=== PATIENT | male | born 1970 | race Two or more races ===

== ENCOUNTER 2020-04-21 10:16 | Inpatient (IN) | payer OTHER ==
[~2020-04-21] VITALS: Ht 170.2 cm; Wt 79.5 kg
[2020-04-21] MEDS ORDERED: PANT40TA29 PO (10:26)
[2020-04-21] MEDS ORDERED: NIAC500T64 PO (10:26)
[2020-04-21] MEDS ORDERED: SILD100T PO (10:26)
[2020-04-21] MEDS ORDERED: LOSA50TA88 PO (10:26)
[2020-04-21] MEDS ORDERED: HYDR12.55 PO (10:26)
[2020-04-21 11:06] LABS: BASO % 0.3 % (0.0-1.0); EOS # 0.1 10^3/uL (0.0-0.5); EOS % 0.6 % (0.0-3.0); HEMATOCRIT 29.9 % (42.0-52.0); LYMPH # 0.7 10^3/uL (1.5-5.0); MEAN CORPUSCULAR HEMOGLOBIN 32.5 pg (27.0-33.0); MEAN CORPUSCULAR VOLUME 88.5 fl (80.0-96.0); MONO # 0.8 10^3/uL (0.0-0.8); NEUTROPHILS # 8.5 10^3/uL (1.5-8.5); RED BLOOD COUNT 3.38 10^6/uL (4.30-6.10); WHITE BLOOD COUNT 10.2 10^3/uL (4.0-10.0)
[2020-04-21] MEDS ORDERED: LORazepam 2 MG TAB PO PRN (11:15)
[2020-04-21 11:23] LABS: INR 1.37; PROTHROMBIN TIME 17.2 SECONDS (12.5-14.3)
[2020-04-21 11:25] LABS: PARTIAL THROMBOPLASTIN TIME 53.6 SECONDS (24.2-38.5)
[2020-04-21 11:42] LABS: PLATELET COUNT, AUTOMATED 61 10^3/uL (150-450)
[2020-04-21 11:44] LABS: ALT/SGPT 49 U/L (12-78); BILIRUBIN,DIRECT 13.7 MG/DL (0.0-0.2); BILIRUBIN,TOTAL 18.5 MG/DL (0.2-1.0); BLOOD UREA NITROGEN 17 MG/DL (7-18); CARBON DIOXIDE LEVEL 21 MEQ/L (21-32); CHLORIDE LEVEL 88 MEQ/L (98-107); CREATININE FOR GFR 1.27 MG/DL (0.70-1.30); GLOMERULAR FILTRATION RATE > 60.0 (>60); GLUCOSE, FASTING 128 MG/DL (70-100); LIPASE 519 U/L (73-393); MEAN CORPUSCULAR HGB CONC 36.8 g/dl (32.0-36.5); POTASSIUM SERUM 3.8 MEQ/L (3.5-5.1); SODIUM LEVEL 122 MEQ/L (136-145); TOTAL PROTEIN 7.8 GM/DL (6.4-8.2)
[2020-04-21 12:24] LABS: ETHYL ALCOHOL (ETHANOL) 0.186 % (0.000-0.010)
[2020-04-21] MEDS ORDERED: THIAMINE 100 MG TAB PO ONE (12:30)
[2020-04-21] MEDS ORDERED: FOLIC ACID 1 MG TAB PO ONE (12:30)
[2020-04-21] MEDS ORDERED: MULTIVITAMINS/MINERALS THERAP 1 TAB PO ONE (12:30)
--- NOTE | 2020-04-21 13:29 | REP ---
INDICATION: acute liver failure COMPARISON: None. TECHNIQUE: Real time ly scale ultrasound examination using curved array transducer. FINDINGS: Liver is enlarged and heterogeneous raising the possibility of underlying fatty infiltration and/or hepatocellular disease. Liver measures 21 cm in craniocaudal length. Pancreas is incompletely evaluated due to interposed bowel gas. The gallbladder demonstrates mild chronic wall thickening to 3.8 mm without obvious gallstones, or pericholecystic fluid. No biliary ductal dilatation is appreciated and the common bile duct measures 3.5 mm diameter. Right kidney is normal in reniform shape without hydronephrosis and measures 11.4 x 5.6 x 5.3 cm. No ascites in the visualized right upper quadrant. IMPRESSION: Heterogeneous enlarged liver suggesting hepatosteatosis and/or hepatocellular disease. No focal hepatic lesion identified. <Electronically signed by Mk Plasencia > 04/21/20 [id number]
[2020-04-21] MEDS ORDERED: predniSONE 20 MG TAB PO ONE (13:45)
[2020-04-21] MEDS ORDERED: IBUP200T45 PO (13:54)
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
[2020-04-21] MEDS ORDERED: OXAZEPAM 15 MG CAP PO ONE (15:00)
[2020-04-21 15:50] VITALS: BP 140/82
[2020-04-21] MEDS ORDERED: MULTIVITAMIN -ADULT INJECTION 10 ML, THIAMINE INJection 100 MG, FOLIC ACID 1 MG in NS 1... IV ONE (16:00)
[2020-04-21] MEDS: OXAZEPAM 10 MG CAP PO SCH (17:31)
[2020-04-21] MEDS ORDERED: THIAMINE 100 MG TAB PO SCH (21:00)
[2020-04-21 22:00] VITALS: BP 134/81
[2020-04-21] MEDS ORDERED: IBUPROFEN 400 MG TAB PO ONE (22:15)
[2020-04-22] VITALS (7 sets, daily range): BP systolic 129–154; BP diastolic 73–86
[2020-04-22] MEDS: NIACIN SR (NIASPAN) 500 MG TAB PO SCH ×2 (00:19→20:28)
[2020-04-22] MEDS: OXAZEPAM 10 MG CAP PO SCH ×2 (00:19→05:46)
[2020-04-22 06:55] LABS: HEMATOCRIT 28.4 % (42.0-52.0); HEMOGLOBIN 10.2 g/dl (13.5-17.5); MEAN CORPUSCULAR HEMOGLOBIN 31.9 pg (27.0-33.0); MEAN CORPUSCULAR HGB CONC 35.9 g/dl (32.0-36.5); MEAN CORPUSCULAR VOLUME 88.8 fl (80.0-96.0); WHITE BLOOD COUNT 10.3 10^3/uL (4.0-10.0)
[2020-04-22 07:00] LABS: PLATELET COUNT, AUTOMATED 55 10^3/uL (150-450)
[2020-04-22 07:07] LABS: INR 1.45
[2020-04-22 07:08] LABS: PARTIAL THROMBOPLASTIN TIME 51.3 SECONDS (24.2-38.5)
--- NOTE | 2020-04-22 07:28 | ECGEPIP ---
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
[2020-04-22 07:43] LABS: ALBUMIN 2.6 GM/DL (3.2-5.2); ALT/SGPT 44 U/L (12-78); BILIRUBIN,TOTAL 19.2 MG/DL (0.2-1.0); BLOOD UREA NITROGEN 22 MG/DL (7-18); CALCIUM LEVEL 8.6 MG/DL (8.5-10.1); CARBON DIOXIDE LEVEL 23 MEQ/L (21-32); CHLORIDE LEVEL 94 MEQ/L (98-107); CREATININE FOR GFR 1.16 MG/DL (0.70-1.30); FERRITIN 1889 NG/ML (26-388); GLOMERULAR FILTRATION RATE > 60.0 (>60); GLUCOSE, FASTING 120 MG/DL (70-100); IRON (FE) 148 UG/DL (65-175); PERCENT SATURATION 92.5 % (19.7-50.0); POTASSIUM SERUM 4.1 MEQ/L (3.5-5.1); SODIUM LEVEL 126 MEQ/L (136-145); TOTAL IRON BINDING CAPACITY 160 UG/DL (250-450); TOTAL PROTEIN 7.1 GM/DL (6.4-8.2)
[2020-04-22] MEDS ORDERED: TOLVAPTAN 7.5 MG HALF-TAB PO ONE (09:00)
[2020-04-22] MEDS ORDERED: FOLIC ACID 1 MG TAB PO SCH (09:00)
[2020-04-22] MEDS ORDERED: MULTIVITAMINS/MINERALS THERAP 1 TAB PO SCH (09:00)
[2020-04-22] MEDS ORDERED: TOLVAPTAN 15 MG TAB (SAMSCA) PO ONE (09:15)
[2020-04-22] MEDS ORDERED: PILL CUTTER 1 EACH XX PRN (09:15)
[2020-04-22] MEDS: PANTOPRAZOLE 40MG TAB (PROTONIX) PO SCH (09:30)
[2020-04-22] MEDS: predniSONE 20 MG TAB PO SCH (09:30)
[2020-04-22] MEDS ORDERED: diazePAM 2 MG TAB PO ONE (10:00)
[2020-04-22] MEDS: OXAZEPAM 15 MG CAP PO SCH ×2 (12:44→18:32)
[2020-04-22] MEDS: SODIUM CHLORIDE 1 GM TAB PO SCH ×2 (12:44→18:32)
--- NOTE | 2020-04-22 13:23 | IPNPDOC ---
Date Seen The patient was seen on 04/22/20. Progress Note SUBJECTIVE: no hematemesis, brbpr, abd pain/n/v/fever, abd distention. c/o tremors all night unable to sleep. no paresthesias, visual hallucinations. c/o anxiety and restlessness. PHYSICAL EXAMINATION: VITAL SIGNS: See below GENERAL APPEARANCE: Jaundice and icterus, awake, alert, oriented 3, no conversational dyspnea HEENT icteric, no JVD, or or thyromegaly. No cervical lymphadenopathy. dry mucous membranes. Tongue is midline. Face is symmetric CARDIOVASCULAR: S1, S2, sinus rhythm, no murmurs, rubs or gallops. Nondisplaced point of maximal impulse LUNGS: Clear to auscultation. Air entry is equal. No adventitious breath sounds ABDOMEN: Positive bowel sounds, soft, nontender, nondistended. No hepatosplenomegaly. No rebound, guarding, no CVA tenderness. No fluid wave EXTREMITIES: No cyanosis, clubbing or pitting edema LABORATORY DATA: See below. IMAGING: INDICATION: acute liver failure COMPARISON: None. TECHNIQUE: Real time ly scale ultrasound examination using curved array transducer. FINDINGS: Liver is enlarged and heterogeneous raising the possibility of underlying fatty infiltration and/or hepatocellular disease. Liver measures 21 cm in craniocaudal length. Pancreas is incompletely evaluated due to interposed bowel gas. The gallbladder demonstrates mild chronic wall thickening to 3.8 mm without obvious gallstones, or pericholecystic fluid. No biliary ductal dilatation is appreciated and the common bile duct measures 3.5 mm diameter. Right kidney is normal in reniform shape without hydronephrosis and measures 11.4 x 5.6 x 5.3 cm. No ascites in the visualized right upper quadrant. IMPRESSION: Heterogeneous enlarged liver suggesting hepatosteatosis and/or hepatocellular disease. No focal hepatic lesion identified. MICROBIOLOGY: Please see below. ASSESSMENT: 49-year-old Elana fonseca presents to the emergency room with 2 day history of jaundice initially noticed when he took a shower and took his shirt off and found that his skin was yellow. He had dry heaving while he was in the shower, no fever, chills, vomiting, abdominal pain, bright red blood per rectum, melena, black tarry stools, hematemesis, coffee-ground emesis. He had a similar episode last year when he was admitted to [facility] and diagnosed with alcoholic liver disease and treated for alcoholic hepatitis. Patient denies any history of hepatitis ABC, HIV, and admits to drinking 3-4 beverages with mixed drinks and wine daily. He denies any confusion or history of hepatic encephalopathy, ascites, or prior history of decompensated liver disease with a scites and portal hypertension. No prior history of splenic vein varices or esophageal varices. In the ER, patient was found to have elevated bilirubin, no obstruction on ultrasound. Patient denies any weight gain and says that he's had some weight loss of about 7 pounds. He usually weighs 179 pounds, currently 172 pounds a week and half ago he had some pale stools. No bleeding. Hospitalist was called to admit for acute alcoholic hepatitis. Acute alcoholic hepatitis Decompensated alcoholic liver disease with jaundice Nonobstructive jaundice Alcohol abuse and dependence Hypertension Hyperlipidemia Tobacco abuse, quit Hyponatremia Elevated ammonia without encephalopathy thrombocytopenia due to etoh liver disease anemia of chronic disease w/o overt gi bleed ETOH withdrawal coagulpathy due to etoh liver disease etoh liver steatohepatitis PLAN: continue w prednisone 40 mg daily, no gibleed, ascites, fever, or encephalopathy. supportive care. withdrawal and seizure precautions. no empiric abx until febrile or ascites. no antiplt or anticoagulant due to coagulopathy and thrombocytopenia. compression stockings. no need to give plt transfusion since no spontaneous bleeding noted until plt<10,000, and pt is not undergoing any invasive procedures. AVOID TYLENOL. obtain records from [facility] re: previous liver workup. outpt referral to GI and already counselled about etoh abstinence and etoh rehab program. VS, I&O, 24H, [place] Vital Signs/I&O Vital Signs Date Time Temp Pulse Resp B/P (MAP) Pulse Ox O2 Delivery O2 Flow Rate FiO2 04/22/20 09:45 143/77 04/22/20 06:00 98.8 82 18 97 Room Air I&O- Last 24 Hours up to 6 AM 04/22/20 06:00 Intake Total 1300 ml Balance 1300 ml Laboratory Data 24H LABS Laboratory Tests 2 04/21/20 13:51: Coronavirus (COVID-19)(PCR) NEGATIVE 04/22/20 06:30: Nucleated Red Blood Cells % (auto) 0.0, Prothrombin Time 18.0H, Prothromb Time International Ratio 1.45, Activated Partial Thromboplast Time 51.3H, Anion Gap 9, Glomerular Filtration Rate > 60.0, Calcium Level 8.6, Iron Level 148, Total Iron Binding Capacity 160L, Transferrin % Saturation 92.5H, Ferritin 1889H, Total Bilirubin 19.2*H, Aspartate Amino Transf (AST/SGOT) 170H, Alanine Aminotransferase (ALT/SGPT) 44, Alkaline Phosphatase 299H, Total Protein 7.1, Albumin 2.6L, Albumin/Globulin Ratio 0.6 04/22/20 07:55: CBC/BMP Laboratory Tests 04/22/20 06:30 LASHAE KATZ MD Apr 22, 2020 13:23
[2020-04-22] MEDS: THIAMINE 100 MG TAB PO SCH (20:28)
[2020-04-22] MEDS: MULTIVITAMINS/MINERALS THERAP 1 TAB PO SCH (20:28)
[2020-04-23] MEDS: OXAZEPAM 15 MG CAP PO SCH ×2 (00:24→05:36)
[2020-04-23 06:00] VITALS: BP 122/63
[2020-04-23 07:01] LABS: HEMATOCRIT 28.1 % (42.0-52.0); HEMOGLOBIN 9.8 g/dl (13.5-17.5); MEAN CORPUSCULAR HEMOGLOBIN 31.2 pg (27.0-33.0); MEAN CORPUSCULAR HGB CONC 34.9 g/dl (32.0-36.5); MEAN CORPUSCULAR VOLUME 89.5 fl (80.0-96.0); RED BLOOD COUNT 3.14 10^6/uL (4.30-6.10); WHITE BLOOD COUNT 12.3 10^3/uL (4.0-10.0)
[2020-04-23 07:04] LABS: PLATELET COUNT, AUTOMATED 70 10^3/uL (150-450)
[2020-04-23 07:10] LABS: INR 1.45; PARTIAL THROMBOPLASTIN TIME 44.2 SECONDS (24.2-38.5)
[2020-04-23 07:22] LABS: ACETAMINOPHEN LEVEL < 2.0 UG/ML (10.0-30.0); ALBUMIN 2.6 GM/DL (3.2-5.2); ALT/SGPT 43 U/L (12-78); BILIRUBIN,TOTAL 19.5 MG/DL (0.2-1.0); BLOOD UREA NITROGEN 24 MG/DL (7-18); CALCIUM LEVEL 8.8 MG/DL (8.5-10.1); CARBON DIOXIDE LEVEL 22 MEQ/L (21-32); CHLORIDE LEVEL 101 MEQ/L (98-107); CREATININE FOR GFR 1.13 MG/DL (0.70-1.30); GLOMERULAR FILTRATION RATE > 60.0 (>60); GLUCOSE, FASTING 121 MG/DL (70-100); POTASSIUM SERUM 3.9 MEQ/L (3.5-5.1); SODIUM LEVEL 132 MEQ/L (136-145)
[2020-04-23] MEDS: FOLIC ACID 1 MG TAB PO SCH (10:05)
[2020-04-23] MEDS: SODIUM CHLORIDE 1 GM TAB PO SCH ×3 (10:05→18:13)
[2020-04-23] MEDS: MULTIVITAMINS/MINERALS THERAP 1 TAB PO SCH ×2 (10:05→21:58)
[2020-04-23] MEDS: THIAMINE 100 MG TAB PO SCH ×2 (10:05→21:58)
[2020-04-23] MEDS: PANTOPRAZOLE 40MG TAB (PROTONIX) PO SCH (10:05)
[2020-04-23] MEDS: predniSONE 20 MG TAB PO SCH (10:06)
[2020-04-23 10:20] LABS: HEPATITIS B SURFACE ANTIGEN NEGATIVE (NEGATIVE)
[2020-04-23] MEDS ORDERED: flumazeniL 0.5 MG/5 ML VIAL IV PRN (10:30)
[2020-04-23 10:47] LABS: HEPATITIS B CORE ANTIBODY IGM NEGATIVE (NEGATIVE)
[2020-04-23 10:50] LABS: HEPATITIS A ANTIBODY IGM NEGATIVE (NEGATIVE)
[2020-04-23] MEDS ORDERED: LORazepam 2 MG/ML VIAL IV PRN (11:15)
[2020-04-23] MEDS ORDERED: diazePAM 2 MG TAB PO SCH (12:00)
--- NOTE | 2020-04-23 12:04 | IPNPDOC ---
Date Seen The patient was seen on 04/23/20. Progress Note SUBJECTIVE: Patient remains restless and anxious despite Serax 30 every 6 hourly requesting IV medications for better control of his tremors. He denies any bright red blood per rectum, melena, black tarry stools, hematemesis, no nausea, vomiting, abdominal pain, paresthesias, visual hallucinations, fever, chills, or increasing abdominal distention, no confusion. headache subsided this morning. PHYSICAL EXAMINATION: VITAL SIGNS: See below GENERAL APPEARANCE: Jaundice and icterus, answers questions appropriately, without respiratory distress, tremulous HEENT icteric, no JVD, or or thyromegaly. No cervical lymphadenopathy., Moist mucous membranes. Tongue is midline. Face is symmetric CARDIOVASCULAR: S1, S2, sinus rhythm, no murmurs, rubs or gallops. Nondisplaced point of maximal impulse LUNGS: Clear to auscultation. Air entry is equal. No adventitious breath sounds ABDOMEN: Positive bowel sounds, soft, nontender, nondistended. No hepatosplenomegaly. No rebound, guarding, , No spider angiomata, or fluid wave no CVA tenderness. No no palmar erythema EXTREMITIES: No cyanosis, clubbing or pitting edema LABORATORY DATA: See below. IMAGING: INDICATION: acute liver failure COMPARISON: None. TECHNIQUE: Real time ly scale ultrasound examination using curved array transducer. FINDINGS: Liver is enlarged and heterogeneous raising the possibility of underlying fatty infiltration and/or hepatocellular disease. Liver measures 21 cm in craniocaudal length. Pancreas is incompletely evaluated due to interposed bowel gas. The gallbladder demonstrates mild chronic wall thickening to 3.8 mm without obvious gallstones, or pericholecystic fluid. No biliary ductal dilatation is appreciated and the common bile duct measures 3.5 mm diameter. Right kidney is normal in reniform shape without hydronephrosis and measures 11.4 x 5.6 x 5.3 cm. No ascites in the visualized right upper quadrant. IMPRESSION: Heterogeneous enlarged liver suggesting hepatosteatosis and/or hepatocellular disease. No focal hepatic lesion identified. MICROBIOLOGY: Please see below. ASSESSMENT: 49-year-old Elana fonseca presents to the emergency room with 2 day history of jaundice initially noticed when he took a shower and took his shirt off and found that his skin was yellow. He had dry heaving while he was in the shower, no fever, chills, vomiting, abdominal pain, bright red blood per rectum, melena, black tarry stools, hematemesis, coffee-ground emesis. He had a similar episode last year when he was admitted to [facility] and diagnosed with alcoholic liver disease and treated for alcoholic hepatitis. Patient denies any history of hepatitis ABC, HIV, and admits to drinking 3-4 beverages with mixed drinks and wine daily. He denies any confusion or history of hepatic encephalopathy, ascites, or prior history of decompensated liver disease with ascites and portal hypertension. No prior history of splenic vein varices or esophageal varices. In the ER, patient was found to have elevated bilirubin, no obstruction on ultrasound. Patient denies any weight gain and says that he's had some weight loss of about 7 pounds. He usually weighs 179 pounds, currently 172 pounds a week and half ago he had some pale stools. No bleeding. Hospitalist was called to admit for acute alcoholic hepatitis. Acute alcoholic hepatitis Decompensated alcoholic liver disease with jaundice Nonobstructive jaundice Alcohol abuse and dependence Hypertension, controlled Hyperlipidemia Tobacco abuse, quit Hyponatremia , improved Elevated ammonia without encephalopathy thrombocytopenia due to etoh liver disease anemia of chronic disease w/o overt gi bleed ETOH withdrawal coagulpathy due to etoh liver disease etoh liver steatohepatitis PLAN: Patient is continued on prednisone 40 mg daily. His lisinopril, hydrochlorothiazide, have not be resumed due to severe hyponatremia on admission which is now improved with stopping these medications. Patient's blood pressure has been well maintained on 120 to 1:30 on sedatives despite Serax 30 mg every 6 hourly. Patient continues to have tremors and is requesting IV medications. For his comfort and for alcohol withdrawal. Patient will be changed to Valium 5 mg every 8 hourly along with IV Ativan for breakthrough tremors and alcohol wi thdrawal at this time. His blood pressure medications. Will continue to be held due to normal blood pressure and risk of worsening his sodium level. Despite being on prednisone. His bilirubin continues to increase, which we can see up to 7 days after starting medications. He will need to be on prednisone for at least 4-6 weeks as outpatient. He has been advised about alcohol abuse and potentially going into an alcohol rehabilitation facility. He does not have any active GI bleeding. Platelet counts remain stable and does not require any platelet transfusion. VS, I&O, 24H, [place] Vital Signs/I&O Vital Signs Date Time Temp Pulse Resp B/P (MAP) Pulse Ox O2 Delivery O2 Flow Rate FiO2 04/23/20 06:00 98.8 86 18 122/63 (82) 96 Room Air I&O- Last 24 Hours up to 6 AM 04/23/20 06:00 Intake Total 2130 ml Output Total 1000 ml Balance 1130 ml Laboratory Data 24H LABS Laboratory Tests 2 04/23/20 06:45: Nucleated Red Blood Cells % (auto) 0.0, Immature Platelet Fraction 8.9, Prothrombin Time 18.0H, Prothromb Time International Ratio 1.45, Activated Partial Thromboplast Time 44.2H, Anion Gap 9, Glomerular Filtration Rate > 60.0, Calcium Level 8.8, Total Bilirubin 19.5*H, Aspartate Amino Transf (AST/SGOT) 133H, Alanine Aminotransferase (ALT/SGPT) 43, Alkaline Phosphatase 286H, Total Protein 7.0, Albumin 2.6L, Albumin/Globulin Ratio 0.6, Acetaminophen Level < 2.0L CBC/BMP Laboratory Tests 04/23/20 06:45 LASHAE KATZ MD Apr 23, 2020 12:04
[2020-04-23] MEDS: diazePAM 5 MG TAB PO SCH ×2 (13:06→21:58)
[2020-04-23 14:00] VITALS: BP 125/68
[2020-04-23 16:08] LABS: ANTI CENTROMERE ANTIBODY <0.2 AI (0.0-0.9); ANTI-MITOCHONDRIAL ANTIBODY <20.0 Units (0.0-20.0); ANTI-SMOOTH MUSCLE ANTIBODY 34 Units (0-19); ANTINUCLEAR ANTIBODIES DIRECT Negative (Negative); CERULOPLASMIN 28.6 mg/dL (16.0-31.0)
[2020-04-23] MEDS: NIACIN SR (NIASPAN) 500 MG TAB PO SCH (21:58)
[2020-04-23 22:00] VITALS: BP 136/72
[2020-04-24 06:00] VITALS: BP 137/72
[2020-04-24 06:18] LABS: HEMATOCRIT 28.3 % (42.0-52.0); HEMOGLOBIN 9.9 g/dl (13.5-17.5); MEAN CORPUSCULAR HEMOGLOBIN 31.6 pg (27.0-33.0); MEAN CORPUSCULAR VOLUME 90.4 fl (80.0-96.0); RED BLOOD COUNT 3.13 10^6/uL (4.30-6.10); WHITE BLOOD COUNT 13.1 10^3/uL (4.0-10.0)
[2020-04-24 06:21] LABS: PLATELET COUNT, AUTOMATED 76 10^3/uL (150-450)
[2020-04-24 06:28] LABS: INR 1.49; PROTHROMBIN TIME 18.3 SECONDS (12.5-14.3)
[2020-04-24 06:29] LABS: PARTIAL THROMBOPLASTIN TIME 40.5 SECONDS (24.2-38.5)
[2020-04-24 06:37] LABS: ALBUMIN 2.7 GM/DL (3.2-5.2); ALT/SGPT 47 U/L (12-78); BILIRUBIN,TOTAL 20.9 MG/DL (0.2-1.0); BLOOD UREA NITROGEN 22 MG/DL (7-18); CALCIUM LEVEL 8.8 MG/DL (8.5-10.1); CARBON DIOXIDE LEVEL 23 MEQ/L (21-32); CHLORIDE LEVEL 100 MEQ/L (98-107); GLOMERULAR FILTRATION RATE > 60.0 (>60); GLUCOSE, FASTING 91 MG/DL (70-100); SODIUM LEVEL 130 MEQ/L (136-145)
[2020-04-24] MEDS: diazePAM 5 MG TAB PO SCH ×4 (06:56→23:36)
--- NOTE | 2020-04-24 09:31 | IPNPDOC ---
Date Seen The patient was seen on 04/24/20. Progress Note SUBJECTIVE: still w tremors and anxiety despite q8hrs valium. no n/v/abd pain/paresthesias/visual hallucinations. despite sodium 130, no c/o h/a, visual changes, or decreased concentration or memory issues. PHYSICAL EXAMINATION: VITAL SIGNS: See below GENERAL APPEARANCE: Jaundice and icterus, anxious HEENT icteric, no JVD, or or thyromegaly. no stridor CARDIOVASCULAR: S1, S2, sinus rhythm LUNGS: Clear to auscultation. Air entry is equal.no kyphoscoliosis ABDOMEN: Positive bowel sounds, soft, nontender, nondistended. EXTREMITIES: No cyanosis, clubbing or pitting edema LABORATORY DATA: See below. IMAGING: INDICATION: acute liver failure COMPARISON: None. TECHNIQUE: Real time ly scale ultrasound examination using curved array transducer. FINDINGS: Liver is enlarged and heterogeneous raising the possibility of underlying fatty infiltration and/or hepatocellular disease. Liver measures 21 cm in craniocaudal length. Pancreas is incompletely evaluated due to interposed bowel gas. The gallbladder demonstrates mild chronic wall thickening to 3.8 mm without obvious gallstones, or pericholecystic fluid. No biliary ductal dilatation is appreciated and the common bile duct measures 3.5 mm diameter. Right kidney is normal in reniform shape without hydronephrosis and measures 11.4 x 5.6 x 5.3 cm. No ascites in the visualized right upper quadrant. IMPRESSION: Heterogeneous enlarged liver suggesting hepatosteatosis and/or hepatocellular disease. No focal hepatic lesion identified. MICROBIOLOGY: Please see below. ASSESSMENT: 49-year-old Elana fonseca presents to the emergency room with 2 day history of jaundice initially noticed when he took a shower and took his shirt off and found that his skin was yellow. He had dry heaving while he was in the shower, no fever, chills, vomiting, abdominal pain, bright red blood per rectum, melena, black tarry stools, hematemesis, coffee-ground emesis. He had a similar episode last year when he was admitted to [facility] and diagnosed with alcoholic liver disease and treated for alcoholic hepatitis. Patient denies any history of hepatitis ABC, HIV, and admits to drinking 3-4 beverages with mixed drinks and wine daily. He denies any confusion or history of hepatic encephalopathy, ascites, or prior history of decompensated liver disease with ascites and portal hypertension. No prior history of splenic vein varices or esophageal varices. In the ER, patient was found to have elevated bilirubin, no obstruction on ultrasound. Patient denies any weight gain and says that he's had some weight loss of about 7 pounds. He usually weighs 179 pounds, currently 172 pounds a week and half ago he had some pale stools. No bleeding. Hospitalist was called to admit for acute alcoholic hepatitis. 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 no seizure activity. mrcp to r/o obstructive causes. antismooth ab abnormal. continue prednisone. etoh abstinence. pt not interested in etoh rehab. sedatives to be increased to q6hrs valium due to persistent restlessness. prn iv ativan for breakthrough anxiety. VS, I&O, 24H, Fishbone Vital Signs/I&O Vital Signs Date Time Temp Pulse Resp B/P (MAP) Pulse Ox O2 Delivery O2 Flow Rate FiO2 04/24/20 06:00 98.2 97 16 137/72 (93) 97 Room Air I&O- Last 24 Hours up to 6 AM 04/24/20 06:00 Intake Total 1980 ml Output Total 0 ml Balance 1980 ml Laboratory Data 24H LABS Laboratory Tests 2 04/24/20 05:32: Nucleated Red Blood Cells % (auto) 0.0, Prothrombin Time 18.3H, Prothromb Time International Ratio 1.49, Activated Partial Thromboplast Time 40.5H, Anion Gap 7L, Glomerular Filtration Rate > 60.0, Calcium Level 8.8, Total Bilirubin 20.9*H, Aspartate Amino Transf (AST/SGOT) 115H, Alanine Aminotransferase (ALT/SGPT) 47, Alkaline Phosphatase 250H, Total Protein 7.0, Albumin 2.7L, Albumin/Globulin Ratio 0.6 CBC/BMP Laboratory Tests 04/24/20 05:32 LASHAE KATZ MD Apr 24, 2020 09:31
[2020-04-24] MEDS: predniSONE 20 MG TAB PO SCH (10:04)
[2020-04-24] MEDS: MULTIVITAMINS/MINERALS THERAP 1 TAB PO SCH ×2 (10:04→20:49)
[2020-04-24] MEDS: FOLIC ACID 1 MG TAB PO SCH (10:04)
[2020-04-24] MEDS: PANTOPRAZOLE 40MG TAB (PROTONIX) PO SCH (10:04)
[2020-04-24] MEDS: THIAMINE 100 MG TAB PO SCH ×2 (10:05→20:49)
[2020-04-24] MEDS: SODIUM CHLORIDE 1 GM TAB PO SCH ×3 (10:08→17:01)
[2020-04-24] MEDS ORDERED: hydrOXYzine 25 MG TAB PO ONE (10:30)
[2020-04-24] MEDS ORDERED: SENOKOT S TAB PO PRN (12:00)
[2020-04-24] MEDS: LACTULOSE 20 GM/30 ML SYRUP UD PO SCH ×3 (13:04→18:41)
[2020-04-24 14:00] VITALS: BP 126/66
[2020-04-24] MEDS: NIACIN SR (NIASPAN) 500 MG TAB PO SCH (20:49)
[2020-04-24 22:00] VITALS: BP 120/66
[2020-04-25 06:00] VITALS: BP 115/63
[2020-04-25 06:11] LABS: HEMATOCRIT 26.1 % (42.0-52.0); HEMOGLOBIN 9.2 g/dl (13.5-17.5); MEAN CORPUSCULAR HEMOGLOBIN 32.3 pg (27.0-33.0); MEAN CORPUSCULAR HGB CONC 35.2 g/dl (32.0-36.5); MEAN CORPUSCULAR VOLUME 91.6 fl (80.0-96.0); RED BLOOD COUNT 2.85 10^6/uL (4.30-6.10); WHITE BLOOD COUNT 12.8 10^3/uL (4.0-10.0)
[2020-04-25] MEDS: diazePAM 5 MG TAB PO SCH ×3 (06:13→18:00)
[2020-04-25 06:19] LABS: PLATELET COUNT, AUTOMATED 78 10^3/uL (150-450)
[2020-04-25 06:20] LABS: INR 1.77
[2020-04-25 06:21] LABS: PARTIAL THROMBOPLASTIN TIME 41.8 SECONDS (24.2-38.5)
[2020-04-25 06:53] LABS: ALBUMIN 2.6 GM/DL (3.2-5.2); ALT/SGPT 50 U/L (12-78); BLOOD UREA NITROGEN 22 MG/DL (7-18); CALCIUM LEVEL 8.8 MG/DL (8.5-10.1); CARBON DIOXIDE LEVEL 24 MEQ/L (21-32); CHLORIDE LEVEL 102 MEQ/L (98-107); CREATININE FOR GFR 1.13 MG/DL (0.70-1.30); GLOMERULAR FILTRATION RATE > 60.0 (>60); GLUCOSE, FASTING 108 MG/DL (70-100); POTASSIUM SERUM 3.7 MEQ/L (3.5-5.1); SODIUM LEVEL 133 MEQ/L (136-145); TOTAL PROTEIN 6.6 GM/DL (6.4-8.2)
[2020-04-25 06:54] LABS: BILIRUBIN,TOTAL 20.7 MG/DL (0.2-1.0)
[2020-04-25] MEDS: FOLIC ACID 1 MG TAB PO SCH (08:05)
[2020-04-25] MEDS: THIAMINE 100 MG TAB PO SCH ×2 (08:05→20:23)
[2020-04-25] MEDS: predniSONE 20 MG TAB PO SCH (08:05)
[2020-04-25] MEDS: SODIUM CHLORIDE 1 GM TAB PO SCH ×3 (08:05→17:08)
[2020-04-25] MEDS: PANTOPRAZOLE 40MG TAB (PROTONIX) PO SCH (08:05)
[2020-04-25] MEDS: LACTULOSE 20 GM/30 ML SYRUP UD PO SCH ×3 (08:05→20:23)
[2020-04-25] MEDS: MULTIVITAMINS/MINERALS THERAP 1 TAB PO SCH ×2 (08:06→20:23)
--- NOTE | 2020-04-25 12:56 | IPNPDOC ---
Date Seen The patient was seen on 04/25/20. Progress Note SUBJECTIVE: c/o generalized pruritus, and has prn atarx. no fever, gi bleed, or confusion. comfortable with current valium. ambulating well. denies paresthesias, visual hallucinations, abd pain/ n/v PHYSICAL EXAMINATION: VITAL SIGNS: See below GENERAL APPEARANCE: Jaundice and icterus, no distress.no pallor HEENT icteric, no JVD, or or thyromegaly. no stridor EOMI CARDIOVASCULAR: S1, S2, sinus rhythm LUNGS: Clear to auscultation. Air entry is equal.no adventitious breath sounds. ABDOMEN: Positive bowel sounds, soft, nontender, nondistended. EXTREMITIES: No cyanosis, clubbing or pitting edema LABORATORY DATA: See below. IMAGING: INDICATION: acute liver failure COMPARISON: None. TECHNIQUE: Real time ly scale ultrasound examination using curved array transducer. FINDINGS: Liver is enlarged and heterogeneous raising the possibility of underlying fatty infiltration and/or hepatocellular disease. Liver measures 21 cm in craniocaudal length. Pancreas is incompletely evaluated due to interposed bowel gas. The gallbladder demonstrates mild chronic wall thickening to 3.8 mm without obvious gallstones, or pericholecystic fluid. No biliary ductal dilatation is appreciated and the common bile duct measures 3.5 mm diameter. Right kidney is normal in reniform shape without hydronephrosis and measures 11.4 x 5.6 x 5.3 cm. No ascites in the visualized right upper quadrant. IMPRESSION: Heterogeneous enlarged liver suggesting hepatosteatosis and/or hepatocellular disease. No focal hepatic lesion identified. MICROBIOLOGY: Please see below. ASSESSMENT: 49-year-old Elana fonseca presents to the emergency room with 2 day history of jaundice initially noticed when he took a shower and took his shirt off and found that his skin was yellow. He had dry heaving while he was in the shower, no fever, chills, vomiting, abdominal pain, bright red blood per rectum, melena, black tarry stools, hematemesis, coffee-ground emesis. He had a similar episode last year when he was admitted to [facility] and diagnosed with alcoholic liver disease and treated for alcoholic hepatitis. Patient denies any history of hepatitis ABC, HIV, and admits to drinking 3-4 beverages with mixed drinks and wine daily. He denies any confusion or history of hepatic encephalopa thy, ascites, or prior history of decompensated liver disease with ascites and portal hypertension. No prior history of splenic vein varices or esophageal varices. In the ER, patient was found to have elevated bilirubin, no obstruction on ultrasound. Patient denies any weight gain and says that he's had some weight loss of about 7 pounds. He usually weighs 179 pounds, currently 172 pounds a week and half ago he had some pale stools. No bleeding. Hospitalist was called to admit for acute alcoholic hepatitis. 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 will need gi referral asoutpt Dr. Caceres in 1 wk. bili has plateaud. if continues to decrease and no other complications suchas encephalopathy gi bleed fever with ascites , may dc home once bili trends down. prn atarax for pruritis and trial of cholestyramine. VS, I&O, 24H, Fishbone Vital Signs/I&O Vital Signs Date Time Temp Pulse Resp B/P (MAP) Pulse Ox O2 Delivery O2 Flow Rate FiO2 04/25/20 06:00 99.3 80 16 115/63 (80) 100 Room Air I&O- Last 24 Hours up to 6 AM 04/25/20 06:00 Intake Total 1550 ml Output Total 0 ml Balance 1550 ml Laboratory Data 24H LABS Laboratory Tests 2 04/25/20 05:50: Nucleated Red Blood Cells % (auto) 0.0, Immature Platelet Fraction 6.8, Prothrombin Time 21.0H, Prothromb Time International Ratio 1.77, Activated Partial Thromboplast Time 41.8H, Anion Gap 7L, Glomerular Filtration Rate > 60.0, Calcium Level 8.8, Total Bilirubin 20.7*H, Aspartate Amino Transf (AST/SGOT) 103H, Alanine Aminotransferase (ALT/SGPT) 50, Alkaline Phosphatase 235H, Total Protein 6.6, Albumin 2.6L, Albumin/Globulin Ratio 0.7 CBC/BMP Laboratory Tests 04/25/20 05:50 LASHAE KATZ MD 29, 2020 10:11
[2020-04-25 14:00] VITALS: BP 125/65
--- NOTE | 2020-04-25 19:13 | REP ---
INDICATION: elevated bili r/o cbd obstruction COMPARISON: None. TECHNIQUE: Standard MRCP sequencing without contrast to include heavily weighted T2 axial and coronal sequences with single slice and multi-rotational MIP reconstructions. FINDINGS: The gallbladder demonstrates relatively low signal intensity on T2 weighted sequences along with mild gallbladder wall thickening and mild pericholecystic inflammatory changes. There is no evidence for biliary ductal dilatation. IMPRESSION: *Findings suggest gallbladder sludge and possible acalculous cholecystitis. No biliary ductal dilatation or obstructing choledocholith identified. *Consider contrast enhanced CT of the abdomen if the patient remains symptomatic to evaluate for other possible causes <Electronically signed by Mk Plasencia > 04/25/20 [id number]
[2020-04-25 20:21] VITALS: BP 126/67
[2020-04-25] MEDS: NIACIN SR (NIASPAN) 500 MG TAB PO SCH (20:23)
[2020-04-26] MEDS: diazePAM 5 MG TAB PO SCH ×3 (00:44→12:00)
[2020-04-26 06:00] VITALS: BP 119/66
[2020-04-26] MEDS ORDERED: FOLI1TAB11 PO ×2 (06:43→10:29)
[2020-04-26] MEDS ORDERED: THIA100TA PO ×3 (06:43→10:29)
[2020-04-26] MEDS ORDERED: VITMTA PO ×3 (06:43→10:30)
[2020-04-26] MEDS ORDERED: DIAZ5TAB PO (06:46)
[2020-04-26 06:47] LABS: HEMATOCRIT 27.8 % (42.0-52.0); HEMOGLOBIN 9.5 g/dl (13.5-17.5); MEAN CORPUSCULAR HEMOGLOBIN 31.5 pg (27.0-33.0); MEAN CORPUSCULAR HGB CONC 34.2 g/dl (32.0-36.5); MEAN CORPUSCULAR VOLUME 92.1 fl (80.0-96.0); RED BLOOD COUNT 3.02 10^6/uL (4.30-6.10); WHITE BLOOD COUNT 12.6 10^3/uL (4.0-10.0)
[2020-04-26 06:49] LABS: PLATELET COUNT, AUTOMATED 84 10^3/uL (150-450)
[2020-04-26 06:55] LABS: INR 1.67; PROTHROMBIN TIME 20.1 SECONDS (12.5-14.3)
[2020-04-26 07:22] LABS: ALBUMIN 2.5 GM/DL (3.2-5.2); ALT/SGPT 57 U/L (12-78); BILIRUBIN,TOTAL 19.6 MG/DL (0.2-1.0); BLOOD UREA NITROGEN 16 MG/DL (7-18); CALCIUM LEVEL 9.3 MG/DL (8.5-10.1); CARBON DIOXIDE LEVEL 24 MEQ/L (21-32); CHLORIDE LEVEL 101 MEQ/L (98-107); CREATININE FOR GFR 0.97 MG/DL (0.70-1.30); GLOMERULAR FILTRATION RATE > 60.0 (>60); GLUCOSE, FASTING 96 MG/DL (70-100); POTASSIUM SERUM 3.6 MEQ/L (3.5-5.1); SODIUM LEVEL 132 MEQ/L (136-145); TOTAL PROTEIN 7.1 GM/DL (6.4-8.2)
[2020-04-26] MEDS: PANTOPRAZOLE 40MG TAB (PROTONIX) PO SCH (08:20)
[2020-04-26] MEDS: SODIUM CHLORIDE 1 GM TAB PO SCH ×2 (08:20→13:25)
[2020-04-26] MEDS: MULTIVITAMINS/MINERALS THERAP 1 TAB PO SCH (08:20)
[2020-04-26] MEDS: predniSONE 20 MG TAB PO SCH (08:20)
[2020-04-26] MEDS: FOLIC ACID 1 MG TAB PO SCH (08:20)
[2020-04-26] MEDS: LACTULOSE 20 GM/30 ML SYRUP UD PO SCH (08:20)
[2020-04-26] MEDS: THIAMINE 100 MG TAB PO SCH (08:20)
[2020-04-26] MEDS ORDERED: hydrOXYzine 25 MG TAB PO ONE (10:15)
[2020-04-26] MEDS ORDERED: PRED20TA PO (10:16)
[2020-04-26] MEDS ORDERED: HYDR-3363 PO (10:21)
[2020-04-26] MEDS ORDERED: CHOL4PW PO (10:24)
[2020-04-26] MEDS ORDERED: QUES4POW PO (10:31)
[2020-04-26] MEDS ORDERED: AUGM875T28 PO (10:36)
[2020-04-26] MEDS ORDERED: BACI1CAP PO (10:36)
[2020-04-26] MEDS ORDERED: AUGMENTIN 875 MG TAB PO ONE (10:45)
[2020-04-26] MEDS: LACTOBACILLUS ACIDOPHILUS CAP (BACID) PO SCH ×2 (10:45→12:08)
[2020-04-26] MEDS ORDERED: SODI1TAB6 PO ×2 (11:05→11:07)
--- NOTE | 2020-04-26 11:51 | DS.PDOC ---
Discharge Summary General Date of Admission Apr 21, 2020 at 13:44 Date of Discharge 04/26/20 Discharge Summary DISCHARGE DIAGNOSES: Acute alcoholic hepatitis Decompensated alcoholic liver disease with jaundice Nonobstructive jaundice Alcohol abuse and dependence Hypertension Hyperlipidemia Tobacco abuse, quit Hyponatremia due to hctz, beer potomania, lucia inh. 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 ALLERGIES: Please see below. DISCHARGE INSTRUCTIONS: ETOH rehab program [facility] from alcohol use. Avoid >2grams acetaminophen use /24hrs. if using NSAIDs (ibuprofen, aleve, naproxen), take on a full stomach, 12oz liquid, and remain upright for 1hr. PCP fu within 1 wk. NO HCTZ, LUCIA INH or ARB due to hyponatremia 122. For sbp>130mmHg, may prescribe beta blockers, calcium channel blockers, direct vasodilators until sodium is stable. GI referral, Dr. Caceres for ETOH liver disease, ETOH hepatitis, , and monitor gallbladder sludging to determine if ERCP needed if cbd dilation. HOSPITAL COURSE: 49-year-old Elana fonseca presented to the emergency room with 2 day history of jaundice initially noticed when he took a shower and took his shirt off and found that his skin was yellow. He had dry heaving while he was in the shower, no fever, chills, vomiting, abdominal pain, bright red blood per rectum, melena, black tarry stools, hematemesis, coffee-ground emesis. He had a similar episode last year when he was admitted to [facility] and diagnosed with alcoholic liver disease and treated for alcoholic hepatitis. Patient denies any history of hepatitis ABC, HIV, and admits to drinking 3-4 beverages with mixed drinks and wine daily. He denies any confusion or history of hepatic encephalopathy, ascites, or prior history of decompensated liver disease with ascites and portal hypertension. No prior history of splenic vein varices or esophageal varices. In the ER, patient was found to have elevated bilirubin, no obstruction on ultrasound. Patient denied any weight gain and says that he's had some weight loss of about 7 pounds. He usually weighs 179 pounds, currently 172 pounds a week and half ago he had some pale stools. No bleeding. Hospitalist was called to admit for acute alcoholic hepatitis. Per GI labor relations consultant, Dr. Caceres, who discussed the case with the ER physician, pt was advised to take 4-6weeks of prednisone for alcoholic hepatitis and to have hospitalist admit the patient. Pt given prednisone 40 mg daily with total bilirubin peaking at 20, and decreasing on the day of discharge. He had no ascites, encephalopathy, GI bleed, seizures during his hospital stay. He c/o pruritus treated with atarax and questran. MRCP to rule out CBC dilation showed gall bladder sludging with no CBD dilation. for alcohol withdrawal, pt did not do well with PRN serax, changed to serax q6h with max dose of 120mg daily, but still had tremors, no seizures. He was changed to valium 5 mg po q8hrs prn, but had restlessness. He was controlled on valium 5mg po q6hrs, and received folic acid, thiamine, and mvi. He was counselled at length about etoh rehab and to avoid acetaminophen. was involved in the discussion, and agreed with GI followup. Workup included r/o hemochromatosis, tayla's disease, PSC, PBC, viral hepatitis. He denied any abdominal pain, n/v, and had no fever or ascites throughout the entire admission. Due to findings of chronic cholecystitis, Surgeon labor relations consultant, Dr. Brown, suggested empirically covering with abx x 7days. He was given augmentin x 7days and ppi. Bacid to decrease risk of cdiff. His blood pressure was 120-130 and sodium improved from 122 to 130 off HCTZ and LUCIA inh, with salt tablets w meals. No mental status changes were seen. DISCHARGE MEDICATIONS: Please see below. ALLERGIES: Please see below. DISCHARGE PHYSICAL EXAMINATION: VITAL SIGNS: See below GENERAL APPEARANCE: Jaundice and icterus, no distress.no pallor HEENT icteric, no JVD, or or thyromegaly. no stridor EOMI CARDIOVASCULAR: S1, S2, sinus rhythm LUNGS: Clear to auscultation. Air entry is equal.no adventitious breath sounds. ABDOMEN: Positive bowel sounds, soft, nontender, nondistended. EXTREMITIES: No cyanosis, clubbing or pitting edema LABORATORY DATA: See below. IMAGING: INDICATION: acute liver failure COMPARISON: None. TECHNIQUE: Real time ly scale ultrasound examination using curved array transducer. FINDINGS: Liver is enlarged and heterogeneous raising the possibility of underlying fatty infiltration and/or hepatocellular disease. Liver measures 21 cm in craniocaudal length. Pancreas is incompletely evaluated due to interposed bowel gas. The gallbladder demonstrates mild chronic wall thickening to 3.8 mm without obvious gallstones, or pericholecystic fluid. No biliary ductal dilatation is appreciated and the common bile duct measures 3.5 mm diameter. Right kidney is normal in reniform shape without hydronephrosis and measures 11.4 x 5.6 x 5.3 cm. No ascites in the visualized right upper quadrant. IMPRESSION: Heterogeneous enlarged liver suggesting hepatosteatosis and/or hepatocellular disease. No focal hepatic lesion identified. MICROBIOLOGY: Please see below. TIME SPENT ON DISCHARGE: 30 MINUTES Vital Signs/I&Os Vital Signs Date Time Temp Pulse Resp B/P (MAP) Pulse Ox O2 Delivery O2 Flow Rate FiO2 04/26/20 06:00 98.3 72 19 119/66 (83) 98 Room Air I&O- Last 24 Hours up to 6 AM 04/26/20 06:00 Intake Total 2000 ml Balance 2000 ml Laboratory Data Labs 24H Laboratory Tests 2 04/26/20 06:18: Nucleated Red Blood Cells % (auto) 0.0, Immature Platelet Fraction 8.5, Prothrombin Time 20.1H, Prothromb Time International Ratio 1.67, Activated Partial Thromboplast Time 40.0H, Anion Gap 7L, Glomerular Filtration Rate > 60.0, Calcium Level 9.3, Total Bilirubin 19.6*H, Aspartate Amino Transf (AST/SGOT) 99H, Alanine Aminotransferase (ALT/SGPT) 57, Alkaline Phosphatase 241H, Total Protein 7.1, Albumin 2.5L, Albumin/Globulin Ratio 0.5 CBC/BMP Laboratory Tests 04/26/20 06:18 Discharge Medications Scheduled Amoxicillin/Potassium Clav (Augmentin 875-125 Tablet) 1 Each Tablet, 1 TAB PO BID Bacillus Coagulans (Bacid with Lactospore) 1 Each Capsule, 1 CAP PO WM Cholestyramine (with Sugar) (Questran Packet) 4 Gm Powd.pack, 1 PKT PO DAILY Diazepam (Diazepam) 5 Mg Tablet, 5 MG PO Q6H Folic Acid (Folic Acid) 1 Mg Tablet, 1 MG PO DAILY Multivitamins (Thera M Plus Tablet) 1 Each Tablet, 1 TAB PO BID Niacin (Niacin ER) 500 Mg Tab.er.24h, 500 MG PO QHS, (Reported) Pantoprazole Sodium (Pantoprazole Sodium) 40 Mg Tablet.dr, 40 MG PO DAILY, (Reported) Prednisone (Prednisone) 20 Mg Tablet, 40 MG PO DAILY Sodium Chloride (Sodium Chloride) 1 Gm Tablet, 1 GM PO WM Thiamine Hcl (Vitamin B-1) 100 Mg Tablet, 100 MG PO BID Scheduled PRN Hydroxyzine HCl (Hydroxyzine HCl) 25 Mg Tablet, 25 MG PO TIDP PRN for pruritus Sildenafil Citrate (Sildenafil Citrate) 100 Mg Tablet, 100 MG PO ASDIRECTED PRN for ERECTILE DYSFUNCTION, (Reported) Allergies Coded Allergies: No Known Allergies (Unverified , 04/21/20) LASHAE KATZ MD Apr 26, 2020 11:09
[2020-04-26] MEDS ORDERED: diazePAM 5 MG TAB PO ONE (12:00)
[2020-04-26] MEDS ORDERED: CHOLESTYRAMINE 4 GM PWD PKT PO SCH (12:00)
[2020-04-26] MEDS ORDERED: AUGMENTIN 875 MG TAB PO SCH (21:00)
== END 2020-04-26 13:37 | disposition home or self-care (01) | DRG 433 ==
LOC: M ED 10:16 → EDBD 10:16 → M ED INP 13:44 → ENRESERV 14:00 → M MSPAV 15:51
PROVIDERS: ADMIT General Practice; ATTEND General Practice
DX: K70.10 Alcoholic hepatitis without ascites (principal); E87.1 Hypo-osmolality and hyponatremia; F10.239 Alcohol dependence with withdrawal, unspecified; D69.6 Thrombocytopenia, unspecified; K70.30 Alcoholic cirrhosis of liver without ascites; I10 Essential (primary) hypertension; E78.5 Hyperlipidemia, unspecified; D63.8 Anemia in other chronic diseases classified elsewhere; D72.829 Elevated white blood cell count, unspecified; Z79.899 Other long term (current) drug therapy; Z87.891 Personal history of nicotine dependence; K70.40 Alcoholic hepatic failure without coma

== ENCOUNTER → 2020-04-29 | Outpatient (CLI) | payer OTHER ==
[~2020-04-29] MED LIST: AUGM875T28 PO; BACI1CAP PO; CHOL4PW PO; DIAZ5TAB PO; FOLI1TAB11 PO; HYDR-3363 PO; HYDR12.55 PO; IBUP200T45 PO; LOSA50TA88 PO; NIAC500T64 PO; PANT40TA29 PO; PRED20TA PO; QUES4POW PO; SILD100T PO; SODI1TAB6 PO; THIA100TA PO; VITMTA PO
[2020-04-29 15:27] LABS: BASO % 0.2 % (0.0-1.0); EOS # 0.1 10^3/uL (0.0-0.5); EOS % 0.5 % (0.0-3.0); HEMATOCRIT 28.7 % (42.0-52.0); HEMOGLOBIN 9.7 g/dl (13.5-17.5); LYMPH # 1.3 10^3/uL (1.5-5.0); LYMPH % 7.7 % (24.0-44.0); MEAN CORPUSCULAR HGB CONC 33.8 g/dl (32.0-36.5); MEAN CORPUSCULAR VOLUME 94.7 fl (80.0-96.0); MONO # 1.4 10^3/uL (0.0-0.8); MONO % 8.7 % (0.0-5.0); NEUTROPHILS # 13.2 10^3/uL (1.5-8.5); NEUTROPHILS % 80.3 % (36.0-66.0); PLATELET COUNT, AUTOMATED 124 10^3/uL (150-450); RED BLOOD COUNT 3.03 10^6/uL (4.30-6.10); WHITE BLOOD COUNT 16.4 10^3/uL (4.0-10.0)
[2020-04-29 15:38] LABS: INR 1.4; PROTHROMBIN TIME 17.5 SECONDS (12.5-14.3)
[2020-04-29 17:22] LABS: ALBUMIN 2.4 GM/DL (3.2-5.2); ALT/SGPT 79 U/L (12-78); BILIRUBIN,TOTAL 18.1 MG/DL (0.2-1.0); BLOOD UREA NITROGEN 21 MG/DL (7-18); CALCIUM LEVEL 8.6 MG/DL (8.5-10.1); CARBON DIOXIDE LEVEL 23 MEQ/L (21-32); CHLORIDE LEVEL 101 MEQ/L (98-107); CREATININE FOR GFR 0.96 MG/DL (0.70-1.30); GLOMERULAR FILTRATION RATE > 60.0 (>60); GLUCOSE, FASTING 106 MG/DL (70-100); POTASSIUM SERUM 3.6 MEQ/L (3.5-5.1); SODIUM LEVEL 132 MEQ/L (136-145); TOTAL PROTEIN 6.5 GM/DL (6.4-8.2)
== END ==
LOC: M LAB 14:29
PROVIDERS: ATTEND Internal Medicine Gastroenterology
DX: K70.10 Alcoholic hepatitis without ascites (principal)

== ENCOUNTER → 2020-05-03 | Outpatient (CLI) | payer OTHER ==
[~2020-05-03] MED LIST changes: +LACT20EL PO; +LASI20TA3 PO; +LIDO5OIN19
[2020-05-03 08:12] LABS: BASO # 0.1 10^3/uL (0.0-0.2); BASO % 0.2 % (0.0-1.0); EOS % 0.1 % (0.0-3.0); HEMATOCRIT 32.8 % (42.0-52.0); HEMOGLOBIN 10.6 g/dl (13.5-17.5); LYMPH # 1.3 10^3/uL (1.5-5.0); LYMPH % 4.6 % (24.0-44.0); MEAN CORPUSCULAR HEMOGLOBIN 31.9 pg (27.0-33.0); MEAN CORPUSCULAR HGB CONC 32.3 g/dl (32.0-36.5); MEAN CORPUSCULAR VOLUME 98.8 fl (80.0-96.0); MONO # 1.7 10^3/uL (0.0-0.8); NEUTROPHILS # 23.8 10^3/uL (1.5-8.5); NEUTROPHILS % 86.1 % (36.0-66.0); PLATELET COUNT, AUTOMATED 173 10^3/uL (150-450); RED BLOOD COUNT 3.32 10^6/uL (4.30-6.10); WHITE BLOOD COUNT 27.6 10^3/uL (4.0-10.0)
[2020-05-03 08:24] LABS: INR 1.38; PROTHROMBIN TIME 17.3 SECONDS (12.5-14.3)
[2020-05-03 08:40] LABS: ALBUMIN 2.5 GM/DL (3.2-5.2); ALT/SGPT 103 U/L (12-78); BILIRUBIN,TOTAL 13.9 MG/DL (0.2-1.0); BLOOD UREA NITROGEN 23 MG/DL (7-18); CALCIUM LEVEL 8.6 MG/DL (8.5-10.1); CARBON DIOXIDE LEVEL 25 MEQ/L (21-32); CHLORIDE LEVEL 103 MEQ/L (98-107); CREATININE FOR GFR 0.95 MG/DL (0.70-1.30); GLOMERULAR FILTRATION RATE > 60.0 (>60); GLUCOSE, FASTING 121 MG/DL (70-100); POTASSIUM SERUM 3.9 MEQ/L (3.5-5.1); SODIUM LEVEL 135 MEQ/L (136-145); TOTAL PROTEIN 7.1 GM/DL (6.4-8.2)
== END ==
LOC: M LAB 07:17
PROVIDERS: ATTEND Internal Medicine Gastroenterology
DX: K70.10 Alcoholic hepatitis without ascites (principal)

== ENCOUNTER 2020-05-05 12:08 | Emergency (ER) | payer OTHER ==
[~2020-05-05] VITALS: Ht 167.6 cm; Wt 86.0 kg
[~2020-05-05 12:08] MED LIST changes: -LACT20EL PO; -LASI20TA3 PO; -LIDO5OIN19
[2020-05-05] MEDS ORDERED: PRED20TA PO (12:27)
[2020-05-05] MEDS ORDERED: LIDO5OIN19 (12:27)
[2020-05-05] MEDS ORDERED: LACT20EL PO (12:27)
[2020-05-05 13:29] LABS: BASO % 0.1 % (0.0-1.0); EOS % 0.2 % (0.0-3.0); HEMATOCRIT 30.9 % (42.0-52.0); HEMOGLOBIN 10.3 g/dl (13.5-17.5); LYMPH # 1.1 10^3/uL (1.5-5.0); LYMPH % 5.1 % (24.0-44.0); MEAN CORPUSCULAR HEMOGLOBIN 32.7 pg (27.0-33.0); MEAN CORPUSCULAR HGB CONC 33.3 g/dl (32.0-36.5); MEAN CORPUSCULAR VOLUME 98.1 fl (80.0-96.0); MONO # 1.2 10^3/uL (0.0-0.8); MONO % 5.4 % (0.0-5.0); NEUTROPHILS # 18.8 10^3/uL (1.5-8.5); NEUTROPHILS % 87.9 % (36.0-66.0); PLATELET COUNT, AUTOMATED 132 10^3/uL (150-450); RED BLOOD COUNT 3.15 10^6/uL (4.30-6.10); WHITE BLOOD COUNT 21.4 10^3/uL (4.0-10.0)
[2020-05-05 13:40] LABS: INR 1.44; PROTHROMBIN TIME 17.9 SECONDS (12.5-14.3)
[2020-05-05 13:59] LABS: ALBUMIN 2.3 GM/DL (3.2-5.2); ALT/SGPT 123 U/L (12-78); BILIRUBIN,DIRECT 9.4 MG/DL (0.0-0.2); BILIRUBIN,TOTAL 11.8 MG/DL (0.2-1.0); BLOOD UREA NITROGEN 23 MG/DL (7-18); CALCIUM LEVEL 8.9 MG/DL (8.5-10.1); CARBON DIOXIDE LEVEL 22 MEQ/L (21-32); CHLORIDE LEVEL 104 MEQ/L (98-107); CREATININE FOR GFR 0.93 MG/DL (0.70-1.30); GLOMERULAR FILTRATION RATE > 60.0 (>60); GLUCOSE, FASTING 121 MG/DL (70-100); LIPASE 612 U/L (73-393); NT-PRO BNP 199 PG/ML (<125); POTASSIUM SERUM 3.6 MEQ/L (3.5-5.1); SODIUM LEVEL 134 MEQ/L (136-145); TOTAL PROTEIN 6.3 GM/DL (6.4-8.2)
[2020-05-05] MEDS ORDERED: ISOVUE-370 76% 100ML VIAL As Ordered ONE (14:24)
--- NOTE | 2020-05-05 15:16 | REP ---
INDICATION: abdominal swelling; discomfort COMPARISON: None. TECHNIQUE: CT Scan of the abdomen and pelvis was performed with intravenous administration of 100 cc of Isovue 370, and oral contrast. FINDINGS: Lung bases: There are mild linear fibro atelectatic changes bilaterally. Liver: Liver is mildly enlarged with a length of approximately 19.5 cm. There is diffuse heterogeneity of the liver density with mild diffuse irregularity of the surface of the liver. The findings may indicate cirrhosis. No liver masses seen. Main portal vein measures 14 mm which is upper limits of normal to slightly elevated, possibly indicating portal hypertension. Gallbladder: Gallbladder is collapsed. Spleen: There is mild splenomegaly, the length of the spleen is approximately 13.9 cm. Adrenals: Normal. Pancreas: Normal. Kidneys: Normal. Small and large bowel: Unremarkable. Free fluid: There is mild upper abdominal ascites. There is moderate pelvic ascites. Abdominal aorta: No aneurysm or dissection. Adenopathy: None. Appendix: Not inflamed. Osseous structures: Unremarkable. Pelvis: No mass. A small umbilical hernia contains fat and a small amount of ascites fluid. IMPRESSION: There is mild hepatosplenomegaly. The liver has an appearance suggesting cirrhosis. No liver mass is seen. The gallbladder is collapsed. There is mild abdominal ascites and moderate pelvic ascites. <Electronically signed by Hayden Sheehan > 05/05/20 [id number]
[2020-05-05] MEDS ORDERED: LASI20TA3 PO (16:13)
[2020-05-05] MEDS ORDERED: FUROSEMIDE 20 MG TAB PO ONE (16:15)
[2020-05-05 17:10] VITALS: BP 138/72
== END 2020-05-05 17:13 | disposition home or self-care (01) ==
LOC: M ED 12:08
DX: R60.9 Edema, unspecified (principal); K74.60 Unspecified cirrhosis of liver; R16.2 Hepatomegaly with splenomegaly, not elsewhere classified; R19.7 Diarrhea, unspecified; I10 Essential (primary) hypertension; E78.5 Hyperlipidemia, unspecified; K21.9 Gastro-esophageal reflux disease without esophagitis; Z79.899 Other long term (current) drug therapy
CPT/HCPCS: 36415; 74177; 80048; 80076; 82140; 83690; 83880; 85025; 85610; 99284; Q9967

== ENCOUNTER → 2020-05-10 | Outpatient (CLI) | payer OTHER ==
[~2020-05-10] MED LIST changes: +LACT20EL PO; +LASI20TA3 PO; +LIDO5OIN19
[2020-05-10 16:36] LABS: BASO % 0.2 % (0.0-1.0); EOS % 0.2 % (0.0-3.0); HEMATOCRIT 34.1 % (42.0-52.0); HEMOGLOBIN 10.9 g/dl (13.5-17.5); LYMPH # 1.1 10^3/uL (1.5-5.0); LYMPH % 4.5 % (24.0-44.0); MEAN CORPUSCULAR HEMOGLOBIN 32.4 pg (27.0-33.0); MEAN CORPUSCULAR VOLUME 101.5 fl (80.0-96.0); MONO % 7.9 % (0.0-5.0); NEUTROPHILS # 21.3 10^3/uL (1.5-8.5); NEUTROPHILS % 85.5 % (36.0-66.0); RED BLOOD COUNT 3.36 10^6/uL (4.30-6.10); WHITE BLOOD COUNT 24.9 10^3/uL (4.0-10.0)
[2020-05-10 16:43] LABS: PLATELET COUNT, AUTOMATED 91 10^3/uL (150-450)
[2020-05-10 16:56] LABS: ALBUMIN 2.5 GM/DL (3.2-5.2); ALT/SGPT 172 U/L (12-78); BILIRUBIN,TOTAL 9.7 MG/DL (0.2-1.0); BLOOD UREA NITROGEN 21 MG/DL (7-18); CALCIUM LEVEL 9.4 MG/DL (8.5-10.1); CARBON DIOXIDE LEVEL 25 MEQ/L (21-32); CHLORIDE LEVEL 103 MEQ/L (98-107); CREATININE FOR GFR 0.94 MG/DL (0.70-1.30); GLOMERULAR FILTRATION RATE > 60.0 (>60); GLUCOSE, FASTING 134 MG/DL (70-100); POTASSIUM SERUM 4.7 MEQ/L (3.5-5.1); SODIUM LEVEL 134 MEQ/L (136-145); TOTAL PROTEIN 6.8 GM/DL (6.4-8.2)
[2020-05-10 17:18] LABS: INR 1.4; PROTHROMBIN TIME 17.5 SECONDS (12.5-14.3)
== END ==
LOC: M LAB 15:52
PROVIDERS: ATTEND Internal Medicine Gastroenterology
DX: K70.10 Alcoholic hepatitis without ascites (principal)

== ENCOUNTER 2020-05-25 12:39 | Emergency (ER) | payer OTHER ==
[~2020-05-25] VITALS: Ht 165.1 cm; Wt 82.6 kg
[2020-05-25] MEDS ORDERED: SPIR100T3 PO (12:52)
[2020-05-25 13:58] LABS: BASO # 0.1 10^3/uL (0.0-0.2); BASO % 0.3 % (0.0-1.0); EOS # 0.2 10^3/uL (0.0-0.5); HEMATOCRIT 39.6 % (42.0-52.0); HEMOGLOBIN 12.7 g/dl (13.5-17.5); LYMPH # 1.6 10^3/uL (1.5-5.0); LYMPH % 8.2 % (24.0-44.0); MEAN CORPUSCULAR HEMOGLOBIN 33.3 pg (27.0-33.0); MEAN CORPUSCULAR HGB CONC 32.1 g/dl (32.0-36.5); MEAN CORPUSCULAR VOLUME 103.9 fl (80.0-96.0); MONO # 1.5 10^3/uL (0.0-0.8); MONO % 7.6 % (0.0-5.0); NEUTROPHILS % 80.6 % (36.0-66.0); RED BLOOD COUNT 3.81 10^6/uL (4.30-6.10); WHITE BLOOD COUNT 19.9 10^3/uL (4.0-10.0)
[2020-05-25 14:00] LABS: PLATELET COUNT, AUTOMATED 92 10^3/uL (150-450)
[2020-05-25 14:20] LABS: ALT/SGPT 150 U/L (12-78); BILIRUBIN,DIRECT 4.7 MG/DL (0.0-0.2); BILIRUBIN,TOTAL 6.4 MG/DL (0.2-1.0); BLOOD UREA NITROGEN 16 MG/DL (7-18); CALCIUM LEVEL 9.1 MG/DL (8.5-10.1); CARBON DIOXIDE LEVEL 25 MEQ/L (21-32); CHLORIDE LEVEL 95 MEQ/L (98-107); ETHYL ALCOHOL (ETHANOL) < 0.003 % (0.000-0.010); GLOMERULAR FILTRATION RATE > 60.0 (>60); GLUCOSE, FASTING 104 MG/DL (70-100); LIPASE 550 U/L (73-393); POTASSIUM SERUM 3.7 MEQ/L (3.5-5.1); SODIUM LEVEL 130 MEQ/L (136-145); TOTAL PROTEIN 7.2 GM/DL (6.4-8.2)
--- NOTE | 2020-05-25 15:52 | REP ---
INDICATION: abdominal distention; assess for ascites COMPARISON: None. TECHNIQUE: Real time ly scale ultrasound examination using curved array transducer. FINDINGS: Generalized ultrasound examination through the 4 quadrants of the abdomen and pelvis demonstrate moderate to significant amount of ascites. IMPRESSION: Moderate to significant simple ascites. <Electronically signed by Mk Plasencia > 05/25/20 1542
[2020-05-25] MEDS ORDERED: PARACENTESIS (17:11)
[2020-05-25 17:30] VITALS: BP 176/92
== END 2020-05-25 17:56 | disposition home or self-care (01) ==
LOC: M ED 12:39
DX: K70.31 Alcoholic cirrhosis of liver with ascites (principal); R10.9 Unspecified abdominal pain; I10 Essential (primary) hypertension; E78.5 Hyperlipidemia, unspecified; K21.9 Gastro-esophageal reflux disease without esophagitis; Z79.52 Long term (current) use of systemic steroids; Z79.899 Other long term (current) drug therapy
CPT/HCPCS: 36415; 76705; 80048; 80076; 81001; 82140; 83690; 85025; 85049; 85055; 99284; G0480

== ENCOUNTER → 2020-05-31 | Outpatient (CLI) | payer OTHER ==
[~2020-05-31] MED LIST changes: +LIDOCAINE 1% MDV 20ML VIAL As Ordered ONE; +PARACENTESIS; +SODIUM BICARBONATE 8.4% INJ 50MEQ 50 ML VIAL As Ordered ONE; +SPIR100T3 PO
[2020-05-31 12:42] LABS: APPEARANCE, BODY FLUID HAZY (CLEAR); ASCITES FL COLOR YELLOW (COLORLESS); SOURCE, BODY FLUID ASCITES
[2020-05-31 12:55] VITALS: BP 148/76
[2020-05-31 13:31] LABS: SOURCE, BODY FLUID ALBUMIN ASCITES
[2020-05-31 13:35] LABS: SOURCE, BODY FLUID TOT PROTEIN ASCITES; TOTAL PROTEIN, BODY FLUID 0.6 G/DL (NOT ESTABLISHED)
--- NOTE | 2020-05-31 15:19 | REP ---
INDICATION: ASCITES COMPARISON: None. TECHNIQUE: The procedure was performed by BOGDAN Tadeo, under the direct supervision of Dr. Sheehan The risks and benefits of the procedure were explained to the patient and an informed consent was obtained both verbally and written. Directly prior to the start of the procedure a formal time-out was completed in the procedure room. The largest pocket of fluid was localized in the right lower quadrant using ultrasound guidance. The skin was prepped and draped in a sterile fashion. Eleven ML of buffered lidocaine was used as a local anesthetic. An 8-Mongolian multi side-hole catheter was inserted using trocar technique. FINDINGS: 5,050 mL of yellow ascites fluid was removed, 1,300 was sent to the laboratory for further analysis, and the rest was discarded. The patient tolerated the procedure well and there were no immediate complications. After the appropriate amount of monitored convalescence, the patient was discharged from the department. IMPRESSION: Ultrasound-guided paracentesis with removal of 5050 mL of ascites fluid. <Electronically signed by Sheri Man > 05/31/20 [id number] <Electronically signed by Hayden Sheehan > 05/31/20 1516
== END ==
LOC: M IRPRO 11:24 → M LAB 11:24
PROVIDERS: ATTEND Internal Medicine Gastroenterology
DX: K70.11 Alcoholic hepatitis with ascites (principal); K70.31 Alcoholic cirrhosis of liver with ascites

== ENCOUNTER → 2020-06-01 | Outpatient (CLI) | payer OTHER ==
[~2020-06-01] MED LIST changes: -LIDOCAINE 1% MDV 20ML VIAL As Ordered ONE; -SODIUM BICARBONATE 8.4% INJ 50MEQ 50 ML VIAL As Ordered ONE
[2020-06-01 18:11] LABS: BASO % 0.1 % (0.0-1.0); EOS % 0.3 % (0.0-3.0); HEMATOCRIT 38.6 % (42.0-52.0); HEMOGLOBIN 12.6 g/dl (13.5-17.5); LYMPH # 0.7 10^3/uL (1.5-5.0); LYMPH % 4.8 % (24.0-44.0); MEAN CORPUSCULAR HEMOGLOBIN 34.1 pg (27.0-33.0); MEAN CORPUSCULAR HGB CONC 32.6 g/dl (32.0-36.5); MEAN CORPUSCULAR VOLUME 104.3 fl (80.0-96.0); MONO # 0.6 10^3/uL (0.0-0.8); MONO % 4.1 % (0.0-5.0); NEUTROPHILS # 13.3 10^3/uL (1.5-8.5); NEUTROPHILS % 89.4 % (36.0-66.0); WHITE BLOOD COUNT 14.9 10^3/uL (4.0-10.0)
[2020-06-01 18:27] LABS: INR 1.38; PROTHROMBIN TIME 17.3 SECONDS (12.5-14.3)
[2020-06-01 18:50] LABS: ALBUMIN 2.8 GM/DL (3.2-5.2); ALT/SGPT 127 U/L (12-78); BILIRUBIN,TOTAL 4.9 MG/DL (0.2-1.0); BLOOD UREA NITROGEN 21 MG/DL (7-18); CALCIUM LEVEL 9.3 MG/DL (8.5-10.1); CARBON DIOXIDE LEVEL 27 MEQ/L (21-32); CHLORIDE LEVEL 98 MEQ/L (98-107); CREATININE FOR GFR 0.77 MG/DL (0.70-1.30); GLOMERULAR FILTRATION RATE > 60.0 (>60); GLUCOSE, FASTING 149 MG/DL (70-100); POTASSIUM SERUM 4.1 MEQ/L (3.5-5.1); SODIUM LEVEL 131 MEQ/L (136-145); TOTAL PROTEIN 6.3 GM/DL (6.4-8.2)
[2020-06-01 20:25] LABS: PLATELET COUNT, AUTOMATED 63 10^3/uL (150-450)
== END ==
LOC: M LAB 16:45
PROVIDERS: ATTEND Internal Medicine Gastroenterology
DX: K70.11 Alcoholic hepatitis with ascites (principal)

== ENCOUNTER → 2020-06-25 | Outpatient (CLI) | payer OTHER ==
[2020-06-25 17:29] LABS: BASO # 0.1 10^3/uL (0.0-0.2); BASO % 0.6 % (0.0-1.0); EOS # 0.2 10^3/uL (0.0-0.5); EOS % 1.4 % (0.0-3.0); HEMATOCRIT 39.8 % (42.0-52.0); HEMOGLOBIN 13.6 g/dl (13.5-17.5); LYMPH # 2.2 10^3/uL (1.5-5.0); LYMPH % 16.2 % (24.0-44.0); MEAN CORPUSCULAR HEMOGLOBIN 33.2 pg (27.0-33.0); MEAN CORPUSCULAR HGB CONC 34.2 g/dl (32.0-36.5); MEAN CORPUSCULAR VOLUME 97.1 fl (80.0-96.0); MONO # 1.2 10^3/uL (0.0-0.8); MONO % 8.7 % (0.0-5.0); NEUTROPHILS # 9.6 10^3/uL (1.5-8.5); NEUTROPHILS % 71.8 % (36.0-66.0); WHITE BLOOD COUNT 13.3 10^3/uL (4.0-10.0)
[2020-06-25 17:30] LABS: PLATELET COUNT, AUTOMATED 85 10^3/uL (150-450)
[2020-06-25 17:41] LABS: INR 1.21; PROTHROMBIN TIME 15.6 SECONDS (12.5-14.3)
[2020-06-25 18:20] LABS: ALBUMIN 3.1 GM/DL (3.2-5.2); ALT/SGPT 78 U/L (12-78); BILIRUBIN,TOTAL 2.8 MG/DL (0.2-1.0); BLOOD UREA NITROGEN 20 MG/DL (7-18); CALCIUM LEVEL 9.6 MG/DL (8.5-10.1); CARBON DIOXIDE LEVEL 32 MEQ/L (21-32); CHLORIDE LEVEL 85 MEQ/L (98-107); CREATININE FOR GFR 1.15 MG/DL (0.70-1.30); GLOMERULAR FILTRATION RATE > 60.0 (>60); GLUCOSE, FASTING 400 MG/DL (70-100); POTASSIUM SERUM 2.9 MEQ/L (3.5-5.1); SODIUM LEVEL 126 MEQ/L (136-145)
== END ==
LOC: M LAB 16:32
PROVIDERS: ATTEND Internal Medicine Gastroenterology
DX: K70.11 Alcoholic hepatitis with ascites (principal)

== ENCOUNTER → 2020-07-09 | Outpatient (CLI) | payer OTHER ==
[2020-07-09 13:32] LABS: BLOOD UREA NITROGEN 16 MG/DL (7-18); CARBON DIOXIDE LEVEL 29 MEQ/L (21-32); CHLORIDE LEVEL 93 MEQ/L (98-107); CREATININE FOR GFR 0.94 MG/DL (0.70-1.30); GLOMERULAR FILTRATION RATE > 60.0 (>60); GLUCOSE, FASTING 314 MG/DL (70-100); MAGNESIUM LEVEL 1.9 MG/DL (1.8-2.4); POTASSIUM SERUM 3.6 MEQ/L (3.5-5.1); SODIUM LEVEL 130 MEQ/L (136-145)
== END ==
LOC: M LAB 12:15
PROVIDERS: ATTEND Internal Medicine Gastroenterology
DX: K70.11 Alcoholic hepatitis with ascites (principal)

== ENCOUNTER → 2020-08-04 | Outpatient (CLI) | payer OTHER ==
[2020-08-04 11:56] LABS: INR 1.16; PROTHROMBIN TIME 15.1 SECONDS (12.5-14.3)
[2020-08-04 12:24] LABS: BASO # 0.1 10^3/uL (0.0-0.2); BASO % 0.8 % (0.0-1.0); EOS # 0.1 10^3/uL (0.0-0.5); HEMOGLOBIN 13.5 g/dl (13.5-17.5); LYMPH # 1.8 10^3/uL (1.5-5.0); LYMPH % 27.7 % (24.0-44.0); MEAN CORPUSCULAR HEMOGLOBIN 32.8 pg (27.0-33.0); MEAN CORPUSCULAR HGB CONC 34.6 g/dl (32.0-36.5); MEAN CORPUSCULAR VOLUME 94.7 fl (80.0-96.0); MONO # 0.6 10^3/uL (0.0-0.8); MONO % 9.4 % (2.0-8.0); NEUTROPHILS # 3.9 10^3/uL (1.5-8.5); NEUTROPHILS % 59.6 % (36.0-66.0); PLATELET COUNT, AUTOMATED 153 10^3/uL (150-450); RED BLOOD COUNT 4.12 10^6/uL (4.30-6.10); WHITE BLOOD COUNT 6.5 10^3/uL (4.0-10.0)
[2020-08-04 13:27] LABS: ALBUMIN 3.6 GM/DL (3.2-5.2); ALT/SGPT 39 U/L (12-78); BILIRUBIN,TOTAL 2.1 MG/DL (0.2-1.0); BLOOD UREA NITROGEN 14 MG/DL (7-18); CARBON DIOXIDE LEVEL 29 MEQ/L (21-32); CHLORIDE LEVEL 95 MEQ/L (98-107); GLOMERULAR FILTRATION RATE > 60.0 (>60); GLUCOSE, FASTING 314 MG/DL (70-100); MAGNESIUM LEVEL 1.9 MG/DL (1.8-2.4); POTASSIUM SERUM 4.5 MEQ/L (3.5-5.1); SODIUM LEVEL 131 MEQ/L (136-145); TOTAL PROTEIN 7.6 GM/DL (6.4-8.2)
== END ==
LOC: M LAB 11:01
PROVIDERS: ATTEND Internal Medicine Gastroenterology
DX: K70.11 Alcoholic hepatitis with ascites (principal)

== ENCOUNTER → 2020-08-13 | Outpatient (CLI) | payer OTHER ==
[~2020-08-13] MED LIST changes: +ACAM0.05 PO; +GABA-282 PO
[2020-08-13 16:59] LABS: BASO % 0.5 % (0.0-1.0); EOS # 0.1 10^3/uL (0.0-0.5); EOS % 1.2 % (0.0-3.0); HEMATOCRIT 41.1 % (42.0-52.0); HEMOGLOBIN 14.4 g/dl (13.5-17.5); LYMPH # 1.5 10^3/uL (1.5-5.0); LYMPH % 25.5 % (24.0-44.0); MEAN CORPUSCULAR HEMOGLOBIN 32.7 pg (27.0-33.0); MEAN CORPUSCULAR VOLUME 93.4 fl (80.0-96.0); MONO # 0.5 10^3/uL (0.0-0.8); MONO % 9.2 % (2.0-8.0); NEUTROPHILS # 3.7 10^3/uL (1.5-8.5); NEUTROPHILS % 63.4 % (36.0-66.0); PLATELET COUNT, AUTOMATED 108 10^3/uL (150-450); WHITE BLOOD COUNT 5.8 10^3/uL (4.0-10.0)
[2020-08-13 17:06] LABS: INR 1.32; PROTHROMBIN TIME 16.6 SECONDS (12.5-14.3)
[2020-08-13 17:35] LABS: ALBUMIN 3.7 GM/DL (3.2-5.2); ALT/SGPT 48 U/L (12-78); BILIRUBIN,TOTAL 2.4 MG/DL (0.2-1.0); BLOOD UREA NITROGEN 19 MG/DL (7-18); CALCIUM LEVEL 9.7 MG/DL (8.5-10.1); CARBON DIOXIDE LEVEL 28 MEQ/L (21-32); CHLORIDE LEVEL 85 MEQ/L (98-107); GLOMERULAR FILTRATION RATE > 60.0 (>60); GLUCOSE, FASTING 576 MG/DL (70-100); POTASSIUM SERUM 3.9 MEQ/L (3.5-5.1); SODIUM LEVEL 122 MEQ/L (136-145); TOTAL PROTEIN 8.1 GM/DL (6.4-8.2)
== END ==
LOC: M LAB 15:59
PROVIDERS: ATTEND Internal Medicine Gastroenterology
DX: K70.11 Alcoholic hepatitis with ascites (principal)

== ENCOUNTER → 2020-08-16 | Outpatient (CLI) | payer OTHER ==
[2020-08-16 09:23] VITALS: BP 141/80
--- NOTE | 2020-08-16 11:35 | REP ---
INDICATION: ASCITES. COMPARISON: None. TECHNIQUE: Real-time sonographic evaluation of abdomen performed to evaluate for ascites. FINDINGS: No significant free fluid is seen in any portion of the abdomen. IMPRESSION: No significant ascites present. <Electronically signed by Hayden Sheehan > 08/16/20 [id number]
== END ==
LOC: M IRPRO 09:12
PROVIDERS: ATTEND Internal Medicine Gastroenterology
DX: Z03.89 Encounter for observation for other suspected diseases and conditions ruled out (principal)

== ENCOUNTER → 2020-09-17 | Outpatient (CLI) | payer OTHER ==
[2020-09-17 09:48] LABS: BASO % 0.6 % (0.0-1.0); EOS # 0.1 10^3/uL (0.0-0.5); EOS % 2.3 % (0.0-3.0); HEMATOCRIT 39.4 % (42.0-52.0); HEMOGLOBIN 13.7 g/dl (13.5-17.5); LYMPH # 1.3 10^3/uL (1.5-5.0); LYMPH % 24.4 % (24.0-44.0); MEAN CORPUSCULAR HEMOGLOBIN 32.3 pg (27.0-33.0); MEAN CORPUSCULAR HGB CONC 34.8 g/dl (32.0-36.5); MEAN CORPUSCULAR VOLUME 92.9 fl (80.0-96.0); MONO # 0.7 10^3/uL (0.0-0.8); MONO % 13.9 % (2.0-8.0); NEUTROPHILS % 58.4 % (36.0-66.0); RED BLOOD COUNT 4.24 10^6/uL (4.30-6.10); WHITE BLOOD COUNT 5.2 10^3/uL (4.0-10.0)
[2020-09-17 09:49] LABS: PLATELET COUNT, AUTOMATED 82 10^3/uL (150-450)
[2020-09-17 09:56] LABS: INR 1.2; PROTHROMBIN TIME 15.5 SECONDS (12.5-14.3)
[2020-09-17 10:03] LABS: ALBUMIN 3.5 GM/DL (3.2-5.2); ALT/SGPT 53 U/L (12-78); BILIRUBIN,TOTAL 2.3 MG/DL (0.2-1.0); BLOOD UREA NITROGEN 15 MG/DL (7-18); CALCIUM LEVEL 9.7 MG/DL (8.5-10.1); CARBON DIOXIDE LEVEL 27 MEQ/L (21-32); CHLORIDE LEVEL 90 MEQ/L (98-107); CREATININE FOR GFR 0.88 MG/DL (0.70-1.30); GLOMERULAR FILTRATION RATE > 60.0 (>60); GLUCOSE, FASTING 326 MG/DL (70-100); SODIUM LEVEL 127 MEQ/L (136-145); TOTAL PROTEIN 7.7 GM/DL (6.4-8.2)
== END ==
LOC: M LAB 08:49
PROVIDERS: ATTEND Internal Medicine Gastroenterology
DX: K70.11 Alcoholic hepatitis with ascites (principal)

== ENCOUNTER → 2020-11-15 | Outpatient (CLI) | payer OTHER ==
[~2020-11-15] MED LIST changes: +EZET10TA21 PO; +FISH1000 PO; +GABA600T4 PO; +JANU100T PO; +JARD1TAB PO; +LANTINJ4 SC; +LIDO1.1P EX; +METF10004 PO; +NASA0.9A NARES; +SILD25TA2 PO; +SPIR-10 PO; +TORS10TA3 PO
--- NOTE | 2020-11-15 09:30 | REP ---
INDICATION: CIRRHOSIS OF LIVER. COMPARISON: 04/21/2020. TECHNIQUE: Transabdominal and intercostal scanning FINDINGS: Ultrasonographic evaluation of the liver shows the parenchymal echo pattern to be somewhat coarsened without evidence of a mass. Incidental note is made of an anechoic structure in the anterior segment of the right lobe which measures 8 mm consistent with a tiny cyst. There are no solid masses. There is no intrahepatic or extrahepatic ductal dilatation with the common bile duct measures approximately 2 mm. The gallbladder is contracted which thickens the wall. There is no pericholecystic fluid. There are no cholelith. Limited evaluation of the pancreas shows no gross abnormality. Limited evaluation of the right kidney shows no gross abnormality or significant change from the prior exam. There is no evidence of free fluid. IMPRESSION: 1. The gallbladder appears chronically contracted. 2. Simple hepatic cyst. 3. No acute abnormality. <Electronically signed by Santos Naik > 11/15/20 [id number]
== END ==
LOC: M RAD 06:54
PROVIDERS: ATTEND Internal Medicine Gastroenterology
DX: K74.60 Unspecified cirrhosis of liver (principal)

== ENCOUNTER → 2020-11-15 | Outpatient (CLI) | payer OTHER ==
--- NOTE | 2020-11-15 15:21 | REP ---
INDICATION: B/L BREAST LUMPS SUBAREOLAR REGION. Retroareolar breast lump bilaterally tenderness bilaterally. Symptom since August. COMPARISON: Mammography no comparison breast imaging. TECHNIQUE: Craniocaudal and mediolateral views of each breast are obtained and are augmented by 3D tomography. Bilateral subareolar sonography is carried out. FINDINGS: There is a symmetrical pattern of subareolar fibroglandular tissue bilaterally consistent with gynecomastia. No mass, architectural distortion, or microcalcification is seen. No worrisome skin changes appreciated. Bilateral subareolar sonography: There is a bilateral pattern of retroareolar hypoechoic fibroglandular tissue consistent with gynecomastia. The area beneath the right nipple measures 3.0 x 1.1 x 1.8 cm in at beneath the left, 3.4 x 1.1 x 1.8 cm. This corresponds with the palpable abnormalities on each side. No other sonographic finding. IMPRESSION: BIRADS/ACR category benign mammographic and sonographic findings. Gynecomastia pattern.. This patient's Tyrer-Cuzick lifetime breast cancer risk assessment score is 1.5%. This mammogram was interpreted with the aid of an FDA-approved computer-aided detection system. The patient states he had a clinical breast exam in September of 2020. The patient letter being requested is male patient letter M2. RECOMMENDATION: Clinical follow-up.. <Electronically signed by Jason Echavarria > 11/15/20 [id number]
== END ==
LOC: M WHC 13:31
PROVIDERS: ATTEND Family Medicine
DX: Z12.31 Encounter for screening mammogram for malignant neoplasm of breast (principal); N63.10 Unspecified lump in the right breast, unspecified quadrant; N63.20 Unspecified lump in the left breast, unspecified quadrant
CPT/HCPCS: 76642; 76705; 77066; G0279

== ENCOUNTER 2020-11-26 10:23 | Day surgery (SDC) | payer OTHER ==
[~2020-11-26] VITALS: Ht 170.2 cm; Wt 72.1 kg
[~2020-11-26 10:23] MED LIST changes: +NS 1,000 ML IV ONE
[2020-11-26] MEDS ORDERED: fentaNYL 100 MCG/2 ML INJECTION (J3010) As Ordered ONE (11:42)
[2020-11-26] MEDS ORDERED: propofoL 200 MG/20 ML VIAL As Ordered ONE (11:53)
[2020-11-26] MEDS ORDERED: LIDOCAINE 2% 100MG/5ML SDV (FOR ANES.) As Ordered ONE (11:57)
--- NOTE | 2020-11-26 12:00 | ROOR ---
Patient Name: Hugo Lucero Procedure Date: 11/26/2020 11:42 AM Date of : 1970 Age: 50 Room: [facility] Gender: Male Note Status: Finalized Procedure: Upper GI endoscopy Indications: Cirrhosis rule out esophageal varices, For therapy of esophageal varices Providers: Alexey Caceres MD Referring MD: LUISA QUIÑONEZ MD Requesting Provider: Medicines: Monitored Anesthesia Care Complications: No immediate complications. Procedure: Pre-Anesthesia Assessment: - The heart rate, respiratory rate, oxygen saturations, blood pressure, adequacy of pulmonary ventilation, and response to care were monitored throughout the procedure. The Endoscope was introduced through the mouth, and advanced to the second part of duodenum. The upper GI endoscopy was accomplished without difficulty. The patient tolerated the procedure well. Findings: Non-bleeding grade II varices were found in the lower third of the esophagus,. They were medium in size. No stigmata of recent bleeding were evident and red andrea signs were present. Three bands were successfully placed with complete eradication, resulting in deflation of varices. The entire examined stomach was normal. The examined duodenum was normal. Impression: - Non-bleeding grade II esophageal varices. Completely eradicated. Banded. - Normal stomach. - Normal examined duodenum. - No specimens collected. Recommendation: - Repeat upper endoscopy in 1 month for retreatment. - Start/continue a Non-selective Beta Rick such as Propranolol or Nadolol, titrate to heart rate. - My office will call you to reschedule the procedure. - Viscous lidocaine 2%- swallow 5 ml every 4-6 hrs as needed for swallowing pain/esophageal pain. (do not take beyond 24 hrs) - (the script was sent to your pharmacy on file) Procedure Code(s): --- Professional --- 02238, Esophagogastroduodenoscopy, flexible, transoral; with band ligation of esophageal/gastric varices Diagnosis Code(s): --- Professional --- K74.60, Unspecified cirrhosis of liver I85.10, Secondary esophageal varices without bleeding CPT copyright 2019 [employer]. All rights reserved. The codes documented in this report are preliminary and upon composition molder review may be revised to meet current compliance requirements. Alexey Caceres MD Alexey Caceres MD 11/26/2020 12:00:06 PM Electronically signed by Alexey Caceres MD Number of Addenda: 0 Note Initiated On: 11/26/2020 11:42 AM Estimated Blood Loss: Estimated blood loss: none.
--- NOTE | 2020-11-26 12:19 | ROOR ---
Patient Name: Hugo Lucero Procedure Date: 11/26/2020 11:43 AM Date of : 1970 Age: 50 Room: [facility] Gender: Male Note Status: Finalized Procedure: Colonoscopy Indications: Hematochezia Providers: Alexey Caceres MD Referring MD: LUISA QUIÑONEZ MD Requesting Provider: Medicines: Monitored Anesthesia Care Complications: No immediate complications. Procedure: Pre-Anesthesia Assessment: - The heart rate, respiratory rate, oxygen saturations, blood pressure, adequacy of pulmonary ventilation, and response to care were monitored throughout the procedure. The Colonoscope was introduced through the anus and advanced to the cecum, identified by appendiceal orifice and ileocecal valve. The colonoscopy was performed without difficulty. The patient tolerated the procedure well. The quality of the bowel preparation was adequate. Findings: The perianal and digital rectal examinations were normal. Non-bleeding internal hemorrhoids were found during retroflexion. The hemorrhoids were medium-sized. The exam was otherwise without abnormality on direct and retroflexion views. Impression: - Non-bleeding internal hemorrhoids. - The examination was otherwise normal on direct and retroflexion views. - No specimens collected. Recommendation: - Miralax 1 capful (17 grams) in 8 ounces of water PO daily. - Use fiber, for example Citrucel, Fibercon, Konsyl or Metamucil. Procedure Code(s): --- Professional --- 40592, Colonoscopy, flexible; diagnostic, including collection of specimen(s) by brushing or washing, when performed (separate procedure) Diagnosis Code(s): --- Professional --- K92.1, Melena (includes Hematochezia) K64.8, Other hemorrhoids CPT copyright 2019 [employer]. All rights reserved. The codes documented in this report are preliminary and upon cigarette tipper review may be revised to meet current compliance requirements. Alexey Caceres MD Alexey Caceres MD 11/26/2020 12:18:59 PM Electronically signed by Alexey Caceres MD Number of Addenda: 0 Note Initiated On: 11/26/2020 11:43 AM Estimated Blood Loss: Estimated blood loss: none.
[2020-11-26 12:40] VITALS: BP 134/77
== END 2020-11-26 13:20 | disposition home or self-care (01) ==
LOC: M OPP 10:23
PROVIDERS: ATTEND Internal Medicine Gastroenterology
DX: K92.1 Melena (principal); K64.8 Other hemorrhoids; K74.60 Unspecified cirrhosis of liver; I85.10 Secondary esophageal varices without bleeding; Z79.4 Long term (current) use of insulin; Z79.899 Other long term (current) drug therapy; F17.210 Nicotine dependence, cigarettes, uncomplicated
CPT/HCPCS: 43244; 45378; J3010

== ENCOUNTER → 2020-12-15 | Outpatient (CLI) | payer OTHER ==
[~2020-12-15] MED LIST changes: -NS 1,000 ML IV ONE
[2020-12-15 15:40] LABS: BASO % 0.3 % (0.0-1.0); EOS # 0.1 10^3/uL (0.0-0.5); EOS % 1.8 % (0.0-3.0); HEMATOCRIT 34.3 % (42.0-52.0); LYMPH # 1.6 10^3/uL (1.5-5.0); MEAN CORPUSCULAR HEMOGLOBIN 28.2 pg (27.0-33.0); MEAN CORPUSCULAR HGB CONC 32.1 g/dl (32.0-36.5); MEAN CORPUSCULAR VOLUME 87.9 fl (80.0-96.0); MONO % 17.3 % (2.0-8.0); NEUTROPHILS # 3.2 10^3/uL (1.5-8.5); NEUTROPHILS % 53.4 % (36.0-66.0); PLATELET COUNT, AUTOMATED 102 10^3/uL (150-450)
[2020-12-15 15:51] LABS: INR 1.23; PROTHROMBIN TIME 15.8 SECONDS (12.5-14.3)
[2020-12-15 16:12] LABS: BLOOD UREA NITROGEN 22 MG/DL (7-18); CREATININE FOR GFR 1.16 MG/DL (0.70-1.30); GLOMERULAR FILTRATION RATE > 60.0 (>60); GLUCOSE, FASTING 131 MG/DL (70-100); POTASSIUM SERUM 3.9 MEQ/L (3.5-5.1); SODIUM LEVEL 139 MEQ/L (136-145)
[2020-12-15 16:13] LABS: ALBUMIN 3.4 GM/DL (3.2-5.2); ALT/SGPT 42 U/L (12-78); BILIRUBIN,TOTAL 1.1 MG/DL (0.2-1.0); CALCIUM LEVEL 10.2 MG/DL (8.5-10.1); CARBON DIOXIDE LEVEL 28 MEQ/L (21-32); CHLORIDE LEVEL 106 MEQ/L (98-107)
== END ==
LOC: M LAB 15:09
PROVIDERS: ATTEND Internal Medicine Gastroenterology
DX: K70.31 Alcoholic cirrhosis of liver with ascites (principal); K70.11 Alcoholic hepatitis with ascites

== ENCOUNTER 2020-12-31 07:19 | Day surgery (SDC) | payer OTHER ==
[~2020-12-31] VITALS: Ht 170.2 cm; Wt 76.2 kg
[~2020-12-31 07:19] MED LIST changes: +CARV3.12 PO; +GABA800T4 PO; +LIDOCAINE 2% 100MG/5ML SDV (FOR ANES.) As Ordered ONE; +LOSA50TA28 PO; -LOSA50TA88 PO; +NS 1,000 ML IV ONE; +propofoL 200 MG/20 ML VIAL As Ordered ONE
[2020-12-31] MEDS ORDERED: fentaNYL 100 MCG/2 ML INJECTION As Ordered ONE (07:55)
[2020-12-31] MEDS ORDERED: LIDOCAINE VISCOUS 2% SOLN 15ML UDC PO PRN (08:35)
[2020-12-31 08:40] VITALS: BP 127/69
[2021-03-08] MEDS ORDERED: CETI-24 PO (14:08)
[2021-06-27] MEDS ORDERED: ZOLO50TA PO (09:39)
[2021-06-27] MEDS ORDERED: LISI2.5T9 PO (09:39)
[2021-06-27] MEDS ORDERED: LIDO1ADH TP (09:39)
[2021-06-27] MEDS ORDERED: HYDR50TA70 PO (09:39)
[2021-06-28] MEDS ORDERED: ZETI10TA16 PO (13:50)
== END 2020-12-31 08:54 | disposition home or self-care (01) ==
LOC: M OPP 07:19
PROVIDERS: ATTEND Internal Medicine Gastroenterology
DX: I85.10 Secondary esophageal varices without bleeding (principal); K74.60 Unspecified cirrhosis of liver; F17.210 Nicotine dependence, cigarettes, uncomplicated; Z79.4 Long term (current) use of insulin; Z79.899 Other long term (current) drug therapy

== ENCOUNTER → 2021-01-17 | Outpatient (REF) ==
[~2021-01-17] MED LIST changes: -LIDOCAINE 2% 100MG/5ML SDV (FOR ANES.) As Ordered ONE; -LOSA50TA28 PO; +LOSA50TA88 PO; -NS 1,000 ML IV ONE; -propofoL 200 MG/20 ML VIAL As Ordered ONE
--- NOTE | 2021-01-17 13:34 | REP ---
INDICATION: PAIN COMPARISON: None. TECHNIQUE: Internal rotation, external rotation, and Y view. FINDINGS: No acute fracture or dislocation. The acromioclavicular and glenohumeral joints are intact and essentially age-appropriate/normal. No periarticular calcifications or degenerative changes are appreciated. Sub acromial space is normal. Surrounding soft tissues are unremarkable. IMPRESSION: Normal age-appropriate right shoulder radiographs. <Electronically signed by Mk Plasencia > 01/17/21 [id number]
--- NOTE | 2021-01-17 13:39 | REP ---
INDICATION: PAIN COMPARISON: None. TECHNIQUE: Two views each of the right and left clavicle. FINDINGS: Right-side demonstrates resection to the distal clavicle. Right sternoclavicular joint appears normal. Remaining right-sided osseous structures are intact and age-appropriate. Glenohumeral joint appears normal. Left clavicle including acromioclavicular and sternoclavicular joints appear intact and normal. Remaining left-sided osseous structures are intact and age-appropriate. Glenohumeral joint appears normal. IMPRESSION: Evidence for prior partial resection to the distal right clavicle. Otherwise essentially normal bilateral examination. <Electronically signed by Mk Plasencia > 01/17/21 [id number]
--- NOTE | 2021-01-17 13:44 | REP ---
INDICATION: PAIN COMPARISON: None. TECHNIQUE: AP and lateral left ankle FINDINGS: The osseous structures and joint spaces are intact and normal. There is no evidence for acute fracture or dislocation. Surrounding soft tissues are unremarkable. No subcutaneous emphysema or radiodense foreign body. IMPRESSION: Normal age-appropriate left ankle radiographs. <Electronically signed by Mk Plasencia > 01/17/21 1031
--- NOTE | 2021-01-17 13:46 | REP ---
INDICATION: PAIN COMPARISON: None. TECHNIQUE: AP, lateral, bilateral oblique views right and left foot. FINDINGS: Left foot demonstrates irregular angulation at the 5th proximal interphalangeal joint which should be correlated with physical examination. Remainder of the examination is essentially age-appropriate and within normal limits. No overt osteoarthritic changes are appreciated. No obvious acute or healed injury identified. Right foot is normal/age-appropriate. No overt osteoarthritic changes are appreciated. No obvious acute or healed injury identified. IMPRESSION: Question chronic abnormality at the left 5th interphalangeal joint. <Electronically signed by Mk Plasencia > 01/17/21 2757
--- NOTE | 2021-01-17 13:48 | REP ---
INDICATION: PAIN COMPARISON: None. TECHNIQUE: AP, lateral, bilateral oblique views right and left hand. FINDINGS: The osseous structures and joint spaces are symmetric, intact and normal bilaterally. There is no evidence for acute fracture or dislocation. No significant degenerative changes are appreciated. Surrounding soft tissues are unremarkable. No subcutaneous emphysema or radiodense foreign body. IMPRESSION: Symmetric normal age-appropriate bilateral hand radiograph series. <Electronically signed by Mk Plasencia > 01/17/21 5067
== END ==
LOC: M PLAIMG 11:29
PROVIDERS: ATTEND Internal Medicine
DX: R52 Pain, unspecified (principal)

== ENCOUNTER → 2021-02-21 | Outpatient (CLI) | payer OTHER ==
[2021-02-21 15:31] LABS: BASO % 0.3 % (0.0-1.0); EOS # 0.2 10^3/uL (0.0-0.5); EOS % 2.9 % (0.0-3.0); HEMATOCRIT 38.9 % (42.0-52.0); HEMOGLOBIN 12.4 g/dl (13.5-17.5); LYMPH # 1.7 10^3/uL (1.5-5.0); LYMPH % 28.2 % (24.0-44.0); MEAN CORPUSCULAR HEMOGLOBIN 27.5 pg (27.0-33.0); MEAN CORPUSCULAR HGB CONC 31.9 g/dl (32.0-36.5); MEAN CORPUSCULAR VOLUME 86.3 fl (80.0-96.0); MONO # 0.8 10^3/uL (0.0-0.8); NEUTROPHILS # 3.2 10^3/uL (1.5-8.5); NEUTROPHILS % 54.4 % (36.0-66.0); RED BLOOD COUNT 4.51 10^6/uL (4.30-6.10); WHITE BLOOD COUNT 5.9 10^3/uL (4.0-10.0)
[2021-02-21 15:39] LABS: INR 1.15; PROTHROMBIN TIME 15.1 SECONDS (12.7-14.5)
[2021-02-21 16:00] LABS: ALBUMIN 3.7 GM/DL (3.2-5.2); ALT/SGPT 40 U/L (12-78); BILIRUBIN,TOTAL 1.2 MG/DL (0.2-1.0); BLOOD UREA NITROGEN 30 MG/DL (7-18); CALCIUM LEVEL 10.4 MG/DL (8.5-10.1); CARBON DIOXIDE LEVEL 29 MEQ/L (21-32); CHLORIDE LEVEL 101 MEQ/L (98-107); CREATININE FOR GFR 1.15 MG/DL (0.70-1.30); GLOMERULAR FILTRATION RATE > 60.0 (>60); GLUCOSE, FASTING 106 MG/DL (70-100); SODIUM LEVEL 137 MEQ/L (136-145); TOTAL PROTEIN 7.5 GM/DL (6.4-8.2)
[2021-02-21 16:11] LABS: PLATELET COUNT, AUTOMATED 96 10^3/uL (150-450)
== END ==
LOC: M LAB 14:51
PROVIDERS: ATTEND Internal Medicine Gastroenterology
DX: K70.31 Alcoholic cirrhosis of liver with ascites (principal); K70.11 Alcoholic hepatitis with ascites; I85.00 Esophageal varices without bleeding

== ENCOUNTER 2021-03-22 10:33 | Day surgery (SDC) | payer OTHER ==
[~2021-03-22] VITALS: Ht 170.2 cm; Wt 78.5 kg
[~2021-03-22 10:33] MED LIST changes: +CETI-24 PO; +LIDOCAINE 2% 100MG/5ML SDV (FOR ANES.) As Ordered ONE; +NS 1,000 ML IV ONE; +fentaNYL 100 MCG/2 ML INJECTION (J3010) As Ordered ONE; +propofoL 200 MG/20 ML VIAL As Ordered ONE
--- OUTSIDE RECORDS SUMMARY | 2021-03-22 10:36 | CCD | Continuity of Care Document ---
Author Author Hugo FULTON MD Organization Unknown Address [address] [place] [address], [facility] [address] [place] [address] Phone [phone] Care Team Providers Care Technology Assistant Name Role Phone [facility] Robb [facility] [phone] Problems Active Problems Provider Date Essential hypertension Sahnnan Fulton MD Onset: 10/07/2020 Pure hypercholesterolemia Shannan Fulton MD Onset: 021 Social History Type Date Description Comments Sex Unknown Cigarette Use Former Cigarette Smoker 5-10 Cig arettes Daily quit 2010 ETOH Use Never used alcohol quit 04/20/20 20 Tobacco Use Start: Unknown End: Unknown Patient is a former smoker Smoking Status Reviewed: 11/10/20 Patient is a former smoker Allergies and adverse reactions Description No Known Drug Allergies Medications Active Medications SIG Qnty Indications Ordering Provide r Date Carvedilol 3.125mg Tablets 1 by mouth 2 times a day Shannan Fulton MD 03/03/2021 Lantus Solostar 100U nit/ML Solution Pen-Inject inject 40 units every night states every night right now he is doing 18 units everynight. 15ml E11.65 Shannan Fulton MD 10/08/2020 Abouttime Pen [place] 31G X 3/16" 31G X 5 mm Misc use once daily with lantus- can substitute needle brand 100units E11.65 Shannan Fulton MD 10/08/2020 Jardiance 10mg Tablets 1 by mouth every day 90tabs E11.65 Shannan Fulton MD 10/08/2020 Freestyle [place]oda 14 Day/Sensor/Flash Niki toring System Misc use as directed every 14 days. 6units Nilay Fulton MD 10/08/2020 Freestyle Hoda 14 Day/[place]/Flash Niki toring System Device use to test blood sugars daily 1units Shannan Fulton MD 10/08/2020 Fish Oil 1000mg Capsules 1 by mouth daily Unknown Zyrtec Allergy 10mg Tablets 1 by mouth every day Unknown Lisinopril 2.5mg Tablets 1 by mouth daily Unknown Ezetimibe 10mg Tablets 1 b y mouth daily Unknown Sildenafil Citrate 50mg Tablets 1/2-1 tab by mouth half an hour before intercourse. 30tabs Nilay Fulton MD Lidocaine 5% Patches apply patch to painful area once every 12 hours Unknown Metformin HCL 1000mg Tablets 1 by mouth twice daily Unknown Januvia 100mg Tablets 1 by mouth daily Unknown Niacin ER (Antihyperlipidemic) 500mg Tablets ER 1 by mouth daily Unknown Gabapentin 800mg Tablets 1 by mouth once daily Unknown Acamprosate Calcium 333mg Tablets DR 2 tablets by mouth twice daily Unknown Pantoprazole Sodium 40mg Tablets D R 1 by mouth daily Unknown Folic Acid 1mg Tablets 1 b y mouth daily Unknown Torsemide 10mg Tablets 1 b y mouth daily Unknown Spironolactone 50mg Tablets 1 by mouth every day Unknown Freestyle Lancets Misc use as directed 2 times per day Unknown Freestyle Lite Blood Glucose Monitoring System Device please dispense 1 glucose meter e11.65 Un known Freestyle Lite Test Strips use as directed to check blood sugars 2 times daily Unk nown Immunizations Description No Information Available Vital Signs Date Vital Result Comment 03/03/2021 1:33pm BP Systolic 118 mmHg BP Diastolic 68 mmHg Heart Rate 84 /min Height 67 inches 5'7" Weight 170.50 lb BMI (Body Mass Index) 26.7 kg/m2 O2 % BldC Oximetry 97 % 11/10/2020 3:26pm BP Systolic 132 mmHg BP Diastolic 75 mmHg Heart Rate 89 /min Body Temperature 97.8 F Height 67 inches 5'7" Weight 158.00 lb BMI (Body Mass Index) 24.7 kg/m2 O2 % BldC Oximetry 99 % Results Test Acquired Date Facility Test Result H/L Range Note Laboratory test finding 03/03/2021 In House Glucose 152 Hemoglobin A1c <pending> Laboratory test finding 11/10/2020 In House Hemoglobin A1c 8.8% Glucose 120 Procedures Date Code Description Status 03/03/2021 43424 Office/Outpatient Established Mo d MDM 30-39 Min Completed 03/03/2021 66553 Amb Glucose Monitoring Interpret ation And Report Completed 11/10/2020 12065 Office/Outpatient Established Mo d MDM 30-39 Min Completed 11/10/2020 96778 Amb Glucose Monitoring Interpret ation And Report Completed 10/08/2020 01343 Consultation Outpatient Level 5 Completed 10/08/2020 [id number] Diabetic Foot Exam Completed Medical Devices Description No Information Available Encounters Type Date Location Provider Dx Diagnosis Office Visit 03/03/2021 1:45p DR. Shannan Fulton MD E 11.65 Type 2 diabetes mellitus with hyperglycemia K70.31 Alcoholic cirrhosis of liver with ascites E78.2 Mixed hyperlipidemia R68.82 Decreased libido E28.0 Estrogen excess Office Visit 11/10/2020 3:15p DR. Shannan Jade, Nayeli P E11.65 Type 2 diabetes mellitus with hyperglycemia K70.31 Alcoholic cirrhosis of liver with ascites E78.2 Mixed hyperlipidemia Office Visit 10/08/2020 1:00p DR. Shannan Fulton MD E 11.65 Type 2 diabetes mellitus with hyperglycemia K70.31 Alcoholic cirrhosis of liver with ascites E78.2 Mixed hyperlipidemia Assessments Date Code Description Provider 03/03/2021 E11.65 Type 2 diabetes mellitus with hy perglycemia Shannan Fulton MD 03/03/2021 K70.31 Alcoholic cirrhosis of liver wit h ascites Shannan Fulton MD 03/03/2021 E78.2 Mixed hyperlipidemia Shannan Fulton MD 03/03/2021 R68.82 Decreased libido Shannan Fulton MD 03/03/2021 E28.0 Estrogen excess Shannan Fulton MD 11/10/2020 E11.65 Type 2 diabetes mellitus with hy perglycemia Tana Jade NP 11/10/2020 K70.31 Alcoholic cirrhosis of liver wit h ascites Tana Jade NP 11/10/2020 E78.2 Mixed hyperlipidemia Tana alvares NP 10/08/2020 E11.65 Type 2 diabetes mellitus with hy perglycemia Shannan Fulton MD 10/08/2020 K70.31 Alcoholic cirrhosis of liver wit h ascites Shannan Fulton MD 10/08/2020 E78.2 Mixed hyperlipidemia Shannan Fulton MD Plan of Treatment Future Appointment(s):* 06/09/2021 10:45 am - Shannan Fulton MD at DR. Shannan Fulton 03/03/2021 - Shannan Fulton MD* E11.65 Type 2 diabetes mellitus with hyperglycemia* Comments:* Out of office A1c November 2020 = 6.8%. In office A1c was attempted but we received an error message for low hemoglobin. 11/10/20- in office A1c = 8.8 % (12.4%, August 2020) Random BS= 120Out of office A1c = 12.4%, August 2020: As of June 01 had a random blood sugar 149. However by June 25 , blood sugar >400. Etiology of marked decompensation is unclear.Patient is being treated for cirrhosis and now on lactulose.CGM downloaded Time in target range = 92% average blood sugar = 129 in general the patient tends to spike sometimes after breakfast but really does not tend to go out of the 180 range very often.]Current medications: Januvia 100 mg daily, metformin 1000 mg by mouth twice a day, Jardiance 10 mg daily, Lantus 30 units qhs Recommendations: Spikes are very infrequent and not very high. Would not recommend mealtime insulin or mealtime agent at this point in time. * Follow up:* 3 months- a1c * K70.31 Alcoholic cirrhosis of liver with ascites* Comments:* Patient is on spironolactone and torsemide.He reports that Kaitlynn wanting him to take lactulose twice a day which will increase his blood sugars but he needs to get his ammonia levels down. Patient had an ammonia level done over the summer which was elevated >400. He self discontinued his lactulose. Advised against this. Patient states that he will restart his medication. He has not discussed this with his GI team. * E78.2 Mixed hyperlipidemia* Comments:* Only lipid profile is from March 2018. LDL = 244, HDL = 49, triglycerides = 116, total cholesterol = 313.Based on those labs patient has significant hypercholesterolemia. Will probably require standard therapy but need to discussed safe use of statins with his GI specialist and liver team in [place]. We contacted the team in [place] concerning his niacin use. They stated that they feel this is safe. . 11/10/20- chol= 408, Trig= 217, HDL= 59, LDL= 274- worse than prior 2018Pt has appt Dr. Robb who is managing * R68.82 Decreased libido* Comments:* New problem/new referral: July was having breast sensitivity.Had mammogram- okayHad surgical consult.- was told it was medicinal induced. The patient has 2 risk factors for elevated estrogen and gynecomastia including cirrhosis which will razor estrogen levels and using spironolactone.He has a normal testosterone level. I'm not convinced that trying to medically lower his estrogen level will increase his libido. He will be put into somewhat of a menopause and I would argue that Femara and other agents like Lupron are not indicated.We'll continue supportive management.He will let us know if he decides on tamoxifen therapy. Right now the breast tenderness is mild. * E28.0 Estrogen excess* Comments:* Patient is also referred for "a new problem" decreased libido with elevated serum estrogen. Total testosterone = 671.Labs, 1Calcium = 10.4Creatinine = 1.0, BUN = 29HDL = 59, LDL = 274Triglycerides were signed 217Ammonia level = 408Hemoglobin A1c = 6.8, December 13, total testosterone = 671, free testosterone = 7.3, LH = 12, estrogen = 237TSH = 1.6, free T4 =AST = 47, ALT = 39 * All * New Medication:* Carvedilol 3.125 mg - 1 by mouth 2 times a day Functional Status Description No Information Available Mental Status Description No Information Available Referrals Refer to Reason for Referral Status Appt Date Shannan Fulton MD dm 2 Created [address] [facility], [address] [place] [address] [phone]
--- OUTSIDE RECORDS SUMMARY | 2021-03-22 10:36 | CCD | Continuity of Care Document ---
Author Author Hugo HIDALGO DPM Organization Unknown Address [address] [place] [address] Phone [phone] Care Team Providers Care Line Fixer Name Role Phone [place] Alexis Keane poly AUTM Unavailable Problems Active Problems Provider Date Essential hypertension Alexey Butler MD Onset: 08/14/2018 Gastroesophageal reflux disease Alexey Butler MD Onset: 0 08/26/2018 Steatosis of liver Alexey Butler MD Onset: 08/26/2018 Prediabetes Alexey Butler MD Onset: 08/26/2018 Obstructive sleep apnea syndrome Alexey Butler MD Onset: 08/26/2018 Mixed hyperlipidemia Alexey Butler MD Onset: 08/26/2018 Antiplatelet agent Alexey Butler MD Onset: 08/26/2018 Elevated levels of transaminase & lactic acid dehydrogenase Alexey Butler MD Onset: 08/26/2018 Type 2 diabetes mellitus Tyler Bateman MD Onset: 12/11/19 Social History Type Date Description Comments Sex Unknown Tobacco Use Start: Unknown Currently Smokes an Occasional C igar ETOH Use Denies alcohol use Recreational Drug Use Denies Drug Use Tobacco Use Start: Unknown Patient is a current smoker, smo kes every day Allergies, Adverse Reactions, Alerts Active Allergies Reaction Severity Comments Date NKDA 08/26/2018 NKFA 08/26/2018 NKEA 08/26/2018 Medications Active Medications SIG Qnty Indications Ordering Provide r Date Folic Acid 1mg Tablets 1 by mouth every day 30tabs Tyler Bateman MD 12/10/2020 Acamprosate Calcium 333mg Tablets DR 2 by mouth three times a day 180tabs Tyler Bateman MD 021 Gabapentin 800mg Tablets take one tablet by mouth three times a day 90tabs Tyler Bateman MD 11/25 Niacin 500mg Tablets take 1 tab by mouth once a day 90tabs Tyler Bateman MD 12/10/2020 Metformin HCL 1000mg Tablets 1 tab by mouth twice a day 180tabs Tyler Bateman MD 12/10/2020 Lidocaine 5% Patches apply 1 patch to painful area. patch may remain in place for 12 hours on and 12 hours off. 30units Tlyer Bateman MD 12/10/2020 Spironolactone 50mg Tablets 1 by mouth every day 30tabs Tyler Bateman MD 12/10/2020 Torsemide 10mg Tablets Tyler Bateman MD 12/10/2020 Lantus 100Unit/ML Solution 10 units sq units at bedtime. 20ml Tyler Bateman MD 12/10/2020 Ezetimibe 10mg Tablets 1 by mouth every day 90tabs Tyler Bateman MD 12/10/2020 Carvedilol 3.125mg Tablets Tyler Bateman MD 12/10/2020 Pantoprazole Sodium 40mg Tablets D R 1 by mouth every day Unknown Viagra 100mg Tablets take 1 pill 30-60 minutes prior to sexual activity Unknown Lisinopril 2.5mg Tablets one by mouth once daily Unknown Zyrtec Allergy 10mg Tablets 1 by mouth every day Unknown Immunizations Description No Information Available Vital Signs Date Vital Result Comment 12/10/2020 10:19am BP Systolic 104 mmHg BP Diastolic 61 mmHg Heart Rate 77 /min Body Temperature 97.8 F Respiratory Rate 16 /min O2 % BldC Oximetry 97 % Weight 157.12 lb Weight 71.272 kg Height 67 inches 5'7" BMI (Body Mass Index) 24.6 kg/m2 BSA (Body Surface Area) 1.83 m2 08/26/2018 8:09am BP Systolic 157 mmHg BP Diastolic 89 mmHg Heart Rate 76 /min Body Temperature 97.9 F Respiratory Rate 18 /min O2 % BldC Oximetry 98 % Weight 208.00 lb Weight 94.349 kg Height 67 inches 5'7" BMI (Body Mass Index) 32.6 kg/m2 BSA (Body Surface Area) 2.06 m2 Results Test Acquired Date Facility Test Result H/L Range Note Laboratory test finding 12/15/2020 [facility] HCG Serum Quant <pending> LH <pending> Estrogen Total S <pending> Procedures Date Code Description Status 12/29/2020 60210 Office/Outpatient New Low MDM 30 -44 Minutes Completed 12/10/2020 35536 Office/Outpatient New Low MDM 30 -44 Minutes Completed Medical Devices Description No Information Available Encounters Type Date Location Provider Dx Diagnosis Office Visit 12/29/2020 3:00p [facility] Podiatry Ivan Hidalgo DPM E11.9 Type 2 diabetes mellitus without complications M76.62 Achilles tendinitis, left le g M76.61 Achilles tendinitis, right l eg Assessments Date Code Description Provider 12/29/2020 E11.9 Type 2 diabetes mellitus without complications Ivan Hidalgo DPM 12/29/2020 M76.62 Achilles tendinitis, left leg Len Hidalgo DPM 12/29/2020 M76.61 Achilles tendinitis, right leg J skyla Hidalgo DPM 12/10/2020 N62 Hypertrophy of breast Tyler hand MD 12/10/2020 K42.9 Umbilical hernia without obstruc tion or gangrene Tyler Bateman MD Plan of Treatment Future Appointment(s):* 03/16/2021 8:30 am - Tyler Bateman MD at [facility] 12/29/2020 - Ivan Hidalgo DPM* E11.9 Type 2 diabetes mellitus without complications * M76.62 Achilles tendinitis, left leg * M76.61 Achilles tendinitis, right leg Functional Status Description No Information Available Mental Status Description No Information Available Referrals Description No Information Available
--- OUTSIDE RECORDS SUMMARY | 2021-03-22 10:36 | CCD | Continuity of Care Document ---
Author Author Hugo AVILA MD Organization Unknown Address [address] [place] [address] Phone [phone] Care Team Providers Care Foam Machine Operator Name Role Phone [facility] MedAlex[employer] topete poly AUTM Unavailable Problems Active Problems Provider Date Essential hypertension Alexey Butler MD Onset: 08/14/2018 Gastroesophageal reflux disease Alexey Butler MD Onset: 0 08/26/2018 Steatosis of liver Alexey Butler MD Onset: 08/26/2018 Prediabetes lAexey Butler MD Onset: 08/26/2018 Obstructive sleep apnea syndrome Alexey Butler MD Onset: 08/26/2018 Mixed hyperlipidemia Alexey Butler MD Onset: 08/26/2018 Antiplatelet agent Alexey Butler MD Onset: 08/26/2018 Elevated level of transaminase and lactic acid dehydrogenase Alexey Butler MD Onset: 08/26/2018 Type 2 diabetes mellitus Tyler Avila MD Onset: 12/11/19 Social History Type Date Description Comments Sex Unknown Tobacco Use Start: Unknown Currently Smokes an Occasional C igar Smoking Status Reviewed: 12/30/20 Currently Smokes an Occasiona l Cigar ETOH Use Denies alcohol use Recreational Drug Use Denies Drug Use Tobacco Use Start: Unknown Patient is a current smoker, smo kes every day Allergies and adverse reactions Active Allergies Criticality Reaction | Severity Comments Date NKDA Unable to assess criticality 08/26/2018 NKFA Unable to assess criticality 08/26/2018 NKEA Unable to assess criticality 08/26/2018 Medications Active Medications SIG Qnty Indications Ordering Provide r Date Folic Acid 1mg Tablets 1 by mouth every day 30tabs Tyler Avila MD 12/10/2020 Acamprosate Calcium 333mg Tablets DR 2 by mouth three times a day 180tabs Tyler Avila MD 021 Gabapentin 800mg Tablets take one tablet by mouth three times a day 90tabs Tyler Avila MD 11/25 Niacin 500mg Tablets take 1 tab by mouth once a day 90tabs Tyler Avila MD 12/10/2020 Metformin HCL 1000mg Tablets 1 tab by mouth twice a day 180tabs Tyler Avila MD 12/10/2020 Lidocaine 5% Patches apply 1 patch to painful area. patch may remain in place for 12 hours on and 12 hours off. 30units Tyler Avila MD 12/10/2020 Spironolactone 50mg Tablets 1 by mouth every day 30tabs Tyler Avila MD 12/10/2020 Torsemide 10mg Tablets Tyler Avila MD 12/10/2020 Lantus 100Unit/ML Solution 10 units sq units at bedtime. 20ml Tyler Avila MD 12/10/2020 Ezetimibe 10mg Tablets 1 by mouth every day 90tabs Tyler Avila MD 12/10/2020 Carvedilol 3.125mg Tablets Tyler Avila MD 12/10/2020 Pantoprazole Sodium 40mg Tablets D R 1 by mouth every day Unknown Viagra 100mg Tablets take 1 pill 30-60 minutes prior to sexual activity Unknown Lisinopril 2.5mg Tablets one by mouth once daily Unknown Zyrtec Allergy 10mg Tablets 1 by mouth every day Unknown Immunizations Description No Information Available Vital Signs Date Vital Result Comment 03/16/2021 8:39am BP Systolic 93 mmHg BP Diastolic 62 mmHg Heart Rate 69 /min Body Temperature 98.4 F Respiratory Rate 16 /min O2 % BldC Oximetry 98 % 12/10/2020 10:19am BP Systolic 104 mmHg BP Diastolic 61 mmHg Heart Rate 77 /min Body Temperature 97.8 F Respiratory Rate 16 /min O2 % BldC Oximetry 97 % Weight 157.12 lb Weight 71.272 kg Height 67 inches 5'7" BMI (Body Mass Index) 24.6 kg/m2 BSA (Body Surface Area) 1.83 m2 Results Test Acquired Date Facility Test Result H/L Range Note Laboratory test finding 12/15/2020 [facility] HCG Serum Quant <pending> LH <pending> Estrogen Total S <pending> Procedures Date Code Description Status 12/29/2020 46404 Office/Outpatient New Low [facility] 30 -44 Minutes Completed 12/10/2020 72388 Office/Outpatient New Low [facility] 30 -44 Minutes Completed Medical Devices Description No Information Available Encounters Description No Information Available Assessments Date Code Description Provider 12/29/2020 E11.9 Type 2 diabetes mellitus without complications Ivan Hidalgo DPM 12/29/2020 M76.62 Achilles tendinitis, left leg Len Hidalgo DPM 12/29/2020 M76.61 Achilles tendinitis, right leg Roseann Hidalgo DPM 12/10/2020 N62 Hypertrophy of breast Tyler hand MD 12/10/2020 K42.9 Umbilical hernia without obstruc tion or gangrene Tyler Avila MD Plan of Treatment 12/29/2020 - Ivan Hidalgo DPM* E11.9 Type 2 diabetes mellitus without complications* Follow up:* Patient was advised to follow up for annual diabetic foot exam or sooner should any issues arise. * Recommendations:* 1. The patient was seen and evaluated. 2. He is here today for diabetic foot exam. He is neurovascularly intact. We discussed the importance of daily diabetic foot exam and how to perform these and also the importance of maintaining his blood sugar level. We discussed how diabetes can affect his feet. He has chronic bilateral Achilles' tendinitis. He was recently started on physical therapy and had good results in the past. He may follow up for annual diabetic foot exam and as needed for Achilles' tendinitis. [place] advised him to follow up down there if he is still not in this area. * M76.62 Achilles tendinitis, left leg * M76.61 Achilles tendinitis, right leg Functional Status Description No Information Available Mental Status Description No Information Available Referrals Description No Information Available
--- OUTSIDE RECORDS SUMMARY | 2021-03-22 10:36 | CCD | Continuity of Care Document ---
Author Author Hugo CACERES MD Organization Unknown Address [address] [place] [id number] Phone [phone] Care Team Providers Care Radiology Resident Name Role Phone Chadwick Alvarez Unavailable Problems Description No Information Available Social History Type Date Description Comments Sex Unknown ETOH Use Frequent Alcohol Abuse/Binge Dri nker Abstinent since 04/20/20 ETOH Use H/O Abuse Abstinent since 03/2020 Tobacco Use Start: Unknown Non Smoker Allergies, Adverse Reactions, Alerts Description No Known Drug Allergies Medications Active Medications SIG Qnty Indications Ordering Provide r Date Carvedilol 3.125mg Tablets Take 1 tablet by mouth 2 times per day with food 60tabs Wong Caceres MD 11/26/2020 Torsemide 10mg Tablets take 1 tabs daily in am 30tabs K70.11 Wong Caceres MD 09/20/2020 Spironolactone 50mg Tablets 50 mg every day 30tabs Wong Caceres MD 09/20/2020 Lantus 100Unit/ML Solution 24 units hs Unknown Cetirizine HCL 10mg Tablets Unknown Fish Oil 500mg Capsules 2 by mouth every day Unknown Ezetimibe 10mg Tablets daily Unknown Januvia 100mg Tablets daily Unknown Jardiance 10mg Tablets daily Unknown Acamprosate Calcium 333mg Tablets DR 666 mg daily Unknown Metformin HCL 1000mg Tablets bid Unknown Gabapentin 800mg Tablets 1 a day Unknown Folic Acid 1mg Tablets one tablet by mouth every day after meals Unknown Pantoprazole Sodium 40mg Tablets D R 1 by mouth every day 30tabs Wong Caceres MD Niacin Flush Free 500mg Capsules 1 by hs Unknown Multi Vitamin Tablets 2 by mouth every day Unknown History Medications Lidocaine Viscous HCL 2% Solution swallow 5 milliliters by mouth every 4 hours as needed for swallowing pain/pressure. stop this med after 24 hrs. 100ml Wong Caceres MD 10/2020 - 01/02/2021 Lidocaine Viscous HCL 2% Solution swallow 5 milliliters by mouth every 4 hours as needed for swallowing pain/pressure. stop this med after 24 hrs. 100ml Wong Caceres MD 06/2020 - 11/21/2020 Suprep Bowel Prep Kit 17.5-3.13-1.6GM/177ML Solution as directed - see dr yang instructions 1Kit K70.31 Wong Caceres MD 09/20/2020 - 11/21/2020 Milk Of Magnesia 7.75% Suspension take 45 milliliters by mouth about 1-2 days before colonoscopy prep 360ml K70.31 Wong Caceres MD 09/20/2020 - 11/21/2020 Immunizations Description No Information Available Vital Signs Date Vital Result Comment 02/23/2021 10:53am BP Systolic 107 mmHg BP Diastolic 55 mmHg Height 67 inches 5'7" Weight 172.00 lb BMI (Body Mass Index) 26.9 kg/m2 [place] Body Weight 148 lb Weight 78.019 kg BSA (Body Surface Area) 1.90 m2 12/21/2020 1:01pm BP Systolic 120 mmHg BP Diastolic 64 mmHg Height 67 inches 5'7" Weight 164.00 lb BMI (Body Mass Index) 25.7 kg/m2 [place] Body Weight 148 lb Weight 74.390 kg BSA (Body Surface Area) 1.86 m2 Results Test Acquired Date Facility Test Result H/L Range Note CBC With Differential 02/21/2021 [facility] Main Lab [address] [place] [address] [phone] White Blood Count 5.9 10 Normal 4.0-10.0 Red Blood Count 4.51 10 Normal 4.30-6.10 Hemoglobin 12.4 g/dL Low 13.5-17.5 Hematocrit 38.9 % Low 42.0-52.0 Mean Corpuscular Volume 86.3 fl Normal 80.0-96.0 Mean Corpuscular Hemoglobin 27.5 pg Normal 27.0-33.0 Mean Corpuscular HGB Conc 31.9 g/dL Low 32.0-36.5 Red Cell Distribution Width 15.2 % High 11.5-14.5 Platelet Count, Automated 96 10 Low 150-450 Neutrophils % 54.4 % Normal 36.0-66.0 Lymph % 28.2 % Normal 24.0-44.0 Pleasants % 14.0 % High 2.0-8.0 Eos % 2.9 % Normal 0.0-3.0 Baso % 0.3 % Normal 0.0-1.0 Immature Granulocyte % 0.2 % Normal 0-3.0 Nucleated Red Blood Cell % 0.0 % Normal 0-0 Neutrophils # 3.2 10 Normal 1.5-8.5 Lymph # 1.7 10 Normal 1.5-5.0 Pleasants # 0.8 10 Normal 0.0-0.8 Eos # 0.2 10 Normal 0.0-0.5 Baso # 0.0 10 Normal 0.0-0.2 Comprehensive Metabolic Profil 02/21/2021 [facility] Main Lab [address] [place] [phone] [phone] Glucose, Fasting 106 mg/dL High 70-100 Blood Urea Nitrogen 30 mg/dL High 7-18 Creatinine For GFR 1.15 mg/dL Normal 0.70-1.30 Glomerular Filtration Rate > 60.0 Normal >60 1 Sodium Level 137 mEq/L Normal 136-145 Potassium Serum 4.0 mEq/L Normal 3.5-5.1 Chloride Level 101 mEq/L Normal 98-107 Carbon Dioxide Level 29 mEq/L Normal 21-32 Anion Gap 7 mEq/L Low 8-16 Calcium Level 10.4 mg/dL High 8.5-10.1 Ast/Sgot 41 U/L High 7-37 Alt/SGPT 40 U/L Normal 12-78 Alkaline Phosphatase 127 U/L High 45-117 Bilirubin,Total 1.2 mg/dL High 0.2-1.0 Total Protein 7.5 GM/DL Normal 6.4-8.2 Albumin 3.7 GM/DL Normal 3.2-5.2 Albumin/Globulin Ratio 1.0 Normal Prothrombin Time/Inr 02/21/2021 [facility] Main Lab [address] [place] [address] [phone] Prothrombin Time 15.1 seconds High 12.7-14.5 Inr 1.15 Normal 2 Laboratory test finding 02/21/2021 [facility] Main Lab [address] [place] [address] [phone] Immature Platelet Fraction 5.9 % Normal 0.0-1 0.91 CBC With Differential 12/15/2020 [facility] Main Lab [address] [place] [address] [phone] White Blood Count 6.0 10 Normal 4.0-10.0 Red Blood Count 3.90 10 Low 4.30-6.10 Hemoglobin 11.0 g/dL Low 13.5-17.5 Hematocrit 34.3 % Low 42.0-52.0 Mean Corpuscular Volume 87.9 fl Normal 80.0-96.0 Mean Corpuscular Hemoglobin 28.2 pg Normal 27.0-33.0 Mean Corpuscular HGB Conc 32.1 g/dL Normal 32.0-36.5 Red Cell Distribution Width 14.4 % Normal 11.5-14.5 Platelet Count, Automated 102 10 Low 150-450 Neutrophils % 53.4 % Normal 36.0-66.0 Lymph % 27.0 % Normal 24.0-44.0 Pleasants % 17.3 % High 2.0-8.0 Eos % 1.8 % Normal 0.0-3.0 Baso % 0.3 % Normal 0.0-1.0 Immature Granulocyte % 0.2 % Normal 0-3.0 Nucleated Red Blood Cell % 0.0 % Normal 0-0 Neutrophils # 3.2 10 Normal 1.5-8.5 Lymph # 1.6 10 Normal 1.5-5.0 Pleasants # 1.0 10 High 0.0-0.8 Eos # 0.1 10 Normal 0.0-0.5 Baso # 0.0 10 Normal 0.0-0.2 Comprehensive Metabolic Profil 12/15/2020 [facility] Lab [address] [place] [address] [phone] Glucose, Fasting 131 mg/dL High 70-100 Blood Urea Nitrogen 22 mg/dL High 7-18 Creatinine For GFR 1.16 mg/dL Normal 0.70-1.30 Glomerular Filtration Rate > 60.0 Normal >60 3 Sodium Level 139 mEq/L Normal 136-145 Potassium Serum 3.9 mEq/L Normal 3.5-5.1 Chloride Level 106 mEq/L Normal 98-107 Carbon Dioxide Level 28 mEq/L Normal 21-32 Anion Gap 5 mEq/L Low 8-16 Calcium Level 10.2 mg/dL High 8.5-10.1 Ast/Sgot 45 U/L High 7-37 Alt/SGPT 42 U/L Normal 12-78 Alkaline Phosphatase 160 U/L High 45-117 Bilirubin,Total 1.1 mg/dL High 0.2-1.0 Total Protein 7.0 GM/DL Normal 6.4-8.2 Albumin 3.4 GM/DL Normal 3.2-5.2 Albumin/Globulin Ratio 0.9 Normal Laboratory test finding 12/15/2020 [facility] Main Lab [address] [place] [phone] Alpha Fetoprotein Tumor Quant 6.6 NG/ML Normal <8 .1 4 Prothrombin Time/Inr 12/15/2020 [facility] Main Lab [address] [place] [address] [phone] Prothrombin Time 15.8 seconds High 12.5-14.3 Inr 1.23 Normal 5, 6 CBC With Differential 09/17/2020 [facility] Main Lab [address], [place] [id number] [phone] White Blood Count 5.2 10 Normal 4.0-10.0 Red Blood Count 4.24 10 Low 4.30-6.10 Hemoglobin 13.7 g/dL Normal 13.5-17.5 Hematocrit 39.4 % Low 42.0-52.0 Mean Corpuscular Volume 92.9 fl Normal 80.0-96.0 Mean Corpuscular Hemoglobin 32.3 pg Normal 27.0-33.0 Mean Corpuscular HGB Conc 34.8 g/dL Normal 32.0-36.5 Red Cell Distribution Width 12.5 % Normal 11.5-14.5 Platelet Count, Automated 82 10 Low 150-450 Neutrophils % 58.4 % Normal 36.0-66.0 Lymph % 24.4 % Normal 24.0-44.0 Pleasants % 13.9 % High 2.0-8.0 Eos % 2.3 % Normal 0.0-3.0 Baso % 0.6 % Normal 0.0-1.0 Immature Granulocyte % 0.4 % Normal 0-3.0 Nucleated Red Blood Cell % 0.0 % Normal 0-0 Neutrophils # 3.0 10 Normal 1.5-8.5 Lymph # 1.3 10 Low 1.5-5.0 Pleasants # 0.7 10 Normal 0.0-0.8 Eos # 0.1 10 Normal 0.0-0.5 Baso # 0.0 10 Normal 0.0-0.2 Laboratory test finding 09/17/2020 [facility] Main Lab [address] [place] [address] [phone] Immature Platelet Fraction 11.0 % High 0.0-1 0.91 Prothrombin Time/Inr 09/17/2020 [facility] Main Lab [address] [place] [address] [phone] Prothrombin Time 15.5 seconds High 12.5-14.3 Inr 1.20 Normal 7 Comprehensive Metabolic Profil 09/17/2020 [facility] Main Lab [address] [place] [address] [phone] Glucose, Fasting 326 mg/dL High 70-100 Blood Urea Nitrogen 15 mg/dL Normal 7-18 Creatinine For GFR 0.88 mg/dL Normal 0.70-1.30 Glomerular Filtration Rate > 60.0 Normal >60 8 Sodium Level 127 mEq/L Low 136-145 Potassium Serum 4.0 mEq/L Normal 3.5-5.1 Chloride Level 90 mEq/L Low 98-107 Carbon Dioxide Level 27 mEq/L Normal 21-32 Anion Gap 10 mEq/L Normal 8-16 Calcium Level 9.7 mg/dL Normal 8.5-10.1 Ast/Sgot 66 U/L High 7-37 Alt/SGPT 53 U/L Normal 12-78 Alkaline Phosphatase 205 U/L High 45-117 Bilirubin,Total 2.3 mg/dL High 0.2-1.0 Total Protein 7.7 GM/DL Normal 6.4-8.2 Albumin 3.5 GM/DL Normal 3.2-5.2 Albumin/Globulin Ratio 0.8 Normal 1 Units are mL/min/1.73 m2 Chronic Kidney Disease Staging per NKF: Stage I & II GFR >=60 Normal to Mildly Decreased Stage III GFR 30-59 Moderately Decreased Stage IV GFR 15-29 Severely Decreased Stage V GFR <15 Very Little GFR Left ESRD GFR <15 on ENGINEERING SYSTEMS ANALYST 2 THERAPUTIC HUMAN INR VALUES INDICATIONS NORMAL RANGES PROPHYLAXIS/TREATMENT OF: VENOUS THROMBOSIS 2.0-3.0 PULMONARY EMBOLISM 2.0-3.0 PREVENTION OF SYSTEMIC EMBOLISM FROM: TISSUE HEART VALVES 2.0-3.0 ACUTE MYOCARDIAL INFARCTION 2.0-3.0 VALVULAR HEART DISEASE 2.0-3.0 ATRIAL FIBRILLATION 2.0-3.0 MECHANICAL VALVES(HIGH RISK) 2.5-3.5 RECURRENT MYOCARDIAL INFARCTION 2.5-3.5 3 Units are mL/min/1.73 m2 Chronic Kidney Disease Staging per NKF: Stage I & II GFR >=60 Normal to Mildly Decreased Stage III GFR 30-59 Moderately Decreased Stage IV GFR 15-29 Severely Decreased Stage V GFR <15 Very Little GFR Left ESRD GFR <15 on ENGINEERING SYSTEMS ANALYST 4 THE AFP ASSAY IS PERFORMED O N THE WDT AcquisitionR BY CHEMILUMINESCENCE AND SHOULD NOT BE COMPARED INTERCHANGEABLY WITH OTHER METHODS. IT SHOULD NOT BE USED ALONE A SCREENING TEST OR DIAGNOSIS FOR THE PRESENCE OR ABSENCE OF MALIGNANT DISEASE. THESE RESULTS ARE NOT INTERPRETABLE IN FEMALES. PREDICTIONS OF DISEASE RECURRENCE SHOULD NOT BE BASED SOLELY ON VALUES OBTAINED FROM SERIAL PATIENT SERUM VALUES. 5 THERAPUTIC HUMAN INR VALUES INDICATIONS NORMAL RANGES PROPHYLAXIS/TREATMENT OF: VENOUS THROMBOSIS 2.0-3.0 PULMONARY EMBOLISM 2.0-3.0 PREVENTION OF SYSTEMIC EMBOLISM FROM: TISSUE HEART VALVES 2.0-3.0 ACUTE MYOCARDIAL INFARCTION 2.0-3.0 VALVULAR HEART DISEASE 2.0-3.0 ATRIAL FIBRILLATION 2.0-3.0 MECHANICAL VALVES(HIGH RISK) 2.5-3.5 RECURRENT MYOCARDIAL INFARCTION 2.5-3.5 6 12/16/20 (Thr Dec 16) 10:55 AM WONG llanes. stable/improved 7 THERAPUTIC HUMAN INR VALUES INDICATIONS NORMAL RANGES PROPHYLAXIS/TREATMENT OF: VENOUS THROMBOSIS 2.0-3.0 PULMONARY EMBOLISM 2.0-3.0 PREVENTION OF SYSTEMIC EMBOLISM FROM: TISSUE HEART VALVES 2.0-3.0 ACUTE MYOCARDIAL INFARCTION 2.0-3.0 VALVULAR HEART DISEASE 2.0-3.0 ATRIAL FIBRILLATION 2.0-3.0 MECHANICAL VALVES(HIGH RISK) 2.5-3.5 RECURRENT MYOCARDIAL INFARCTION 2.5-3.5 8 Units are mL/min/1.73 m2 Chronic Kidney Disease Staging per NKF: Stage I & II GFR >=60 Normal to Mildly Decreased Stage III GFR 30-59 Moderately Decreased Stage IV GFR 15-29 Severely Decreased Stage V GFR <15 Very Little GFR Left ESRD GFR <15 on ENGINEERING SYSTEMS ANALYST Procedures Date Code Description Status 12/31/2020 54389 Endoscopy Upper GI W/Band Ligati on Of Varices Completed 12/21/2020 84885 Office/Outpatient Established Mo d MDM 30-39 Min Completed 11/26/2020 38278 Colonoscopy Flexible Proximal To Splenic Flexure Diagnostic W/Or Completed 11/26/2020 53116 Endoscopy Upper GI W/Band Ligati on Of Varices Completed 09/20/2020 27676 Office/Outpatient New Moderate M DM 45-59 Minutes Completed Medical Devices Description No Information Available Encounters Type Date Location Provider Dx Diagnosis Office Visit 12/21/2020 1:00p [facility] Pra yolande Caceres MD K70.31 Alcoholic cirrhosis of liver with ascites K70.11 Alcoholic hepatitis with asc ites I85.00 Esophageal varices without b leeding Office Visit 09/20/2020 10:30a [facility] Pra yolande Caceres MD K70.31 Alcoholic cirrhosis of liver with ascites K70.11 Alcoholic hepatitis with asc ites Assessments Date Code Description Provider 12/31/2020 K74.60 Unspecified cirrhosis of liver Alen Caceres MD 12/31/2020 I85.10 Secondary esophageal varices wit hout bleeding Wong Caceres MD 12/21/2020 K70.31 Alcoholic cirrhosis of liver wit h ascites Wong Caceres MD 12/21/2020 K70.11 Alcoholic hepatitis with ascites Wong Caceres MD 12/21/2020 I85.00 Esophageal varices without bleed ing Wong Caceres MD 11/26/2020 K92.1 Melena Wong Caceres MD 11/26/2020 K64.8 Other hemorrhoids Wong Caceres MD 11/26/2020 K74.60 Unspecified cirrhosis of liver Alen Caceres MD 11/26/2020 I85.10 Secondary esophageal varices wit hout bleeding Wong Caceres MD 09/20/2020 K70.31 Alcoholic cirrhosis of liver wit h ascites Wong Caceres MD 09/20/2020 K70.11 Alcoholic hepatitis with ascites Wong Caceres MD Plan of Treatment Future Appointment(s):* 03/22/2021 2:35 pm - Wong Caceres MD at [facility] Functional Status Description No Information Available Mental Status Description No Information Available Referrals Description No Information Available
--- OUTSIDE RECORDS SUMMARY | 2021-03-22 10:36 | CCD | Continuity of Care Document ---
Author Author Hugo CACERES MD Organization Unknown Address [address] [place] [id number] Phone [phone] Care Team Providers Care Food Service Worker Name Role Phone Chadwick Alvarez Unavailable Problems [...] lb BMI (Body Mass Index) 26.9 kg/m2 [place]rick Body Weight 148 lb Weight 78.019 kg BSA (Body Surface Area) 1.90 m2 12/21/2020 1:01pm BP Systolic 120 mmHg BP Diastolic 64 mmHg Height 67 inches 5'7" Weight 164.00 lb BMI (Body Mass Index) 25.7 kg/m2 [place] Body Weight 148 lb Weight 74.390 kg BSA (Body Surface Area) 1.86 m2 Results Test Acquired Date Facility Test Result H/L Range Note CBC With Differential 02/21/2021 [facility] Main Lab [address] [place] [address] [phone] White Blood Count 5.9 10 Normal 4.0-10.0 [...] 36.0-66.0 Lymph % 28.2 % Normal 24.0-44.0 [place] % 14.0 % High 2.0-8.0 Eos % 2.9 % Normal 0.0-3.0 Baso % 0.3 % Normal 0.0-1.0 Immature Granulocyte % 0.2 % Normal 0-3.0 Nucleated Red Blood Cell % 0.0 % Normal 0-0 Neutrophils # 3.2 10 Normal 1.5-8.5 Lymph # 1.7 10 Normal 1.5-5.0 [place] # 0.8 10 Normal 0.0-0.8 Eos # 0.2 10 Normal 0.0-0.5 Baso # 0.0 10 Normal 0.0-0.2 Comprehensive Metabolic Profil 02/21/2021 [facility] Main Lab [address] [place] [address] [phone] Glucose, Fasting 106 mg/dL High 70-100 Blood [...] Albumin/Globulin Ratio 1.0 Normal Prothrombin Time/Inr 02/21/2021 [facility] enter Main Lab [address] [place] [address] [phone] Prothrombin Time 15.1 seconds High 12.7-14.5 Inr 1.15 Normal 2 Laboratory test finding 02/21/2021 [facility] Main Lab [address] [place] [address] [phone] Immature Platelet Fraction 5.9 % Normal 0.0-1 0.91 CBC With Differential 12/15/2020 [facility] Main Lab [address] [place] [address] [phone] White Blood Count 6.0 10 Normal 4.0-10.0 [...] 36.0-66.0 Lymph % 27.0 % Normal 24.0-44.0 [place] % 17.3 % High 2.0-8.0 Eos % 1.8 % Normal 0.0-3.0 Baso % 0.3 % Normal 0.0-1.0 Immature Granulocyte % 0.2 % Normal 0-3.0 Nucleated Red Blood Cell % 0.0 % Normal 0-0 Neutrophils # 3.2 10 Normal 1.5-8.5 Lymph # 1.6 10 Normal 1.5-5.0 [place] # 1.0 10 High 0.0-0.8 Eos # 0.1 10 Normal 0.0-0.5 Baso # 0.0 10 Normal 0.0-0.2 Comprehensive Metabolic Profil 12/15/2020 [facility] Main Lab [address] [place] [address] [phone] Glucose, Fasting 131 mg/dL High 70-100 Blood [...] Ratio 0.9 Normal Laboratory test finding 12/15/2020 [facility] Main Lab [address] [place] [address] [phone] Alpha Fetoprotein Tumor Quant 6.6 NG/ML Normal <8 .1 4 Prothrombin Time/Inr 12/15/2020 [facility] enter Main Lab [address] [place] [address] [phone] Prothrombin Time 15.8 seconds High 12.5-14.3 Inr 1.23 Normal 5, 6 CBC With Differential 09/17/2020 [facility] Main Lab [address] [place], [place] [id number] [phone] White Blood Count 5.2 10 Normal 4.0-10.0 [...] 36.0-66.0 Lymph % 24.4 % Normal 24.0-44.0 [place] % 13.9 % High 2.0-8.0 Eos % 2.3 % Normal 0.0-3.0 Baso % 0.6 % Normal 0.0-1.0 Immature Granulocyte % 0.4 % Normal 0-3.0 Nucleated Red Blood Cell % 0.0 % Normal 0-0 Neutrophils # 3.0 10 Normal 1.5-8.5 Lymph # 1.3 10 Low 1.5-5.0 [place] # 0.7 10 Normal 0.0-0.8 Eos # 0.1 10 Normal 0.0-0.5 Baso # 0.0 10 Normal 0.0-0.2 Laboratory test finding 09/17/2020 [facility] Main Lab [address] [place] [address] [phone] Immature Platelet Fraction 11.0 % High 0.0-1 0.91 Prothrombin Time/Inr 09/17/2020 [facility] Main Lab [address] [place] [address] [phone] Prothrombin Time 15.5 seconds High 12.5-14.3 Inr 1.20 Normal 7 Comprehensive Metabolic Profil 09/17/2020 [facility] Main Lab [address] [place] [address] [phone] Glucose, Fasting 326 mg/dL High 70-100 Blood [...] Little GFR Left ESRD GFR <15 on [employer] 2 THERAPUTIC HUMAN INR VALUES INDICATIONS NORMAL [...] Little GFR Left ESRD GFR <15 on [employer] 4 THE AFP ASSAY IS PERFORMED O N THE [employer] BY CHEMILUMINESCENCE AND SHOULD NOT BE COMPARED [...] Little GFR Left ESRD GFR <15 on [employer] Procedures Date Code Description Status 02/23/2021 97641 Office/Outpatient New Moderate M DM 45-59 Minutes Completed 12/31/2020 34215 Endoscopy Upper GI W/Band Ligati on Of Varices Completed 12/21/2020 66317 Office/Outpatient Established Mo d MDM 30-39 Min Completed 11/26/2020 36217 Colonoscopy Flexible Proximal To Splenic Flexure Diagnostic W/Or Completed 11/26/2020 79333 Endoscopy Upper GI W/Band Ligati on Of Varices Completed 09/20/2020 15793 Office/Outpatient New Moderate M DM 45-59 Minutes Completed Medical Devices Description No Information Available Encounters Type Date Location Provider Dx Diagnosis Office Visit 02/23/2021 10:20a [facility] yolande Caceres MD I85.00 Esophageal varices without b leeding K70.31 Alcoholic cirrhosis of liver with ascites Office Visit 12/21/2020 1:00p [facility] yolande Caceres MD K70.31 Alcoholic cirrhosis of liver with ascites K70.11 Alcoholic hepatitis with asc ites I85.00 Esophageal varices without b leeding Office Visit 09/20/2020 10:30a [facility] Pra yolande Caceres MD K70.31 Alcoholic cirrhosis of liver with ascites K70.11 Alcoholic hepatitis with asc ites Assessments Date Code Description Provider 02/23/2021 I85.00 Esophageal varices without bleed ing Wong Caceres MD 02/23/2021 K70.31 Alcoholic cirrhosis of liver wit h ascites Wong Caceres MD 12/31/2020 K74.60 Unspecified cirrhosis of liver D liana Caceres MD 12/31/2020 I85.10 Secondary esophageal varices wit hout bleeding Wong Caceres MD 12/21/2020 K70.31 Alcoholic cirrhosis of liver wit h ascites Wong Caceres MD 12/21/2020 K70.11 Alcoholic hepatitis with ascites Wong Caceres MD 12/21/2020 I85.00 Esophageal varices without bleed ing Wong Caceres MD 11/26/2020 K92.1 Melena Wong Caceres MD 11/26/2020 K64.8 Other hemorrhoids Wong Caceres MD 11/26/2020 K74.60 Unspecified cirrhosis of liver D aviezra Caceres MD 11/26/2020 I85.10 Secondary esophageal varices wit hout bleeding Wong Caceres MD 09/20/2020 K70.31 Alcoholic cirrhosis of liver wit h ascites Wong Caceres MD 09/20/2020 K70.11 Alcoholic hepatitis with ascites Wong Caceres MD Plan of Treatment Future Appointment(s):* 03/22/2021 2:35 pm - Wong Caceres MD at [facility] 02/23/2021 - Wong Caceres MD* I85.00 Esophageal varices without bleeding * K70.31 Alcoholic cirrhosis of liver with ascites * * Comments:* no ascites today, npo edema today. Labs look good. INR normal, Albumin normal Bili 1.2. Platelets low at 90's. * Recommendations:* discussed dosing of diuretics: He is taking 20 mg torsaemide now--->torsemide...he should only take 10 mg of torsemide (and 50 mg spironolactone) Cont Carvedilol for varices/portal HTN (despite Hx ascites)--he is tolerating this well and may benefit in his case. Functional Status Description No Information Available Mental Status Description No Information Available Referrals Description No Information Available
--- OUTSIDE RECORDS SUMMARY | 2021-03-22 10:36 | CCD | Continuity of Care Document ---
Author Author Hugo CACERES MD Organization Unknown Address [address] [place] [address] Phone [phone] Care Team Providers Care Rocket Scientist Name Role Phone Chadwick Alvarez Unavailable Problems Description No Information Available Social History Type Date Description Comments Sex Unknown ETOH Use Frequent Alcohol Abuse/Binge Dri nker Abstinent since 04/20/20 ETOH Use H/O Abuse Abstinent since 03/2020 Tobacco Use Start: Unknown Non Smoker Allergies and adverse reactions Description No Known [...] lb BMI (Body Mass Index) 26.9 kg/m2 [place] Body Weight 148 lb Weight 78.019 kg BSA (Body Surface Area) 1.90 m2 12/21/2020 1:01pm BP Systolic 120 mmHg BP Diastolic 64 mmHg Height 67 inches 5'7" Weight 164.00 lb BMI (Body Mass Index) 25.7 kg/m2 [place] Body Weight 148 lb Weight 74.390 kg BSA (Body Surface Area) 1.86 m2 Results Test Acquired Date Facility Test Result H/L Range Note CBC With Differential 02/21/2021 [facility] Main Lab [address] [place] [address] [phone] White Blood Count 5.9 10 Normal 4.0-10.0 [...] 36.0-66.0 Lymph % 28.2 % Normal 24.0-44.0 [place] % 14.0 % High 2.0-8.0 Eos % 2.9 % Normal 0.0-3.0 Baso % 0.3 % Normal 0.0-1.0 Immature Granulocyte % 0.2 % Normal 0-3.0 Nucleated Red Blood Cell % 0.0 % Normal 0-0 Neutrophils # 3.2 10 Normal 1.5-8.5 Lymph # 1.7 10 Normal 1.5-5.0 [place] # 0.8 10 Normal 0.0-0.8 Eos # 0.2 10 Normal 0.0-0.5 Baso # 0.0 10 Normal 0.0-0.2 Comprehensive Metabolic Profil 02/21/2021 [facility] Main Lab [address] [place] [address] [phone] Glucose, Fasting 106 mg/dL High 70-100 Blood [...] Albumin/Globulin Ratio 1.0 Normal Prothrombin Time/Inr 02/21/2021 [facility] enter Main Lab [address] [place] [address] [phone] Prothrombin Time 15.1 seconds High 12.7-14.5 Inr 1.15 Normal 2 Laboratory test finding 02/21/2021 [facility] Main Lab [address] [place] [address] [phone] Immature Platelet Fraction 5.9 % Normal 0.0-1 0.91 CBC With Differential 12/15/2020 [facility] Main Lab [address] [place] [address] [phone] White Blood Count 6.0 10 Normal 4.0-10.0 [...] 36.0-66.0 Lymph % 27.0 % Normal 24.0-44.0 [place] % 17.3 % High 2.0-8.0 Eos % 1.8 % Normal 0.0-3.0 Baso % 0.3 % Normal 0.0-1.0 Immature Granulocyte % 0.2 % Normal 0-3.0 Nucleated Red Blood Cell % 0.0 % Normal 0-0 Neutrophils # 3.2 10 Normal 1.5-8.5 Lymph # 1.6 10 Normal 1.5-5.0 [place] # 1.0 10 High 0.0-0.8 Eos # 0.1 10 Normal 0.0-0.5 Baso # 0.0 10 Normal 0.0-0.2 Comprehensive Metabolic Profil 12/15/2020 [facility] Main Lab [address] [place] [address] [phone] Glucose, Fasting 131 mg/dL High 70-100 Blood [...] Ratio 0.9 Normal Laboratory test finding 12/15/2020 [facility] Main Lab [address] [place] [address] [phone] Alpha Fetoprotein Tumor Quant 6.6 NG/ML Normal <8 .1 4 Prothrombin Time/Inr 12/15/2020 [facility] enter Main Lab [address] [place], [place] [phone] Prothrombin Time 15.8 seconds High 12.5-14.3 Inr 1.23 Normal 5, 6 CBC With Differential 09/17/2020 [facility] Main Lab [address] [place] [address] [phone] White Blood Count 5.2 10 Normal 4.0-10.0 [...] 36.0-66.0 Lymph % 24.4 % Normal 24.0-44.0 [place] % 13.9 % High 2.0-8.0 Eos % 2.3 % Normal 0.0-3.0 Baso % 0.6 % Normal 0.0-1.0 Immature Granulocyte % 0.4 % Normal 0-3.0 Nucleated Red Blood Cell % 0.0 % Normal 0-0 Neutrophils # 3.0 10 Normal 1.5-8.5 Lymph # 1.3 10 Low 1.5-5.0 [place] # 0.7 10 Normal 0.0-0.8 Eos # 0.1 10 Normal 0.0-0.5 Baso # 0.0 10 Normal 0.0-0.2 Laboratory test finding 09/17/2020 [facility] Main Lab [address] [place] [address] [phone] Immature Platelet Fraction 11.0 % High 0.0-1 0.91 Prothrombin Time/Inr 09/17/2020 [facility] enter Main Lab [address] [place] [address] [phone] Prothrombin Time 15.5 seconds High 12.5-14.3 Inr 1.20 Normal 7 Comprehensive Metabolic Profil 09/17/2020 [facility] Main Lab [address] [place] [address] [phone] Glucose, Fasting 326 mg/dL High 70-100 Blood [...] Little GFR Left ESRD GFR <15 on [employer] 2 THERAPUTIC HUMAN INR VALUES INDICATIONS NORMAL [...] Little GFR Left ESRD GFR <15 on [employer] 4 THE AFP ASSAY IS PERFORMED O N THE [place] [employer] BY CHEMILUMINESCENCE AND SHOULD NOT BE COMPARED [...] 2.5-3.5 RECURRENT MYOCARDIAL INFARCTION 2.5-3.5 6 12/16/20 (Dec 16) 10:55 AM [facility]anes. stable/improved 7 [...] Little GFR Left ESRD GFR <15 on [employer] Procedures Date Code Description Status 02/23/2021 95920 Office/Outpatient Established Mo d MDM 30-39 Min Completed 12/31/2020 13431 Endoscopy Upper GI W/Band Ligati on Of Varices Completed 12/21/2020 81796 Office/Outpatient Established Mo d MDM 30-39 Min Completed 11/26/2020 72104 Colonoscopy Flexible Proximal To Splenic Flexure Diagnostic W/Or Completed 11/26/2020 56835 Endoscopy Upper GI W/Band Ligati on Of Varices Completed 09/20/2020 61375 Office/Outpatient New Moderate M DM 45-59 Minutes Completed Medical Devices Description No Information Available Encounters Type Date Location Provider Dx Diagnosis Office Visit 02/23/2021 10:20a [facility] Pra yolande Caceres MD I85.00 Esophageal varices without b leeding K70.31 Alcoholic cirrhosis of liver with ascites Office Visit 12/21/2020 1:00p [facility] Pra yolande Caceres MD K70.31 Alcoholic cirrhosis of liver with ascites K70.11 Alcoholic hepatitis with asc ites I85.00 Esophageal varices without b leeding Office Visit 09/20/2020 10:30a [facility] Pra yolande Caceres MD K70.31 [...] 2:35 pm - Wong Caceres MD at [facility] 02/23/2021 - Wong Caceres MD* [...]
--- OUTSIDE RECORDS SUMMARY | 2021-03-22 10:36 | CCD | Continuity of Care Document ---
Author Author Hugo CACERES MD Organization Unknown Address [address] [place] [address] Phone [phone] Care Team Providers Care Roofer Name Role Phone Chadwick Alvarez Unavailable Problems [...] Available Vital Signs Date Vital Result Comment 12/21/2020 1:01pm BP Systolic 120 mmHg BP Diastolic 64 mmHg Height 67 inches 5'7" Weight 164.00 lb BMI (Body Mass Index) 25.7 kg/m2 Benedict Body Weight 148 lb Weight 74.390 kg BSA (Body Surface Area) 1.86 m2 09/20/2020 10:33am BP Systolic 138 mmHg BP Diastolic 70 mmHg Height 67 inches 5'7" Weight 161.00 lb BMI (Body Mass Index) 25.2 kg/m2 Benedict Body Weight 148 lb Weight 73.030 kg BSA (Body Surface Area) 1.84 m2 Results Test Acquired Date Facility Test Result H/L Range Note Comprehensive Metabolic Profil 12/15/2020 [facility] Main Lab [address] [place] [address] [phone] Glucose, Fasting 131 mg/dL High 70-100 Blood Urea Nitrogen 22 mg/dL High 7-18 Creatinine For GFR 1.16 mg/dL Normal 0.70-1.30 Glomerular Filtration Rate > 60.0 Normal >60 1 Sodium Level 139 mEq/L Normal 136-145 Potassium [...] Ratio 0.9 Normal Laboratory test finding 12/15/2020 [facility] Main Lab [address] [place] [address] [phone] Alpha Fetoprotein Tumor Quant 6.6 NG/ML Normal <8 .1 2 Prothrombin Time/Inr 12/15/2020 [facility] Main Lab [address] [place] [address] [phone] Prothrombin Time 15.8 seconds High 12.5-14.3 Inr 1.23 Normal 3, 4 CBC With Differential 12/15/2020 [facility] Main Lab 0 [place] [address] [phone] White Blood Count 6.0 10 Normal 4.0-10.0 [...] 36.0-66.0 Lymph % 27.0 % Normal 24.0-44.0 [place] % 17.3 % High 2.0-8.0 Eos % 1.8 % Normal 0.0-3.0 Baso % 0.3 % Normal 0.0-1.0 Immature Granulocyte % 0.2 % Normal 0-3.0 Nucleated Red Blood Cell % 0.0 % Normal 0-0 Neutrophils # 3.2 10 Normal 1.5-8.5 Lymph # 1.6 10 Normal 1.5-5.0 [place] # 1.0 10 High 0.0-0.8 Eos # 0.1 10 Normal 0.0-0.5 Baso # 0.0 10 Normal 0.0-0.2 CBC With Differential 09/17/2020 [facility] Main Lab [address] [place] [address] [phone] White Blood Count 5.2 10 Normal 4.0-10.0 [...] 36.0-66.0 Lymph % 24.4 % Normal 24.0-44.0 [place] % 13.9 % High 2.0-8.0 Eos % 2.3 % Normal 0.0-3.0 Baso % 0.6 % Normal 0.0-1.0 Immature Granulocyte % 0.4 % Normal 0-3.0 Nucleated Red Blood Cell % 0.0 % Normal 0-0 Neutrophils # 3.0 10 Normal 1.5-8.5 Lymph # 1.3 10 Low 1.5-5.0 [place] # 0.7 10 Normal 0.0-0.8 Eos # 0.1 10 Normal 0.0-0.5 Baso # 0.0 10 Normal 0.0-0.2 Laboratory test finding 09/17/2020 [facility] Main Lab [address] [place] [address] [phone] Immature Platelet Fraction 11.0 % High 0.0-1 0.91 Prothrombin Time/Inr 09/17/2020 [facility] Main Lab [address] [place], [place] [id number] [phone] Prothrombin Time 15.5 seconds High 12.5-14.3 Inr 1.20 Normal 5 Comprehensive Metabolic Profil 09/17/2020 [facility] Main Lab [address] [place], [place] [id number] [phone] Glucose, Fasting 326 mg/dL High 70-100 Blood Urea Nitrogen 15 mg/dL Normal 7-18 Creatinine For GFR 0.88 mg/dL Normal 0.70-1.30 Glomerular Filtration Rate > 60.0 Normal >60 6 Sodium Level 127 mEq/L Low 136-145 Potassium [...] GM/DL Normal 3.2-5.2 Albumin/Globulin Ratio 0.8 Normal Prothrombin Time/Inr 08/13/2020 [facility] enter Main Lab 0 [place], [place] [id number] [phone] Prothrombin Time 16.6 seconds High 12.5-14.3 Inr 1.32 Normal 7 Comprehensive Metabolic Profil 08/13/2020 [facility] Main Lab [address] [place] [address] [phone] Glucose, Fasting 576 mg/dL Critical high 70-100 Blood Urea Nitrogen 19 mg/dL High 7-18 Creatinine For GFR 1.10 mg/dL Normal 0.70-1.30 Glomerular Filtration Rate > 60.0 Normal >60 8 Sodium Level 122 mEq/L Low 136-145 Potassium Serum 3.9 mEq/L Normal 3.5-5.1 9 Chloride Level 85 mEq/L Low 98-107 Carbon Dioxide Level 28 mEq/L Normal 21-32 Anion Gap 9 mEq/L Normal 8-16 Calcium Level 9.7 mg/dL Normal 8.5-10.1 Ast/Sgot 51 U/L High 7-37 Alt/SGPT 48 U/L Normal 12-78 Alkaline Phosphatase 168 U/L High 45-117 Bilirubin,Total 2.4 mg/dL High 0.2-1.0 Total Protein 8.1 GM/DL Normal 6.4-8.2 Albumin 3.7 GM/DL Normal 3.2-5.2 Albumin/Globulin Ratio 0.8 Normal CBC With Differential 08/13/2020 [facility] Main Lab [address] [place] [address] [phone] White Blood Count 5.8 10 Normal 4.0-10.0 Red Blood Count 4.40 10 Normal 4.30-6.10 Hemoglobin 14.4 g/dL Normal 13.5-17.5 Hematocrit 41.1 % Low 42.0-52.0 Mean Corpuscular Volume 93.4 fl Normal 80.0-96.0 Mean Corpuscular Hemoglobin 32.7 pg Normal 27.0-33.0 Mean Corpuscular HGB Conc 35.0 g/dL Normal 32.0-36.5 Red Cell Distribution Width 12.9 % Normal 11.5-14.5 Platelet Count, Automated 108 10 Low 150-450 Neutrophils % 63.4 % Normal 36.0-66.0 Lymph % 25.5 % Normal 24.0-44.0 [place] % 9.2 % High 2.0-8.0 Eos % 1.2 % Normal 0.0-3.0 Baso % 0.5 % Normal 0.0-1.0 Immature Granulocyte % 0.2 % Normal 0-3.0 Nucleated Red Blood Cell % 0.0 % Normal 0-0 Neutrophils # 3.7 10 Normal 1.5-8.5 Lymph # 1.5 10 Normal 1.5-5.0 [place] # 0.5 10 Normal 0.0-0.8 Eos # 0.1 10 Normal 0.0-0.5 Baso # 0.0 10 Normal 0.0-0.2 CBC With Differential 08/04/2020 [facility] Main Lab 0 [place] [address] [phone] White Blood Count 6.5 10 Normal 4.0-10.0 Red Blood Count 4.12 10 Low 4.30-6.10 Hemoglobin 13.5 g/dL Normal 13.5-17.5 Hematocrit 39.0 % Low 42.0-52.0 Mean Corpuscular Volume 94.7 fl Normal 80.0-96.0 Mean Corpuscular Hemoglobin 32.8 pg Normal 27.0-33.0 Mean Corpuscular HGB Conc 34.6 g/dL Normal 32.0-36.5 Red Cell Distribution Width 12.9 % Normal 11.5-14.5 Platelet Count, Automated 153 10 Normal 150-450 Neutrophils % 59.6 % Normal 36.0-66.0 Lymph % 27.7 % Normal 24.0-44.0 [place] % 9.4 % High 2.0-8.0 Eos % 2.0 % Normal 0.0-3.0 Baso % 0.8 % Normal 0.0-1.0 Immature Granulocyte % 0.5 % Normal 0-3.0 Nucleated Red Blood Cell % 0.0 % Normal 0-0 Neutrophils # 3.9 10 Normal 1.5-8.5 Lymph # 1.8 10 Normal 1.5-5.0 [place] # 0.6 10 Normal 0.0-0.8 Eos # 0.1 10 Normal 0.0-0.5 Baso # 0.1 10 Normal 0.0-0.2 Comprehensive Metabolic Profil 08/04/2020 [facility] Main Lab [address] [place] [address] [phone] Glucose, Fasting 314 mg/dL High 70-100 10 Blood Urea Nitrogen 14 mg/dL Normal 7-18 Creatinine For GFR 0.90 mg/dL Normal 0.70-1.30 Glomerular Filtration Rate > 60.0 Normal >60 1 1 Sodium Level 131 mEq/L Low 136-145 Potassium Serum 4.5 mEq/L Normal 3.5-5.1 Chloride Level 95 mEq/L Low 98-107 Carbon Dioxide Level 29 mEq/L Normal 21-32 Anion Gap 7 mEq/L Low 8-16 Calcium Level 10.0 mg/dL Normal 8.5-10.1 Ast/Sgot 48 U/L High 7-37 Alt/SGPT 39 U/L Normal 12-78 Alkaline Phosphatase 132 U/L High 45-117 Bilirubin,Total 2.1 mg/dL High 0.2-1.0 Total Protein 7.6 GM/DL Normal 6.4-8.2 Albumin 3.6 GM/DL Normal 3.2-5.2 Albumin/Globulin Ratio 0.9 Normal Prothrombin Time/Inr 08/04/2020 [facility] Main Lab [address] [place] [address] [phone] Prothrombin Time 15.1 seconds High 12.5-14.3 Inr 1.16 Normal 12 Laboratory test finding 08/04/2020 [facility] Main Lab [address] [place] [address] [phone] Magnesium Level 1.9 mg/dL Normal 1.8-2.4 13 Basic Metabolic Profile 07/09/2020 [facility] Main Lab [address] [place] [address] [phone] Glucose, Fasting 314 mg/dL High 70-100 Blood Urea Nitrogen 16 mg/dL Normal 7-18 Creatinine For GFR 0.94 mg/dL Normal 0.70-1.30 Glomerular Filtration Rate > 60.0 Normal >60 1 4 Sodium Level 130 mEq/L Low 136-145 Potassium Serum 3.6 mEq/L Normal 3.5-5.1 Chloride Level 93 mEq/L Low 98-107 Carbon Dioxide Level 29 mEq/L Normal 21-32 Anion Gap 8 mEq/L Normal 8-16 Calcium Level 10.0 mg/dL Normal 8.5-10.1 Laboratory test finding 07/09/2020 [facility] Main Lab [address] [place] [address] [phone] Magnesium Level 1.9 mg/dL Normal 1.8-2.4 1 Units are mL/min/1.73 m2 Chronic Kidney Disease Staging per NKF: Stage I & II GFR >=60 Normal to Mildly Decreased Stage III GFR 30-59 Moderately Decreased Stage IV GFR 15-29 Severely Decreased Stage V GFR <15 Very Little GFR Left ESRD GFR <15 on DIESEL TRUCK CRANE OPERATOR 2 THE AFP ASSAY IS PERFORMED O N THE Health in [place] BY CHEMILUMINESCENCE AND SHOULD NOT BE COMPARED INTERCHANGEABLY WITH OTHER METHODS. IT SHOULD NOT BE USED ALONE A SCREENING TEST OR DIAGNOSIS FOR THE PRESENCE OR ABSENCE OF MALIGNANT DISEASE. THESE RESULTS ARE NOT INTERPRETABLE IN FEMALES. PREDICTIONS OF DISEASE RECURRENCE SHOULD NOT BE BASED SOLELY ON VALUES OBTAINED FROM SERIAL PATIENT SERUM VALUES. 3 THERAPUTIC HUMAN INR VALUES INDICATIONS NORMAL RANGES PROPHYLAXIS/TREATMENT OF: VENOUS THROMBOSIS 2.0-3.0 PULMONARY EMBOLISM 2.0-3.0 PREVENTION OF SYSTEMIC EMBOLISM FROM: TISSUE HEART VALVES 2.0-3.0 ACUTE MYOCARDIAL INFARCTION 2.0-3.0 VALVULAR HEART DISEASE 2.0-3.0 ATRIAL FIBRILLATION 2.0-3.0 MECHANICAL VALVES(HIGH RISK) 2.5-3.5 RECURRENT MYOCARDIAL INFARCTION 2.5-3.5 4 12/16/20 (Thr Mg 22) 10:55 AM WONG llanes. stable/improved 5 THERAPUTIC HUMAN INR VALUES INDICATIONS NORMAL RANGES PROPHYLAXIS/TREATMENT OF: VENOUS THROMBOSIS 2.0-3.0 PULMONARY EMBOLISM 2.0-3.0 PREVENTION OF SYSTEMIC EMBOLISM FROM: TISSUE HEART VALVES 2.0-3.0 ACUTE MYOCARDIAL INFARCTION 2.0-3.0 VALVULAR HEART DISEASE 2.0-3.0 ATRIAL FIBRILLATION 2.0-3.0 MECHANICAL VALVES(HIGH RISK) 2.5-3.5 RECURRENT MYOCARDIAL INFARCTION 2.5-3.5 6 Units are mL/min/1.73 m2 Chronic Kidney Disease Staging per NKF: Stage I & II GFR >=60 Normal to Mildly Decreased Stage III GFR 30-59 Moderately Decreased Stage IV GFR 15-29 Severely Decreased Stage V GFR <15 Very Little GFR Left ESRD GFR <15 on DIESEL TRUCK CRANE OPERATOR 7 THERAPUTIC HUMAN INR VALUES INDICATIONS NORMAL [...] Little GFR Left ESRD GFR <15 on DIESEL TRUCK CRANE OPERATOR 9 Testing was performed on a l ipemic specimen. Suggest recollection of a FASTING specimen for more accurate test results. Testing was performed on an icteric specimen. 10 Testing was performed on a l ipemic specimen. Suggest recollection of a FASTING specimen for more accurate test results. 11 Units are mL/min/1.73 m2 Chronic Kidney Disease Staging per NKF: Stage I & II GFR >=60 Normal to Mildly Decreased Stage III GFR 30-59 Moderately Decreased Stage IV GFR 15-29 Severely Decreased Stage V GFR <15 Very Little GFR Left ESRD GFR <15 on DIESEL TRUCK CRANE OPERATOR 12 THERAPUTIC HUMAN INR VALUES INDICATIONS NORMAL RANGES PROPHYLAXIS/TREATMENT OF: VENOUS THROMBOSIS 2.0-3.0 PULMONARY EMBOLISM 2.0-3.0 PREVENTION OF SYSTEMIC EMBOLISM FROM: TISSUE HEART VALVES 2.0-3.0 ACUTE MYOCARDIAL INFARCTION 2.0-3.0 VALVULAR HEART DISEASE 2.0-3.0 ATRIAL FIBRILLATION 2.0-3.0 MECHANICAL VALVES(HIGH RISK) 2.5-3.5 RECURRENT MYOCARDIAL INFARCTION 2.5-3.5 13 09/15/20 (SunSep 15) 05:09 PM WONG CACERES stable/better 14 Units are mL/min/1.73 m2 Chronic Kidney Disease Staging per NKF: Stage I & II GFR >=60 Normal to Mildly Decreased Stage III GFR 30-59 Moderately Decreased Stage IV GFR 15-29 Severely Decreased Stage V GFR <15 Very Little GFR Left ESRD GFR <15 on DIESEL TRUCK CRANE OPERATOR Procedures Date Code Description Status 12/31/2020 77985 Endoscopy Upper GI W/Band Ligati on Of Varices Completed 12/21/2020 45972 Office/Outpatient Established Mo d MDM 30-39 Min Completed 11/26/2020 95384 Colonoscopy Flexible Proximal To Splenic Flexure Diagnostic W/Or Completed 11/26/2020 50467 Endoscopy Upper GI W/Band Ligati on Of Varices Completed 09/20/2020 43704 Office/Outpatient New Moderate M DM 45-59 Minutes Completed 08/04/2020 06251 Office/Outpatient Established Lo w MDM 20-29 Min Completed Medical Devices Description No Information Available Encounters Type Date Location Provider Dx Diagnosis Office Visit 12/21/2020 1:00p [facility] yolande Caceres MD K70.31 Alcoholic cirrhosis of liver with ascites K70.11 Alcoholic hepatitis with asc ites I85.00 Esophageal varices without b leeding Office Visit 09/20/2020 10:30a [facility] yolande Caceres MD K70.31 Alcoholic cirrhosis of liver with ascites K70.11 Alcoholic hepatitis with asc ites Office Visit 08/04/2020 3:30p [facility] Justine Laws K70.11 Alcoholic hepatitis with ascites Assessments Date Code Description Provider 12/31/2020 K74.60 Unspecified cirrhosis of liver D [...] 11/26/2020 K74.60 Unspecified cirrhosis of liver D liana Caceres MD 11/26/2020 I85.10 Secondary esophageal varices wit hout bleeding Wong Caceres MD 09/20/2020 K70.31 Alcoholic cirrhosis of liver wit h ascites Wong Caceres MD 09/20/2020 K70.11 Alcoholic hepatitis with ascites Wong Caceres MD 08/04/2020 K70.11 Alcoholic hepatitis with ascites Wong Caceres MD Plan of Treatment Future Appointment(s):* 02/23/2021 10:20 am - Wong Caceres MD at [facility] 12/21/2020 - Wong Caceres MD* K70.31 Alcoholic cirrhosis of liver with ascites * K70.11 Alcoholic hepatitis with ascites * I85.00 Esophageal varices without bleeding * * Comments:* 1)he has been taking torsemide 10 bid. his BUN is just slightly up. there is no edema, no ascites that I can determine.--Plan to reduce torsemide to 10 mg q day. cont spironolactone at 50 mg q day.2) Esophageal varices prophylactically baqnded--plan to repeat EGD next week for rebanding if necessary3) Despite his previous ascites, I feel that that was related to active hepatitis at the time. His LFT have markedly improved. His diabetes is well controlled. I am comfortable with betablocker for reduction of portal hypertension/ varices. --We will address this next visit. (If continues to improve, may not need diuretics * Follow up:* 2 months (labs before) * Recommendations:* He is doing well. Overall plan will be to perhaps wean down or wean off the diuretics. I will re eval next visit. For now just reduce torsemide to 10 mg q day, and cont everything else. EGD with possible banding as planned Low Na diet, High protein diet, cont abstinence Functional Status Description No Information Available Mental Status Description No Information Available Referrals Description No Information Available
--- OUTSIDE RECORDS SUMMARY | 2021-03-22 10:36 | CCD | Continuity of Care Document ---
Author Author Hugo HIDALGO DPM Organization Unknown Address [address] [place] [address] Phone [phone] Care Team Providers Care Vp Platforms Name Role Phone Usa Alexis Keane poly [...] on and 12 hours off. 30units Tyler Bateman MD 12/10/2020 Spironolactone 50mg Tablets 1 [...] H/L Range Note Laboratory test finding 12/15/2020 [facility] HCG Serum Quant <pending> LH <pending> Estrogen Total S <pending> Procedures Date Code Description Status 12/29/2020 06539 Office/Outpatient New Low MDM 30 -44 Minutes Completed 12/10/2020 69382 Office/Outpatient New Low MDM 30 -44 Minutes Completed Medical Devices Description No Information Available Encounters Type Date Location Provider Dx Diagnosis Office Visit 12/29/2020 3:00p [facility] Podiatry Ivan Hidalgo DPM E11.9 Type [...] 8:30 am - Tyler Bateman MD at [facility] 12/29/2020 - Ivan Hidalgo DPM* E11.9 Type 2 diabetes mellitus without complications * M76.62 Achilles tendinitis, left leg * M76.61 Achilles tendinitis, right leg Functional Status Description No Information Available Mental Status Description No Information Available Referrals Description No Information Available
--- OUTSIDE RECORDS SUMMARY | 2021-03-22 10:36 | CCD | Continuity of Care Document ---
Author Author Hugo HIDALGO DPM Organization Unknown Address [address] [place] [address] Phone [phone] Care Team Providers Care Director Of Residence Life Name Role Phone Usa Alexis Keane poly [...] H/L Range Note Laboratory test finding 12/15/2020 [facility] HCG Serum Quant <pending> LH <pending> Estrogen Total S <pending> Procedures Date Code Description Status 12/29/2020 76440 Office/Outpatient New Low MDM 30 -44 Minutes Completed 12/10/2020 07253 Office/Outpatient New Low MDM 30 -44 Minutes Completed Medical Devices Description No Information Available Encounters Type Date Location Provider Dx Diagnosis Office Visit 12/29/2020 3:00p [facility] Podiatry Iavn Hidalgo DPM E11.9 Type 2 diabetes mellitus [...] 8:30 am - Tyler Bateman MD at [facility] 12/29/2020 - Ivan Hidalgo DPM* E11.9 Type 2 diabetes mellitus without complications * M76.62 Achilles tendinitis, left leg * M76.61 Achilles tendinitis, right leg Functional Status Description No Information Available Mental Status Description No Information Available Referrals Description No Information Available
--- OUTSIDE RECORDS SUMMARY | 2021-03-22 10:36 | CCD | Continuity of Care Document ---
Author Author Hugo HIDALGO DPM Organization Unknown Address [address] [place] [address] Phone [phone] Care Team Providers Care Cardroom Attendant Name Role Phone Usa Alexis Keane poly [...] H/L Range Note Laboratory test finding 12/15/2020 [facility] HCG Serum Quant <pending> LH <pending> Estrogen Total S <pending> Procedures Date Code Description Status 12/29/2020 25631 Office/Outpatient New Low MDM 30 -44 Minutes Completed 12/10/2020 84737 Office/Outpatient New Low MDM 30 -44 Minutes Completed Medical Devices Description No Information Available Encounters Type Date Location Provider Dx Diagnosis Office Visit 12/29/2020 3:00p [facility] Podiatry Ivan Hidalgo DPM E11.9 Type 2 [...] - Tyler Bateman MD at [facility] Surgical [facility] 12/29/2020 - Ivan Hidalgo DPM* E11.9 Type 2 diabetes mellitus without complications * M76.62 Achilles tendinitis, left leg * M76.61 Achilles tendinitis, right leg Functional Status Description No Information Available Mental Status Description No Information Available Referrals Description No Information Available
--- OUTSIDE RECORDS SUMMARY | 2021-03-22 10:37 | CCD | Continuity of Care Document ---
Author Author Hugo CACERES MD Organization Unknown Address [address] [place] [id number] Phone [phone] Care Team Providers Care Ad Compositor Name Role Phone Chadwick Alvarez Unavailable Problems [...] K70.31 Wong Caceres MD 09/20/2020 - 11/21/2020 Torsemide 20mg Tablets take 1 tabs daily in am 30tabs K70.11 Wong Caceres MD 06/28/2020 - Spironolactone 50mg Tablets 100 mg every day 60tabs Wong Caceres MD 06/28/2020 - Immunizations Description No Information Available Vital Signs Date Vital Result Comment 12/21/2020 1:01pm BP Systolic 120 mmHg BP Diastolic 64 mmHg Height 67 inches 5'7" Weight 164.00 lb BMI (Body Mass Index) 25.7 kg/m2 [place] Body Weight 148 lb Weight 74.390 kg BSA (Body Surface Area) 1.86 m2 09/20/2020 10:33am BP Systolic 138 mmHg BP Diastolic 70 mmHg Height 67 inches 5'7" Weight 161.00 lb BMI (Body Mass Index) 25.2 kg/m2 [place] Body Weight 148 lb Weight 73.030 kg BSA (Body Surface Area) 1.84 m2 Results Test Acquired Date Facility Test Result H/L Range Note Comprehensive Metabolic Profil 12/15/2020 [facility] Main Lab [address] [place] [phone] Glucose, Fasting 131 mg/dL High 70-100 Blood [...] Ratio 0.9 Normal Laboratory test finding 12/15/2020 [facility] Main Lab [address] [place] [phone] Alpha Fetoprotein Tumor Quant 6.6 NG/ML Normal <8 .1 2 Prothrombin Time/Inr 12/15/2020 [facility] Main Lab [address] [place] [phone] Prothrombin Time 15.8 seconds High 12.5-14.3 Inr 1.23 Normal 3, 4 CBC With Differential 12/15/2020 [facility] Main Lab [address] [place] [phone] White Blood Count 6.0 10 Normal 4.0-10.0 [...] 36.0-66.0 Lymph % 27.0 % Normal 24.0-44.0 [place] % 17.3 % High 2.0-8.0 Eos % 1.8 % Normal 0.0-3.0 Baso % 0.3 % Normal 0.0-1.0 Immature Granulocyte % 0.2 % Normal 0-3.0 Nucleated Red Blood Cell % 0.0 % Normal 0-0 Neutrophils # 3.2 10 Normal 1.5-8.5 Lymph # 1.6 10 Normal 1.5-5.0 [place] # 1.0 10 High 0.0-0.8 Eos # 0.1 10 Normal 0.0-0.5 Baso # 0.0 10 Normal 0.0-0.2 CBC With Differential 09/17/2020 [facility] Main Lab [address] [place] [address] [phone] White Blood Count 5.2 10 Normal 4.0-10.0 [...] 36.0-66.0 Lymph % 24.4 % Normal 24.0-44.0 [place] % 13.9 % High 2.0-8.0 Eos % 2.3 % Normal 0.0-3.0 Baso % 0.6 % Normal 0.0-1.0 Immature Granulocyte % 0.4 % Normal 0-3.0 Nucleated Red Blood Cell % 0.0 % Normal 0-0 Neutrophils # 3.0 10 Normal 1.5-8.5 Lymph # 1.3 10 Low 1.5-5.0 [place] # 0.7 10 Normal 0.0-0.8 Eos # 0.1 10 Normal 0.0-0.5 Baso # 0.0 10 Normal 0.0-0.2 Laboratory test finding 09/17/2020 [facility] Main Lab [address] [place] [address] [phone] Immature Platelet Fraction 11.0 % High 0.0-1 0.91 Prothrombin Time/Inr 09/17/2020 [facility] Main Lab [address] [place] [address] [phone] Prothrombin Time 15.5 seconds High 12.5-14.3 Inr 1.20 Normal 5 Comprehensive Metabolic Profil 09/17/2020 [facility] Main Lab [address] [place] [phone] Glucose, Fasting 326 mg/dL High 70-100 Blood [...] Albumin/Globulin Ratio 0.8 Normal Prothrombin Time/Inr 08/13/2020 [facility] Main Lab [address] [place] [address] [phone] Prothrombin Time 16.6 seconds High 12.5-14.3 Inr 1.32 Normal 7 Comprehensive Metabolic Profil 08/13/2020 [facility] Lab [address] [place] [phone] Glucose, Fasting 576 mg/dL Critical high 70-100 [...] Ratio 0.8 Normal CBC With Differential 08/13/2020 [facility] Main Lab [address] [place] [phone] White Blood Count 5.8 10 Normal 4.0-10.0 [...] 36.0-66.0 Lymph % 25.5 % Normal 24.0-44.0 [place] % 9.2 % High 2.0-8.0 Eos % 1.2 % Normal 0.0-3.0 Baso % 0.5 % Normal 0.0-1.0 Immature Granulocyte % 0.2 % Normal 0-3.0 Nucleated Red Blood Cell % 0.0 % Normal 0-0 Neutrophils # 3.7 10 Normal 1.5-8.5 Lymph # 1.5 10 Normal 1.5-5.0 [place] # 0.5 10 Normal 0.0-0.8 Eos # 0.1 10 Normal 0.0-0.5 Baso # 0.0 10 Normal 0.0-0.2 CBC With Differential 08/04/2020 [facility] Main Lab [address] [place] [address] [phone] White Blood Count 6.5 10 Normal 4.0-10.0 [...] 36.0-66.0 Lymph % 27.7 % Normal 24.0-44.0 [place] % 9.4 % High 2.0-8.0 Eos % 2.0 % Normal 0.0-3.0 Baso % 0.8 % Normal 0.0-1.0 Immature Granulocyte % 0.5 % Normal 0-3.0 Nucleated Red Blood Cell % 0.0 % Normal 0-0 Neutrophils # 3.9 10 Normal 1.5-8.5 Lymph # 1.8 10 Normal 1.5-5.0 [place] # 0.6 10 Normal 0.0-0.8 Eos # 0.1 10 Normal 0.0-0.5 Baso # 0.1 10 Normal 0.0-0.2 Comprehensive Metabolic Profil 08/04/2020 [facility] Main Lab [address] [place] [address] [phone] Glucose, Fasting 314 mg/dL High 70-100 10 [...] Albumin/Globulin Ratio 0.9 Normal Prothrombin Time/Inr 08/04/2020 [facility] Main Lab [address] [place] [phone] Prothrombin Time 15.1 seconds High 12.5-14.3 Inr 1.16 Normal 12 Laboratory test finding 08/04/2020 [facility] Main Lab [address] [place] [phone] Magnesium Level 1.9 mg/dL Normal 1.8-2.4 13 Basic Metabolic Profile 07/09/2020 [facility] Main Lab [address] [place] [phone] Glucose, Fasting 314 mg/dL High 70-100 Blood [...] mg/dL Normal 8.5-10.1 Laboratory test finding 07/09/2020 [facility] Main Lab [address] [place] [address] [phone] Magnesium Level 1.9 mg/dL Normal 1.8-2.4 CBC With Differential 06/25/2020 [facility] Main Lab [address] [place] [phone] White Blood Count 13.3 10 High 4.0-10.0 Red Blood Count 4.10 10 Low 4.30-6.10 Hemoglobin 13.6 g/dL Normal 13.5-17.5 Hematocrit 39.8 % Low 42.0-52.0 Mean Corpuscular Volume 97.1 fl High 80.0-96.0 Mean Corpuscular Hemoglobin 33.2 pg High 27.0-33.0 Mean Corpuscular HGB Conc 34.2 g/dL Normal 32.0-36.5 Red Cell Distribution Width 13.2 % Normal 11.5-14.5 Platelet Count, Automated 85 10 Low 150-450 Neutrophils % 71.8 % High 36.0-66.0 Lymph % 16.2 % Low 24.0-44.0 [place] % 8.7 % High 0.0-5.0 Eos % 1.4 % Normal 0.0-3.0 Baso % 0.6 % Normal 0.0-1.0 Immature Granulocyte % 1.3 % Normal 0-3.0 Nucleated Red Blood Cell % 0.0 % Normal 0-0 Neutrophils # 9.6 10 High 1.5-8.5 Lymph # 2.2 10 Normal 1.5-5.0 [place] # 1.2 10 High 0.0-0.8 Eos # 0.2 10 Normal 0.0-0.5 Baso # 0.1 10 Normal 0.0-0.2 Comprehensive Metabolic Profil 06/25/2020 [facility] Main Lab [address] [place] [address] [phone] Glucose, Fasting 400 mg/dL High 70-100 Blood Urea Nitrogen 20 mg/dL High 7-18 Creatinine For GFR 1.15 mg/dL Normal 0.70-1.30 Glomerular Filtration Rate > 60.0 Normal >60 1 5 Sodium Level 126 mEq/L Low 136-145 Potassium Serum 2.9 mEq/L Critical low 3.5-5.1 Chloride Level 85 mEq/L Low 98-107 Carbon Dioxide Level 32 mEq/L Normal 21-32 Anion Gap 9 mEq/L Normal 8-16 Calcium Level 9.6 mg/dL Normal 8.5-10.1 Ast/Sgot 59 U/L High 7-37 Alt/SGPT 78 U/L Normal 12-78 Alkaline Phosphatase 184 U/L High 45-117 Bilirubin,Total 2.8 mg/dL High 0.2-1.0 Total Protein 7.0 GM/DL Normal 6.4-8.2 Albumin 3.1 GM/DL Low 3.2-5.2 Albumin/Globulin Ratio 0.8 Normal Prothrombin Time/Inr 06/25/2020 [facility] Main Lab [address] [place] [address] [phone] Prothrombin Time 15.6 seconds High 12.5-14.3 Inr 1.21 Normal 16 Laboratory test finding 06/25/2020 [facility] Main Lab [address] [place] [address] [phone] Immature Platelet Fraction 7.5 % Normal 0.0-1 0.91 1 Units are mL/min/1.73 m2 Chronic Kidney Disease Staging per NKF: Stage I & II GFR >=60 Normal to Mildly Decreased Stage III GFR 30-59 Moderately Decreased Stage IV GFR 15-29 Severely Decreased Stage V GFR <15 Very Little GFR Left ESRD GFR <15 on TUBE TEST TECHNICIAN 2 THE AFP ASSAY IS PERFORMED O N THE RespectanceR BY CHEMILUMINESCENCE AND SHOULD NOT BE COMPARED [...] MYOCARDIAL INFARCTION 2.5-3.5 4 12/16/20 (Thr Mg ) 10:55 AM WONG llanes. stable/improved 5 THERAPUTIC [...] Little GFR Left ESRD GFR <15 on TUBE TEST TECHNICIAN 7 THERAPUTIC HUMAN INR VALUES INDICATIONS NORMAL [...] Little GFR Left ESRD GFR <15 on TUBE TEST TECHNICIAN 9 Testing was performed on a l [...] Little GFR Left ESRD GFR <15 on TUBE TEST TECHNICIAN 12 THERAPUTIC HUMAN INR VALUES INDICATIONS NORMAL [...] Little GFR Left ESRD GFR <15 on TUBE TEST TECHNICIAN 15 Units are mL/min/1.73 m2 Chronic Kidney Disease Staging per NKF: Stage I & II GFR >=60 Normal to Mildly Decreased Stage III GFR 30-59 Moderately Decreased Stage IV GFR 15-29 Severely Decreased Stage V GFR <15 Very Little GFR Left ESRD GFR <15 on TUBE TEST TECHNICIAN 16 THERAPUTIC HUMAN INR VALUES INDICATIONS NORMAL RANGES PROPHYLAXIS/TREATMENT OF: VENOUS THROMBOSIS 2.0-3.0 PULMONARY EMBOLISM 2.0-3.0 PREVENTION OF SYSTEMIC EMBOLISM FROM: TISSUE HEART VALVES 2.0-3.0 ACUTE MYOCARDIAL INFARCTION 2.0-3.0 VALVULAR HEART DISEASE 2.0-3.0 ATRIAL FIBRILLATION 2.0-3.0 MECHANICAL VALVES(HIGH RISK) 2.5-3.5 RECURRENT MYOCARDIAL INFARCTION 2.5-3.5 Procedures Date Code Description Status 12/21/2020 08943 Office/Outpatient Established Mo d MDM 30-39 Min Completed 11/26/2020 13936 Colonoscopy Flexible Proximal To Splenic Flexure Diagnostic W/Or Completed 11/26/2020 33827 Endoscopy Upper GI W/Band Ligati on Of Varices Completed 09/20/2020 49656 Office/Outpatient New Moderate M DM 45-59 Minutes Completed 08/04/2020 80697 Office/Outpatient Established Lo w MDM 20-29 Min Completed 06/28/2020 91189 Office/Outpatient Established Lo w MDM 20-29 Min Completed Medical Devices Description No Information Available Encounters Type Date Location Provider Dx Diagnosis Office Visit 12/21/2020 1:00p [facility] Pra yolande Caceres MD K70.31 Alcoholic cirrhosis of liver with ascites K70.11 Alcoholic hepatitis with asc ites I85.00 Esophageal varices without b leeding Office Visit 09/20/2020 10:30a [facility] Pra yolande Caceres MD K70.31 Alcoholic cirrhosis of liver with ascites K70.11 Alcoholic hepatitis with asc ites Office Visit 08/04/2020 3:30p [facility] Justine Laws K70.11 Alcoholic hepatitis with ascites Office Visit 06/28/2020 10:45a [facility] Justine Laws K70.11 Alcoholic hepatitis with ascites K70.31 Alcoholic cirrhosis of liver with ascites Assessments Date Code Description Provider 12/21/2020 K70.31 Alcoholic cirrhosis of liver wit h ascites Wong Caceres MD 12/21/2020 K70.11 Alcoholic hepatitis with ascites Wong Caceres MD 12/21/2020 I85.00 Esophageal varices without bleed ing Wong Caceres MD 11/26/2020 K92.1 Melkacey Wong Caceres MD 11/26/2020 K64.8 Other hemorrhoids Wong Caceres MD 11/26/2020 K74.60 Unspecified cirrhosis of liver D aviezra Caceres MD 11/26/2020 I85.10 Secondary esophageal varices wit hout bleeding Wong Caceres MD 09/20/2020 K70.31 Alcoholic cirrhosis of liver wit h ascites Wong Caceres MD 09/20/2020 K70.11 Alcoholic hepatitis with ascites Wong Caceres MD 08/04/2020 K70.11 Alcoholic hepatitis with ascites Wong Caceres MD 06/28/2020 K70.11 Alcoholic hepatitis with ascites Wong Caceres MD 06/28/2020 K70.31 Alcoholic cirrhosis of liver wit h ascites Wong Caceres MD Plan of Treatment Future Appointment(s):* 02/17/2021 9:30 am - Wong Caceres MD at [facility] * 02/23/2021 10:20 am - Wong Caceers MD at [facility] * 12/31/2020 10:20 am - Wong Caceres MD at [facility] 12/21/2020 - Wong Caceres MD* [...]
--- OUTSIDE RECORDS SUMMARY | 2021-03-22 10:38 | CCD ---
Author Author [facility] Organization [facility] Address Unknown Phone Unavailable Care Team Providers Care Shipping Specialist Name Role Phone GINO, WONG DUONG Unavailable Unavailable REINSÁNCHEZ, WONG DUONG Unavailable Unavailable REINSÁNCHEZ, WONG DUONG Unavailable Unavailable REINDL, WONG DUONG Unavailable Unavailable REINDL, WONG DUONG Unavailable Unavailable REINSÁNCHEZ, WONG DUONG Unavailable Unavailable REINDL, WONG DUONG Unavailable Unavailable REINDL, WONG DUONG Unavailable Unavailable REINDL, WONG DUONG Unavailable Unavailable REINDL, WONG DUONG Unavailable Unavailable REINDL, WONG DUONG Unavailable Unavailable REINDL, WONG DUONG Unavailable Unavailable REINDL, WONG DUONG Unavailable Unavailable REINDL, WONG DUONG Unavailable Unavailable REINSÁNCHEZ, WONG DUONG Unavailable Unavailable REINSÁNCHEZ, WONG DUONG Unavailable Unavailable REINSÁNCHEZ, WONG DUONG Unavailable Unavailable REINSÁNCHEZ, WONG DUONG Unavailable Unavailable REINDL, WONG DUONG Unavailable Unavailable REINDL, WONG DUONG Unavailable Unavailable REINSÁNCHEZ, WONG DUONG Unavailable Unavailable REINDL, WONG DUONG Unavailable Unavailable REINSÁNCHEZ, WONG DUONG Unavailable Unavailable REINSÁNCHEZ, WONG DUONG Unavailable Unavailable REINDL, WONG DUONG Unavailable Unavailable REINDL, WONG DUONG Unavailable Unavailable REINDL, WONG DUONG Unavailable Unavailable REINDL, WONG DUONG Unavailable Unavailable REINDL, WONG DUONG Unavailable Unavailable REINSÁNCHEZ, WONG DUONG Unavailable Unavailable REINSÁNCHEZ, WONG DUONG Unavailable Unavailable REINDL, WONG DUONG Unavailable Unavailable REINSÁNCHEZ, WONG DUONG Unavailable Unavailable GINO, WONG DUONG Unavailable Unavailable REINSÁNCHEZ, WONG DUONG Unavailable Unavailable REINSÁNCHEZ, WONG DUONG Unavailable Unavailable REINSÁNCHEZ, WONG DUONG Unavailable Unavailable REINSÁNCHEZ, WONG DUONG Unavailable Unavailable GINO, WONG DUONG Unavailable Unavailable IGNO, WONG DUONG Unavailable Unavailable GINO, WONG DUONG Unavailable Unavailable REINSÁNCHEZ, WONG DUONG Unavailable Unavailable Rasheed, Ramiro Blackburn MD Unavailable Unavailable Rasheed, Ramiro Blackburn MD Unavailable Unavailable Rasheed, Ramiro Blackburn MD Unavailable Unavailable Rasheed, Ramiro Blackburn MD Unavailable Unavailable Rasheed, Ramiro Blackburn MD Unavailable Unavailable Rasheed, Ramiro Blackburn MD Unavailable Unavailable Rasheed, Ramiro Blackburn MD Unavailable Unavailable Rasheed, Ramiro Blackburn MD Unavailable Unavailable Rasheed, Ramiro Blackburn MD Unavailable Unavailable Rasheed, Ramiro Blackburn MD Unavailable Unavailable Rasheed, Ramiro Blackburn MD Unavailable Unavailable Rasheed, Ramiro Blackburn MD Unavailable Unavailable Rasheed, Ramiro Blackburn MD Unavailable Unavailable Rasheed, Ramiro Blackburn MD Unavailable Unavailable Rasheed, Ramiro Blackburn MD Unavailable Unavailable ZULICK, Ramiro JOYA MD Unavailable Unavailable ZULICK, Ramiro JOYA MD Unavailable Unavailable ZULICK, Ramiro JOYA MD Unavailable Unavailable ZULICK, Ramiro JOYA MD Unavailable Unavailable ZULICK, Ramiro JOYA MD Unavailable Unavailable ZULICK, Ramiro JOYA MD Unavailable Unavailable ZULICK, Ramiro JOYA MD Unavailable Unavailable ZULICK, Ramiro JOYA MD Unavailable Unavailable ZULICK, Ramiro JOYA MD Unavailable Unavailable ZULICK, Ramiro JOYA MD Unavailable Unavailable ZULICK, Ramiro JOYA MD Unavailable Unavailable ZULICK, Ramiro JOYA MD Unavailable Unavailable ZULICK, Ramiro JOYA MD Unavailable Unavailable ZULICK, Ramiro JOYA MD Unavailable Unavailable ZULICK, Ramiro JOYA MD Unavailable Unavailable ZULICK, Ramiro JOYA MD Unavailable Unavailable ROCIO, B IVANNA TUBING OILER Unavailable Unavailable ROCIO, B IVANNA TUBING OILER Unavailable Unavailable ROCIO, B IVANNA TUBING OILER Unavailable Unavailable ROCIO, B IVANNA TUBING OILER Unavailable Unavailable ROCIO, B IVANNA TUBING OILER Unavailable Unavailable ROCIO, B IVANNA TUBING OILER Unavailable Unavailable ROCIO, B IVANNA TUBING OILER Unavailable Unavailable ROCIO, B IVANNA TUBING OILER Unavailable Unavailable ROCIO, B IVANNA TUBING OILER Unavailable Unavailable ROCIO, B IVANNA TUBING OILER Unavailable Unavailable ROCIO, B IVANNA TUBING OILER Unavailable Unavailable ROCIO, B IVANNA TUBING OILER Unavailable Unavailable ROCIO, B IVANNA TUBING OILER Unavailable Unavailable ROCIO, B IVANNA TUBING OILER Unavailable Unavailable ROCIO, B IVANNA TUBING OILER Unavailable Unavailable ROCIO, B IVANNA TUBING OILER Unavailable Unavailable ROCIO, B IVANNA TUBING OILER Unavailable Unavailable ROCIO, B IVANNA TUBING OILER Unavailable Unavailable ROCIO, B IVANNA TUBING OILER Unavailable Unavailable ROCIO, B IVANNA TUBING OILER Unavailable Unavailable ROCIO, B IVANNA TUBING OILER Unavailable Unavailable ROCIO, B IVANNA TUBING OILER Unavailable Unavailable ROCIO, B IVANNA TUBING OILER Unavailable Unavailable ROCIO, B IVANNA TUBING OILER Unavailable Unavailable ROCIO, B IVANNA TUBING OILER Unavailable Unavailable ROCIO, B IVANNA TUBING OILER Unavailable Unavailable ROCIO, B IVANNA TUBING OILER Unavailable Unavailable ROCIO, B IVANNA TUBING OILER Unavailable Unavailable ROCIO, B IVANNA TUBING OILER Unavailable Unavailable ROCIO, B IVANNA TUBING OILER Unavailable Unavailable ROCIO, B IVANNA TUBING OILER Unavailable Unavailable ROCIO, B IVANNA TUBING OILER Unavailable Unavailable ROCIO, B IVANNA TUBING OILER Unavailable Unavailable ROCIO, B IVANNA TUBING OILER Unavailable Unavailable ROCIO, B IVANNA TUBING OILER Unavailable Unavailable ROCIO, B IVANNA TUBING OILER Unavailable Unavailable ROCIO, B IVANNA TUBING OILER Unavailable Unavailable ROCIO, B IVANNA TUBING OILER Unavailable Unavailable ROCIO, B IVANNA TUBING OILER Unavailable Unavailable ROCIO, B IVANNA TUBING OILER Unavailable Unavailable ROCIO, B IVANNA TUBING OILER Unavailable Unavailable ROCIO, B IVANNA TUBING OILER Unavailable Unavailable ROCIO, B IVANNA TUBING OILER Unavailable Unavailable ROCIO, B IVANNA TUBING OILER Unavailable Unavailable ROCIO, B IVANNA TUBING OILER Unavailable Unavailable ROCIO, B IVANNA TUBING OILER Unavailable Unavailable ROCIO, B IVANNA TUBING OILER Unavailable Unavailable ROCIO, B IVANNA TUBING OILER Unavailable Unavailable ROCIO, B IVANNA TUBING OILER Unavailable Unavailable ROCIO, B IVANNA TUBING OILER Unavailable Unavailable ROCIO, B IVANNA TUBING OILER Unavailable Unavailable ROCIO, B IVANNA TUBING OILER Unavailable Unavailable ROCIO, B IVANNA TUBING OILER Unavailable Unavailable ROCIO, B IVANNA TUBING OILER Unavailable Unavailable ROCIO, B IVANNA TUBING OILER Unavailable Unavailable ROCIO, B IVANNA TUBING OILER Unavailable Unavailable ROCIO, B IVANNA TUBING OILER Unavailable Unavailable ROCIO, B IVANNA TUBING OILER Unavailable Unavailable ROCIO, B IVANNA TUBING OILER Unavailable Unavailable ROCIO, B IVANNA TUBING OILER Unavailable Unavailable ROCIO, B IVANNA TUBING OILER Unavailable Unavailable ROCIO, B IVANNA TUBING OILER Unavailable Unavailable Fish, B Shannan DUONG Unavailable Unavailable Fish, B Shannan DUONG Unavailable Unavailable Fish, B Shannan DUONG Unavailable Unavailable Fish, B Shannan DUONG Unavailable Unavailable Fish, B Shannan DUONG Unavailable Unavailable Fish, B Shannan DUONG Unavailable Unavailable Fish, B Shannan DUONG Unavailable Unavailable Fish, B Shannan DUONG Unavailable Unavailable Fish, B Shannan DUONG Unavailable Unavailable Fish, B Shannan DUONG Unavailable Unavailable Fish, B Shannan DUONG Unavailable Unavailable Fish, B Shannan DUONG Unavailable Unavailable Fish, B Shannan DUONG Unavailable Unavailable Fish, B Shannan DUONG Unavailable Unavailable Fish, B Shannan DUONG Unavailable Unavailable Fish, B Shannan DUONG Unavailable Unavailable Fish, B Shannan DUONG Unavailable Unavailable Fish, B Shannan MD Unavailable Unavailable Fish, Haven Campbell MD Unavailable Unavailable Fish, Haven Campbell MD Unavailable Unavailable Fish, Haven Campbell MD Unavailable Unavailable Fish, Haven Campbell MD Unavailable Unavailable Fish, Haven Campbell MD Unavailable Unavailable Fish, Haven Campbell MD Unavailable Unavailable Fish, Haven Campbell MD Unavailable Unavailable Fish, Haven Campbell MD Unavailable Unavailable Fish, Haven Campbell MD Unavailable Unavailable Fish, Haven Campbell MD Unavailable Unavailable Fish, Haven Campbell MD Unavailable Unavailable Fish, Haven Campbell MD Unavailable Unavailable Fish, Haven Campbell MD Unavailable Unavailable Fish, Haven Campbell MD Unavailable Unavailable Fish, Haven Campbell MD Unavailable Unavailable Fish, Haven Campbell MD Unavailable Unavailable Fish, Haven Campbell MD Unavailable Unavailable Fish, Haven Campbell MD Unavailable Unavailable Fish, Haven Campbell MD Unavailable Unavailable Fish, Haven Campbell MD Unavailable Unavailable Fish, Haven Campbell MD Unavailable Unavailable Fish, Haven Campbell MD Unavailable Unavailable Fish, Haven Campbell MD Unavailable Unavailable Fish, Haven Campbell MD Unavailable Unavailable Fish, Haven Campbell MD Unavailable Unavailable Fish, Haven Campbell MD Unavailable Unavailable Fish, Haven Campbell MD Unavailable Unavailable Fish, Haven Campbell MD Unavailable Unavailable Fish, Haven Campbell MD Unavailable Unavailable Fish, Haven Campbell MD Unavailable Unavailable Fish, Haven Campbell MD Unavailable Unavailable Fish, Haven Campbell MD Unavailable Unavailable Fish, Haven Campbell MD Unavailable Unavailable Fish, Haven Campbell MD Unavailable Unavailable Fish, Haven Campbell MD Unavailable Unavailable Fish, Haven Campbell MD Unavailable Unavailable Fish, Haven Campbell MD Unavailable Unavailable Fish, Haven Campbell MD Unavailable Unavailable Fish, Haven Campbell MD Unavailable Unavailable Fish, Haven Campbell MD Unavailable Unavailable Fish, Haven Campbell MD Unavailable Unavailable Fish, Haven Campbell MD Unavailable Unavailable Fish, Haven Campbell MD Unavailable Unavailable Fish, Haven Campbell MD Unavailable Unavailable Fish, Haven Campbell MD Unavailable Unavailable Fish, Haven Campbell MD Unavailable Unavailable Fish, Haven Campbell MD Unavailable Unavailable FORNI, R ANH DPM Unavailable Unavailable FORNI, R ANH DPM Unavailable Unavailable FORNI, R ANH DPM Unavailable Unavailable FORNI, R ANH DPM Unavailable Unavailable FORNI, R ANH DPM Unavailable Unavailable FORNI, R ANH DPM Unavailable Unavailable FORNI, R ANH DPM Unavailable Unavailable FORNI, R ANH DPM Unavailable Unavailable FORNI, R ANH DPM Unavailable Unavailable FORNI, R ANH DPM Unavailable Unavailable FORNI, R ANH DPM Unavailable Unavailable FORNI, R ANH DPM Unavailable Unavailable FORNI, R ANH DPM Unavailable Unavailable FORNI, R ANH DPM Unavailable Unavailable FORNI, R ANH DPM Unavailable Unavailable FORNI, R ANH DPM Unavailable Unavailable FORNI, R ANH DPM Unavailable Unavailable FORNI, R ANH DPM Unavailable Unavailable FORNI, R ANH DPM Unavailable Unavailable FORNI, R ANH DPM Unavailable Unavailable Re-disclosure Warning The records that you are about to access may contain information from federally-assisted alcohol or drug abuse programs. If such information is present, then the following federally mandated warning applies: This information has been disclosed to you from records protected by federal confidentiality rules (42 CFR part 2). The federal rules prohibit you from making any further disclosure of this information unless further disclosure is expressly permitted by the written consent of the person to whom it pertains or as otherwise permitted by 42 CFR part 2. A general authorization for the release of medical or other information is NOT sufficient for this purpose. The Federal rules restrict any use of the information to criminally investigate or prosecute any alcohol or drug abuse patient.The records that you are about to access may contain highly sensitive health information, the redisclosure of which is protected by Article 27-F of the [facility] Public Health law. If you continue you may have access to information: Regarding HIV / AIDS; Provided by facilities licensed or operated by the [facility] Office of Mental Health; or Provided by the [facility] Office for People With Developmental Disabilities. If such information is present, then the following [facility] mandated warning applies: This information has been disclosed to you from confidential records which are protected by state law. State law prohibits you from making any further disclosure of this information without the specific written consent of the person to whom it pertains, or as otherwise permitted by law. Any unauthorized further disclosure in violation of state law may result in a fine or prison sentence or both. A general authorization for the release of medical or other information is NOT sufficient authorization for further disc losure. Family History Family Member Name Family Member Gender Family Member Status Date o f Status Description Data Source(s) Unknown Male Problem [facility] ([facility]) Encounters Encounter Providers Location Date Indications Data Source(s ) Outpatient Attender: MAHNAZ AVILA MD 2020 08:24:00 AM EDT - 03/16/2021 08:24:00 AM EDT [facility] Outpatient Attender: Shannan Gant MD Physical Therapy 03/03 01:45:00 PM EDT [facility] ([facility]) Outpatient Attender: WONG Pisano/Franklin/Andrea/Rein dl 02/23/2021 10:20:00 AM EDT [facility] ([facility]) Outpatient Referrer: Wong Iqbal MD [id number] 2020 08:54:15 AM EDT - 02/07/2021 11:59:00 PM EDT [facility] Patient discharged. Outpatient Attender: ANH ROSARIO DPM 2020 03:02:00 PM EDT - 12/29/2020 03:02:00 PM EDT [facility] Outpatient Attender: ANH ROSARIO DPM Family Practice 12/29/2020 0 3:00:00 PM EDT [facility] ([facility]) Outpatient Attender: WONG Pisano/Marty/Andrea/Rein dl 12/21/2020 01:00:00 PM EDT [facility] ([facility]) Outpatient Attender: MAHNAZ AVILA MD 2020 10:02:00 AM EDT - 12/10/2020 10:02:00 AM EDT [facility] Outpatient Attender: IVANNA CHAN NP Physical Therapy 03:15:00 PM EDT [facility] ([facility]) Outpatient Attender: Shannan Gant MD Physical Therapy 10/08 01:00:00 PM EDT [facility] ([facility]) Outpatient Attender: WONG Pisano/Marty/Andrea/Rein dl 09/20/2020 10:30:00 AM EDT [facility] ([facility]) Outpatient Attender: WONG Pisano/Franklin/Andrea/Rein dl 08/04/2020 02:30:00 PM EST [facility] ([facility]) Outpatient Attender: WONG Pisano/Franklin/Andrea/Rein dl 06/28/2020 09:45:00 AM EST [facility] ([facility]) Outpatient Attender: WONG Mcbrider/Andrea/Rein dl 06/02/2020 12:30:00 PM EST [facility] ([facility]) Outpatient Attender: WONG CurranFranklin/Andrea/Rein dl 05/11/2020 07:30:00 AM EST [facility] ([facility]) Outpatient Attender: WONG CurranFranklin/Andrea/Rein dl 05/03/2020 01:45:00 PM EST [facility] ([facility]) Outpatient Attender: WONG CurranFranklin/Andrea/Rein dl 04/29/2020 12:15:00 PM EST [facility] ([facility]) Immunizations Vaccine Date Status Description Data Source(s) COVID-19 VACCINE Pfizer 03/12/2021 12:00:00 AM EDT completed [facility] Vaccine Series Complete: YESThis Data wa s Submitted to [facility] Via [facility]. COVID-19 VACCINE Pfizer 07/07/2020 12:00:00 AM EST completed [facility] Vaccine Series Complete: NOThis Data was Submitted to [facility]. Medications Medication Brand Name Start Date Product Form Dose Route Admi nistrative Instructions Pharmacy Instructions Status Indications Reaction Description Data Source(s) carvedilol 3.125 MG Oral Tablet Carvedilol 03/03/2021 12:00:00 AM EDT ORAL active [facility] ([facility] Lidocaine Hydrochloride 20 MG/ML Mucous Membrane Topic al Solution Lidocaine Viscous HCL 12/31/2020 12:00:00 AM EDT ORAL completed [facility] ([facility], ) carvedilol 3.125 MG Oral Tablet Carvedilol 12/10/2020 12:00:00 AM EDT active [facility] ([facility]) ezetimibe 10 MG Oral Tablet Ezetimibe 12/10/2020 12:00:00 AM EDT ORAL active [facility] ([facility]) Insulin Glargine 100 UNT/ML Injectable Solution [Lantus] Pavel tus 12/10/2020 12:00:00 AM EDT SUBCUTANEOUS active [facility] ([facility]) torsemide 10 MG Oral Tablet Torsemide 12/10/2020 12:00:00 AM EDT active [facility] ([facility]) Folic Acid 1 MG Oral Tablet Folic Acid 12/10/2020 12:00:00 AM EDT ORAL active [facility] ([facility]) Spironolactone 50 MG Oral Tablet Spironolactone 12/10/2020 12:00:00 A M EDT ORAL active [facility] ([facility]) Lidocaine Lidocaine 12/10/2020 12:00:00 AM EDT act ana [facility] ([facility]) Metformin hydrochloride 1000 MG Oral Tablet Metformin HCL 12/10/2020 12:00:00 AM EDT ORAL active [facility] ([facility]) Niacin 500 MG Oral Tablet Niacin 12/10/2020 12:00:00 AM EDT ORAL active [facility] ([facility]) gabapentin 800 MG Oral Tablet Gabapentin 12/10/2020 12:00:00 AM EDT ORAL active [facility] ([facility]) Acamprosate calcium 333 MG Delayed Release Oral Tablet Acamp rosate Calcium 12/10/2020 12:00:00 AM EDT ORAL active [facility] ([facility]) carvedilol 3.125 MG Oral Tablet Carvedilol 11/26/2020 12:00:00 AM EDT ORAL active [facility] ([facility] ) Lidocaine Hydrochloride 20 MG/ML Mucous Membrane Topic al Solution Lidocaine Viscous HCL 11/26/2020 12:00:00 AM EDT ORAL completed [facility] ([facility], ) 3 ML Insulin Glargine 100 UNT/ML Pen Injector [Lantus] Lantu s Solostar 10/08/2020 12:00:00 AM EDT active [facility] ([facility] ) Abouttime Pen Dahinda 31G X 3/16" 10/08/2020 12:00:00 AM EDT active [facility] ([facility] ) empagliflozin 10 MG Oral Tablet [Jardiance] Jardiance 10/08/2020 12:00:00 AM EDT ORAL active [facility] ([facility] ) Freestyle Hoda 14 Day/Sensor/Flash Monitoring System 10/08/2020 12:00:00 AM EDT active [facility] ([facility] ) Freestyle Hoda 14 Day/[place]/Flash Monitoring System 10/08/2020 12:00:00 AM EDT active [facility] ([facility] ) Suprep Bowel Prep Kit Suprep Bowel Prep Kit 09/20/2020 12:00:00 AM EDT completed [facility] ([facility] ) Magnesium Hydroxide 80 MG/ML Oral Suspension Milk Of Magnesi a 09/20/2020 12:00:00 AM EDT ORAL completed [facility] ([facility], ) Spironolactone 50 MG Oral Tablet Spironolactone 09/20/2020 12:00:00 A M EDT active [facility] ([facility] ) torsemide 10 MG Oral Tablet Torsemide 09/20/2020 12:00:00 AM EDT active [facility] ([facility], ) torsemide 20 MG Oral Tablet Torsemide 06/28/2020 12:00:00 AM EST completed [facility] ([facility] ) Spironolactone 50 MG Oral Tablet Spironolactone 06/28/2020 12:00:00 A M EST completed [facility] ([facility]) torsemide 20 MG Oral Tablet Torsemide 06/02/2020 12:00:00 AM EST completed [facility] ([facility] ) Lactulose 667 MG/ML Oral Solution Lactulose 05/03/2020 12:00:00 AM EST ORAL completed [facility] ([facility]) Lidocaine 50 MG/ML Topical Cream Lidocaine (Anorectal) 05/03 12:00:00 AM EST completed [facility] ([facility]) Nitroglycerin 0.004 MG/MG Rectal Ointment [Rectiv] Rectiv 05/03/2020 12:00:00 AM EST completed [facility] ([facility], ) Prednisone 10 MG Oral Tablet Prednisone 04/29/2020 12:00:00 AM EST completed [facility] ([facility]) 1 billion cell 04/26/2020 12:00:00 AM EST capsule 21 TAKE 1 CAPSULE BY MOUTH WITH MEALS TAKE 1 CAPSULE BY MOUTH WITH MEALS SOLD: 04/26/2020 [facility] 1 gram 04/26/2020 12:00:00 AM EST tablet 15 TAKE 1 TABLET BY MOUTH WITH MEALS TAKE 1 TABLET BY MOUTH WITH MEALS SOLD: 04/26/2020 [facility] 25 mg 04/26/2020 12:00:00 AM EST tablet 10 TAKE ONE TABLET BY MOUTH THREE TIMES A DAY NEEDED FOR ITCH TAKE ONE TABLET BY MOUTH THREE TIMES A D AY NEEDED FOR ITCH SOLD: 04/26/2020 [facility] Insurance Providers Payer name Policy type / Coverage type Policy ID Covered constitution party ID Covered constitution party's relationship to hay Policy Hay Plan Information [employer] [id number] SP [id number] [employer] [place] [id number] 18 [id number] [employer]IC [id number] Amarilis [id number] COMM[employer]IC [id number] [employer] [place] [id number] 18 [id number] [employer] [id number] SP [id number] [employer] [place] [id number] 18 [id number] [facility] [employer] Commercial [id number] Self [id number] Problems, Conditions, and Diagnoses Code Display Name Description Problem Type Effective Dates Data Source(s) R01.1 Cardiac murmur, unspecified Cardiac murmur, unspecifie d Diagnosis 02/07/2021 08:54:15 AM EDT [facility] K429 Umbilical hernia without obstruction or gangrene Umbilical hernia without obstruction or gangrene Diagnosis 12/10/2020 10:02:00 AM EDT [facility] N62 Hypertrophy of breast Hypertrophy of breast Diagnosis 12/10/2020 10:02:00 AM EDT [facility] [id number] Type 2 diabetes mellitus Type 2 diabetes mellitus Prob denilson 12/10/2020 12:00:00 AM EDT [facility] ([facility]) [id number] Pure hypercholesterolemia Pure hypercholesterolemia Pr oblem 10/07/2020 12:00:00 AM EDT [facility] ([facility]) [id number] Essential hypertension Essential hypertension Problem 10/07/2020 12:00:00 AM EDT [facility] Surgeries/Procedures Procedure Description Date Indications Data Source(s) Amb Glucose Monitoring Interpretation And Report 03/03 12:00:00 AM EDT [facility] ([facility]) OFFICE OUTPATIENT VISIT 25 MINUTES 03/03/2021 12:00:00 AM EDT [facility] ([facility]) OFFICE OUTPATIENT VISIT 25 MINUTES 02/23/2021 12:00:00 AM EDT [facility] OFFICE OUTPATIENT NEW 45 MINUTES 02/23/2021 12:00:00 A M EDT [facility] ) ECHO TTHRC R-T 2D W/WOM-MODE COMPL SPEC&COLR DOP <td>E CHOCARDIOGRAM TRANSTHORACIC</td><td>Routine</td><td>02/07/2021 9:48 AM EDT</td><td> Cardiac murmur</td><td> </td> 02/07/2021 09:48:14 AM EDT Cardiac murmur [facility] Cardiac murmur Endoscopy Upper GI W/Band Ligation Of Varices 01/01/20 21 12:00:00 AM EDT [facility]) OFFICE OUTPATIENT NEW 30 MINUTES 12/29/2020 12:00:00 A M EDT [facility]) OFFICE OUTPATIENT VISIT 25 MINUTES 12/21/2020 12:00:00 AM EDT [facility] OFFICE OUTPATIENT NEW 30 MINUTES 12/10/2020 12:00:00 [facility] W/Band Ligation Of Varices 11/27/19 21 12:00:00 AM EDT [facility] Colonoscopy Flexible Proximal To Splenic Flexure Diagnostic W/Or 11/26/2020 12:00:00 AM EDT [facility] Amb Glucose Monitoring Interpretation And Report 06/16 /2021 12:00:00 AM EDT [facility] ([facility]) OFFICE OUTPATIENT VISIT 25 MINUTES 11/10/2020 12:00:00 AM EDT [facility] ([facility]) Diabetic Foot Exam 10/08/2020 12:00:00 AM EDT [facility] ([facility]) OFFICE CONSULTATION NEW/ESTAB PATIENT 80 MIN 12:00:00 AM EDT [facility] ([facility]) OFFICE OUTPATIENT NEW 45 MINUTES 09/20/2020 12:00:00 A M EDT [facility] OFFICE OUTPATIENT VISIT 15 MINUTES 08/04/2020 12:00:00 AM EST [facility] ([facility]) OFFICE OUTPATIENT VISIT 15 MINUTES 06/28/2020 12:00:00 AM EST [facility] ([facility]) Results ID Date Data Source [id number] 03/03/2021 01:53:00 PM EDT [facility] ([facility]) Name Value Range Interpretation Code Description Data Jinny rce(s) Supporting Document(s) Glucose [Mass/volume] in Serum or Plasma 152 [facility] ([facility]) Hemoglobin A1c/Hemoglobin.total in Blood Laboratory test result [facility] ([facility]) ID Date Data Source [id number] 02/21/2021 03:05:00 PM EDT [facility] ([facility]) Name Value Range Interpretation Code Description Data Jinny rce(s) Supporting Document(s) Platelets reticulated/100 platelets in Blood by Automated count 5.9 % 0.0-10.91 Normal (applies to non-numeric results) [facility] ([facility]) ID Date Data Source [id number] 02/21/2021 03:05:00 PM EDT [facility] ([facility]) Name Value Range Interpretation Code Description Data Jinny rce(s) Supporting Document(s) Prothrombin Time 15.1 s 12.7-14.5 Above high normal M [facility] ([facility]) Inr 1.15 Normal (applies to non-numeric resul ts) [facility] ([facility]) THERAPUTIC HUMAN INR VALUES INDICATIONS NORMAL RANGES PROPHYLAXIS/TREATMENT OF: VENOUS THROMBOSIS 2.0-3.0 PULMONARY EMBOLISM 2.0-3.0 PREVENTION OF SYSTEMIC EMBOLISM FROM: TISSUE HEART VALVES 2.0-3.0 ACUTE MYOCARDIAL INFARCTION 2.0-3.0 VALVULAR HEART DISEASE 2.0-3.0 ATRIAL FIBRILLATION 2.0-3.0 MECHANICAL VALVES(HIGH RISK) 2.5-3.5 RECURRENT MYOCARDIAL INFARCTION 2.5-3.5 ID Date Data Source [id number] 02/21/2021 03:05:00 PM EDT [facility] ([facility]) Name Value Range Interpretation Code Description Data Jinny rce(s) Supporting Document(s) Glucose, Fasting 106 mg/dL 70-100 Above high normal [facility] Blood Urea Nitrogen 30 mg/dL 7-18 Above high normal [facility] ([facility]) Sodium Level 137 meq/L 136-145 Normal (applies to non-numeric res ults) [facility] ([facility]) Glomerular Filtration Rate Laboratory test result Normal (applies to non- numeric results) [facility] ([facility]) <content>Units are mL/min/1.73 m2</content>
<content></content>
<content>Chronic Kidney Disease Staging per NKF:</content>
<content></content>
<content>Stage I & II GFR >=60 Normal to Mildly Decreased</content>
<content>Stage III GFR 30- 59 Moderately Decreased</content>
<content>Stage IV GFR 15-29 Severely Decreased</content>
<content>Stage V GFR <15 Very Little GFR Left</content>
<content>ESRD GFR <15 on DEWAXER</content>
<content></content> Creatinine For GFR 1.15 mg/dL 0.70-1.30 Normal (applies to non -numeric results) [facility] ([facility]) Chloride Level 101 meq/L 98-107 Normal (applies to non-numeric r esults) [facility] ([facility]) Potassium Serum 4.0 meq/L 3.5-5.1 Normal (applies to non-numeric results) [facility] ([facility]) Carbon Dioxide Level 29 meq/L 21-32 Normal (applies to non-num shanika results) [facility] ([facility]) Calcium Level 10.4 mg/dL 8.5-10.1 Above high normal [facility] ([facility]) Ast/Sgot 41 U/L 7-37 Above high normal [facility] ([facility]) Anion Gap 7 meq/L 8-16 Below low normal [facility] ( [facility]) Alt/SGPT 40 U/L 12-78 Normal (applies to non-numeric resul ts) [facility] ([facility]) Alkaline Phosphatase 127 U/L 45-117 Above high normal [facility] ([facility]) Bilirubin,Total 1.2 mg/dL 0.2-1.0 Above high normal [facility] ([facility]) Albumin 3.7 GM/DL 3.2-5.2 Normal (applies to non-numeric resul ts) [facility] ([facility]) Albumin/Globulin Ratio 1.0 Normal (applies to non-n umeric results) [facility] ([facility]) Total Protein 7.5 GM/DL 6.4-8.2 Normal (applies to non-numeric re sults) [facility] ([facility]) ID Date Data Source [id number] 02/21/2021 03:05:00 PM EDT [facility] Name Value Range Interpretation Code Description Data Jinny rce(s) Supporting Document(s) Hemoglobin 12.4 g/dL 13.5-17.5 Below low normal [facility] ( [facility]) Red Blood Count 4.51 10 4.30-6.10 Normal (applies to non-numeric results) [facility] ([facility]) White Blood Count 5.9 10 4.0-10.0 Normal (applies to non-numeri c results) [facility] ([facility]) Hematocrit 38.9 % 42.0-52.0 Below low normal [facility] Mean Corpuscular Hemoglobin 27.5 pg 27.0-33.0 Norm al (applies to non-numeric results) [facility] ([facility], ) Mean Corpuscular Volume 86.3 fl 80.0-96.0 Normal ( applies to non-numeric results) [facility] ([facility]) Platelet Count, Automated 96 10 150-450 Below low normal [facility] ([facility]) Mean Corpuscular HGB Conc 31.9 g/dL 32.0-36.5 Below low normal [facility]) Red Cell Distribution Width 15.2 % 11.5-14.5 Above high normal [facility] ([facility]) Neutrophils % 54.4 % 36.0-66.0 Normal (applies to non-numeric re sults) [facility] Lymph % 28.2 % 24.0-44.0 Normal (applies to non-numeric resul ts) [facility] [place] % 14.0 % 2.0-8.0 Above high normal [facility] ([facility]) Immature Granulocyte % 0.2 % 0-3.0 Normal (applies to non-n umeric results) [facility]) Baso % 0.3 % 0.0-1.0 Normal (applies to non-numeric resul ts) [facility]) Eos % 2.9 % 0.0-3.0 Normal (applies to non-numeric resul ts) [facility]) Nucleated Red Blood Cell % 0.0 % 0-0 Normal (applies to n on-numeric results) [facility] ([facility]) Neutrophils # 3.2 10 1.5-8.5 Normal (applies to non-numeric re sults) [facility]) [place] # 0.8 10 0.0-0.8 Normal (applies to non-numeric resul ts) [facility]) Lymph # 1.7 10 1.5-5.0 Normal (applies to non-numeric resul ts) [facility]) Eos # 0.2 10 0.0-0.5 Normal (applies to non-numeric resul ts) [facility]) Baso # 0.0 10 0.0-0.2 Normal (applies to non-numeric resul ts) [facility] ([facility], ) ID Date Data Source [id number] 02/07/2021 10:02:31 AM EDT [facility] Name Value Range Interpretation Code Description Data Jinny rce(s) Supporting Document(s) &PDF [facility] ETFWLh0kXjJSEaOt46/QIIpjQRNto8DzDRtcSAp5PVmxUZNcI8IbuOviXDZKI6VMUP9MVW2CX5pIAHqe hdG [file] ICAgICAgICAgICAgICAgICAgICAgICAgICAgICAgICAgICAgICAgICAgICAgICAgICAgICAgICAgICAg ICAgICAgICAgICAgICAgICAgICAgICAgICAgDQogIC AgICAgICAgICAgICAgICAgICAgICAgICAgICAgICAgICAgICAgICAgICAgICAgICAgICAgICAgICAgIC AgICAgICAgICAgICAgICAgICAgICAgICAgICAgICAgICAgICAgDQogICAgICAgICAgICAgICAgICAgIC AgICAgICAgICAgICAgICAgICAgICAgICAgICAgICAg ICAgICAgICAgICAgICAgICAgICAgICAgICAgICAgICAgICAgICAgICAgICAgICAgDQogICAgICAgICAg ICAgICAgICAgICAgICAgICAgICAgICAgICAgICAgICAgICAgICAgICAgICAgICAgICAgICAgICAgICAg ICAgICAgICAgICAgICAgICAgICAgICAgICAgICAgDQ ogICAgICAgICAgICAgICAgICAgICAgICAgICAgICAgICAgICAgICAgICAgICAgICAgICAgICAgICAgIC AgICAgICAgICAgICAgICAgICAgICAgICAgICAgICAgICAgICAgICAgDQogICAgICAgICAgICAgICAgIC AgICAgICAgICAgICAgICAgICAgICAgICAgICAgICAg ICAgICAgICAgICAgICAgICAgICAgICAgICAgICAgICAgICAgICAgICAgICAgICAgICAgDQogICAgICAg ICAgICAgICAgICAgICAgICAgICAgICAgICAgICAgICAgICAgICAgICAgICAgICAgICAgICAgICAgICAg ICAgICAgICAgICAgICAgICAgICAgICAgICAgICAgIC AgDQogICAgICAgICAgICAgICAgICAgICAgICAgICAgICAgICAgICAgICAgICAgICAgICAgICAgICAgIC AgICAgICAgICAgICAgICAgICAgICAgICAgICAgICAgICAgICAgICAgICAgDQogICAgICAgICAgICAgIC AgICAgICAgICAgICAgICAgICAgICAgICAgICAgICAg ICAgICAgICAgICAgICAgICAgICAgICAgICAgICAgICAgICAgICAgICAgICAgICAgICAgICAgDQogICAg ICAgICAgICAgICAgICAgICAgICAgICAgICAgICAgICAgICAgICAgICAgICAgICAgICAgICAgICAgICAg ICAgICAgICAgICAgICAgICAgICAgICAgICAgICAgIC YjAXHhEEe0B2huKOAoEKPhZY9dDFx5Ov0+NBuPEtQzSNQ7mvEkxB5IYV5ac1LkBEslVATua4JvDIv4LH 0JHPTzXFkiJS6DEGsdye5MANAdDZOosEFKr9jnWoEhZNJ2EDLlGbjqVD9NIUDjL6elzdWuSVMqRNNPUF lgWYWTFRfsDGBGSB0PHhTwT6BgcG03BNJCZd5+DQpl jrPpVniAXtV2KIJqi3ZkLLy7GR5CBUHiOIcoHW3ICGQmqY5iDDqlGI2TXgWfBPCtPCFWIdUrS35riBFw WFd7I8VcXnNzEAVfRrxrZXBtOSebUdOcTLXwZjAkAHvbAT8+ID4+GIylDQ0CZPvkxdWbJBMdAm7IJDLy VTG2NSHhpWMwOgNeBIWYISvyXZ4CoINfEGZ0vM1mSH mkBIFiZLPpX4gHJxNewMnqQC35sTyieaYlvJVnOQe+Cn0SJY1tx7OwSLt3yuKjKRskRRQ8VQgwTUXmYP YvIFLpNRK6ACV9WZFSXpSyNLIaYHHrOHwhFUWfSWXatr7KTVHcZJA7ZtQtGfFgWMFfISCmBTldGXApLY E7YBIaTLVhJXYfAR9HVwQsPVAhZPKvSZHcZKLhHUMq fm7BNBQgNISoPwKfLBXtYYAsUDUqBZfkNVKmDRUeRJA2UCObWTBaOI8VKgNtDODkAKKqMcTkYXUvVUJt jq5BCODwEAWpVLXpBWZbWLJdEBLlXOctFXOgDOJ8Slz7TIGlSXKwDA8BTiPzCCPxUQG3JOFhMNHmLWNe pr0DFULsHAKrPew7XGQwIGXpRVCwVGtvTLTsIRW5VE H3FMHkILIgPN2OPeRxTMTeWPulArIuKLNfTDMhxo5CUQEbNYAyNQY6OADvZPYgYNRuGVruVVQiCOS7VG saAFSzWZAgJE5HSsUnWFFqJKs9JpKlAYGrSEAqxa1YCSJgEURfSZWcPWIiPOFsWLRjEUpcFTPeMAVeFP Y3LDWtSWTeAN2HJuGgUVAuPYPeSMOfIDTeXXNasr0M NXOnJREhHlCsNCHgJWPjHCCmZRkgWMKoJWKxKJNzVOGkKCZbXZ8PMgLrJSSjFlH1QzQvOAZeMSWutc6A KXCjETBxSmIqPLZwCOFlCBZfUTsqMKEwOBJ9WGM4JZNqFXQsFV0IJuVwQECnSpldZLpeLEKeBFKmiv2K BWBiXYUgUlM7QVEeESQdWWDoYLweTEUuHWM1CDW5WA YqECJmTI7EXfRgNOJvXks7IrUuVLMeANRtrj3IAPSqLSSzCHs4XiPuJCXlSNNtDYzhMWBqRSL1UjI4BV QeCKCiHY3TYfJrXKWnRPu6GBEfETDfTRUgng9DGHOlMDJ3CUk0CQZjQANiUQRlHGolXWVlAPI7Wwb2CW ReCWTqUD3KGtHbOHHtCWopIEQzVDEwTFUphq6HHTHb FZP1FaHoTBXbPSEhSYJdXAauPDOxVGVmFkrsPDKrAIZlXT1QYyUlEWDpQhSyQDLfVVRpQISbpi1YfYUu rNmswg2DBRsVUc1JcSwiXNI4FFsaNm1ypWJlOvHrMNFSZh9DmsRvXAPyHKFATAnzCNIdJMA2THRrKjP7 MhCjPpPxHWO1Wpt3VVLlBPNsABG8GPA1MeV6IgUeDM AmJhJ8UVXbOSM5HqH9SfU4Q9AwDAUdZNRwCAp+HB9hEBc+Vn3Rx2RhtxF9xnLtWRm0NCWjWP2UDMMTY8 YNCg== ID Date Data Source [id number] 12/27/2020 09:46:00 AM EDT [facility] Name Value Range Interpretation Code Description Data Jinny rce(s) Supporting Document(s) SARS coronavirus [address] [facility] This lab was ordered by [facility] and reported by [facility]. ID Date Data Source [id number] 12/15/2020 03:19:00 PM EDT [facility] ([facility], ) Name Value Range Interpretation Code Description Data Jinny rce(s) Supporting Document(s) Prothrombin Time 15.8 s 12.5-14.3 Above high normal [facility] Inr 1.23 Normal (applies to non-numeric resul ts) [facility] ([facility]) THERAPUTIC HUMAN INR VALUES INDICATIONS NORMAL RANGES PROPHYLAXIS/TREATMENT OF: VENOUS THROMBOSIS 2.0-3.0 PULMONARY EMBOLISM 2.0-3.0 PREVENTION OF SYSTEMIC EMBOLISM FROM: TISSUE HEART VALVES 2.0-3.0 ACUTE MYOCARDIAL INFARCTION 2.0-3.0 VALVULAR HEART DISEASE 2.0-3.0 ATRIAL FIBRILLATION 2.0-3.0 MECHANICAL VALVES(HIGH RISK) 2.5-3.5 RECURRENT MYOCARDIAL INFARCTION 2.5-3.5 ID Date Data Source [id number] 12/15/2020 03:19:00 PM EDT [facility] ([facility]) Name Value Range Interpretation Code Description Data Jinny rce(s) Supporting Document(s) Xaueb-3-Xflcbvvrked [Mass/volume] in Serum or Plasma 6.6 ng/mL Normal (applies to non-numeric results) [facility] ([facility], ) THE AFP ASSAY IS PERFORMED ON THE [facility] BY CHEMILUMINESCENCE AND SHOULD NOT BE COMPARED INTERCHANGEABLY WITH OTHER METHODS. IT SHOULD NOT BE USED ALONE A SCREENING TEST OR DIAGNOSIS FOR THE PRESENCE OR ABSENCE OF MALIGNANT DISEASE. THESE RESULTS ARE NOT INTERPRETABLE IN FEMALES. PREDICTIONS OF DISEASE RECURRENCE SHOULD NOT BE BASED SOLELY ON VALUES OBTAINED FROM SERIAL PATIENT SERUM VALUES. ID Date Data Source [id number] 12/15/2020 03:19:00 PM EDT [facility] ([facility]) Name Value Range Interpretation Code Description Data Jinny rce(s) Supporting Document(s) Glucose, Fasting 131 mg/dL 70-100 Above high normal M [facility] ([facility]) Creatinine For GFR 1.16 mg/dL 0.70-1.30 Normal (applies to non -numeric results) [facility] ([facility]) Blood Urea Nitrogen 22 mg/dL 7-18 Above high normal [facility] ([facility]) Glomerular Filtration Rate Laboratory test result Normal (applies to non- numeric results) [place]) <content>Units are mL/min/1.73 m2</content>
<content></content>
<content>Chronic Kidney Disease Staging per NKF:</content>
<content></content>
<content>Stage I & II GFR >=60 Normal to Mildly Decreased</content>
<content>Stage III GFR 30- 59 Moderately Decreased</content>
<content>Stage IV GFR 15-29 Severely Decreased</content>
<content>Stage V GFR <15 Very Little GFR Left</content>
<content>ESRD GFR <15 on DEWAXER</content>
<content></content> Sodium Level 139 meq/L 136-145 Normal (applies to non-numeric res ults) [facility] ([facility], ) Potassium Serum 3.9 meq/L 3.5-5.1 Normal (applies to non-numeric results) [facility] ([facility]) Chloride Level 106 meq/L 98-107 Normal (applies to non-numeric r esults) [facility] ([facility]) Calcium Level 10.2 mg/dL 8.5-10.1 Above high normal [facility] ([facility]) Anion Gap 5 meq/L 8-16 Below low normal [facility] ( [facility]) Carbon Dioxide Level 28 meq/L 21-32 Normal (applies to non-num shanika results) [facility] ([facility], ) Alkaline Phosphatase 160 U/L 45-117 Above high normal [facility] ([facility]) Alt/SGPT 42 U/L 12-78 Normal (applies to non-numeric resul ts) [facility] ([facility], ) Ast/Sgot 45 U/L 7-37 Above high normal [facility] ([facility]) Bilirubin,Total 1.1 mg/dL 0.2-1.0 Above high normal [facility] ([facility]) Total Protein 7.0 GM/DL 6.4-8.2 Normal (applies to non-numeric re sults) [facility] ([facility], ) Albumin 3.4 GM/DL 3.2-5.2 Normal (applies to non-numeric resul ts) [facility] ([facility]) Albumin/Globulin Ratio 0.9 Normal (applies to non-n umeric results) [facility] ([facility]) ID Date Data Source [id number] 12/15/2020 03:19:00 PM EDT [facility] ([facility]) Name Value Range Interpretation Code Description Data Jinny rce(s) Supporting Document(s) Red Blood Count 3.90 10 4.30-6.10 Below low normal [facility] ([facility]) White Blood Count 6.0 10 4.0-10.0 Normal (applies to non-numeri c results) [facility] ([facility]) Hematocrit 34.3 % 42.0-52.0 Below low normal [facility] ( [facility]) Mean Corpuscular Volume 87.9 fl 80.0-96.0 Normal ( applies to non-numeric results) [facility] ([facility]) Hemoglobin 11.0 g/dL 13.5-17.5 Below low normal [facility] ( [facility]) Red Cell Distribution Width 14.4 % 11.5-14.5 Norm al (applies to non-numeric results) [facility] ([facility]) Mean Corpuscular HGB Conc 32.1 g/dL 32.0-36.5 Normal (applies to non-numeric results) [facility] ([facility]) Mean Corpuscular Hemoglobin 28.2 pg 27.0-33.0 Norm al (applies to non-numeric results) [facility] ([facility]) Platelet Count, Automated 102 10 150-450 Below low normal [facility] ([facility]) Lymph % 27.0 % 24.0-44.0 Normal (applies to non-numeric resul ts) [facility] Neutrophils % 53.4 % 36.0-66.0 Normal (applies to non-numeric re sults) [facility]) [place] % 17.3 % 2.0-8.0 Above high normal [facility] ([facility]) Eos % 1.8 % 0.0-3.0 Normal (applies to non-numeric resul ts) [facility] ([facility]) Baso % 0.3 % 0.0-1.0 Normal (applies to non-numeric resul ts) [facility] Neutrophils # 3.2 10 1.5-8.5 Normal (applies to non-numeric re sults) [facility] ) Lymph # 1.6 10 1.5-5.0 Normal (applies to non-numeric resul ts) [facility] ([facility], ) Nucleated Red Blood Cell % 0.0 % 0-0 Normal (applies to n on-numeric results) [facility] ([facility]) Immature Granulocyte % 0.2 % 0-3.0 Normal (applies to non-n umeric results) [facility] ([facility]) [place] # 1.0 10 0.0-0.8 Above high normal [facility] ([facility]) Eos # 0.1 10 0.0-0.5 Normal (applies to non-numeric resul ts) [facility] ([facility]) Baso # 0.0 10 0.0-0.2 Normal (applies to non-numeric resul ts) [facility] ([facility]) ID Date Data Source [id number] 12/15/2020 11:48:00 AM EDT [facility] ([facility]) Name Value Range Interpretation Code Description Data Jinny rce(s) Supporting Document(s) Choriogonadotropin.beta subunit [Moles/volume] in Seru m or Plasma Laboratory test result [facility] ([facility]) Estrogen [Mass/volume] in Serum or Plasma Laboratory test result [facility] ([facility]) Lutropin [Units/volume] in Serum or Plasma Laboratory test result [facility] ([facility]) ID Date Data Source [id number] 11/22/2020 10:37:00 AM EDT [facility] Name Value Range Interpretation Code Description Data Jinny rce(s) Supporting Document(s) SARS coronavirus 2 RNA Not Detected [facility] This lab was ordered by [facility] and reported by [facility]. ID Date Data Source [id number] 11/10/2020 03:35:00 PM EDT [facility] ([facility]) Name Value Range Interpretation Code Description Data Jinny rce(s) Supporting Document(s) Hemoglobin A1c/Hemoglobin.total in Blood Laboratory test result [facility] ([facility]) Glucose [Mass/volume] in Serum or Plasma 120 [facility] ([facility]) ID Date Data Source [id number] 09/17/2020 09:03:00 AM EDT [facility] ([facility], ) Name Value Range Interpretation Code Description Data Jinny rce(s) Supporting Document(s) Glucose, Fasting 326 mg/dL 70-100 Above high normal [facility] ([facility], ) Blood Urea Nitrogen 15 mg/dL 7-18 Normal (applies to non-nume luisito results) [facility] ([facility]) Creatinine For GFR 0.88 mg/dL 0.70-1.30 Normal (applies to non -numeric results) [facility] ([facility]) Glomerular Filtration Rate Laboratory test result Normal (applies to non- numeric results) [facility] ([facility], ) <content>Units are mL/min/1.73 m2</content>
<content></content>
<content>Chronic Kidney Disease Staging per NKF:</content>
<content></content>
<content>Stage I & II GFR >=60 Normal to Mildly Decreased</content>
<content>Stage III GFR 30- 59 Moderately Decreased</content>
<content>Stage IV GFR 15-29 Severely Decreased</content>
<content>Stage V GFR <15 Very Little GFR Left</content>
<content>ESRD GFR <15 on DEWAXER</content>
<content></content> Potassium Serum 4.0 meq/L 3.5-5.1 Normal (applies to non-numeric results) [facility] ([facility], ) Sodium Level 127 meq/L 136-145 Below low [facility] Chloride Level 90 meq/L 98-107 Below low normal [facility] ([facility]) Anion Gap 10 meq/L 8-16 Normal (applies to non-numeric resul ts) [facility] ([facility]) Carbon Dioxide Level 27 meq/L 21-32 Normal (applies to non-num shanika results) [facility] ([facility], ) Ast/Sgot 66 U/L 7-37 Above high normal [facility] ([facility], ) Alt/SGPT 53 U/L 12-78 Normal (applies to non-numeric resul ts) [facility] ([facility]) Calcium Level 9.7 mg/dL 8.5-10.1 Normal (applies to non-numeric re sults) [place]) Alkaline Phosphatase 205 U/L 45-117 Above high normal [facility] Bilirubin,Total 2.3 mg/dL 0.2-1.0 Above high normal [facility] ([facility]) Total Protein 7.7 GM/DL 6.4-8.2 Normal (applies to non-numeric re sults) [facility] ([facility]) Albumin 3.5 GM/DL 3.2-5.2 Normal (applies to non-numeric resul ts) [facility] ([facility]) Albumin/Globulin Ratio 0.8 Normal (applies to non-n umeric results) [place]) ID Date Data Source [id number] 09/17/2020 09:03:00 AM EDT [facility] ([facility]) Name Value Range Interpretation Code Description Data Jinny rce(s) Supporting Document(s) Prothrombin Time 15.5 s 12.5-14.3 Above high normal [facility] Inr 1.20 Normal (applies to non-numeric resul ts) [facility] ([facility]) THERAPUTIC HUMAN INR VALUES INDICATIONS NORMAL RANGES PROPHYLAXIS/TREATMENT OF: VENOUS THROMBOSIS 2.0-3.0 PULMONARY EMBOLISM 2.0-3.0 PREVENTION OF SYSTEMIC EMBOLISM FROM: TISSUE HEART VALVES 2.0-3.0 ACUTE MYOCARDIAL INFARCTION 2.0-3.0 VALVULAR HEART DISEASE 2.0-3.0 ATRIAL FIBRILLATION 2.0-3.0 MECHANICAL VALVES(HIGH RISK) 2.5-3.5 RECURRENT MYOCARDIAL INFARCTION 2.5-3.5 ID Date Data Source [id number] 09/17/2020 09:03:00 AM EDT [facility] ([facility]) Name Value Range Interpretation Code Description Data Jinny rce(s) Supporting Document(s) Platelets reticulated/100 platelets in Blood by Automated co unt 11.0 % 0.0-10.91 Above high normal [facility] ([facility], ) ID Date Data Source [id number] 09/17/2020 09:03:00 AM EDT [facility] ([facility]) Name Value Range Interpretation Code Description Data Jinny rce(s) Supporting Document(s) Red Blood Count 4.24 10 4.30-6.10 Below low normal [facility] ([facility]) White Blood Count 5.2 10 4.0-10.0 Normal (applies to non-numeri c results) [facility]) Hemoglobin 13.7 g/dL 13.5-17.5 Normal (applies to non-numeric resul ts) [place]) Mean Corpuscular Hemoglobin 32.3 pg 27.0-33.0 Norm al (applies to non-numeric results) [facility] ([facility]) Hematocrit 39.4 % 42.0-52.0 Below low normal [facility] ( [facility]) Mean Corpuscular Volume 92.9 fl 80.0-96.0 Normal ( applies to non-numeric results) [facility] ([facility]) Red Cell Distribution Width 12.5 % 11.5-14.5 Norm al (applies to non-numeric results) [facility] ([facility]) Platelet Count, Automated 82 10 150-450 Below low normal [facility] ([facility]) Mean Corpuscular HGB Conc 34.8 g/dL 32.0-36.5 Normal (applies to non-numeric results) [place]) [place] % 13.9 % 2.0-8.0 Above high normal [facility] ([facility]) Neutrophils % 58.4 % 36.0-66.0 Normal (applies to non-numeric re sults) [facility] ([facility]) Lymph % 24.4 % 24.0-44.0 Normal (applies to non-numeric resul ts) [facility] Eos % 2.3 % 0.0-3.0 Normal (applies to non-numeric resul ts) [facility] Baso % 0.6 % 0.0-1.0 Normal (applies to non-numeric resul ts) [facility] ([facility]) Immature Granulocyte % 0.4 % 0-3.0 Normal (applies to non-n umeric results) [facility]) Nucleated Red Blood Cell % 0.0 % 0-0 Normal (applies to n on-numeric results) [facility] ([facility]) Neutrophils # 3.0 10 1.5-8.5 Normal (applies to non-numeric re sults) [facility]) Lymph # 1.3 10 1.5-5.0 Below low normal [facility] ( [facility]) Eos # 0.1 10 0.0-0.5 Normal (applies to non-numeric resul ts) [facility] ([facility]) [place] # 0.7 10 0.0-0.8 Normal (applies to non-numeric resul ts) [facility] ([facility]) Baso # 0.0 10 0.0-0.2 Normal (applies to non-numeric resul ts) [facility] ([facility]) ID Date Data Source [id number] 08/13/2020 04:07:00 PM EDT [facility] [facility] ([facility]) Name Value Range Interpretation Code Description Data Jinny rce(s) Supporting Document(s) White Blood Count 5.8 10 4.0-10.0 Normal (applies to non-numeri c results) [facility]) Red Blood Count 4.40 10 4.30-6.10 Normal (applies to non-numeric results) [facility] ([facility]) Hemoglobin 14.4 g/dL 13.5-17.5 Normal (applies to non-numeric resul ts) [facility] Hematocrit 41.1 % 42.0-52.0 Below low normal [facility] ( [facility]) Mean Corpuscular Volume 93.4 fl 80.0-96.0 Normal ( applies to non-numeric results) [facility] ([facility]) Mean Corpuscular Hemoglobin 32.7 pg 27.0-33.0 Norm al (applies to non-numeric results) [facility] ([facility]) Mean Corpuscular HGB Conc 35.0 g/dL 32.0-36.5 Normal (applies to non-numeric results) [facility] ([facility]) Platelet Count, Automated 108 10 150-450 Below low normal [facility] ([facility]) Red Cell Distribution Width 12.9 % 11.5-14.5 Norm al (applies to non-numeric results) [facility] ([facility]) Neutrophils % 63.4 % 36.0-66.0 Normal (applies to non-numeric re sults) [facility] ([facility]) Lymph % 25.5 % 24.0-44.0 Normal (applies to non-numeric resul ts) [facility] ([facility]) [place] % 9.2 % 2.0-8.0 Above high normal [facility] ([facility]) Eos % 1.2 % 0.0-3.0 Normal (applies to non-numeric resul ts) [facility] ([facility]) Baso % 0.5 % 0.0-1.0 Normal (applies to non-numeric resul ts) [facility] ([facility]) Nucleated Red Blood Cell % 0.0 % 0-0 Normal (applies to n on-numeric results) [facility] ([facility]) Immature Granulocyte % 0.2 % 0-3.0 Normal (applies to non-n umeric results) [facility] ([facility]) Lymph # 1.5 10 1.5-5.0 Normal (applies to non-numeric resul ts) [facility] Neutrophils # 3.7 10 1.5-8.5 Normal (applies to non-numeric re sults) [facility] ([facility]) [place] # 0.5 10 0.0-0.8 Normal (applies to non-numeric resul ts) [facility]) Eos # 0.1 10 0.0-0.5 Normal (applies to non-numeric resul ts) [facility] ([facility]) Baso # 0.0 10 0.0-0.2 Normal (applies to non-numeric resul ts) [facility] ([facility]) ID Date Data Source [id number] 08/13/2020 04:07:00 PM EDT [facility] ([facility]) Name Value Range Interpretation Code Description Data Jinny rce(s) Supporting Document(s) Glucose, Fasting 576 mg/dL 70-100 Above upper panic limits [facility] ([facility]) Blood Urea Nitrogen 19 mg/dL 7-18 Above high normal [facility] ([facility]) Creatinine For GFR 1.10 mg/dL 0.70-1.30 Normal (applies to non -numeric results) [facility] ([facility]) Glomerular Filtration Rate Laboratory test result Normal (applies to non- numeric results) [facility] ([facility]) <content>Units are mL/min/1.73 m2</content>
<content></content>
<content>Chronic Kidney Disease Staging per NKF:</content>
<content></content>
<content>Stage I & II GFR >=60 Normal to Mildly Decreased</content>
<content>Stage III GFR 30- 59 Moderately Decreased</content>
<content>Stage IV GFR 15-29 Severely Decreased</content>
<content>Stage V GFR <15 Very Little GFR Left</content>
<content>ESRD GFR <15 on DEWAXER</content>
<content></content> Sodium Level 122 meq/L 136-145 Below low normal [facility] ([facility]) Potassium Serum 3.9 meq/L 3.5-5.1 Normal (applies to non-numeric results) [facility] ([facility]) Testing was performed on a lipemic speci men. Suggest recollection of a FASTING specimen for more accurate test results. Testing was performed on an icteric specimen. Chloride Level 85 meq/L 98-107 Below low normal [facility] Carbon Dioxide Level 28 meq/L 21-32 Normal (applies to non-num shanika results) [facility] ([facility]) Anion Gap 9 meq/L 8-16 Normal (applies to non-numeric resul ts) [facility] ([facility]) Calcium Level 9.7 mg/dL 8.5-10.1 Normal (applies to non-numeric re sults) [facility] ([facility]) Alt/SGPT 48 U/L 12-78 Normal (applies to non-numeric resul ts) [facility] ([facility]) Ast/Sgot 51 U/L 7-37 Above [facility] Bilirubin,Total 2.4 mg/dL 0.2-1.0 Above high normal [facility] ([facility]) Alkaline Phosphatase 168 U/L 45-117 Above high [facility] Total Protein 8.1 GM/DL 6.4-8.2 Normal (applies to non-numeric re sults) [facility] ([facility]) Albumin 3.7 GM/DL 3.2-5.2 Normal (applies to non-numeric resul ts) [facility] ([facility]) Albumin/Globulin Ratio 0.8 Normal (applies to non-n umeric results) [facility] ([facility]) ID Date Data Source [id number] 08/13/2020 04:07:00 PM EDT [facility] ([facility]) Name Value Range Interpretation Code Description Data Jinny rce(s) Supporting Document(s) Prothrombin Time 16.6 s 12.5-14.3 Above high normal [facility] ([facility]) Inr 1.32 Normal (applies to non-numeric resul ts) [facility] ([facility]) THERAPUTIC HUMAN INR VALUES INDICATIONS NORMAL RANGES PROPHYLAXIS/TREATMENT OF: VENOUS THROMBOSIS 2.0-3.0 PULMONARY EMBOLISM 2.0-3.0 PREVENTION OF SYSTEMIC EMBOLISM FROM: TISSUE HEART VALVES 2.0-3.0 ACUTE MYOCARDIAL INFARCTION 2.0-3.0 VALVULAR HEART DISEASE 2.0-3.0 ATRIAL FIBRILLATION 2.0-3.0 MECHANICAL VALVES(HIGH RISK) 2.5-3.5 RECURRENT MYOCARDIAL INFARCTION 2.5-3.5 ID Date Data Source [id number] 08/04/2020 11:10:00 AM [facility] ([facility]) Name Value Range Interpretation Code Description Data Jinny rce(s) Supporting Document(s) Magnesium [Mass/volume] in Serum or Plasma 1.9 mg/dL 1.8-2 .4 Normal (applies to non-numeric results) [facility] ([facility]) 09/15/20 (SunSep 15) 05:09 PM WONG JIMENEZ stable/better ID Date Data Source [id number] 08/04/2020 11:10:00 AM [facility] ([facility]) Name Value Range Interpretation Code Description Data Jinny rce(s) Supporting Document(s) Inr 1.16 Normal (applies to non-numeric resul ts) [facility] ([facility]) THERAPUTIC HUMAN INR VALUES INDICATIONS NORMAL RANGES PROPHYLAXIS/TREATMENT OF: VENOUS THROMBOSIS 2.0-3.0 PULMONARY EMBOLISM 2.0-3.0 PREVENTION OF SYSTEMIC EMBOLISM FROM: TISSUE HEART VALVES 2.0-3.0 ACUTE MYOCARDIAL INFARCTION 2.0-3.0 VALVULAR HEART DISEASE 2.0-3.0 ATRIAL FIBRILLATION 2.0-3.0 MECHANICAL VALVES(HIGH RISK) 2.5-3.5 RECURRENT MYOCARDIAL INFARCTION 2.5-3.5 Prothrombin Time 15.1 s 12.5-14.3 Above high normal [facility] ([facility]) ID Date Data Source [id number] 08/04/2020 11:10:00 AM [facility] ([facility]) Name Value Range Interpretation Code Description Data Jinny rce(s) Supporting Document(s) Glucose, Fasting 314 mg/dL 70-100 Above high normal [facility] ([facility]) Testing was performed on a lipemic speci men. Suggest recollection of a FASTING specimen for more accurate test results. Glomerular Filtration Rate Laboratory test result Normal (applies to non- numeric results) [facility] ([facility]) <content>Units are mL/min/1.73 m2</content>
<content></content>
<content>Chronic Kidney Disease Staging per NKF:</content>
<content></content>
<content>Stage I & II GFR >=60 Normal to Mildly Decreased</content>
<content>Stage III GFR 30- 59 Moderately Decreased</content>
<content>Stage IV GFR 15-29 Severely Decreased</content>
<content>Stage V GFR <15 Very Little GFR Left</content>
<content>ESRD GFR <15 on DEWAXER</content>
<content></content> Creatinine For GFR 0.90 mg/dL 0.70-1.30 Normal (applies to non -numeric results) [facility] ([facility], ) Blood Urea Nitrogen 14 mg/dL 7-18 Normal (applies to non-nume luisito results) [facility] ([facility], ) Sodium Level 131 meq/L 136-145 Below low normal [facility] Chloride Level 95 meq/L 98-107 Below low normal [facility] ([facility]) Potassium Serum 4.5 meq/L 3.5-5.1 Normal (applies to non-numeric results) [facility] ([facility]) Carbon Dioxide Level 29 meq/L 21-32 Normal (applies to non-num shanika results) [facility] ([facility]) Anion Gap 7 meq/L 8-16 Below low normal [facility] Calcium Level 10.0 mg/dL 8.5-10.1 Normal (applies to non-numeric re sults) [facility] ([facility], ) Ast/Sgot 48 U/L 7-37 Above high normal [facility] ([facility], ) Alt/SGPT 39 U/L 12-78 Normal (applies to non-numeric resul ts) [facility] ([facility], ) Alkaline Phosphatase 132 U/L 45-117 Above high normal [facility] ([facility]) Bilirubin,Total 2.1 mg/dL 0.2-1.0 Above high normal [facility] ([facility], ) Total Protein 7.6 GM/DL 6.4-8.2 Normal (applies to non-numeric re sults) [facility] ([facility], ) Albumin 3.6 GM/DL 3.2-5.2 Normal (applies to non-numeric resul ts) [place]) Albumin/Globulin Ratio 0.9 Normal (applies to non-n umeric results) [place] [facility]) ID Date Data Source [id number] 08/04/2020 11:10:00 AM EST [facility] ([facility]) Name Value Range Interpretation Code Description Data Jinny rce(s) Supporting Document(s) White Blood Count 6.5 10 4.0-10.0 Normal (applies to non-numeri c results) [facility] ([facility]) Red Blood Count 4.12 10 4.30-6.10 Below low normal [facility] ([facility]) Hemoglobin 13.5 g/dL 13.5-17.5 Normal (applies to non-numeric resul ts) [facility] ([facility]) Mean Corpuscular Hemoglobin 32.8 pg 27.0-33.0 Norm al (applies to non-numeric results) [facility] ([facility]) Mean Corpuscular Volume 94.7 fl 80.0-96.0 Normal ( applies to non-numeric results) [place]) Hematocrit 39.0 % 42.0-52.0 Below low normal [facility]) Mean Corpuscular HGB Conc 34.6 g/dL 32.0-36.5 Normal (applies to non-numeric results) [facility] ([facility]) Red Cell Distribution Width 12.9 % 11.5-14.5 Norm al (applies to non-numeric results) [facility] ([facility]) Platelet Count, Automated 153 10 150-450 Normal (applies to non-numeric results) [place]) Neutrophils % 59.6 % 36.0-66.0 Normal (applies to non-numeric re sults) [place]) Lymph % 27.7 % 24.0-44.0 Normal (applies to non-numeric resul ts) [facility] [place] % 9.4 % 2.0-8.0 Above high normal [facility] ([facility]) Baso % 0.8 % 0.0-1.0 Normal (applies to non-numeric resul ts) [facility] ([facility]) Eos % 2.0 % 0.0-3.0 Normal (applies to non-numeric resul ts) [facility] ([facility]) Immature Granulocyte % 0.5 % 0-3.0 Normal (applies to non-n umeric results) [facility] ([facility]) Nucleated Red Blood Cell % 0.0 % 0-0 Normal (applies to n on-numeric results) [facility] ([facility]) [place] # 0.6 10 0.0-0.8 Normal (applies to non-numeric resul ts) [facility] ([facility]) Lymph # 1.8 10 1.5-5.0 Normal (applies to non-numeric resul ts) [facility] ([facility]) Neutrophils # 3.9 10 1.5-8.5 Normal (applies to non-numeric re sults) [facility] ([facility]) Baso # 0.1 10 0.0-0.2 Normal (applies to non-numeric resul ts) [facility] ([facility]) Eos # 0.1 10 0.0-0.5 Normal (applies to non-numeric resul ts) [facility] ([facility]) ID Date Data Source [id number] 07/09/2020 12:28:00 PM EST [facility] ([facility]) Name Value Range Interpretation Code Description Data Jinny rce(s) Supporting Document(s) Magnesium [Mass/volume] in Serum or Plasma 1.9 mg/dL 1.8-2 .4 Normal (applies to non-numeric results) [facility] ([facility]) ID Date Data Source [id number] 07/09/2020 12:28:00 PM EST [facility] ([facility]) Name Value Range Interpretation Code Description Data Jinny rce(s) Supporting Document(s) Blood Urea Nitrogen 16 mg/dL 7-18 Normal (applies to non-nume luisito results) [facility] ([facility]) Glucose, Fasting 314 mg/dL 70-100 Above high normal [facility] ([facility]) Glomerular Filtration Rate Laboratory test result Normal (applies to non- numeric results) [place]) <content>Units are mL/min/1.73 m2</content>
<content></content>
<content>Chronic Kidney Disease Staging per NKF:</content>
<content></content>
<content>Stage I & II GFR >=60 Normal to Mildly Decreased</content>
<content>Stage III GFR 30- 59 Moderately Decreased</content>
<content>Stage IV GFR 15-29 Severely Decreased</content>
<content>Stage V GFR <15 Very Little GFR Left</content>
<content>ESRD GFR <15 on DEWAXER</content>
<content></content> Creatinine For GFR 0.94 mg/dL 0.70-1.30 Normal (applies to non -numeric results) [facility] ([facility]) Potassium Serum 3.6 meq/L 3.5-5.1 Normal (applies to non-numeric results) [facility] ([facility]) Chloride Level 93 meq/L 98-107 Below low normal [facility] ([facility]) Sodium Level 130 meq/L 136-145 Below low normal [facility] ([facility]) Anion Gap 8 meq/L 8-16 Normal (applies to non-numeric resul ts) [facility] ([facility]) Carbon Dioxide Level 29 meq/L 21-32 Normal (applies to non-num shanika results) [place]) Calcium Level 10.0 mg/dL 8.5-10.1 Normal (applies to non-numeric re sults) [place]) ID Date Data Source [id number] 06/25/2020 05:03:00 PM EST [facility] ([facility]) Name Value Range Interpretation Code Description Data Jinny rce(s) Supporting Document(s) Platelets reticulated/100 platelets in Blood by Automated count 7.5 % 0.0-10.91 Normal (applies to non-numeric results) [facility] ([facility]) ID Date Data Source [id number] 06/25/2020 05:03:00 PM EST [facility] ([facility]) Name Value Range Interpretation Code Description Data Jinny rce(s) Supporting Document(s) Inr 1.21 Normal (applies to non-numeric resul ts) [facility] ([facility]) THERAPUTIC HUMAN INR VALUES INDICATIONS NORMAL RANGES PROPHYLAXIS/TREATMENT OF: VENOUS THROMBOSIS 2.0-3.0 PULMONARY EMBOLISM 2.0-3.0 PREVENTION OF SYSTEMIC EMBOLISM FROM: TISSUE HEART VALVES 2.0-3.0 ACUTE MYOCARDIAL INFARCTION 2.0-3.0 VALVULAR HEART DISEASE 2.0-3.0 ATRIAL FIBRILLATION 2.0-3.0 MECHANICAL VALVES(HIGH RISK) 2.5-3.5 RECURRENT MYOCARDIAL INFARCTION 2.5-3.5 Prothrombin Time 15.6 s 12.5-14.3 Above high normal [facility] ([facility]) ID Date Data Source [id number] 06/25/2020 05:03:00 PM [facility]) Name Value Range Interpretation Code Description Data Jinny rce(s) Supporting Document(s) Glucose, Fasting 400 mg/dL 70-100 Above high normal [facility] ([facility]) Blood Urea Nitrogen 20 mg/dL 7-18 Above high normal [facility] ([facility]) Glomerular Filtration Rate Laboratory test result Normal (applies to non- numeric results) [place]) <content>Units are mL/min/1.73 m2</content>
<content></content>
<content>Chronic Kidney Disease Staging per NKF:</content>
<content></content>
<content>Stage I & II GFR >=60 Normal to Mildly Decreased</content>
<content>Stage III GFR 30- 59 Moderately Decreased</content>
<content>Stage IV GFR 15-29 Severely Decreased</content>
<content>Stage V GFR <15 Very Little GFR Left</content>
<content>ESRD GFR <15 on DEWAXER</content>
<content></content> Creatinine For GFR 1.15 mg/dL 0.70-1.30 Normal (applies to non -numeric results) [facility] ([facility], ) Potassium Serum 2.9 meq/L 3.5-5.1 Below lower panic limits [facility] ([facility], ) Sodium Level 126 meq/L 136-145 Below low normal [facility] ([facility]) Chloride Level 85 meq/L 98-107 Below low normal [facility] ([facility]) Carbon Dioxide Level 32 meq/L 21-32 Normal (applies to non-num shanika results) [facility] ([facility]) Anion Gap 9 meq/L 8-16 Normal (applies to non-numeric resul ts) [facility] ([facility]) Ast/Sgot 59 U/L 7-37 Above high normal [facility] ([facility]) Calcium Level 9.6 mg/dL 8.5-10.1 Normal (applies to non-numeric re sults) [facility] ([facility]) Bilirubin,Total 2.8 mg/dL 0.2-1.0 Above high normal [facility] ([facility]) Alkaline Phosphatase 184 U/L 45-117 Above high normal [facility] ([facility]) Alt/SGPT 78 U/L 12-78 Normal (applies to non-numeric resul ts) [facility] ([facility]) Total Protein 7.0 GM/DL 6.4-8.2 Normal (applies to non-numeric re sults) [facility] ([facility]) Albumin 3.1 GM/DL 3.2-5.2 Below low normal [facility] ( [facility]) Albumin/Globulin Ratio 0.8 Normal (applies to non-n umeric results) [facility] ([facility]) ID Date Data Source [id number] 06/25/2020 05:03:00 PM EST [facility] ([facility]) Name Value Range Interpretation Code Description Data Jinny rce(s) Supporting Document(s) Red Blood Count 4.10 10 4.30-6.10 Below low normal [facility] ([facility]) White Blood Count 13.3 10 4.0-10.0 Above high normal [facility] ([facility]) Hematocrit 39.8 % 42.0-52.0 Below low normal [facility] ( [facility]) Hemoglobin 13.6 g/dL 13.5-17.5 Normal (applies to non-numeric resul ts) [facility] ([facility]) Mean Corpuscular Hemoglobin 33.2 pg 27.0-33.0 Above high normal [facility] ([facility]) Mean Corpuscular Volume 97.1 fl 80.0-96.0 Above high [facility] Mean Corpuscular HGB Conc 34.2 g/dL 32.0-36.5 Normal (applies to non-numeric results) [facility] ([facility]) Red Cell Distribution Width 13.2 % 11.5-14.5 Norm al (applies to non-numeric results) [facility] ([facility]) Lymph % 16.2 % 24.0-44.0 Below low normal [facility] ( [facility]) Neutrophils % 71.8 % 36.0-66.0 Above high normal [facility] ([facility]) Platelet Count, Automated 85 10 150-450 Below low normal [facility] ([facility]) [place] % 8.7 % 0.0-5.0 Above high normal [facility] ([facility]) Eos % 1.4 % 0.0-3.0 Normal (applies to non-numeric resul ts) [facility] ([facility]) Nucleated Red Blood Cell % 0.0 % 0-0 Normal (applies to n on-numeric results) [facility] ([facility]) Baso % 0.6 % 0.0-1.0 Normal (applies to non-numeric resul ts) [facility] ([facility]) Immature Granulocyte % 1.3 % 0-3.0 Normal (applies to non-n umeric results) [facility] ([facility]) Neutrophils # 9.6 10 1.5-8.5 Above high normal [facility] ([facility]) Lymph # 2.2 10 1.5-5.0 Normal (applies to non-numeric resul ts) [facility] ([facility]) Eos # 0.2 10 0.0-0.5 Normal (applies to non-numeric resul ts) [facility]) [place] # 1.2 10 0.0-0.8 Above high normal [facility] ([facility]) Baso # 0.1 10 0.0-0.2 Normal (applies to non-numeric resul ts) [facility] ID Date Data Source [id number] 06/01/2020 05:11:00 PM [facility] Name Value Range Interpretation Code Description Data Jinny rce(s) Supporting Document(s) Platelets reticulated/100 platelets in Blood by Automated count 7.0 % 0.0-10.91 Normal (applies to non-numeric results) [facility] ([facility]) ID Date Data Source [id number] 06/01/2020 05:11:00 PM EST [facility] ([facility]) Name Value Range Interpretation Code Description Data Jinny rce(s) Supporting Document(s) Prothrombin Time 17.3 s 12.5-14.3 Above high normal [facility] ([facility]) Inr 1.38 Normal (applies to non-numeric resul ts) [facility]) THERAPUTIC HUMAN INR VALUES INDICATIONS NORMAL RANGES PROPHYLAXIS/TREATMENT OF: VENOUS THROMBOSIS 2.0-3.0 PULMONARY EMBOLISM 2.0-3.0 PREVENTION OF SYSTEMIC EMBOLISM FROM: TISSUE HEART VALVES 2.0-3.0 ACUTE MYOCARDIAL INFARCTION 2.0-3.0 VALVULAR HEART DISEASE 2.0-3.0 ATRIAL FIBRILLATION 2.0-3.0 MECHANICAL VALVES(HIGH RISK) 2.5-3.5 RECURRENT MYOCARDIAL INFARCTION 2.5-3.5 ID Date Data Source [id number] 06/01/2020 05:11:00 PM EST [facility] Name Value Range Interpretation Code Description Data Jinny rce(s) Supporting Document(s) Creatinine For GFR 0.77 mg/dL 0.70-1.30 Normal (applies to non -numeric results) [facility] Blood Urea Nitrogen 21 mg/dL 7-18 Above high normal [facility] ([facility]) Glucose, Fasting 149 mg/dL 70-100 Above high normal [facility] Sodium Level 131 meq/L 136-145 Below low normal [facility] ([facility]) Glomerular Filtration Rate Laboratory test result Normal (applies to non- numeric results) [facility] ([facility]) <content>Units are mL/min/1.73 m2</content>
<content></content>
<content>Chronic Kidney Disease Staging per NKF:</content>
<content></content>
<content>Stage I & II GFR >=60 Normal to Mildly Decreased</content>
<content>Stage III GFR 30- 59 Moderately Decreased</content>
<content>Stage IV GFR 15-29 Severely Decreased</content>
<content>Stage V GFR <15 Very Little GFR Left</content>
<content>ESRD GFR <15 on DEWAXER</content>
<content></content> Potassium Serum 4.1 meq/L 3.5-5.1 Normal (applies to non-numeric results) [facility] ([facility], ) Chloride Level 98 meq/L 98-107 Normal (applies to non-numeric r esults) [facility] ([facility]) Calcium Level 9.3 mg/dL 8.5-10.1 Normal (applies to non-numeric re sults) [facility] ([facility]) Carbon Dioxide Level 27 meq/L 21-32 Normal (applies to non-num shanika results) [place]) Anion Gap 6 meq/L 8-16 Below low [facility] Ast/Sgot 98 U/L 7-37 Above high normal [facility] Alt/SGPT 127 U/L 12-78 Above high normal [facility] ([facility]) Bilirubin,Total 4.9 mg/dL 0.2-1.0 Above high normal [facility] ([facility]) Alkaline Phosphatase 186 U/L 45-117 Above high normal [facility] ([facility]) Total Protein 6.3 GM/DL 6.4-8.2 Below low normal [facility] ([facility]) Albumin 2.8 GM/DL 3.2-5.2 Below low normal [facility] ( [facility]) Albumin/Globulin Ratio 0.8 Normal (applies to non-n umeric results) [facility] ([facility]) ID Date Data Source [id number] 06/01/2020 05:11:00 PM EST [facility] ([facility]) Name Value Range Interpretation Code Description Data Jinny rce(s) Supporting Document(s) Red Blood Count 3.70 10 4.30-6.10 Below low normal [facility] ([facility]) White Blood Count 14.9 10 4.0-10.0 Above high normal [facility] ([facility]) Hematocrit 38.6 % 42.0-52.0 Below low normal [facility] ( [facility]) Mean Corpuscular Volume 104.3 fl 80.0-96.0 Above high normal [facility] ([facility]) Hemoglobin 12.6 g/dL 13.5-17.5 Below low normal [facility] ( [facility]) Red Cell Distribution Width 14.8 % 11.5-14.5 Above high normal [facility] ([facility]) Mean Corpuscular Hemoglobin 34.1 pg 27.0-33.0 Above high normal [facility] ([facility]) Mean Corpuscular HGB Conc 32.6 g/dL 32.0-36.5 Normal (applies to non-numeric results) [facility] ([facility]) Lymph % 4.8 % 24.0-44.0 Below low normal [facility] ( [facility]) Neutrophils % 89.4 % 36.0-66.0 Above high normal [facility] ([facility]) Platelet Count, Automated 63 10 150-450 Below low normal [facility] ([facility]) [place] % 4.1 % 0.0-5.0 Normal (applies to non-numeric resul ts) [facility] ([facility]) Eos % 0.3 % 0.0-3.0 Normal (applies to non-numeric resul ts) [facility] ([facility]) Immature Granulocyte % 1.3 % 0-3.0 Normal (applies to non-n umeric results) [facility] ([facility]) Baso % 0.1 % 0.0-1.0 Normal (applies to non-numeric resul ts) [facility] ([facility]) Nucleated Red Blood Cell % 0.0 % 0-0 Normal (applies to n on-numeric results) [facility] ([facility]) Lymph # 0.7 10 1.5-5.0 Below low normal [facility] ( [facility]) Neutrophils # 13.3 10 1.5-8.5 Above high normal [facility] ([facility]) [place] # 0.6 10 0.0-0.8 Normal (applies to non-numeric resul ts) [facility] ([facility]) Baso # 0.0 10 0.0-0.2 Normal (applies to non-numeric resul ts) [facility] ([facility]) Eos # 0.0 10 0.0-0.5 Normal (applies to non-numeric resul ts) [facility] ([facility]) ID Date Data Source [id number] 05/31/2020 12:51:00 PM EST [facility]) Name Value Range Interpretation Code Description Data Jinny rce(s) Supporting Document(s) Microscopic observation [Identifier] in Unspecified specimen by Non- gynecological cytology method Laboratory test result [facility] ([facility]) SPECIMEN: Peritoneal fluid 1200ml Yellow SPECIMEN ADEQUACY: Satisfactory for evaluation CATEGORIZATION: No Malignancy identified DESCRIPTIONS: Reactive mesothelial cells noted in a background of macrophages, scattered lymphocytes and red blood cells. COMMENTS: 06/01/2020 - 0729 Signed DG LEE(ASCP) 06/01/2020 0729 (Prelim) Signed Yuniel Hernandez MD 06/01/2020 1426 Body Fluids Culture And Gram Stain Laboratory test result [place]) ID Date Data Source [id number] 05/31/2020 12:51:00 PM EST [facility] ([facility]) Name Value Range Interpretation Code Description Data Jinny rce(s) Supporting Document(s) Albumin [Mass/volume] in Body fluid Laboratory test result [facility] ([facility]) ID Date Data Source [id number] 05/31/2020 12:15:00 PM EST [facility] ([facility]) Name Value Range Interpretation Code Description Data Jinny rce(s) Supporting Document(s) Albumin, Body Fluid 0.2 g/dL Normal (applies to non-nume luisito results) [facility] ([facility]) Source, Body Fluid Albumin Laboratory test result Normal (applies to non- numeric results) [facility] ([facility]) ID Date Data Source [id number] 05/31/2020 12:15:00 PM EST [facility] ([facility]) Name Value Range Interpretation Code Description Data Jinny rce(s) Supporting Document(s) Source, Body Fluid Laboratory test result Normal (applies to non-numeric results) [facility] ([facility]) Ascites FL Color Laboratory test result Normal ( applies to non-numeric results) [facility] ([facility]) Appearance, Body Fluid Laboratory test result No rmal (applies to non-numeric results) [facility] ([facility]) RBC Body Fluid Laboratory test result Normal (applies to non-numeric results) [facility] ([facility]) WBC Body Fluid 62 /uL 0-10 Above high normal [facility] ([facility]) BF Polymorphonuclear Cell % 13.0 % 0-0 Above high normal [facility] ([facility]) BF Mononuclear Cell % 87.0 % 0-0 Above high normal [facility] ([facility]) ID Date Data Source [id number] 05/31/2020 12:15:00 PM EST [facility] ([facility]) Name Value Range Interpretation Code Description Data Jinny rce(s) Supporting Document(s) Source, Body Fluid Tot Protein Laboratory test result Normal (applies to non- numeric results) [facility] ([facility]) Total Protein, Body Fluid 0.6 g/dL Normal (applies to no n-numeric results) [facility] ([facility]) ID Date Data Source [id number] 05/31/2020 12:15:00 PM EST [facility] ([facility]) Name Value Range Interpretation Code Description Data Jinny rce(s) Supporting Document(s) Body Fluid Culture Laboratory test result [facility] ([facility]) If aerobic or anaerobic growth is detected within the next 7-21 days, an addendum will follow. . . FULL REPORT IN LAB NOTES ([facility]). NO GROWTH AEROBICALLY Gram Stain Laboratory test result Normal (applies to non-n umeric results) [facility] ([facility]) FEW WBCS NO ORGANISMS SEEN ID Date Data Source [id number] 05/31/2020 12:15:00 PM EST [facility] ([facility]) Name Value Range Interpretation Code Description Data Jinny rce(s) Supporting Document(s) Bacteria identified in Unspecified specimen by Anaerob e culture Laboratory test result [facility] ([facility], ) If anaerobic or aerobic growth is detected within the next 7-21 days, an addendum will follow. . . FULL REPORT IN LAB NOTES ([facility]). NO GROWTH ANAEROBICALLY ID Date Data Source [id number] 05/31/2020 08:07:00 AM EST [facility] ([facility]) Name Value Range Interpretation Code Description Data Jinny rce(s) Supporting Document(s) Surgical pathology study Laboratory test result [facility] ([facility]) FINAL DIAGNOSIS Cell block of ascitic fluid: Reactive mesothelial cells, macrophages and admixed WBCs. No clusters of atypical cells noted. If fluid re-accumulates and suspicion of a neoplastic process exists, please submit for repeat testing. Pankeratin, CD68 and calretinin stains were performed. 06/01/20201421 CLINICAL DIAGNOSIS Ascites fluid 06/01/20201415 GROSS DIAGNOSIS Received 1,200 ml of cloudy yellow ascitic fluid, submitted for cell block, submitted for cell block. -SH 06/01/2020726 Signed Yuniel Hernandez MD 06/01/20201426 ID Date Data Source [id number] 05/31/2020 08:07:00 AM EST [facility] ([facility]) Name Value Range Interpretation Code Description Data Jinny rce(s) Supporting Document(s) Surgical pathology study Laboratory test result [facility] ([facility]) FINAL DIAGNOSIS Cell block of ascitic fluid: Reactive mesothelial cells, macrophages and admixed WBCs. No clusters of atypical cells noted. If fluid re-accumulates and suspicion of a neoplastic process exists, please submit for repeat testing. Pankeratin, CD68 and calretinin stains were performed. 06/01/20201421 CLINICAL DIAGNOSIS Ascites fluid 06/01/20201415 GROSS DIAGNOSIS Received 1,200 ml of cloudy yellow ascitic fluid, submitted for cell block, submitted for cell block. -SH 06/01/2020726 Signed Yuniel Hernandez MD 06/01/20201426 ID Date Data Source [id number] 05/10/2020 04:07:00 PM EST [facility] ([facility]) Name Value Range Interpretation Code Description Data Jinny rce(s) Supporting Document(s) Platelets reticulated/100 platelets in Blood by Automated co unt 11.8 % 0.0-10.91 Above high normal [facility] ([facility]) ID Date Data Source [id number] 05/10/2020 04:07:00 PM EST [facility] ([facility]) Name Value Range Interpretation Code Description Data Jinny rce(s) Supporting Document(s) Glucose, Fasting 134 mg/dL 70-100 Above high normal [facility] Blood Urea Nitrogen 21 mg/dL 7-18 Above high normal [facility] ([facility]) Creatinine For GFR 0.94 mg/dL 0.70-1.30 Normal (applies to non -numeric results) [facility] ([facility]) Glomerular Filtration Rate Laboratory test result Normal (applies to non- numeric results) [facility] ([facility]) <content>Units are mL/min/1.73 m2</content>
<content></content>
<content>Chronic Kidney Disease Staging per NKF:</content>
<content></content>
<content>Stage I & II GFR >=60 Normal to Mildly Decreased</content>
<content>Stage III GFR 30- 59 Moderately Decreased</content>
<content>Stage IV GFR 15-29 Severely Decreased</content>
<content>Stage V GFR <15 Very Little GFR Left</content>
<content>ESRD GFR <15 on DEWAXER</content>
<content></content> Sodium Level 134 meq/L 136-145 Below low normal [facility] ([facility]) Potassium Serum 4.7 meq/L 3.5-5.1 Normal (applies to non-numeric results) [facility] ([facility]) Carbon Dioxide Level 25 meq/L 21-32 Normal (applies to non-num shanika results) [facility] ([facility]) Chloride Level 103 meq/L 98-107 Normal (applies to non-numeric r esults) [facility] ([facility]) Calcium Level 9.4 mg/dL 8.5-10.1 Normal (applies to non-numeric re sults) [facility] ([facility]) Anion Gap 6 meq/L 8-16 Below low normal [facility] ( [facility]) Ast/Sgot 146 U/L 7-37 Above high normal [facility] ([facility]) Alt/SGPT 172 U/L 12-78 Above high normal [facility] ([facility]) Alkaline Phosphatase 312 U/L 45-117 Above high normal [facility] ([facility]) Bilirubin,Total 9.7 mg/dL 0.2-1.0 Above high normal [facility] ([facility]) Albumin/Globulin Ratio 0.6 Normal (applies to non-n umeric results) [facility] ([facility]) Albumin 2.5 GM/DL 3.2-5.2 Below low normal [facility] ( [facility]) Total Protein 6.8 GM/DL 6.4-8.2 Normal (applies to non-numeric re sults) [facility] ([facility]) ID Date Data Source [id number] 05/10/2020 04:07:00 PM EST [facility] ([facility]) Name Value Range Interpretation Code Description Data Jinny rce(s) Supporting Document(s) White Blood Count 24.9 10 4.0-10.0 Above high normal [facility] ([facility]) Red Blood Count 3.36 10 4.30-6.10 Below low normal [facility] ([facility]) Hemoglobin 10.9 g/dL 13.5-17.5 Below low normal [facility] ( [facility]) Hematocrit 34.1 % 42.0-52.0 Below low normal [facility] ( [facility]) Mean Corpuscular Hemoglobin 32.4 pg 27.0-33.0 Norm al (applies to non-numeric results) [facility] ([facility]) Mean Corpuscular Volume 101.5 fl 80.0-96.0 Above high normal [facility] ([facility]) Red Cell Distribution Width 21.9 % 11.5-14.5 Above high normal [facility] ([facility]) Mean Corpuscular HGB Conc 32.0 g/dL 32.0-36.5 Normal (applies to non-numeric results) [facility] ([facility]) Platelet Count, Automated 91 10 150-450 Below low normal [facility] ([facility]) [place] % 7.9 % 0.0-5.0 Above high normal [facility] ([facility]) Neutrophils % 85.5 % 36.0-66.0 Above high normal [facility] ([facility]) Lymph % 4.5 % 24.0-44.0 Below low normal [facility] ( [facility]) Eos % 0.2 % 0.0-3.0 Normal (applies to non-numeric resul ts) [facility] ([facility]) Immature Granulocyte % 1.7 % 0-3.0 Normal (applies to non-n umeric results) [facility] ([facility]) Baso % 0.2 % 0.0-1.0 Normal (applies to non-numeric resul ts) [facility] ([facility]) Neutrophils # 21.3 10 1.5-8.5 Above high normal [facility] ([facility]) Nucleated Red Blood Cell % 0.0 % 0-0 Normal (applies to n on-numeric results) [facility] ([facility]) [place] # 2.0 10 0.0-0.8 Above high normal [facility] ([facility]) Eos # 0.0 10 0.0-0.5 Normal (applies to non-numeric resul ts) [facility] ([facility]) Lymph # 1.1 10 1.5-5.0 Below low normal [facility] ( [facility]) Baso # 0.0 10 0.0-0.2 Normal (applies to non-numeric resul ts) [facility] ([facility]) ID Date Data Source [id number] 05/10/2020 04:07:00 PM EST [facility] ([facility]) Name Value Range Interpretation Code Description Data Jinny rce(s) Supporting Document(s) Prothrombin Time 17.5 s 12.5-14.3 Above high normal [facility] ([facility]) Inr 1.40 Normal (applies to non-numeric resul ts) [facility] ([facility]) THERAPUTIC HUMAN INR VALUES INDICATIONS NORMAL RANGES PROPHYLAXIS/TREATMENT OF: VENOUS THROMBOSIS 2.0-3.0 PULMONARY EMBOLISM 2.0-3.0 PREVENTION OF SYSTEMIC EMBOLISM FROM: TISSUE HEART VALVES 2.0-3.0 ACUTE MYOCARDIAL INFARCTION 2.0-3.0 VALVULAR HEART DISEASE 2.0-3.0 ATRIAL FIBRILLATION 2.0-3.0 MECHANICAL VALVES(HIGH RISK) 2.5-3.5 RECURRENT MYOCARDIAL INFARCTION 2.5-3.5 ID Date Data Source [id number] 05/03/2020 07:29:00 AM EST [facility] ([facility]) Name Value Range Interpretation Code Description Data [facility](s) Supporting Document(s) Glucose, Fasting 121 mg/dL 70-100 Above high normal [facility] ([facility]) Creatinine For GFR 0.95 mg/dL 0.70-1.30 Normal (applies to non -numeric results) [facility] ([facility]) Glomerular Filtration Rate Laboratory test result Normal (applies to non- numeric results) [place]) <content>Units are mL/min/1.73 m2</content>
<content></content>
<content>Chronic Kidney Disease Staging per NKF:</content>
<content></content>
<content>Stage I & II GFR >=60 Normal to Mildly Decreased</content>
<content>Stage III GFR 30- 59 Moderately Decreased</content>
<content>Stage IV GFR 15-29 Severely Decreased</content>
<content>Stage V GFR <15 Very Little GFR Left</content>
<content>ESRD GFR <15 on DEWAXER</content>
<content></content> Blood Urea Nitrogen 23 mg/dL 7-18 Above high normal [facility] ([facility]) Potassium Serum 3.9 meq/L 3.5-5.1 Normal (applies to non-numeric results) [facility] ([facility]) Sodium Level 135 meq/L 136-145 Below low normal [facility] ([facility]) Chloride Level 103 meq/L 98-107 Normal (applies to non-numeric r esults) [facility] ([facility]) Anion Gap 7 meq/L 8-16 Below low normal [facility] ( [facility]) Carbon Dioxide Level 25 meq/L 21-32 Normal (applies to non-num shanika results) [facility] ([facility]) Calcium Level 8.6 mg/dL 8.5-10.1 Normal (applies to non-numeric re sults) [facility] ([facility]) Alt/SGPT 103 U/L 12-78 Above high normal [facility] ([facility]) Ast/Sgot 111 U/L 7-37 Above high normal [facility] ([facility]) Alkaline Phosphatase 270 U/L 45-117 Above high normal [facility] ([facility]) Total Protein 7.1 GM/DL 6.4-8.2 Normal (applies to non-numeric re sults) [facility] ([facility]) Bilirubin,Total 13.9 mg/dL 0.2-1.0 Above high normal [facility] ([facility]) Albumin 2.5 GM/DL 3.2-5.2 Below low normal [facility] ( [facility]) Albumin/Globulin Ratio 0.5 Normal (applies to non-n umeric results) [facility] ([facility]) ID Date Data Source [id number] 05/03/2020 07:29:00 AM EST [facility] ([facility]) Name Value Range Interpretation Code Description Data Jinny rce(s) Supporting Document(s) White Blood Count 27.6 10 4.0-10.0 Above high normal [facility] ([facility]) Hemoglobin 10.6 g/dL 13.5-17.5 Below low normal [facility] ( [facility]) Red Blood Count 3.32 10 4.30-6.10 Below low normal [facility] ([facility]) Hematocrit 32.8 % 42.0-52.0 Below low normal [facility] ( [facility]) Mean Corpuscular Volume 98.8 fl 80.0-96.0 Above high normal [facility] ([facility]) Mean Corpuscular Hemoglobin 31.9 pg 27.0-33.0 Norm al (applies to non-numeric results) [facility] Mean Corpuscular HGB Conc 32.3 g/dL 32.0-36.5 Normal (applies to non-numeric results) [facility] Platelet Count, Automated 173 10 150-450 Normal (applies to non-numeric results) [facility] ([facility]) Red Cell Distribution Width 24.7 % 11.5-14.5 Above high normal [facility] ([facility]) [place] % 6.0 % 0.0-5.0 Above high normal [facility] ([facility]) Neutrophils % 86.1 % 36.0-66.0 Above high normal [facility] ([facility]) Lymph % 4.6 % 24.0-44.0 Below low normal [facility] ( [facility]) Immature Granulocyte % 3.0 % 0-3.0 Normal (applies to non-n umeric results) [facility] Baso % 0.2 % 0.0-1.0 Normal (applies to non-numeric resul ts) [facility] ([facility]) Eos % 0.1 % 0.0-3.0 Normal (applies to non-numeric resul ts) [facility] ([facility]) Neutrophils # 23.8 10 1.5-8.5 Above high normal [facility] ([facility]) Lymph # 1.3 10 1.5-5.0 Below low normal [facility] ( [facility]) Nucleated Red Blood Cell % 0.0 % 0-0 Normal (applies to n on-numeric results) [facility] ([facility]) [place] # 1.7 10 0.0-0.8 Above high normal [facility] ([facility]) Eos # 0.0 10 0.0-0.5 Normal (applies to non-numeric resul ts) [facility] ([facility]) Baso # 0.1 10 0.0-0.2 Normal (applies to non-numeric resul ts) [facility]) ID Date Data Source [id number] 05/03/2020 07:29:00 AM EST [facility] ([facility]) Name Value Range Interpretation Code Description Data [facility]ce(s) Supporting Document(s) Prothrombin Time 17.3 s 12.5-14.3 Above high normal [facility] ([facility]) Inr 1.38 Normal (applies to non-numeric resul ts) [facility]) THERAPUTIC HUMAN INR VALUES INDICATIONS NORMAL RANGES PROPHYLAXIS/TREATMENT OF: VENOUS THROMBOSIS 2.0-3.0 PULMONARY EMBOLISM 2.0-3.0 PREVENTION OF SYSTEMIC EMBOLISM FROM: TISSUE HEART VALVES 2.0-3.0 ACUTE MYOCARDIAL INFARCTION 2.0-3.0 VALVULAR HEART DISEASE 2.0-3.0 ATRIAL FIBRILLATION 2.0-3.0 MECHANICAL VALVES(HIGH RISK) 2.5-3.5 RECURRENT MYOCARDIAL INFARCTION 2.5-3.5 ID Date Data Source [id number] 04/29/2020 02:48:00 PM EST [facility] ([facility]) Name Value Range Interpretation Code Description Data [facility](s) Supporting Document(s) Prothrombin Time 17.5 s 12.5-14.3 Above high normal [facility] ([facility]) Inr 1.40 Normal (applies to non-numeric resul ts) [facility]) THERAPUTIC HUMAN INR VALUES INDICATIONS NORMAL RANGES PROPHYLAXIS/TREATMENT OF: VENOUS THROMBOSIS 2.0-3.0 PULMONARY EMBOLISM 2.0-3.0 PREVENTION OF SYSTEMIC EMBOLISM FROM: TISSUE HEART VALVES 2.0-3.0 ACUTE MYOCARDIAL INFARCTION 2.0-3.0 VALVULAR HEART DISEASE 2.0-3.0 ATRIAL FIBRILLATION 2.0-3.0 MECHANICAL VALVES(HIGH RISK) 2.5-3.5 RECURRENT MYOCARDIAL INFARCTION 2.5-3.5 ID Date Data Source [id number] 04/29/2020 02:48:00 PM EST [facility] Name Value Range Interpretation Code Description Data Jinny e(s) Supporting Document(s) Blood Urea Nitrogen 21 mg/dL 7-18 Above high normal [facility] ([facility]) Glucose, Fasting 106 mg/dL 70-100 Above high normal [facility] Glomerular Filtration Rate Laboratory test result Normal (applies to non- numeric results) [facility] ([facility]) <content>Units are mL/min/1.73 m2</content>
<content></content>
<content>Chronic Kidney Disease Staging per NKF:</content>
<content></content>
<content>Stage I & II GFR >=60 Normal to Mildly Decreased</content>
<content>Stage III GFR 30- 59 Moderately Decreased</content>
<content>Stage IV GFR 15-29 Severely Decreased</content>
<content>Stage V GFR <15 Very Little GFR Left</content>
<content>ESRD GFR <15 on DEWAXER</content>
<content></content> Sodium Level 132 meq/L 136-145 Below low normal [facility] ([facility]) Creatinine For GFR 0.96 mg/dL 0.70-1.30 Normal (applies to non -numeric results) [facility] ([facility]) Chloride Level 101 meq/L 98-107 Normal (applies to non-numeric r esults) [facility] ([facility]) Potassium Serum 3.6 meq/L 3.5-5.1 Normal (applies to non-numeric results) [facility] ([facility]) Carbon Dioxide Level 23 meq/L 21-32 Normal (applies to non-num shanika results) [facility] ([facility]) Anion Gap 8 meq/L 8-16 Normal (applies to non-numeric resul ts) [facility] ([facility]) Calcium Level 8.6 mg/dL 8.5-10.1 Normal (applies to non-numeric re sults) [facility] ([facility]) Ast/Sgot 104 U/L 7-37 Above high normal [facility] ([facility]) Alt/SGPT 79 U/L 12-78 Above high normal [facility] ([facility]) Alkaline Phosphatase 264 U/L 45-117 Above high normal [facility] ([facility]) Bilirubin,Total 18.1 mg/dL 0.2-1.0 Above upper panic limits [facility] ([facility]) Testing was performed on an icteric spec imen. Albumin 2.4 GM/DL 3.2-5.2 Below low normal [facility] ( [facility]) Albumin/Globulin Ratio 0.6 Normal (applies to non-n umeric results) [facility] ([facility]) Total Protein 6.5 GM/DL 6.4-8.2 Normal (applies to non-numeric re sults) [facility] ([facility]) ID Date Data Source [id number] 04/29/2020 02:48:00 PM EST [facility] ([facility]) Name Value Range Interpretation Code Description Data [facility] rce(s) Supporting Document(s) Red Blood Count 3.03 10 4.30-6.10 Below low normal [facility] ([facility]) White Blood Count 16.4 10 4.0-10.0 Above high normal [facility] ([facility]) Hemoglobin 9.7 g/dL 13.5-17.5 Below low normal [facility] ( [facility]) Hematocrit 28.7 % 42.0-52.0 Below low normal [facility] ( [facility]) Mean Corpuscular Volume 94.7 fl 80.0-96.0 Normal ( applies to non-numeric results) [facility] ([facility]) Mean Corpuscular HGB Conc 33.8 g/dL 32.0-36.5 Normal (applies to non-numeric results) [facility] ([facility]) Mean Corpuscular Hemoglobin 32.0 pg 27.0-33.0 Norm al (applies to non-numeric results) [facility] ([facility]) Platelet Count, Automated 124 10 150-450 Below low normal [facility] ([facility]) Neutrophils % 80.3 % 36.0-66.0 Above high normal [facility] ([facility]) Red Cell Distribution Width 24.0 % 11.5-14.5 Above high normal [facility] ([facility]) [place] % 8.7 % 0.0-5.0 Above high normal [facility] ([facility]) Lymph % 7.7 % 24.0-44.0 Below low normal [facility] ( [facility]) Eos % 0.5 % 0.0-3.0 Normal (applies to non-numeric resul ts) [facility] ([facility]) Immature Granulocyte % 2.6 % 0-3.0 Normal (applies to non-n [facility]eric results) [facility] Baso % 0.2 % 0.0-1.0 Normal (applies to non-numeric resul ts) [facility] Neutrophils # 13.2 10 1.5-8.5 Above high normal [facility] ([facility]) Nucleated Red Blood Cell % 0.0 % 0-0 Normal (applies to n on-numeric results) [facility] ([facility]) Lymph # 1.3 10 1.5-5.0 Below low normal [facility] ( [facility]) [place] # 1.4 10 0.0-0.8 Above high normal [facility] ([facility]) Eos # 0.1 10 0.0-0.5 Normal (applies to non-numeric resul ts) [facility] ([facility]) Baso # 0.0 10 0.0-0.2 Normal (applies to non-numeric resul ts) [facility] ([facility]) ID Date Data Source [id number] 04/29/2020 02:48:00 PM EST [facility] ([facility]) Name Value Range Interpretation Code Description Data Jinny rce(s) Supporting Document(s) Hereditary Hemochromatosis Laboratory test result Normal (applies to non- numeric results) [facility] ([facility]) NO MUTATION IDENTIFIED . Interpretation: This patient's sample was analyzed for the hereditary hemochromatosis (HH) mutations C282Y, H63D, S65C. No mutation was identified. The mutations analyzed by [employer] are most common in the population, and up to 90% of affected Caucasians will have a positive test result. Because this panel does not identify rare HH mutations or HH mutations found in other ethnic groups, there are a small number of people who may have a negative test but may actually be affected. The diagnosis of HH should include clinical findings and other test results such as transferrin-iron saturation and/or serum ferritin studies and/or liver biopsy. If this patient has a history of HH, in many cases a specific carrier risk can be determined based on this negative result. Methodology: DNA Analysis of the HFE gene was performed by PCR amplification followed by restriction enzyme digestion analyses. . Reference: Thuan JS and Flo AP. (2000). Renu Test 4:97-101. Sinai LENZ et al. (1999). AM J Prev Med 16:134-140. Teena Lunsford (2002). Lancet 360(9937):1673-16. Nuvia De Guzman et al. (2002). Blood Cells, Molecules. and Diseases. 29(3):418-432. Rocio Rivero et al. (2003). Renu Med. 5(1):1-8. Sinai ME et al. (2003). Renu Med. 5(4):304-10. . This test was developed and its performance characteristics determined by [facility] It has not been cleared or approved by the Food and Drug Administration. . Genetic counselors are available for health care providers to discuss results at [phone]. . Jordon Jc, PhD, FACMG Pati Cunningham, PhD, FACMG Ekaterina Mantilla, PhD, FACMG Shilpa Pedraza, PhD, FACMG Leana Nj, PhD, FACMG Korey Macedo, PhD, FAC Performed at: - [address] [id number] Manager Express: Yoav Mckeon MD, Phone: [phone] Performed at: [facility] [address] [place], [place] [address] 223 [employer]: Michael Malagon [facility], Phone: [phone] ID Date Data Source [id number] 04/29/2020 02:45:00 PM EST [facility]) Name Value Range Interpretation Code Description Data Jinny rce(s) Supporting Document(s) Cytoplasmic Neutrop AB Anca-C Laboratory test result Normal (applies to non- numeric results) [facility] ([facility]) Perinuclear AB Anca-P Laboratory test result Nor mal (applies to non-numeric results) [facility] ([facility]) The presence of positive fluorescence ex hibiting P-ANCA or C-ANCA patterns alone is not specific for the diagnosis of Daniella's Granulomatosis (WG) or microscopic polyangiitis. Decisions about treatment should not be based solely on ANCA IFA results. The [employer] ANCA [employer] Consensus recommends follow up testing of positive sera with both TN- 3 and MPO-ANCA enzyme immunoassays. As m any as 5% serum samples are positive only by EIA. Ref. AM J Clin Pathol 1999;111:507-513. Anca-Atypical Laboratory test result Normal (applies t o non-numeric results) [place]) The atypical pANCA pattern has been obse rved in a significant percentage of patients with ulcerative colitis, primary sclerosing cholangitis and autoimmune hepatitis. Performed at: [address] [id number] [employer]: Yoav Mckeon MD, Phone: [phone] Procedure Social History Code Duration Value Status Description Data Source(s ) Smoking 11/10/2020 12:00:00 AM EDT Patient is a former smoker completed Patient is a former smoker [facility] ([facility]) Vital Signs ID Date Data Source UNK Name Value Range Interpretation Code Description Data Source(s) Systolic blood pressure 93 mm[Hg] 93 mm[Hg] M [facility] ([facility]) Diastolic blood pressure 62 mm[Hg] 62 mm[Hg] [facility]) Heart rate 69 /min 69 /min [facility] ([facility]) Body temperature 98.4 [degF] 98.4 [degF] [facility]) Respiratory rate 16 /min 16 /min [facility] ( [facility]) Oxygen saturation in Arterial blood by Pulse oximetry 98 % 98 % [facility] ([facility]) Systolic blood pressure 118 mm[Hg] 118 mm[Hg] [facility] ) Diastolic blood pressure 68 mm[Hg] 68 mm[Hg] [facility] ([facility]) Heart rate 84 /min 84 /min [facility] Body height 67 [in_i] 67 [in_i] [facility] ([facility]) 5'7" Body weight 170.50 [lb_av] 170.50 [lb_av] [facility] ([facility]) Body mass index (BMI) [Ratio] 26.7 kg/m2 26.7 k g/m2 [facility] Oxygen saturation in Arterial blood by Pulse oximetry 97 % 97 % [facility]) Body surface area Derived from formula 1.90 m2 1.90 m2 [facility] ([facility], ) Body weight 78.019 kg 78.019 kg [facility] ([facility], ) Body height 67 [in_i] 67 [in_i] [facility] ([facility], ) 5'7" Body weight 172.00 [lb_av] 172.00 [lb_av] [facility] ([facility], ) Body mass index (BMI) [Ratio] 26.9 kg/m2 26.9 k g/m2 [facility] ([facility], ) Vance body weight 148 [lb_av] 148 [lb_av] [facility] ([facility], ) Systolic blood pressure 107 mm[Hg] 107 mm[Hg] [facility] ([facility], ) Diastolic blood pressure 55 mm[Hg] 55 mm[Hg] [facility] ([facility], ) Diastolic blood pressure 64 mm[Hg] 64 mm[Hg] [facility] ([facility], ) Systolic blood pressure 120 mm[Hg] 120 mm[Hg] M [facility] ([facility], ) Body height 67 [in_i] 67 [in_i] [facility] ([facility], ) 5'7" Body weight 164.00 [lb_av] 164.00 [lb_av] [facility] ([facility]) Body surface area Derived from formula 1.86 m2 1.86 m2 [facility] Body mass index (BMI) [Ratio] 25.7 kg/m2 25.7 k g/m2 [facility]) Vance body weight 148 [lb_av] 148 [lb_av] [facility] ([facility]) Body weight 74.390 kg 74.390 kg [facility] ([facility]) Body weight 71.272 kg 71.272 kg [facility]) Body height 67 [in_i] 67 [in_i] [facility] ([facility]) 5'7" Body mass index (BMI) [Ratio] 24.6 kg/m2 24.6 k g/m2 [facility] ([facility]) Body surface area Derived from formula 1.83 m2 1.83 m2 [facility] ([facility]) Systolic blood pressure 104 mm[Hg] 104 mm[Hg] M [facility] ([facility]) Heart rate 77 /min 77 /min [facility]) Body temperature 97.8 [degF] 97.8 [degF] [facility] ([facility]) Respiratory rate 16 /min 16 /min [facility] ( [facility]) Oxygen saturation in Arterial blood by Pulse oximetry 97 % 97 % [facility] ([facility]) Body weight 157.12 [lb_av] 157.12 [lb_av] [facility] ([facility]) Diastolic blood pressure 61 mm[Hg] 61 mm[Hg] [facility]) Body temperature 97.8 [degF] 97.8 [degF] [facility]) Body height 67 [in_i] 67 [in_i] [facility] ([facility] ) 5'7" Systolic blood pressure 132 mm[Hg] 132 mm[Hg] M [facility] ([facility] ) Diastolic blood pressure 75 mm[Hg] 75 mm[Hg] [facility] ([facility] ) Heart rate 89 /min 89 /min [facility] ) Body weight 158.00 [lb_av] 158.00 [lb_av] [facility] ([facility] ) Body mass index (BMI) [Ratio] 24.7 kg/m2 24.7 k g/m2 [facility] ([facility]) Oxygen saturation in Arterial blood by Pulse oximetry 99 % 99 % [facility] ([facility]) Systolic blood pressure 136 mm[Hg] 136 mm[Hg] M [facility] ([facility]) Diastolic blood pressure 80 mm[Hg] 80 mm[Hg] [facility] ([facility]) Heart rate 85 /min 85 /min [facility] ([facility]) Body temperature 96.7 [degF] 96.7 [degF] [facility] ([facility]) Body height 67.2 [in_i] 67.2 [in_i] [facility] ([facility]) 5'7.20" Body weight 158.50 [lb_av] 158.50 [lb_av] [facility] ([facility]) Body mass index (BMI) [Ratio] 24.7 kg/m2 24.7 k g/m2 [facility] ([facility]) Oxygen saturation in Arterial blood by Pulse oximetry 98 % 98 % [facility] ([facility]) Body height 67 [in_i] 67 [in_i] [facility] ([facility], ) 5'7" Body weight 161.00 [lb_av] 161.00 [lb_av] [facility] ([facility]) Body mass index (BMI) [Ratio] 25.2 kg/m2 25.2 k g/m2 [facility], ) Vance body weight 148 [lb_av] 148 [lb_av] [facility] ([facility]) Body weight 73.030 kg 73.030 kg [facility] ([facility]) Body surface area Derived from formula 1.84 m2 1.84 m2 [facility] ([facility], ) Systolic blood pressure 138 mm[Hg] 138 mm[Hg] M [facility] ([facility], ) Diastolic blood pressure 70 mm[Hg] 70 mm[Hg] [facility] ([facility], ) Body height 67 [in_i] 67 [in_i] [facility], ) 5'7" Body weight 161.00 [lb_av] 161.00 [lb_av] [facility] ([facility]) Body mass index (BMI) [Ratio] 25.2 kg/m2 25.2 k g/m2 [facility] ([facility]) Vance body weight 148 [lb_av] 148 [lb_av] [facility] ([facility]) Body weight 73.030 kg 73.030 [facility] Body surface area Derived from formula 1.84 m2 1.84 m2 [facility] ([facility]) Systolic blood pressure 147 mm[Hg] 147 mm[Hg] [facility] ([facility]) Diastolic blood pressure 84 mm[Hg] 84 mm[Hg] [facility] ([facility]) Body height 67 [in_i] 67 [in_i] [facility] ([facility]) 5'7" Body weight 168.00 [lb_av] 168.00 [lb_av] [facility] ([facility]) Body mass index (BMI) [Ratio] 26.3 kg/m2 26.3 k g/m2 [facility] ([facility]) Vance body weight 148 [lb_av] 148 [lb_av] [facility] ([facility]) Body weight 76.205 kg 76.205 kg [facility] ([facility]) Body surface area Derived from formula 1.88 m2 1.88 m2 [facility] ([facility]) Body height 67 [in_i] 67 [in_i] [facility] ([facility]) 5'7" Body weight 168.00 [lb_av] 168.00 [lb_av] [facility] ([facility]) Body mass index (BMI) [Ratio] 26.3 kg/m2 26.3 k g/m2 [facility] ([facility]) Vance body weight 148 [lb_av] 148 [lb_av] [facility] ([facility]) Body weight 76.205 kg 76.205 kg [facility] ([facility]) Body surface area Derived from formula 1.88 m2 1.88 m2 [facility] ([facility]) Diastolic blood pressure 76 mm[Hg] 76 mm[Hg] [facility] ([facility]) Systolic blood pressure 154 mm[Hg] 154 mm[Hg] [facility] ([facility]) Body height 67 [in_i] 67 [in_i] [facility] ([facility]) 5'7" Body weight 178.00 [lb_av] 178.00 [lb_av] [facility] ([facility]) Body mass index (BMI) [Ratio] 27.9 kg/m2 27.9 k g/m2 [facility] ([facility]) Vance body weight 148 [lb_av] 148 [lb_av] [facility] ([facility]) Body weight 80.741 kg 80.741 kg [facility] ([facility]) Body surface area Derived from formula 1.92 m2 1.92 m2 [facility] ([facility]) Body weight 180.00 [lb_av] 180.00 [lb_av] [facility] ([facility]) Vance body weight 148 [lb_av] 148 [lb_av] [facility] ([facility]) Body mass index (BMI) [Ratio] 28.2 kg/m2 28.2 k g/m2 [facility] ([facility]) Body weight 81.648 kg 81.648 kg [facility] ([facility]) Diastolic blood pressure 94 mm[Hg] 94 mm[Hg] [facility] ([facility]) Systolic blood pressure 164 mm[Hg] 164 mm[Hg] [facility] ([facility]) Body surface area Derived from formula 1.93 m2 1.93 m2 [facility] ([facility]) Body height 67 [in_i] 67 [in_i] [facility] ([facility]) 5'7" Body weight 82.555 kg 82.555 kg [facility] ([facility]) Systolic blood pressure 148 mm[Hg] 148 mm[Hg] [facility] ([facility]) Diastolic blood pressure 80 mm[Hg] 80 mm[Hg] [facility] Body height 67 [in_i] 67 [in_i] [facility] ([facility]) 5'7" Body weight 182.00 [lb_av] 182.00 [lb_av] [facility] ([facility]) Body mass index (BMI) [Ratio] 28.5 kg/m2 28.5 k g/m2 [facility] ([facility]) Vance body weight 148 [lb_av] 148 [lb_av] [facility] ([facility]) Body surface area Derived from formula 1.94 m2 1.94 m2 [facility] ([facility]) Vance body weight 148 [lb_av] 148 [lb_av] [facility] ([facility]) Body surface area Derived from formula 1.98 m2 1.98 m2 [facility] ([facility]) Body weight 86.184 kg 86.184 kg [facility] ([facility]) Systolic blood pressure 164 mm[Hg] 164 mm[Hg] [facility] Diastolic blood pressure 94 mm[Hg] 94 mm[Hg] [facility] ([facility]) Body height 67 [in_i] 67 [in_i] [facility] ([facility]) 5'7" Body weight 190.00 [lb_av] 190.00 [lb_av] [facility] ([facility]) Body mass index (BMI) [Ratio] 29.8 kg/m2 29.8 k g/m2 [facility] ([facility]) Systolic blood pressure 130 mm[Hg] 130 mm[Hg] [facility] ([facility]) Diastolic blood pressure 60 mm[Hg] 60 mm[Hg] [facility] Body height 67 [in_i] 67 [in_i] [facility] 5'7" Body weight 186.00 [lb_av] 186.00 [lb_av] [facility] ([facility]) Body mass index (BMI) [Ratio] 29.1 kg/m2 29.1 k g/m2 [facility] ([facility]) Vance body weight 148 [lb_av] 148 [lb_av] [facility] ([facility]) Body weight 84.370 kg 84.370 kg [facility] ([facility]) Body surface area Derived from formula 1.96 m2 1.96 m2 [facility] ([facility])
--- NOTE | 2021-03-22 12:03 | ROOR ---
Patient Name: Hugo Lucero Procedure Date: 03/22/2021 11:45 AM Date of : 1970 Age: 50 Room: [facility] Gender: Male Note Status: Finalized Procedure: Upper GI endoscopy Indications: Follow-up of esophageal varices Providers: Alexey Caceres MD Referring MD: LUISA QUIÑONEZ MD Requesting Provider: Medicines: Monitored Anesthesia Care Complications: No immediate complications. Procedure: Pre-Anesthesia Assessment: - The heart rate, respiratory rate, oxygen saturations, blood pressure, adequacy of pulmonary ventilation, and response to care were monitored throughout the procedure. The Endoscope was introduced through the mouth, and advanced to the second part of duodenum. The upper GI endoscopy was accomplished without difficulty. The patient tolerated the procedure well. Findings: Two columns of non-bleeding grade II varices were found in the lower third of the esophagus,. No stigmata of recent bleeding were evident and no red andrea signs were present. Stigmata of prior treatment were evident. Two bands were successfully placed with complete eradication, resulting in deflation of varices. The exam was otherwise without abnormality. Impression: - Non-bleeding grade II esophageal varices. Completely eradicated. Banded. - The examination was otherwise normal. - No specimens collected. Recommendation: - Repeat upper endoscopy in 1 month for retreatment. - My office will call you to reschedule the procedure. Procedure Code(s): --- Professional --- 97974, Esophagogastroduodenoscopy, flexible, transoral; with band ligation of esophageal/gastric varices Diagnosis Code(s): --- Professional --- I85.00, Esophageal varices without bleeding CPT copyright 2019 [employer]. All rights reserved. The codes documented in this report are preliminary and upon managed services sales consultant review may be revised to meet current compliance requirements. Alexey Caceres MD Alexey Caceres MD 03/22/2021 12:03:12 PM Electronically signed by Alexey Caceres MD Number of Addenda: 0 Note Initiated On: 03/22/2021 11:45 AM Estimated Blood Loss: Estimated blood loss: none.
[2021-03-22 12:25] VITALS: BP 118/67
== END 2021-03-22 12:35 | disposition home or self-care (01) ==
LOC: M OPP 10:33
PROVIDERS: ATTEND Internal Medicine Gastroenterology
DX: I85.00 Esophageal varices without bleeding (principal); K74.60 Unspecified cirrhosis of liver; Z79.4 Long term (current) use of insulin; Z79.899 Other long term (current) drug therapy; E11.9 Type 2 diabetes mellitus without complications; F17.210 Nicotine dependence, cigarettes, uncomplicated
CPT/HCPCS: 43244; J3010

== ENCOUNTER → 2021-04-26 | Outpatient (CLI) | payer OTHER ==
[~2021-04-26] MED LIST changes: +HYDR50TA70 PO; +LIDO1ADH TP; -LIDOCAINE 2% 100MG/5ML SDV (FOR ANES.) As Ordered ONE; +LISI2.5T9 PO; +LOSA50TA28 PO; -LOSA50TA88 PO; -NS 1,000 ML IV ONE; +ZETI10TA16 PO; +ZOLO50TA PO; -fentaNYL 100 MCG/2 ML INJECTION (J3010) As Ordered ONE; -propofoL 200 MG/20 ML VIAL As Ordered ONE
== END ==
LOC: M RAD 07:42
PROVIDERS: ATTEND Internal Medicine Gastroenterology
DX: I85.10 Secondary esophageal varices without bleeding (principal); K70.31 Alcoholic cirrhosis of liver with ascites

== ENCOUNTER 2021-04-28 07:54 | Day surgery (SDC) | payer OTHER ==
[~2021-04-28] VITALS: Ht 170.2 cm; Wt 80.3 kg
[~2021-04-28 07:54] MED LIST changes: -HYDR50TA70 PO; -LIDO1ADH TP; +LIDOCAINE 2% 100MG/5ML SDV (FOR ANES.) As Ordered ONE; -LISI2.5T9 PO; -LOSA50TA28 PO; +LOSA50TA88 PO; -ZETI10TA16 PO; -ZOLO50TA PO; +propofoL 200 MG/20 ML VIAL As Ordered ONE
--- OUTSIDE RECORDS SUMMARY | 2021-04-28 08:00 | CCD ---
Author [facility] Organization [facility] Address Unknown Phone Unavailable Care Team Providers [employer] Ax Technical Architect Name Role Phone GINO, WONG DUONG Unavailable Unavailable REINDL, WONG DUONG [...] REINDL, WONG DUONG Unavailable Unavailable REINDL, WONG UDONG Unavailable Unavailable REINSÁNCHEZ, WONG DUONG Unavailable Unavailable [...] Unavailable Unavailable REINDL, WONG DUONG Unavailable Unavailable Rasheed, Ramiro Blackburn MD Unavailable Unavailable Rasheed, C Wong DUONG Unavailable Unavailable Rasheed, C Wong DUONG Unavailable Unavailable Rasheed, Ramiro Blackburn MD [...] JOYA MD Unavailable Unavailable ROCIO, B IVANNA RED LEADER Unavailable Unavailable ROCIO, B IVANNA RED LEADER Unavailable Unavailable ROCIO, B IVANNA RED LEADER Unavailable Unavailable ROCIO, B IVANNA RED LEADER Unavailable Unavailable ROCIO, B IVANNA RED LEADER Unavailable Unavailable ROCIO, B IVANNA RED LEADER Unavailable Unavailable ROCIO, B IVANNA RED LEADER Unavailable Unavailable ROCIO, B IVANNA RED LEADER Unavailable Unavailable ROCIO, B IVANNA RED LEADER Unavailable Unavailable ROCIO, B IVANNA RED LEADER Unavailable Unavailable ROCIO, B IVANNA RED LEADER Unavailable Unavailable ROCIO, B IVANNA RED LEADER Unavailable Unavailable ROCIO, B IVANNA RED LEADER Unavailable Unavailable ROCIO, B IVANNA RED LEADER Unavailable Unavailable ROCIO, B IVANNA RED LEADER Unavailable Unavailable ROCIO, B IVANNA RED LEADER Unavailable Unavailable ROCIO, B IVANNA RED LEADER Unavailable Unavailable ROCIO, B IVANNA RED LEADER Unavailable Unavailable ROCIO, B IVANNA RED LEADER Unavailable Unavailable ROCIO, B IVANNA RED LEADER Unavailable Unavailable ROCIO, B IVANNA RED LEADER Unavailable Unavailable ROCIO, B IVANNA RED LEADER Unavailable Unavailable ROCIO, B IVANNA RED LEADER Unavailable Unavailable ROCIO, B IVANNA RED LEADER Unavailable Unavailable ROCIO, B IVANNA RED LEADER Unavailable Unavailable ROCIO, B IVANNA RED LEADER Unavailable Unavailable ROCIO, B IVANNA RED LEADER Unavailable Unavailable ROCIO, B IVANNA RED LEADER Unavailable Unavailable ROCIO, B IVANNA RED LEADER Unavailable Unavailable ROCIO, B IVANNA RED LEADER Unavailable Unavailable ROCIO, B IVANNA RED LEADER Unavailable Unavailable ROCIO, B IVANNA RED LEADER Unavailable Unavailable ROCIO, B IVANNA RED LEADER Unavailable Unavailable ROCIO, B IVANNA RED LEADER Unavailable Unavailable ROCIO, B IVANNA RED LEADER Unavailable Unavailable ROCIO, B IVANNA RED LEADER Unavailable Unavailable ROCIO, B IVANNA RED LEADER Unavailable Unavailable ROCIO, B IVANNA RED LEADER Unavailable Unavailable ROCIO, B IVANNA RED LEADER Unavailable Unavailable ROCIO, B IVANNA RED LEADER Unavailable Unavailable ROCIO, B IVANNA RED LEADER Unavailable Unavailable ROCIO, B IVANNA RED LEADER Unavailable Unavailable ROCIO, B IVANNA RED LEADER Unavailable Unavailable ROCIO, B IVANNA RED LEADER Unavailable Unavailable ROCIO, B IVANNA RED LEADER Unavailable Unavailable ROCIO, B IVANNA RED LEADER Unavailable Unavailable ROCIO, B IVANNA RED LEADER Unavailable Unavailable ROCIO, B IVANNA RED LEADER Unavailable Unavailable ROCIO, B IVANNA RED LEADER Unavailable Unavailable ROCIO, B IVANNA RED LEADER Unavailable Unavailable ROCIO, B IVANNA RED LEADER Unavailable Unavailable ROCIO, B IVANNA RED LEADER Unavailable Unavailable ROCIO, B IVANNA RED LEADER Unavailable Unavailable ROCIO, B IVANNA RED LEADER Unavailable Unavailable ROCIO, B IVANNA RED LEADER Unavailable Unavailable ORCIO, B IVANNA RED LEADER Unavailable Unavailable ROCIO, B IVANNA RED LEADER Unavailable Unavailable ROCIO, B IVANNA RED LEADER Unavailable Unavailable ROCIO, B IVANNA RED LEADER Unavailable Unavailable ROCIO, B IVANNA RED LEADER Unavailable Unavailable ROCIO, B IVANNA RED LEADER Unavailable Unavailable ROCIO, B IVANNA RED LEADER Unavailable Unavailable Fish, B Shannan DUONG Unavailable [...] Fish, B Shannan DUONG Unavailable Unavailable Fish, Haven Campbell MD Unavailable [...] Fish, Haven Campbell MD Unavailable Unavailable Fish, B Shannan DUONG Unavailable Unavailable Fish, B Shannan DUONG Unavailable Unavailable Fish, Haven Campbell MD Unavailable Unavailable Fish, Haven Campbell MD Unavailable Unavailable Fish, Haven Campbell MD Unavailable Unavailable Fish, Haven Campbell MD Unavailable Unavailable Fish, B Shannan DUONG Unavailable Unavailable Fish, Haven Campbell MD Unavailable [...] Fish, Haven Campbell MD Unavailable Unavailable Fish, Havne Campbell MD Unavailable Unavailable Fish, Haven Campbell [...] R ANH DPM Unavailable Unavailable FORNI, R AHN DPM Unavailable Unavailable FORNI, R ANH DPM [...] is protected by Article 27-F of the [facility] Public Health law. If you continue you may have access to information: Regarding HIV / AIDS; Provided by facilities licensed or operated by the [facility] Office of Mental Health; or Provided by the [facility] Office for People With Developmental Disabilities. If such information is present, then the following [facility] mandated warning applies: This information has been [...] law may result in a fine or group home sentence or both. A general authorization for the release of medical or other information is NOT sufficient authorization for further disc losure. Family History Family Member Name Family Member Gender Family Member Status Date o f Status Description Data Source(s) Unknown Male Problem [facility] ([facility]) Encounters Encounter Providers Location Date Indications Data Source(s ) Outpatient Attender: MAHNAZ AVILA MD 2020 08:24:00 AM EDT - 03/16/2021 08:24:00 AM EDT [facility] Outpatient Attender: Shannan Gant MD Physical Therapy 03/03 01:45:00 PM EDT [facility] ([facility]) Outpatient Attender: WONG Pisano/[place]/Andrea/Rein dl 02/23/2021 10:20:00 AM EDT [facility] ([facility] Outpatient Referrer: Wong Iqbal MD [id number] 2020 08:54:15 AM EDT - 02/07/2021 11:59:00 PM EDT [facility] Patient discharged. Outpatient Attender: ANH ROSARIO DPM 2020 03:02:00 PM EDT - 12/29/2020 03:02:00 PM EDT [facility] Outpatient Attender: ANH ROSARIO DPM Family Practice 12/29/2020 0 3:00:00 PM EDT [facility] ([facility]) Outpatient Attender: WONG Pisano/Marty/Andrea/Rein dl 12/21/2020 01:00:00 PM EDT [facility] ([facility] Outpatient Attender: MAHNAZ AVILA MD 2020 10:02:00 AM EDT - 12/10/2020 10:02:00 AM EDT [facility] Outpatient Attender: IVANNA CHAN NP Physical Therapy 03:15:00 PM EDT [facility] ([facility]) Outpatient Attender: Shannan Gant MD Physical Therapy 10/08 01:00:00 PM EDT [facility] ([facility]) Outpatient Attender: WONG Pisano/Marty/Andrea/Rein dl 09/20/2020 10:30:00 AM EDT [facility] ([facility] Outpatient Attender: WONG Pisano/[place]/Andrea/Rein dl 08/04/2020 02:30:00 PM EST [facility] ([facility] Outpatient Attender: WONG Pisano/Marty/Andrea/Rein dl 06/28/2020 09:45:00 AM EST [facility] ([facility]) Outpatient Attender: WONG Mcbrider/Andrea/Rein dl 06/02/2020 12:30:00 PM EST [facility] ([facility]) Outpatient Attender: WONG Marte/Andrea/Rein dl 05/11/2020 07:30:00 AM EST [facility] ([facility]) Outpatient Attender: WONG Mcbrider/Andrea/Rein dl 05/03/2020 01:45:00 PM EST [facility] ([facility]) Outpatient Attender: WONG Marte/Andrea/Rein dl 04/29/2020 12:15:00 PM EST [facility] ([facility]) Immunizations Vaccine Date Status Description Data Source(s) COVID-19 VACCINE Pfizer 03/12/2021 12:00:00 AM EDT completed [facility] Vaccine Series Complete: YESThis Data wa s Submitted to [facility] Via [employer]. COVID-19 VACCINE Pfizer 07/07/2020 12:00:00 AM EST completed [facility] Vaccine Series Complete: NOThis Data was Submitted to [facility] Via [employer]. Medications Medication Brand Name Start Date Product Form Dose Route Admi nistrative Instructions Pharmacy Instructions Status Indications Reaction Description Data Source(s) carvedilol 3.125 MG Oral Tablet Carvedilol 03/03/2021 12:00:00 AM EDT ORAL active [facility] ([facility] Lidocaine Hydrochloride 20 MG/ML Mucous Membrane Topic al Solution Lidocaine Viscous HCL 12/31/2020 12:00:00 AM EDT ORAL completed [facility] ([facility] ) carvedilol 3.125 MG Oral Tablet Carvedilol 12/10/2020 12:00:00 AM EDT active [facility] ([facility]) ezetimibe 10 MG Oral Tablet Ezetimibe 12/10/2020 12:00:00 AM EDT ORAL active [facility] ([facility]) Insulin Glargine 100 UNT/ML Injectable Solution [Lantus] Pavel tus 12/10/2020 12:00:00 AM EDT SUBCUTANEOUS active [facility] ([facility]) torsemide 10 MG Oral Tablet Torsemide 12/10/2020 12:00:00 AM EDT active [facility] ([facility]) Folic Acid 1 MG Oral Tablet Folic Acid 12/10/2020 12:00:00 AM EDT ORAL active [facility] ([facility]) Spironolactone 50 MG Oral Tablet Spironolactone 12/10/2020 12:00:00 A M EDT ORAL active [facility] ([facility]) Lidocaine Lidocaine 12/10/2020 12:00:00 AM EDT act ana [facility] ([facility]) Metformin hydrochloride 1000 MG Oral Tablet Metformin HCL 12/10/2020 12:00:00 AM EDT ORAL active [facility] ([facility]) Niacin 500 MG Oral Tablet Niacin 12/10/2020 12:00:00 AM EDT ORAL active [facility] ([facility]) gabapentin 800 MG Oral Tablet Gabapentin 12/10/2020 12:00:00 AM EDT ORAL active [facility] ([facility]) Acamprosate calcium 333 MG Delayed Release Oral Tablet Acamp rosate Calcium 12/10/2020 12:00:00 AM EDT ORAL active [facility] ([facility]) carvedilol 3.125 MG Oral Tablet Carvedilol 11/26/2020 12:00:00 AM EDT ORAL active [facility] ([facility] ) Lidocaine Hydrochloride 20 MG/ML Mucous Membrane Topic al Solution Lidocaine Viscous HCL 11/26/2020 12:00:00 AM EDT ORAL completed [facility] ([facility], ) 3 ML Insulin Glargine 100 UNT/ML Pen Injector [Lantus] Lantu s Solostar 10/08/2020 12:00:00 AM EDT active [facility] ([facility] ) Abouttime Pen Vidor 31G X 3/16" 10/08/2020 12:00:00 AM EDT active [facility] ([facility] ) empagliflozin 10 MG Oral Tablet [Jardiance] Jardiance 10/08/2020 12:00:00 AM EDT ORAL active [facility] ([facility] ) Freestyle Hoda 14 Day/Sensor/Flash Monitoring System 10/08/2020 12:00:00 AM EDT active [facility] ([facility] ) Freestyle Hoda 14 Day/[place]/Flash Monitoring System 10/08/2020 12:00:00 AM EDT active [facility] ([facility] ) Suprep Bowel Prep Kit Suprep Bowel Prep Kit 09/20/2020 12:00:00 AM EDT completed [facility] ([facility] ) Magnesium Hydroxide 80 MG/ML Oral Suspension Milk Of Magnesi a 09/20/2020 12:00:00 AM EDT ORAL completed [facility] ([facility] ) Spironolactone 50 MG Oral Tablet Spironolactone 09/20/2020 12:00:00 A M EDT active [facility] ([facility]) torsemide 10 MG Oral Tablet Torsemide 09/20/2020 12:00:00 AM EDT active [facility] ([facility], ) torsemide 20 MG Oral Tablet Torsemide 06/28/2020 12:00:00 AM EST completed [facility] ([facility] ) Spironolactone 50 MG Oral Tablet Spironolactone 06/28/2020 12:00:00 A M EST completed [facility] ([facility]) torsemide 20 MG Oral Tablet Torsemide 06/02/2020 12:00:00 AM EST completed [facility] ([facility] ) Lactulose 667 MG/ML Oral Solution Lactulose 05/03/2020 12:00:00 AM EST ORAL completed [facility] ([facility]) Lidocaine 50 MG/ML Topical Cream Lidocaine (Anorectal) 05/03 12:00:00 AM EST completed [facility] ([facility]) Nitroglycerin 0.004 MG/MG Rectal Ointment [Rectiv] Rectiv 05/03/2020 12:00:00 AM EST completed [facility] ([facility]) Prednisone 10 MG Oral Tablet Prednisone 04/29/2020 12:00:00 AM EST completed [facility] ([facility]) 1 billion cell 04/26/2020 12:00:00 AM EST [...] D AY NEEDED FOR ITCH SOLD: 04/26/2020 Tonie D rugs Insurance Providers Payer name Policy type / Coverage type Policy ID Covered constitution party ID Covered constitution party's relationship to hay Policy Hay Plan Information [employer] [id number] SP [id number] [employer] [place] [id number] 18 [id number] COMMERCIAL GENERIC [id number] Amarilis [id number] COMMERCIAL GENERIC [id number] Lithe[employer] - PHYSIC[place] [id number] 18 [id number] [employer] [id number] SP [id number] [employer] - O/P [place] [id number] 18 [id number] [employer] Commercial [id number] Self [id number] Problems, Conditions, and Diagnoses Code Display Name Description Problem Type Effective Dates Data Source(s) R01.1 Cardiac murmur, unspecified Cardiac murmur, unspecifie d Diagnosis 02/07/2021 08:54:15 AM EDT [facility] K429 Umbilical hernia without obstruction or gangrene Umbilical hernia without obstruction or gangrene Diagnosis 12/10/2020 10:02:00 AM EDT [facility] N62 Hypertrophy of breast Hypertrophy of breast Diagnosis 12/10/2020 10:02:00 AM EDT [facility] [id number] Type 2 diabetes mellitus Type 2 diabetes mellitus Prob denilson 12/10/2020 12:00:00 AM EDT [facility] ([facility]) [id number] Pure hypercholesterolemia Pure hypercholesterolemia Pr oblem 10/07/2020 12:00:00 AM EDT [facility] ([facility]) [id number] Essential hypertension Essential hypertension Problem 10/07/2020 12:00:00 AM EDT [facility] ([facility]) Surgeries/Procedures Procedure Description Date Indications Data Source(s) Amb Glucose Monitoring Interpretation And Report 03/03 12:00:00 AM EDT [facility] ([facility]) OFFICE OUTPATIENT VISIT 25 MINUTES 03/03/2021 12:00:00 AM EDT [facility] ([facility]) OFFICE OUTPATIENT VISIT 25 MINUTES 02/23/2021 12:00:00 AM EDT [facility] ([facility]) OFFICE OUTPATIENT NEW 45 MINUTES 02/23/2021 12:00:00 A M EDT [facility] ([facility]) ECHO TTHRC R-T 2D W/WOM-MODE COMPL SPEC&COLR DOP <td>E CHOCARDIOGRAM TRANSTHORACIC</td><td>Routine</td><td>02/07/2021 9:48 AM EDT</td><td> Cardiac murmur</td><td> </td> 02/07/2021 09:48:14 AM EDT Cardiac murmur [facility] Cardiac murmur Endoscopy Upper GI W/Band Ligation Of Varices 01/01/20 12:00:00 AM EDT [facility] ([facility]) OFFICE OUTPATIENT NEW 30 MINUTES 12/29/2020 12:00:00 A M EDT [facility]) OFFICE OUTPATIENT VISIT 25 MINUTES 12/21/2020 12:00:00 AM EDT [facility] ([facility]) OFFICE OUTPATIENT NEW 30 MINUTES 12/10/2020 12:00:00 A [facility] W/Band Ligation Of Varices 11/27/19 21 12:00:00 AM EDT [facility] ([facility]) Colonoscopy Flexible Proximal To Splenic Flexure Diagnostic W/Or 11/26/2020 12:00:00 AM EDT [facility] Amb Glucose Monitoring Interpretation And Report 11/10 12:00:00 AM EDT [facility] ([facility]) OFFICE OUTPATIENT VISIT 25 MINUTES 11/10/2020 12:00:00 AM EDT [facility] ([facility]) Diabetic Foot Exam 10/08/2020 12:00:00 AM EDT [facility] ([facility]) OFFICE CONSULTATION NEW/ESTAB PATIENT 80 MIN 12:00:00 AM EDT [facility] ([facility]) OFFICE OUTPATIENT NEW 45 MINUTES 09/20/2020 12:00:00 A M EDT [facility] ([facility]) OFFICE OUTPATIENT VISIT 15 MINUTES 08/04/2020 12:00:00 AM EST [facility] ([facility]) OFFICE OUTPATIENT VISIT 15 MINUTES 06/28/2020 12:00:00 AM EST [facility] ([facility]) Results ID Date Data Source [id number] 03/03/2021 01:53:00 PM EDT [facility] ([facility]) Name Value Range Interpretation Code Description Data Jinny rce(s) Supporting Document(s) Glucose [Mass/volume] in Serum or Plasma 152 [facility] ([facility]) Hemoglobin A1c/Hemoglobin.total in Blood Laboratory test result [facility] ([facility]) ID Date Data Source [id number] 02/21/2021 03:05:00 PM EDT [facility] ([facility]) Name Value Range Interpretation Code Description Data Jinny rce(s) Supporting Document(s) Platelets reticulated/100 platelets in Blood by Automated count 5.9 % 0.0-10.91 Normal (applies to non-numeric results) [facility]) ID Date Data Source [id number] 02/21/2021 03:05:00 PM EDT [facility] ([facility]) Name Value Range Interpretation Code Description Data Jinny rce(s) Supporting Document(s) Prothrombin Time 15.1 s 12.7-14.5 Above high normal M [facility]) Inr 1.15 Normal (applies to non-numeric resul ts) [facility] ([facility]) THERAPUTIC HUMAN INR VALUES INDICATIONS NORMAL RANGES PROPHYLAXIS/TREATMENT OF: VENOUS THROMBOSIS 2.0-3.0 PULMONARY EMBOLISM 2.0-3.0 PREVENTION OF SYSTEMIC EMBOLISM FROM: TISSUE HEART VALVES 2.0-3.0 ACUTE MYOCARDIAL INFARCTION 2.0-3.0 VALVULAR HEART DISEASE 2.0-3.0 ATRIAL FIBRILLATION 2.0-3.0 MECHANICAL VALVES(HIGH RISK) 2.5-3.5 RECURRENT MYOCARDIAL INFARCTION 2.5-3.5 ID Date Data Source [id number] 02/21/2021 03:05:00 PM EDT [facility] ([facility]) Name Value Range Interpretation Code Description Data Jinny rce(s) Supporting Document(s) Glucose, Fasting 106 mg/dL 70-100 Above high normal [facility] Blood Urea Nitrogen 30 mg/dL 7-18 Above high normal [facility] ([facility]) Sodium Level 137 meq/L 136-145 Normal (applies to non-numeric res ults) [facility] ([facility]) Glomerular Filtration Rate Laboratory test result Normal (applies to non- numeric results) [facility] ([facility]) <content>Units are mL/min/1.73 m2</content>
<content></content>
<content>Chronic Kidney Disease Staging per NKF:</content>
<content></content>
<content>Stage I & II GFR >=60 Normal to Mildly Decreased</content>
<content>Stage III GFR 30- 59 Moderately Decreased</content>
<content>Stage IV GFR 15-29 Severely Decreased</content>
<content>Stage V GFR <15 Very Little GFR Left</content>
<content>ESRD GFR <15 on SOURCING MANAGER</content>
<content></content> Creatinine For GFR 1.15 mg/dL 0.70-1.30 Normal (applies to non -numeric results) [facility] ([facility]) Chloride Level 101 meq/L 98-107 Normal (applies to non-numeric r esults) [facility] ([facility]) Potassium Serum 4.0 meq/L 3.5-5.1 Normal (applies to non-numeric results) [facility] ([facility]) Carbon Dioxide Level 29 meq/L 21-32 Normal (applies to non-num shanika results) [facility] ([facility]) Calcium Level 10.4 mg/dL 8.5-10.1 Above high normal [facility] ([facility]) Ast/Sgot 41 U/L 7-37 Above high normal [facility] ([facility]) Anion Gap 7 meq/L 8-16 Below low normal [facility] ( [facility]) Alt/SGPT 40 U/L 12-78 Normal (applies to non-numeric resul ts) [facility] ([facility]) Alkaline Phosphatase 127 U/L 45-117 Above high normal [facility] ([facility]) Bilirubin,Total 1.2 mg/dL 0.2-1.0 Above high normal [facility] ([facility]) Albumin 3.7 GM/DL 3.2-5.2 Normal (applies to non-numeric resul ts) [facility] ([facility]) Albumin/Globulin Ratio 1.0 Normal (applies to non-n umeric results) [facility] ([facility]) Total Protein 7.5 GM/DL 6.4-8.2 Normal (applies to non-numeric re sults) [facility] ([facility]) ID Date Data Source [id number] 02/21/2021 03:05:00 PM EDT [facility] ([facility]) Name Value Range Interpretation Code Description Data Jinny rce(s) Supporting Document(s) Hemoglobin 12.4 g/dL 13.5-17.5 Below low normal [facility] ( [facility]) Red Blood Count 4.51 10 4.30-6.10 Normal (applies to non-numeric results) [facility] ([facility]) White Blood Count 5.9 10 4.0-10.0 Normal (applies to non-numeri c results) [facility] ([facility]) Hematocrit 38.9 % 42.0-52.0 Below low normal [facility] Mean Corpuscular Hemoglobin 27.5 pg 27.0-33.0 Norm al (applies to non-numeric results) [facility] ([facility] ) Mean Corpuscular Volume 86.3 fl 80.0-96.0 Normal ( applies to non-numeric results) [facility] ([facility]) Platelet Count, Automated 96 10 150-450 Below low normal [facility] ([facility]) Mean Corpuscular HGB Conc 31.9 g/dL 32.0-36.5 Below low normal [facility] ([facility]) Red Cell Distribution Width 15.2 % 11.5-14.5 Above high normal [facility] ([facility]) Neutrophils % 54.4 % 36.0-66.0 Normal (applies to non-numeric re sults) [facility] ([facility]) Lymph % 28.2 % 24.0-44.0 Normal (applies to non-numeric resul ts) [facility] [place] % 14.0 % 2.0-8.0 Above high normal [facility] ([facility]) Immature Granulocyte % 0.2 % 0-3.0 Normal (applies to non-n umeric results) [facility]) Baso % 0.3 % 0.0-1.0 Normal (applies to non-numeric resul ts) [facility]) Eos % 2.9 % 0.0-3.0 Normal (applies to non-numeric resul ts) [facility] Nucleated Red Blood Cell % 0.0 % 0-0 Normal (applies to n on-numeric results) [facility] Neutrophils # 3.2 10 1.5-8.5 Normal (applies to non-numeric re sults) [facility] ([facility]) [place] # 0.8 10 0.0-0.8 Normal (applies to non-numeric resul ts) [facility]) Lymph # 1.7 10 1.5-5.0 Normal (applies to non-numeric resul ts) [facility]) Eos # 0.2 10 0.0-0.5 Normal (applies to non-numeric resul ts) [facility]) Baso # 0.0 10 0.0-0.2 Normal (applies to non-numeric resul ts) [facility] ([facility] ID Date Data Source [id number] 02/07/2021 10:02:31 AM EDT [facility] Name Value Range Interpretation Code Description Data Jinny rce(s) Supporting Document(s) &PDF [facility] [id number] [file] ICAgICAgICAgICAgICAgICAgICAgICAgICAgICAgICAgICAgICAgICAgICAgICAgICAgICAgICAgICAg ICAgICAgICAgICAgICAgICAgICAgICAgICAgDQogIC AgICAgICAgICAgICAgICAgICAgICAgICAgICAgICAgICAgICAgICAgICAgICAgICAgICAgICAgICAgIC AgICAgICAgICAgICAgICAgICAgICAgICAgICAgICAgICAgICAgDQogICAgICAgICAgICAgICAgICAgIC AgICAgICAgICAgICAgICAgICAgICAgICAgICAgICAg ICAgICAgICAgICAgICAgICAgICAgICAgICAgICAgICAgICAgICAgICAgICAgICAgDQogICAgICAgICAg ICAgICAgICAgICAgICAgICAgICAgICAgICAgICAgICAgICAgICAgICAgICAgICAgICAgICAgICAgICAg ICAgICAgICAgICAgICAgICAgICAgICAgICAgICAgDQ ogICAgICAgICAgICAgICAgICAgICAgICAgICAgICAgICAgICAgICAgICAgICAgICAgICAgICAgICAgIC AgICAgICAgICAgICAgICAgICAgICAgICAgICAgICAgICAgICAgICAgDQogICAgICAgICAgICAgICAgIC AgICAgICAgICAgICAgICAgICAgICAgICAgICAgICAg ICAgICAgICAgICAgICAgICAgICAgICAgICAgICAgICAgICAgICAgICAgICAgICAgICAgDQogICAgICAg ICAgICAgICAgICAgICAgICAgICAgICAgICAgICAgICAgICAgICAgICAgICAgICAgICAgICAgICAgICAg ICAgICAgICAgICAgICAgICAgICAgICAgICAgICAgIC AgDQogICAgICAgICAgICAgICAgICAgICAgICAgICAgICAgICAgICAgICAgICAgICAgICAgICAgICAgIC AgICAgICAgICAgICAgICAgICAgICAgICAgICAgICAgICAgICAgICAgICAgDQogICAgICAgICAgICAgIC AgICAgICAgICAgICAgICAgICAgICAgICAgICAgICAg ICAgICAgICAgICAgICAgICAgICAgICAgICAgICAgICAgICAgICAgICAgICAgICAgICAgICAgDQogICAg ICAgICAgICAgICAgICAgICAgICAgICAgICAgICAgICAgICAgICAgICAgICAgICAgICAgICAgICAgICAg ICAgICAgICAgICAgICAgICAgICAgICAgICAgICAgIC AfKETlALy8B9umOPXmNNQgSL8oUDa8Vl8+BAvDXjKhJRK0euZemA1BWZ9lt6JfGHthWYGsz5TpGEw7CF 4IKGCfBTvlTQ7ZIZdkrk6BGEKnVYOlkGGEp9dzIuImQZQ7CADnAndaEQ0HICAdT2wnpgJoTCVpLBIKJY noMVRMWEeyKETTSQ1XVzKoC3GnuL48FSNTBw7+DQpl yeJsQusQOsB7LCPql3TpDHb5JS8ASUGoGLynPP3OUQKecT7mAAzyRF9QXvUkJKJpOPSYIoUkO76gsWUy HVt3T6YhYyZaZJNjDvojCMTxXLihOnLrIEPoQlOxPHgnHF6+ID4+RIckXZ6BHHxgnbYvQYGzOb7RGXNm LXR0LMGaaRMhNiAoILDJWCmjDP8JxSDyVTO4tH6hCC nxJIBdBHAnI5wRXhYfgDjiGT17cOfglmFpiPUwVHp+Bj8UTW3ie1ExISt8pqQnMXttJNY5FNcgAAHoOE WxLDNnQZZ6XUO5PZJPNyKdLCMhNJDaPMmtVYSmAOArah2EXIZoJIZ3XqKiLeWuECBcMDPjBRglHJUoFJ R1OHRxJSIoDIXhZI5MAtGfTTAwOWXfASRpCXQpBZBu gf4BQOUxQEXpCzSqBZPsGQGjYKQbIQtuIRIvHTFeFVX3MQPlNXTeFB6VZaKlGTWwHXHuCjZhEYLjXURq nm4MGBExRHOdPCUxNZQfSVCtBJKcQQcnVJHfPVH9Hnp1BKIiTEOlED4DSmJyYDGaGEF8HYKgEEVrDUOo lx1SQZDaXOPuWzh5YYGcZPVhIHFvLUcuYYXkGTQ1EY S9CTKuEVKpYS9EFsWbYKAnORviUoLuISGhVSLbqp2RCTPzXGHrBGG9TAVwMZXfGCKvNDciFQMzYYV3ZW pcNZUtCIDoEP6CIqFhGFRoYPs5LrFjNIJoJYZetn2FESLhCIZnRJXtDGXbMQXoULQoBMmiYWAeYFAfEZ P1BMSbZGPvZQ6JMhCrTPOxFHGiBUKtUTEjKGVbej5X ZZXiGLPmYzHySCUjQSQfTRIxSMlxUJVtPIEfQOZbQPJqLLRhPH2WDoKmIWMjIpH5NkClLBJaMHLvor0J NCKjWZGoYjJsEHGkWCWjNVFlEQrxXYDjVPS6HPP1ZPPcAEUoJH8EQtJsGOSlYencBLyaSWJlFMNvci1O DRDwSSSgQyS7UTEiEKJaHULpHBiuYDRfCVO6ZZM0RZ GmTOEjOU3KGaVvZUObDns7WuFfGTDjFOZxzk9XZHXwWWSrSHw8LnSwKMVaWLNkTFdzIQEvIPW2WbH2IL YiLDVgBE5ZEeVoUNBdDYg2GDZiVQRvSSEfgg5YFIRsOSO9UJf0KWKyTZZtLIAoITosRDGwKRW3Par0RV LwCRZzYJ2VNrVpWHCbSCxdENMnMFAfXDKvzo6BNXLk ITB5MwCbOEDmYWRgAFFsSOmuFMOoEANqEovsTHZwOBJxFJ8WLuVzQIJxUnOaQWEjTHVtUBEbgp3SeZXs qRgilo7JDDpPQz9RxXkrXOG9UPtzSm2ivRYzVtQxHODWUb4QypJgSOIvVYXIXAgyWOPaESO8ZPGoZlT8 MiFqBxSoUOS8Adr0FCHjJIYeMDN4LMD7WrO3JzAdWH MaRyF9BTCuMAQ2MeJ0SgZ1R0SnOHWxARFsMGf+DT2dAQi+Ev7Kp7UzqiM2ytNwSZd8UTJnZW5MIOVAU1 YNCg== ID Date Data Source [id number] 12/27/2020 09:46:00 AM EDT [facility] Name Value Range Interpretation Code Description Data Jinny rce(s) Supporting Document(s) SARS coronavirus 2 RNA Not Detected [facility] This lab was ordered by [facility] and reported by [facility]. ID Date Data Source [id number] 12/15/2020 03:19:00 PM EDT [facility] ([facility], ) Name Value Range Interpretation Code Description Data Jinny rce(s) Supporting Document(s) Prothrombin Time 15.8 s 12.5-14.3 Above high normal [facility] ([facility], ) Inr 1.23 Normal (applies to non-numeric resul ts) [facility] ([facility]) THERAPUTIC HUMAN INR VALUES INDICATIONS NORMAL RANGES PROPHYLAXIS/TREATMENT OF: VENOUS THROMBOSIS 2.0-3.0 PULMONARY EMBOLISM 2.0-3.0 PREVENTION OF SYSTEMIC EMBOLISM FROM: TISSUE HEART VALVES 2.0-3.0 ACUTE MYOCARDIAL INFARCTION 2.0-3.0 VALVULAR HEART DISEASE 2.0-3.0 ATRIAL FIBRILLATION 2.0-3.0 MECHANICAL VALVES(HIGH RISK) 2.5-3.5 RECURRENT MYOCARDIAL INFARCTION 2.5-3.5 ID Date Data Source [id number] 12/15/2020 03:19:00 PM EDT [facility] ([facility]) Name Value Range Interpretation Code Description Data Jinny rce(s) Supporting Document(s) Bbswj-6-Ikygvqodlod [Mass/volume] in Serum or Plasma 6.6 ng/mL Normal (applies to non-numeric results) [facility] ([facility], ) THE AFP ASSAY IS PERFORMED ON THE [employer] BY CHEMILUMINESCENCE AND SHOULD NOT BE COMPARED INTERCHANGEABLY WITH OTHER METHODS. IT SHOULD NOT BE USED ALONE A SCREENING TEST OR DIAGNOSIS FOR THE PRESENCE OR ABSENCE OF MALIGNANT DISEASE. THESE RESULTS ARE NOT INTERPRETABLE IN FEMALES. PREDICTIONS OF DISEASE RECURRENCE SHOULD NOT BE BASED SOLELY ON VALUES OBTAINED FROM SERIAL PATIENT SERUM VALUES. ID Date Data Source [id number] 12/15/2020 03:19:00 PM EDT [facility] ([facility]) Name Value Range Interpretation Code Description Data Jinny rce(s) Supporting Document(s) Glucose, Fasting 131 mg/dL 70-100 Above high normal M [facility] ([facility]) Creatinine For GFR 1.16 mg/dL 0.70-1.30 Normal (applies to non -numeric results) [facility] ([facility], ) Blood Urea Nitrogen 22 mg/dL 7-18 Above high normal [facility] ([facility]) Glomerular Filtration Rate Laboratory test result Normal (applies to non- numeric results) [facility]) <content>Units are mL/min/1.73 m2</content>
<content></content>
<content>Chronic Kidney Disease Staging per NKF:</content>
<content></content>
<content>Stage I & II GFR >=60 Normal to Mildly Decreased</content>
<content>Stage III GFR 30- 59 Moderately Decreased</content>
<content>Stage IV GFR 15-29 Severely Decreased</content>
<content>Stage V GFR <15 Very Little GFR Left</content>
<content>ESRD GFR <15 on SOURCING MANAGER</content>
<content></content> Sodium Level 139 meq/L 136-145 Normal (applies to non-numeric res ults) [facility] ([facility], ) Potassium Serum 3.9 meq/L 3.5-5.1 Normal (applies to non-numeric results) [facility] ([facility], ) Chloride Level 106 meq/L 98-107 Normal (applies to non-numeric r esults) [facility] ([facility]) Calcium Level 10.2 mg/dL 8.5-10.1 Above high normal [facility] ([facility]) Anion Gap 5 meq/L 8-16 Below low normal [facility] ( [facility]) Carbon Dioxide Level 28 meq/L 21-32 Normal (applies to non-num shanika results) [facility] ([facility], ) Alkaline Phosphatase 160 U/L 45-117 Above high normal [facility] ([facility]) Alt/SGPT 42 U/L 12-78 Normal (applies to non-numeric resul ts) [facility] ([facility], ) Ast/Sgot 45 U/L 7-37 Above high normal [facility] ([facility]) Bilirubin,Total 1.1 mg/dL 0.2-1.0 Above high normal [facility] ([facility]) Total Protein 7.0 GM/DL 6.4-8.2 Normal (applies to non-numeric re sults) [facility] ([facility], ) Albumin 3.4 GM/DL 3.2-5.2 Normal (applies to non-numeric resul ts) [facility] ([facility]) Albumin/Globulin Ratio 0.9 Normal (applies to non-n umeric results) [facility]) ID Date Data Source [id number] 12/15/2020 03:19:00 PM EDT [facility] ([facility]) Name Value Range Interpretation Code Description Data Jinny rce(s) Supporting Document(s) Red Blood Count 3.90 10 4.30-6.10 Below low normal [facility] ([facility]) White Blood Count 6.0 10 4.0-10.0 Normal (applies to non-numeri c results) [facility] ([facility]) Hematocrit 34.3 % 42.0-52.0 Below low normal [facility] Mean Corpuscular Volume 87.9 fl 80.0-96.0 Normal ( applies to non-numeric results) [facility] ([facility]) Hemoglobin 11.0 g/dL 13.5-17.5 Below low normal [facility] ( [facility]) Red Cell Distribution Width 14.4 % 11.5-14.5 Norm al (applies to non-numeric results) [facility] Mean Corpuscular HGB Conc 32.1 g/dL 32.0-36.5 Normal (applies to non-numeric results) [facility] ([facility]) Mean Corpuscular Hemoglobin 28.2 pg 27.0-33.0 Norm al (applies to non-numeric results) [facility] Platelet Count, Automated 102 10 150-450 Below low normal [facility] ([facility]) Lymph % 27.0 % 24.0-44.0 Normal (applies to non-numeric resul ts) [facility] ([facility]) Neutrophils % 53.4 % 36.0-66.0 Normal (applies to non-numeric re sults) [facility] ([facility]) [place] % 17.3 % 2.0-8.0 Above high normal [facility] ([facility]) Eos % 1.8 % 0.0-3.0 Normal (applies to non-numeric resul ts) [facility] ([facility]) Baso % 0.3 % 0.0-1.0 Normal (applies to non-numeric resul ts) [facility]) Neutrophils # 3.2 10 1.5-8.5 Normal (applies to non-numeric re sults) [facility] ([facility], ) Lymph # 1.6 10 1.5-5.0 Normal (applies to non-numeric resul ts) [facility] ([facility]) Nucleated Red Blood Cell % 0.0 % 0-0 Normal (applies to n on-numeric results) [facility] ([facility]) Immature Granulocyte % 0.2 % 0-3.0 Normal (applies to non-n umeric results) [facility] ([facility]) [place] # 1.0 10 0.0-0.8 Above high normal [facility] ([facility]) Eos # 0.1 10 0.0-0.5 Normal (applies to non-numeric resul ts) [facility] ([facility]) Baso # 0.0 10 0.0-0.2 Normal (applies to non-numeric resul ts) [facility] ([facility]) ID Date Data Source [id number] 12/15/2020 11:48:00 AM EDT [facility] ([facility]) Name Value Range Interpretation Code Description Data Jinny rce(s) Supporting Document(s) Choriogonadotropin.beta subunit [Moles/volume] in Seru m or Plasma Laboratory test result [facility] ([facility]) Estrogen [Mass/volume] in Serum or Plasma Laboratory test result [facility] ([facility]) Lutropin [Units/volume] in Serum or Plasma Laboratory test result [facility] ([facility]) ID Date Data Source [id number] 11/22/2020 10:37:00 AM EDT [facility] Name Value Range Interpretation Code Description Data Jinny rce(s) Supporting Document(s) SARS coronavirus 2 RNA Not Detected [facility] [place] This lab was ordered by [facility] and reported by [facility]. ID Date Data Source [id number] 11/10/2020 03:35:00 PM EDT [facility] ([facility]) Name Value Range Interpretation Code Description Data Jinny rce(s) Supporting Document(s) Hemoglobin A1c/Hemoglobin.total in Blood Laboratory test result [facility] ([facility]) Glucose [Mass/volume] in Serum or Plasma 120 [facility] ([facility]) ID Date Data Source [id number] 09/17/2020 09:03:00 AM EDT [facility] ([facility], ) Name Value Range Interpretation Code Description Data Jinny rce(s) Supporting Document(s) Glucose, Fasting 326 mg/dL 70-100 Above high normal [facility] ([facility], ) Blood Urea Nitrogen 15 mg/dL 7-18 Normal (applies to non-nume luisito results) [facility] ([facility]) Creatinine For GFR 0.88 mg/dL 0.70-1.30 Normal (applies to non -numeric results) [facility] ([facility]) Glomerular Filtration Rate Laboratory test result Normal (applies to non- numeric results) [facility] ([facility], ) <content>Units are mL/min/1.73 m2</content>
<content></content>
<content>Chronic Kidney Disease Staging per NKF:</content>
<content></content>
<content>Stage I & II GFR >=60 Normal to Mildly Decreased</content>
<content>Stage III GFR 30- 59 Moderately Decreased</content>
<content>Stage IV GFR 15-29 Severely Decreased</content>
<content>Stage V GFR <15 Very Little GFR Left</content>
<content>ESRD GFR <15 on SOURCING MANAGER</content>
<content></content> Potassium Serum 4.0 meq/L 3.5-5.1 Normal (applies to non-numeric results) [facility] ([facility], ) Sodium Level 127 meq/L 136-145 Below low normal [facility] ([facility]) Chloride Level 90 meq/L 98-107 Below low normal [facility] ([facility]) Anion Gap 10 meq/L 8-16 Normal (applies to non-numeric resul ts) [facility] ([facility]) Carbon Dioxide Level 27 meq/L 21-32 Normal (applies to non-num shanika results) [facility] ([facility]) Ast/Sgot 66 U/L 7-37 Above high normal [facility] ([facility]) Alt/SGPT 53 U/L 12-78 Normal (applies to non-numeric resul ts) [facility] ([facility]) Calcium Level 9.7 mg/dL 8.5-10.1 Normal (applies to non-numeric re sults) [facility] ([facility]) Alkaline Phosphatase 205 U/L 45-117 Above high normal [facility] Bilirubin,Total 2.3 mg/dL 0.2-1.0 Above high normal [facility] ([facility]) Total Protein 7.7 GM/DL 6.4-8.2 Normal (applies to non-numeric re sults) [facility] ([facility]) Albumin 3.5 GM/DL 3.2-5.2 Normal (applies to non-numeric resul ts) [facility] ([facility]) Albumin/Globulin Ratio 0.8 Normal (applies to non-n umeric results) [facility] ([facility]) ID Date Data Source [id number] 09/17/2020 09:03:00 AM EDT [facility] ([facility]) Name Value Range Interpretation Code Description Data Jinny rce(s) Supporting Document(s) Prothrombin Time 15.5 s 12.5-14.3 Above high normal [facility] Inr 1.20 Normal (applies to non-numeric resul ts) [facility] ([facility]) THERAPUTIC HUMAN INR VALUES INDICATIONS NORMAL RANGES PROPHYLAXIS/TREATMENT OF: VENOUS THROMBOSIS 2.0-3.0 PULMONARY EMBOLISM 2.0-3.0 PREVENTION OF SYSTEMIC EMBOLISM FROM: TISSUE HEART VALVES 2.0-3.0 ACUTE MYOCARDIAL INFARCTION 2.0-3.0 VALVULAR HEART DISEASE 2.0-3.0 ATRIAL FIBRILLATION 2.0-3.0 MECHANICAL VALVES(HIGH RISK) 2.5-3.5 RECURRENT MYOCARDIAL INFARCTION 2.5-3.5 ID Date Data Source [id number] 09/17/2020 09:03:00 AM EDT [facility] ([facility]) Name Value Range Interpretation Code Description Data Jinny rce(s) Supporting Document(s) Platelets reticulated/100 platelets in Blood by Automated co unt 11.0 % 0.0-10.91 Above high normal [facility] ([facility], ) ID Date Data Source [id number] 09/17/2020 09:03:00 AM EDT [facility] ([facility]) Name Value Range Interpretation Code Description Data Jinny rce(s) Supporting Document(s) Red Blood Count 4.24 10 4.30-6.10 Below low normal [facility] ([facility]) White Blood Count 5.2 10 4.0-10.0 Normal (applies to non-numeri c results) [facility] ([facility]) Hemoglobin 13.7 g/dL 13.5-17.5 Normal (applies to non-numeric resul ts) [facility] ([facility]) Mean Corpuscular Hemoglobin 32.3 pg 27.0-33.0 Norm al (applies to non-numeric results) [facility] ([facility]) Hematocrit 39.4 % 42.0-52.0 Below low normal [facility] ( [facility]) Mean Corpuscular Volume 92.9 fl 80.0-96.0 Normal ( applies to non-numeric results) [facility] ([facility]) Red Cell Distribution Width 12.5 % 11.5-14.5 Norm al (applies to non-numeric results) [facility] ([facility]) Platelet Count, Automated 82 10 150-450 Below low normal [facility] ([facility]) Mean Corpuscular HGB Conc 34.8 g/dL 32.0-36.5 Normal (applies to non-numeric results) [facility] ([facility]) [place] % 13.9 % 2.0-8.0 Above high normal [facility] ([facility]) Neutrophils % 58.4 % 36.0-66.0 Normal (applies to non-numeric re sults) [facility] ([facility]) Lymph % 24.4 % 24.0-44.0 Normal (applies to non-numeric resul ts) [facility]) Eos % 2.3 % 0.0-3.0 Normal (applies to non-numeric resul ts) [facility] ([facility], ) Baso % 0.6 % 0.0-1.0 Normal (applies to non-numeric resul ts) [facility]) Immature Granulocyte % 0.4 % 0-3.0 Normal (applies to non-n umeric results) [facility] Nucleated Red Blood Cell % 0.0 % 0-0 Normal (applies to n on-numeric results) [facility] ([facility]) Neutrophils # 3.0 10 1.5-8.5 Normal (applies to non-numeric re sults) [facility]) Lymph # 1.3 10 1.5-5.0 Below low normal [facility]) Eos # 0.1 10 0.0-0.5 Normal (applies to non-numeric resul ts) [facility]) [place] # 0.7 10 0.0-0.8 Normal (applies to non-numeric resul ts) [facility] ([facility]) Baso # 0.0 10 0.0-0.2 Normal (applies to non-numeric resul ts) [facility] ([facility]) ID Date Data Source [id number] 08/13/2020 04:07:00 PM EDT [facility] ([facility]) Name Value Range Interpretation Code Description Data Jinny rce(s) Supporting Document(s) White Blood Count 5.8 10 4.0-10.0 Normal (applies to non-numeri c results) [facility] ([facility]) Red Blood Count 4.40 10 4.30-6.10 Normal (applies to non-numeric results) [facility] ([facility]) Hemoglobin 14.4 g/dL 13.5-17.5 Normal (applies to non-numeric resul ts) [facility] Hematocrit 41.1 % 42.0-52.0 Below low normal [facility]) Mean Corpuscular Volume 93.4 fl 80.0-96.0 Normal ( applies to non-numeric results) [facility] ([facility]) Mean Corpuscular Hemoglobin 32.7 pg 27.0-33.0 Norm al (applies to non-numeric results) [facility] ([facility], ) Mean Corpuscular HGB Conc 35.0 g/dL 32.0-36.5 Normal (applies to non-numeric results) [facility] ([facility]) Platelet Count, Automated 108 10 150-450 Below low normal [facility] ([facility]) Red Cell Distribution Width 12.9 % 11.5-14.5 Norm al (applies to non-numeric results) [facility] ([facility]) Neutrophils % 63.4 % 36.0-66.0 Normal (applies to non-numeric re sults) [facility] Lymph % 25.5 % 24.0-44.0 Normal (applies to non-numeric resul ts) [facility] [place] % 9.2 % 2.0-8.0 Above high normal [facility] ([facility]) Eos % 1.2 % 0.0-3.0 Normal (applies to non-numeric resul ts) [facility] ([facility]) Baso % 0.5 % 0.0-1.0 Normal (applies to non-numeric resul ts) [facility] Nucleated Red Blood Cell % 0.0 % 0-0 Normal (applies to n on-numeric results) [facility] ([facility]) Immature Granulocyte % 0.2 % 0-3.0 Normal (applies to non-n umeric results) [facility] ([facility]) Lymph # 1.5 10 1.5-5.0 Normal (applies to non-numeric resul ts) [facility]) Neutrophils # 3.7 10 1.5-8.5 Normal (applies to non-numeric re sults) [facility]) [place] # 0.5 10 0.0-0.8 Normal (applies to non-numeric resul ts) [facility]) Eos # 0.1 10 0.0-0.5 Normal (applies to non-numeric resul ts) [facility] ([facility]) Baso # 0.0 10 0.0-0.2 Normal (applies to non-numeric resul ts) [facility] ([facility]) ID Date Data Source [id number] 08/13/2020 04:07:00 PM EDT [facility] ([facility]) Name Value Range Interpretation Code Description Data Jinny rce(s) Supporting Document(s) Glucose, Fasting 576 mg/dL 70-100 Above upper panic limits [facility] ([facility]) Blood Urea Nitrogen 19 mg/dL 7-18 Above high normal [facility] ([facility]) Creatinine For GFR 1.10 mg/dL 0.70-1.30 Normal (applies to non -numeric results) [facility] ([facility]) Glomerular Filtration Rate Laboratory test result Normal (applies to non- numeric results) [facility] ([facility]) <content>Units are mL/min/1.73 m2</content>
<content></content>
<content>Chronic Kidney Disease Staging per NKF:</content>
<content></content>
<content>Stage I & II GFR >=60 Normal to Mildly Decreased</content>
<content>Stage III GFR 30- 59 Moderately Decreased</content>
<content>Stage IV GFR 15-29 Severely Decreased</content>
<content>Stage V GFR <15 Very Little GFR Left</content>
<content>ESRD GFR <15 on SOURCING MANAGER</content>
<content></content> Sodium Level 122 meq/L 136-145 Below low normal [facility] ([facility]) Potassium Serum 3.9 meq/L 3.5-5.1 Normal (applies to non-numeric results) [facility] ([facility]) Testing was performed on a lipemic speci men. Suggest recollection of a FASTING specimen for more accurate test results. Testing was performed on an icteric specimen. Chloride Level 85 meq/L 98-107 Below low normal [facility] ([facility]) Carbon Dioxide Level 28 meq/L 21-32 Normal (applies to non-num shanika results) [facility] ([facility], ) Anion Gap 9 meq/L 8-16 Normal (applies to non-numeric resul ts) [facility] ([facility]) Calcium Level 9.7 mg/dL 8.5-10.1 Normal (applies to non-numeric re sults) [facility] ([facility]) Alt/SGPT 48 U/L 12-78 Normal (applies to non-numeric resul ts) [facility] ([facility]) Ast/Sgot 51 U/L 7-37 Above high normal [facility] Bilirubin,Total 2.4 mg/dL 0.2-1.0 Above high normal [facility] ([facility]) Alkaline Phosphatase 168 U/L 45-117 Above high normal [facility] Total Protein 8.1 GM/DL 6.4-8.2 Normal (applies to non-numeric re sults) [facility] ([facility]) Albumin 3.7 GM/DL 3.2-5.2 Normal (applies to non-numeric resul ts) [facility] ([facility]) Albumin/Globulin Ratio 0.8 Normal (applies to non-n umeric results) [facility] ([facility]) ID Date Data Source [id number] 08/13/2020 04:07:00 PM EDT [facility] ([facility]) Name Value Range Interpretation Code Description Data Jinny rce(s) Supporting Document(s) Prothrombin Time 16.6 s 12.5-14.3 Above high normal [facility] ([facility]) Inr 1.32 Normal (applies to non-numeric resul ts) [facility] ([facility]) THERAPUTIC HUMAN INR VALUES INDICATIONS NORMAL RANGES PROPHYLAXIS/TREATMENT OF: VENOUS THROMBOSIS 2.0-3.0 PULMONARY EMBOLISM 2.0-3.0 PREVENTION OF SYSTEMIC EMBOLISM FROM: TISSUE HEART VALVES 2.0-3.0 ACUTE MYOCARDIAL INFARCTION 2.0-3.0 VALVULAR HEART DISEASE 2.0-3.0 ATRIAL FIBRILLATION 2.0-3.0 MECHANICAL VALVES(HIGH RISK) 2.5-3.5 RECURRENT MYOCARDIAL INFARCTION 2.5-3.5 ID Date Data Source [id number] 08/04/2020 11:10:00 AM [facility] ([facility]) Name Value Range Interpretation Code Description Data Jinny rce(s) Supporting Document(s) Magnesium [Mass/volume] in Serum or Plasma 1.9 mg/dL 1.8-2 .4 Normal (applies to non-numeric results) [facility]) 09/15/20 (SunSep 15) 05:09 PM WONG JIMENEZ stable/better ID Date Data Source [id number] 08/04/2020 11:10:00 AM [facility] ([facility]) Name Value Range Interpretation Code Description Data Jinny rce(s) Supporting Document(s) Inr 1.16 Normal (applies to non-numeric resul ts) [facility] ([facility]) THERAPUTIC HUMAN INR VALUES INDICATIONS NORMAL RANGES PROPHYLAXIS/TREATMENT OF: VENOUS THROMBOSIS 2.0-3.0 PULMONARY EMBOLISM 2.0-3.0 PREVENTION OF SYSTEMIC EMBOLISM FROM: TISSUE HEART VALVES 2.0-3.0 ACUTE MYOCARDIAL INFARCTION 2.0-3.0 VALVULAR HEART DISEASE 2.0-3.0 ATRIAL FIBRILLATION 2.0-3.0 MECHANICAL VALVES(HIGH RISK) 2.5-3.5 RECURRENT MYOCARDIAL INFARCTION 2.5-3.5 Prothrombin Time 15.1 s 12.5-14.3 Above high normal M [facility] ([facility]) ID Date Data Source [id number] 08/04/2020 11:10:00 AM [facility] ([facility]) Name Value Range Interpretation Code Description Data Jinny rce(s) Supporting Document(s) Glucose, Fasting 314 mg/dL 70-100 Above high normal [facility] System) Testing was performed on a lipemic speci men. Suggest recollection of a FASTING specimen for more accurate test results. Glomerular Filtration Rate Laboratory test result Normal (applies to non- numeric results) [facility]) <content>Units are mL/min/1.73 m2</content>
<content></content>
<content>Chronic Kidney Disease Staging per NKF:</content>
<content></content>
<content>Stage I & II GFR >=60 Normal to Mildly Decreased</content>
<content>Stage III GFR 30- 59 Moderately Decreased</content>
<content>Stage IV GFR 15-29 Severely Decreased</content>
<content>Stage V GFR <15 Very Little GFR Left</content>
<content>ESRD GFR <15 on SOURCING MANAGER</content>
<content></content> Creatinine For GFR 0.90 mg/dL 0.70-1.30 Normal (applies to non -numeric results) [facility] ([facility], ) Blood Urea Nitrogen 14 mg/dL 7-18 Normal (applies to non-nume luisito results) [facility] ([facility], ) Sodium Level 131 meq/L 136-145 Below low normal [facility] ([facility]) Chloride Level 95 meq/L 98-107 Below low normal [facility] ([facility]) Potassium Serum 4.5 meq/L 3.5-5.1 Normal (applies to non-numeric results) [facility] ([facility], ) Carbon Dioxide Level 29 meq/L 21-32 Normal (applies to non-num shanika results) [facility] ([facility]) Anion Gap 7 meq/L 8-16 Below low normal [facility] Calcium Level 10.0 mg/dL 8.5-10.1 Normal (applies to non-numeric re sults) [facility] ([facility], ) Ast/Sgot 48 U/L 7-37 Above high normal [facility] ([facility], ) Alt/SGPT 39 U/L 12-78 Normal (applies to non-numeric resul ts) [facility] ([facility], ) Alkaline Phosphatase 132 U/L 45-117 Above high normal [facility] ([facility], ) Bilirubin,Total 2.1 mg/dL 0.2-1.0 Above high normal [facility] ([facility]) Total Protein 7.6 GM/DL 6.4-8.2 Normal (applies to non-numeric re sults) [facility] ([facility], ) Albumin 3.6 GM/DL 3.2-5.2 Normal (applies to non-numeric resul ts) [facility] ([facility]) Albumin/Globulin Ratio 0.9 Normal (applies to non-n umeric results) [facility]) ID Date Data Source [id number] 08/04/2020 11:10:00 AM EST [facility] ([facility]) Name Value Range Interpretation Code Description Data Jinny rce(s) Supporting Document(s) White Blood Count 6.5 10 4.0-10.0 Normal (applies to non-numeri c results) [facility] ([facility]) Red Blood Count 4.12 10 4.30-6.10 Below low normal [facility] ([facility]) Hemoglobin 13.5 g/dL 13.5-17.5 Normal (applies to non-numeric resul ts) [facility] ([facility]) Mean Corpuscular Hemoglobin 32.8 pg 27.0-33.0 Norm al (applies to non-numeric results) [facility] ([facility]) Mean Corpuscular Volume 94.7 fl 80.0-96.0 Normal ( applies to non-numeric results) [facility]) Hematocrit 39.0 % 42.0-52.0 Below low normal [facility]) Mean Corpuscular HGB Conc 34.6 g/dL 32.0-36.5 Normal (applies to non-numeric results) [facility] ([facility]) Red Cell Distribution Width 12.9 % 11.5-14.5 Norm al (applies to non-numeric results) [facility] ([facility]) Platelet Count, Automated 153 10 150-450 Normal (applies to non-numeric results) [facility]) Neutrophils % 59.6 % 36.0-66.0 Normal (applies to non-numeric re sults) [facility]) Lymph % 27.7 % 24.0-44.0 Normal (applies to non-numeric resul ts) [facility]) [place] % 9.4 % 2.0-8.0 Above high normal [facility] ([facility]) Baso % 0.8 % 0.0-1.0 Normal (applies to non-numeric resul ts) [facility] ([facility]) Eos % 2.0 % 0.0-3.0 Normal (applies to non-numeric resul ts) [facility]) Immature Granulocyte % 0.5 % 0-3.0 Normal (applies to non-n umeric results) [facility] ([facility]) Nucleated Red Blood Cell % 0.0 % 0-0 Normal (applies to n on-numeric results) [facility] ([facility]) [place] # 0.6 10 0.0-0.8 Normal (applies to non-numeric resul ts) [facility] ([facility]) Lymph # 1.8 10 1.5-5.0 Normal (applies to non-numeric resul ts) [facility] ([facility]) Neutrophils # 3.9 10 1.5-8.5 Normal (applies to non-numeric re sults) [facility] ([facility]) Baso # 0.1 10 0.0-0.2 Normal (applies to non-numeric resul ts) [facility] ([facility]) Eos # 0.1 10 0.0-0.5 Normal (applies to non-numeric resul ts) [facility]) ID Date Data Source [id number] 07/09/2020 12:28:00 PM EST [facility]) Name Value Range Interpretation Code Description Data Jinny rce(s) Supporting Document(s) Magnesium [Mass/volume] in Serum or Plasma 1.9 mg/dL 1.8-2 .4 Normal (applies to non-numeric results) [facility] ([facility]) ID Date Data Source [id number] 07/09/2020 12:28:00 PM EST [facility]) Name Value Range Interpretation Code Description Data Jinny rce(s) Supporting Document(s) Blood Urea Nitrogen 16 mg/dL 7-18 Normal (applies to non-nume luisito results) [facility] ([facility]) Glucose, Fasting 314 mg/dL 70-100 Above high normal [facility] ([facility]) Glomerular Filtration Rate Laboratory test result Normal (applies to non- numeric results) [facility]) <content>Units are mL/min/1.73 m2</content>
<content></content>
<content>Chronic Kidney Disease Staging per NKF:</content>
<content></content>
<content>Stage I & II GFR >=60 Normal to Mildly Decreased</content>
<content>Stage III GFR 30- 59 Moderately Decreased</content>
<content>Stage IV GFR 15-29 Severely Decreased</content>
<content>Stage V GFR <15 Very Little GFR Left</content>
<content>ESRD GFR <15 on SOURCING MANAGER</content>
<content></content> Creatinine For GFR 0.94 mg/dL 0.70-1.30 Normal (applies to non -numeric results) [facility] ([facility]) Potassium Serum 3.6 meq/L 3.5-5.1 Normal (applies to non-numeric results) [facility] ([facility]) Chloride Level 93 meq/L 98-107 Below low normal [facility] ([facility]) Sodium Level 130 meq/L 136-145 Below low normal [facility] ([facility]) Anion Gap 8 meq/L 8-16 Normal (applies to non-numeric resul ts) [facility] ([facility]) Carbon Dioxide Level 29 meq/L 21-32 Normal (applies to non-num shanika results) [facility]) Calcium Level 10.0 mg/dL 8.5-10.1 Normal (applies to non-numeric re sults) [facility]) ID Date Data Source [id number] 06/25/2020 05:03:00 PM EST [facility]) Name Value Range Interpretation Code Description Data Jinny rce(s) Supporting Document(s) Platelets reticulated/100 platelets in Blood by Automated count 7.5 % 0.0-10.91 Normal (applies to non-numeric results) [facility] ([facility]) ID Date Data Source [id number] 06/25/2020 05:03:00 PM [facility] ([facility]) Name Value Range Interpretation Code Description Data Jinny rce(s) Supporting Document(s) Inr 1.21 Normal (applies to non-numeric resul ts) [facility] ([facility]) THERAPUTIC HUMAN INR VALUES INDICATIONS NORMAL RANGES PROPHYLAXIS/TREATMENT OF: VENOUS THROMBOSIS 2.0-3.0 PULMONARY EMBOLISM 2.0-3.0 PREVENTION OF SYSTEMIC EMBOLISM FROM: TISSUE HEART VALVES 2.0-3.0 ACUTE MYOCARDIAL INFARCTION 2.0-3.0 VALVULAR HEART DISEASE 2.0-3.0 ATRIAL FIBRILLATION 2.0-3.0 MECHANICAL VALVES(HIGH RISK) 2.5-3.5 RECURRENT MYOCARDIAL INFARCTION 2.5-3.5 Prothrombin Time 15.6 s 12.5-14.3 Above high normal [facility] ([facility]) ID Date Data Source [id number] 06/25/2020 05:03:00 PM [facility] ([facility]) Name Value Range Interpretation Code Description Data Jinny rce(s) Supporting Document(s) Glucose, Fasting 400 mg/dL 70-100 Above high normal [facility] ([facility]) Blood Urea Nitrogen 20 mg/dL 7-18 Above high normal [facility] ([facility]) Glomerular Filtration Rate Laboratory test result Normal (applies to non- numeric results) [facility]) <content>Units are mL/min/1.73 m2</content>
<content></content>
<content>Chronic Kidney Disease Staging per NKF:</content>
<content></content>
<content>Stage I & II GFR >=60 Normal to Mildly Decreased</content>
<content>Stage III GFR 30- 59 Moderately Decreased</content>
<content>Stage IV GFR 15-29 Severely Decreased</content>
<content>Stage V GFR <15 Very Little GFR Left</content>
<content>ESRD GFR <15 on SOURCING MANAGER</content>
<content></content> Creatinine For GFR 1.15 mg/dL 0.70-1.30 Normal (applies to non -numeric results) [facility] ([facility], ) Potassium Serum 2.9 meq/L 3.5-5.1 Below lower panic limits [facility] ([facility]) Sodium Level 126 meq/L 136-145 Below low normal [facility] ([facility]) Chloride Level 85 meq/L 98-107 Below low normal [facility] ([facility]) Carbon Dioxide Level 32 meq/L 21-32 Normal (applies to non-num shanika results) [facility] ([facility]) Anion Gap 9 meq/L 8-16 Normal (applies to non-numeric resul ts) [facility] ([facility]) Ast/Sgot 59 U/L 7-37 Above high normal [facility] ([facility]) Calcium Level 9.6 mg/dL 8.5-10.1 Normal (applies to non-numeric re sults) [facility] ([facility]) Bilirubin,Total 2.8 mg/dL 0.2-1.0 Above high normal [facility] ([facility]) Alkaline Phosphatase 184 U/L 45-117 Above high normal [facility] ([facility]) Alt/SGPT 78 U/L 12-78 Normal (applies to non-numeric resul ts) [facility] ([facility]) Total Protein 7.0 GM/DL 6.4-8.2 Normal (applies to non-numeric re sults) [facility] ([facility]) Albumin 3.1 GM/DL 3.2-5.2 Below low normal [facility] ( [facility]) Albumin/Globulin Ratio 0.8 Normal (applies to non-n umeric results) [facility] ([facility]) ID Date Data Source [id number] 06/25/2020 05:03:00 PM EST [facility] ([facility]) Name Value Range Interpretation Code Description Data Jinny rce(s) Supporting Document(s) Red Blood Count 4.10 10 4.30-6.10 Below low normal [facility] ([facility]) White Blood Count 13.3 10 4.0-10.0 Above high normal [facility] ([facility]) Hematocrit 39.8 % 42.0-52.0 Below low normal [facility] ( [facility]) Hemoglobin 13.6 g/dL 13.5-17.5 Normal (applies to non-numeric resul ts) [facility] ([facility]) Mean Corpuscular Hemoglobin 33.2 pg 27.0-33.0 Above high normal [facility] ([facility]) Mean Corpuscular Volume 97.1 fl 80.0-96.0 Above high normal [facility] ([facility]) Mean Corpuscular HGB Conc 34.2 g/dL 32.0-36.5 Normal (applies to non-numeric results) [facility] Red Cell Distribution Width 13.2 % 11.5-14.5 Norm al (applies to non-numeric results) [facility] ([facility]) Lymph % 16.2 % 24.0-44.0 Below low normal [facility] ( [facility]) Neutrophils % 71.8 % 36.0-66.0 Above high normal [facility] ([facility]) Platelet Count, Automated 85 10 150-450 Below low normal [facility] ([facility]) [place] % 8.7 % 0.0-5.0 Above high normal [facility] ([facility]) Eos % 1.4 % 0.0-3.0 Normal (applies to non-numeric resul ts) [facility] ([facility]) Nucleated Red Blood Cell % 0.0 % 0-0 Normal (applies to n on-numeric results) [facility] ([facility]) Baso % 0.6 % 0.0-1.0 Normal (applies to non-numeric resul ts) [facility] ([facility]) Immature Granulocyte % 1.3 % 0-3.0 Normal (applies to non-n umeric results) [facility] ([facility]) Neutrophils # 9.6 10 1.5-8.5 Above high normal [facility] ([facility]) Lymph # 2.2 10 1.5-5.0 Normal (applies to non-numeric resul ts) [facility] ([facility]) Eos # 0.2 10 0.0-0.5 Normal (applies to non-numeric resul ts) [facility] ([facility]) [place] # 1.2 10 0.0-0.8 Above high normal [facility] ([facility]) Baso # 0.1 10 0.0-0.2 Normal (applies to non-numeric resul ts) [facility] ([facility]) ID Date Data Source [id number] 06/01/2020 05:11:00 PM EST [facility] ([facility]) Name Value Range Interpretation Code Description Data Jinny rce(s) Supporting Document(s) Platelets reticulated/100 platelets in Blood by Automated count 7.0 % 0.0-10.91 Normal (applies to non-numeric results) [facility]) ID Date Data Source [id number] 06/01/2020 05:11:00 PM EST [facility] ([facility]) Name Value Range Interpretation Code Description Data Jinny rce(s) Supporting Document(s) Prothrombin Time 17.3 s 12.5-14.3 Above high normal [facility] ([facility]) Inr 1.38 Normal (applies to non-numeric resul ts) [facility] ([facility]) THERAPUTIC HUMAN INR VALUES INDICATIONS NORMAL RANGES PROPHYLAXIS/TREATMENT OF: VENOUS THROMBOSIS 2.0-3.0 PULMONARY EMBOLISM 2.0-3.0 PREVENTION OF SYSTEMIC EMBOLISM FROM: TISSUE HEART VALVES 2.0-3.0 ACUTE MYOCARDIAL INFARCTION 2.0-3.0 VALVULAR HEART DISEASE 2.0-3.0 ATRIAL FIBRILLATION 2.0-3.0 MECHANICAL VALVES(HIGH RISK) 2.5-3.5 RECURRENT MYOCARDIAL INFARCTION 2.5-3.5 ID Date Data Source [id number] 06/01/2020 05:11:00 PM EST [facility] ([facility]) Name Value Range Interpretation Code Description Data Jinny rce(s) Supporting Document(s) Creatinine For GFR 0.77 mg/dL 0.70-1.30 Normal (applies to non -numeric results) [facility] ([facility]) Blood Urea Nitrogen 21 mg/dL 7-18 Above high normal [facility] ([facility]) Glucose, Fasting 149 mg/dL 70-100 Above high normal [facility] Sodium Level 131 meq/L 136-145 Below low normal [facility] Glomerular Filtration Rate Laboratory test result Normal (applies to non- numeric results) [facility] ([facility]) <content>Units are mL/min/1.73 m2</content>
<content></content>
<content>Chronic Kidney Disease Staging per NKF:</content>
<content></content>
<content>Stage I & II GFR >=60 Normal to Mildly Decreased</content>
<content>Stage III GFR 30- 59 Moderately Decreased</content>
<content>Stage IV GFR 15-29 Severely Decreased</content>
<content>Stage V GFR <15 Very Little GFR Left</content>
<content>ESRD GFR <15 on SOURCING MANAGER</content>
<content></content> Potassium Serum 4.1 meq/L 3.5-5.1 Normal (applies to non-numeric results) [facility] ([facility]) Chloride Level 98 meq/L 98-107 Normal (applies to non-numeric r esults) [facility] ([facility]) Calcium Level 9.3 mg/dL 8.5-10.1 Normal (applies to non-numeric re sults) [facility] ([facility]) Carbon Dioxide Level 27 meq/L 21-32 Normal (applies to non-num shanika results) [facility]) Anion Gap 6 meq/L 8-16 Below low normal [facility] Ast/Sgot 98 U/L 7-37 Above high normal [facility] Alt/SGPT 127 U/L 12-78 Above high normal [facility] ([facility]) Bilirubin,Total 4.9 mg/dL 0.2-1.0 Above high normal [facility] ([facility]) Alkaline Phosphatase 186 U/L 45-117 Above high normal [facility] ([facility]) Total Protein 6.3 GM/DL 6.4-8.2 Below low normal [facility] ([facility]) Albumin 2.8 GM/DL 3.2-5.2 Below low normal [facility] ( [facility]) Albumin/Globulin Ratio 0.8 Normal (applies to non-n umeric results) [facility] ([facility]) ID Date Data Source [id number] 06/01/2020 05:11:00 PM EST [facility] ([facility]) Name Value Range Interpretation Code Description Data Jinny rce(s) Supporting Document(s) Red Blood Count 3.70 10 4.30-6.10 Below low normal [facility] ([facility]) White Blood Count 14.9 10 4.0-10.0 Above high normal [facility] ([facility]) Hematocrit 38.6 % 42.0-52.0 Below low normal [facility] ( [facility]) Mean Corpuscular Volume 104.3 fl 80.0-96.0 Above high normal [facility] ([facility]) Hemoglobin 12.6 g/dL 13.5-17.5 Below low normal [facility] ( [facility]) Red Cell Distribution Width 14.8 % 11.5-14.5 Above high normal [facility] ([facility]) Mean Corpuscular Hemoglobin 34.1 pg 27.0-33.0 Above high normal [facility] ([facility]) Mean Corpuscular HGB Conc 32.6 g/dL 32.0-36.5 Normal (applies to non-numeric results) [facility] ([facility]) Lymph % 4.8 % 24.0-44.0 Below low normal [facility] ( [facility]) Neutrophils % 89.4 % 36.0-66.0 Above high normal [facility] ([facility]) Platelet Count, Automated 63 10 150-450 Below low normal [facility] ([facility]) [place] % 4.1 % 0.0-5.0 Normal (applies to non-numeric resul ts) [facility] ([facility]) Eos % 0.3 % 0.0-3.0 Normal (applies to non-numeric resul ts) [facility] ([facility]) Immature Granulocyte % 1.3 % 0-3.0 Normal (applies to non-n umeric results) [facility] ([facility]) Baso % 0.1 % 0.0-1.0 Normal (applies to non-numeric resul ts) [facility] Nucleated Red Blood Cell % 0.0 % 0-0 Normal (applies to n on-numeric results) [facility] Lymph # 0.7 10 1.5-5.0 Below low normal [facility]) Neutrophils # 13.3 10 1.5-8.5 Above high normal [facility] ([facility]) [place] # 0.6 10 0.0-0.8 Normal (applies to non-numeric resul ts) [facility] ([facility]) Baso # 0.0 10 0.0-0.2 Normal (applies to non-numeric resul ts) [facility] ([facility]) Eos # 0.0 10 0.0-0.5 Normal (applies to non-numeric resul ts) [facility] ([facility]) ID Date Data Source [id number] 05/31/2020 12:51:00 PM EST [facility] ([facility]) Name Value Range Interpretation Code Description Data Jinny rce(s) Supporting Document(s) Microscopic observation [Identifier] in Unspecified specimen by Non- gynecological cytology method Laboratory test result [facility] ([facility]) SPECIMEN: Peritoneal fluid 1200ml Yellow SPECIMEN ADEQUACY: Satisfactory for evaluation CATEGORIZATION: No Malignancy identified DESCRIPTIONS: Reactive mesothelial cells noted in a background of macrophages, scattered lymphocytes and red blood cells. COMMENTS: 06/01/[id number] Signed DG LEE(ASCP) 06/01/2020 0729 (Prelim) Signed Yuniel Hernandez MD 06/01/2020 1426 Body Fluids Culture And Gram Stain Laboratory test result [facility] ([facility]) ID Date Data Source [id number] 05/31/2020 12:51:00 PM EST [facility] ([facility]) Name Value Range Interpretation Code Description Data Jinny rce(s) Supporting Document(s) Albumin [Mass/volume] in Body fluid Laboratory test result [facility] ([facility]) ID Date Data Source [id number] 05/31/2020 12:15:00 PM EST [facility] ([facility]) Name Value Range Interpretation Code Description Data Jinny rce(s) Supporting Document(s) Albumin, Body Fluid 0.2 g/dL Normal (applies to non-nume luisito results) [facility] ([facility]) Source, Body Fluid Albumin Laboratory test result Normal (applies to non- numeric results) [facility] ([facility]) ID Date Data Source [id number] 05/31/2020 12:15:00 PM EST [facility] ([facility]) Name Value Range Interpretation Code Description Data Jinny rce(s) Supporting Document(s) Source, Body Fluid Laboratory test result Normal (applies to non-numeric results) [facility] ([facility]) Ascites FL Color Laboratory test result Normal ( applies to non-numeric results) [facility] ([facility]) Appearance, Body Fluid Laboratory test result No rmal (applies to non-numeric results) [facility] ([facility]) RBC Body Fluid Laboratory test result Normal (applies to non-numeric results) [facility] ([facility]) WBC Body Fluid 62 /uL 0-10 Above high normal [facility] ([facility]) BF Polymorphonuclear Cell % 13.0 % 0-0 Above high normal [facility] ([facility]) BF Mononuclear Cell % 87.0 % 0-0 Above high normal [facility] ([facility]) ID Date Data Source [id number] 05/31/2020 12:15:00 PM EST [facility] ([facility]) Name Value Range Interpretation Code Description Data Jinny rce(s) Supporting Document(s) Source, Body Fluid Tot Protein Laboratory test result Normal (applies to non- numeric results) [facility] ([facility]) Total Protein, Body Fluid 0.6 g/dL Normal (applies to no n-numeric results) [facility] ([facility]) ID Date Data Source [id number] 05/31/2020 12:15:00 PM EST [facility] ([facility]) Name Value Range Interpretation Code Description Data Jinny rce(s) Supporting Document(s) Body Fluid Culture Laboratory test result [facility] ([facility]) If aerobic or anaerobic growth is detected within the next 7-21 days, an addendum will follow. . . FULL REPORT IN LAB NOTES ([facility] and [facility]). NO GROWTH AEROBICALLY Gram Stain Laboratory test result Normal (applies to non-n umeric results) [facility] ([facility]) FEW WBCS NO ORGANISMS SEEN ID Date Data Source [id number] 05/31/2020 12:15:00 PM EST [facility] ([facility]) Name Value Range Interpretation Code Description Data Jinny rce(s) Supporting Document(s) Bacteria identified in Unspecified specimen by Anaerob e culture Laboratory test result [facility] ([facility], ) If anaerobic or aerobic growth is detected within the next 7-21 days, an addendum will follow. . . FULL REPORT IN LAB NOTES ([facility] and [facility]). NO GROWTH ANAEROBICALLY ID Date Data Source [id number] 05/31/2020 08:07:00 AM EST [facility] ([facility]) Name Value Range Interpretation Code Description Data Jinny rce(s) Supporting Document(s) Surgical pathology study Laboratory test result [facility] ([facility]) FINAL DIAGNOSIS Cell block of ascitic fluid: [...] for cell block, submitted for cell block. -RAYMUNDO 06/01/2020726 Signed Yuniel Hernandez MD 06/01/20201426 ID Date Data Source [id number] 05/31/2020 08:07:00 AM EST [facility] ([facility]) Name Value Range Interpretation Code Description Data Jinny rce(s) Supporting Document(s) Surgical pathology study Laboratory test result [facility] ([facility]) FINAL DIAGNOSIS Cell block of ascitic fluid: [...] Hernandez MD 06/01/20201426 ID Date Data Source [id number] 05/10/2020 04:07:00 PM EST [facility] ([facility]) Name Value Range Interpretation Code Description Data Jinny rce(s) Supporting Document(s) Platelets reticulated/100 platelets in Blood by Automated co unt 11.8 % 0.0-10.91 Above high normal [facility] [facility] ID Date Data Source [id number] 05/10/2020 04:07:00 PM EST [facility]) Name Value Range Interpretation Code Description Data Jinny rce(s) Supporting Document(s) Glucose, Fasting 134 mg/dL 70-100 Above high normal [facility] Blood Urea Nitrogen 21 mg/dL 7-18 Above high normal [facility] ([facility]) Creatinine For GFR 0.94 mg/dL 0.70-1.30 Normal (applies to non -numeric results) [facility]) Glomerular Filtration Rate Laboratory test result Normal (applies to non- numeric results) [facility]) <content>Units are mL/min/1.73 m2</content>
<content></content>
<content>Chronic Kidney Disease Staging per NKF:</content>
<content></content>
<content>Stage I & II GFR >=60 Normal to Mildly Decreased</content>
<content>Stage III GFR 30- 59 Moderately Decreased</content>
<content>Stage IV GFR 15-29 Severely Decreased</content>
<content>Stage V GFR <15 Very Little GFR Left</content>
<content>ESRD GFR <15 on SOURCING MANAGER</content>
<content></content> Sodium Level 134 meq/L 136-145 Below low normal [facility]) Potassium Serum 4.7 meq/L 3.5-5.1 Normal (applies to non-numeric results) [facility]) Carbon Dioxide Level 25 meq/L 21-32 Normal (applies to non-num shanika results) [facility]) Chloride Level 103 meq/L 98-107 Normal (applies to non-numeric r esults) [facility]) Calcium Level 9.4 mg/dL 8.5-10.1 Normal (applies to non-numeric re sults) [facility] ([facility]) Anion Gap 6 meq/L 8-16 Below low normal [facility] ( [facility]) Ast/Sgot 146 U/L 7-37 Above high normal [facility] ([facility]) Alt/SGPT 172 U/L 12-78 Above high normal [facility] ([facility]) Alkaline Phosphatase 312 U/L 45-117 Above high normal [facility] ([facility]) Bilirubin,Total 9.7 mg/dL 0.2-1.0 Above high normal [facility] ([facility]) Albumin/Globulin Ratio 0.6 Normal (applies to non-n umeric results) [facility] ([facility]) Albumin 2.5 GM/DL 3.2-5.2 Below low normal [facility] ( [facility]) Total Protein 6.8 GM/DL 6.4-8.2 Normal (applies to non-numeric re sults) [facility] ([facility]) ID Date Data Source [id number] 05/10/2020 04:07:00 PM EST [facility] ([facility]) Name Value Range Interpretation Code Description Data Jinny rce(s) Supporting Document(s) White Blood Count 24.9 10 4.0-10.0 Above high normal [facility] ([facility]) Red Blood Count 3.36 10 4.30-6.10 Below low normal [facility] ([facility]) Hemoglobin 10.9 g/dL 13.5-17.5 Below low normal [facility] ( [facility]) Hematocrit 34.1 % 42.0-52.0 Below low normal [facility] Mean Corpuscular Hemoglobin 32.4 pg 27.0-33.0 Norm al (applies to non-numeric results) [facility] ([facility]) Mean Corpuscular Volume 101.5 fl 80.0-96.0 Above high normal [facility] ([facility]) Red Cell Distribution Width 21.9 % 11.5-14.5 Above high normal [facility] ([facility]) Mean Corpuscular HGB Conc 32.0 g/dL 32.0-36.5 Normal (applies to non-numeric results) [facility] ([facility]) Platelet Count, Automated 91 10 150-450 Below low normal [facility] ([facility]) K[place]haw % 7.9 % 0.0-5.0 Above high normal [facility] ([facility]) Neutrophils % 85.5 % 36.0-66.0 Above high normal [facility] ([facility]) Lymph % 4.5 % 24.0-44.0 Below low normal [facility] ( [facility]) Eos % 0.2 % 0.0-3.0 Normal (applies to non-numeric resul ts) [facility] ([facility]) Immature Granulocyte % 1.7 % 0-3.0 Normal (applies to non-n umeric results) [facility] ([facility]) Baso % 0.2 % 0.0-1.0 Normal (applies to non-numeric resul ts) [facility] ([facility]) Neutrophils # 21.3 10 1.5-8.5 Above high normal [facility] ([facility]) Nucleated Red Blood Cell % 0.0 % 0-0 Normal (applies to n on-numeric results) [facility] ([facility]) K[place]haw # 2.0 10 0.0-0.8 Above high normal [facility] ([facility]) Eos # 0.0 10 0.0-0.5 Normal (applies to non-numeric resul ts) [facility] ([facility]) Lymph # 1.1 10 1.5-5.0 Below low normal [facility] ( [facility]) Baso # 0.0 10 0.0-0.2 Normal (applies to non-numeric resul ts) [facility] ([facility]) ID Date Data Source [id number] 05/10/2020 04:07:00 PM EST [facility] ([facility]) Name Value Range Interpretation Code Description Data Jinny rce(s) Supporting Document(s) Prothrombin Time 17.5 s 12.5-14.3 Above high normal [facility] ([facility]) Inr 1.40 Normal (applies to non-numeric resul ts) [facility]) THERAPUTIC HUMAN INR VALUES INDICATIONS NORMAL RANGES PROPHYLAXIS/TREATMENT OF: VENOUS THROMBOSIS 2.0-3.0 PULMONARY EMBOLISM 2.0-3.0 PREVENTION OF SYSTEMIC EMBOLISM FROM: TISSUE HEART VALVES 2.0-3.0 ACUTE MYOCARDIAL INFARCTION 2.0-3.0 VALVULAR HEART DISEASE 2.0-3.0 ATRIAL FIBRILLATION 2.0-3.0 MECHANICAL VALVES(HIGH RISK) 2.5-3.5 RECURRENT MYOCARDIAL INFARCTION 2.5-3.5 ID Date Data Source [id number] 05/03/2020 07:29:00 AM [facility] ([facility]) Name Value Range Interpretation Code Description Data [facility](s) Supporting Document(s) Glucose, Fasting 121 mg/dL 70-100 Above high normal [facility] ([facility]) Creatinine For GFR 0.95 mg/dL 0.70-1.30 Normal (applies to non -numeric results) [facility]) Glomerular Filtration Rate Laboratory test result Normal (applies to non- numeric results) [facility]) <content>Units are mL/min/1.73 m2</content>
<content></content>
<content>Chronic Kidney Disease Staging per NKF:</content>
<content></content>
<content>Stage I & II GFR >=60 Normal to Mildly Decreased</content>
<content>Stage III GFR 30- 59 Moderately Decreased</content>
<content>Stage IV GFR 15-29 Severely Decreased</content>
<content>Stage V GFR <15 Very Little GFR Left</content>
<content>ESRD GFR <15 on SOURCING MANAGER</content>
<content></content> Blood Urea Nitrogen 23 mg/dL 7-18 Above high normal [facility]) Potassium Serum 3.9 meq/L 3.5-5.1 Normal (applies to non-numeric results) [facility] ([facility]) Sodium Level 135 meq/L 136-145 Below low normal [facility] ([facility]) Chloride Level 103 meq/L 98-107 Normal (applies to non-numeric r esults) [facility] ([facility]) Anion Gap 7 meq/L 8-16 Below low normal [facility] ( [facility]) Carbon Dioxide Level 25 meq/L 21-32 Normal (applies to non-num shanika results) [facility] ([facility]) Calcium Level 8.6 mg/dL 8.5-10.1 Normal (applies to non-numeric re sults) [facility] ([facility]) Alt/SGPT 103 U/L 12-78 Above high normal [facility] ([facility]) Ast/Sgot 111 U/L 7-37 Above high normal [facility] ([facility]) Alkaline Phosphatase 270 U/L 45-117 Above high normal [facility] ([facility]) Total Protein 7.1 GM/DL 6.4-8.2 Normal (applies to non-numeric re sults) [facility] ([facility]) Bilirubin,Total 13.9 mg/dL 0.2-1.0 Above high normal [facility] ([facility]) Albumin 2.5 GM/DL 3.2-5.2 Below low normal [facility] ( [facility]) Albumin/Globulin Ratio 0.5 Normal (applies to non-n umeric results) [facility] ([facility]) ID Date Data Source [id number] 05/03/2020 07:29:00 AM EST [facility] ([facility]) Name Value Range Interpretation Code Description Data Jinny rce(s) Supporting Document(s) White Blood Count 27.6 10 4.0-10.0 Above high normal [facility] ([facility]) Hemoglobin 10.6 g/dL 13.5-17.5 Below low normal [facility] ( [facility]) Red Blood Count 3.32 10 4.30-6.10 Below low normal [facility] ([facility]) Hematocrit 32.8 % 42.0-52.0 Below low normal [facility] ( [facility]) Mean Corpuscular Volume 98.8 fl 80.0-96.0 Above high normal [facility] ([facility]) Mean Corpuscular Hemoglobin 31.9 pg 27.0-33.0 Norm al (applies to non-numeric results) [facility]) Mean Corpuscular HGB Conc 32.3 g/dL 32.0-36.5 Normal (applies to non-numeric results) [facility] ([facility]) Platelet Count, Automated 173 10 150-450 Normal (applies to non-numeric results) [facility]) Red Cell Distribution Width 24.7 % 11.5-14.5 Above high normal [facility] ([facility]) [place]haw % 6.0 % 0.0-5.0 Above high normal [facility] ([facility]) Neutrophils % 86.1 % 36.0-66.0 Above high normal [facility] ([facility]) Lymph % 4.6 % 24.0-44.0 Below low normal [facility] ( [facility]) Immature Granulocyte % 3.0 % 0-3.0 Normal (applies to non-n umeric results) [facility] ([facility]) Baso % 0.2 % 0.0-1.0 Normal (applies to non-numeric resul ts) [facility] ([facility]) Eos % 0.1 % 0.0-3.0 Normal (applies to non-numeric resul ts) [facility] ([facility]) Neutrophils # 23.8 10 1.5-8.5 Above high normal [facility] ([facility]) Lymph # 1.3 10 1.5-5.0 Below low normal [facility] ( [facility]) Nucleated Red Blood Cell % 0.0 % 0-0 Normal (applies to n on-numeric results) [facility] ([facility]) [place]haw # 1.7 10 0.0-0.8 Above high normal [facility] ([facility]) Eos # 0.0 10 0.0-0.5 Normal (applies to non-numeric resul ts) [facility] ([facility]) Baso # 0.1 10 0.0-0.2 Normal (applies to non-numeric resul ts) [facility] ([facility]) ID Date Data Source [id number] 05/03/2020 07:29:00 AM EST [facility] ([facility]) Name Value Range Interpretation Code Description Data Jinny rce(s) Supporting Document(s) Prothrombin Time 17.3 s 12.5-14.3 Above high normal [facility] ([facility]) Inr 1.38 Normal (applies to non-numeric resul ts) [facility]) THERAPUTIC HUMAN INR VALUES INDICATIONS NORMAL RANGES PROPHYLAXIS/TREATMENT OF: VENOUS THROMBOSIS 2.0-3.0 PULMONARY EMBOLISM 2.0-3.0 PREVENTION OF SYSTEMIC EMBOLISM FROM: TISSUE HEART VALVES 2.0-3.0 ACUTE MYOCARDIAL INFARCTION 2.0-3.0 VALVULAR HEART DISEASE 2.0-3.0 ATRIAL FIBRILLATION 2.0-3.0 MECHANICAL VALVES(HIGH RISK) 2.5-3.5 RECURRENT MYOCARDIAL INFARCTION 2.5-3.5 ID Date Data Source [id number] 04/29/2020 02:48:00 PM EST [facility] ([facility]) Name Value Range Interpretation Code Description Data Jinny rce(s) Supporting Document(s) Prothrombin Time 17.5 s 12.5-14.3 Above high normal [facility] ([facility]) Inr 1.40 Normal (applies to non-numeric resul ts) [facility]) THERAPUTIC HUMAN INR VALUES INDICATIONS NORMAL RANGES PROPHYLAXIS/TREATMENT OF: VENOUS THROMBOSIS 2.0-3.0 PULMONARY EMBOLISM 2.0-3.0 PREVENTION OF SYSTEMIC EMBOLISM FROM: TISSUE HEART VALVES 2.0-3.0 ACUTE MYOCARDIAL INFARCTION 2.0-3.0 VALVULAR HEART DISEASE 2.0-3.0 ATRIAL FIBRILLATION 2.0-3.0 MECHANICAL VALVES(HIGH RISK) 2.5-3.5 RECURRENT MYOCARDIAL INFARCTION 2.5-3.5 ID Date Data Source [id number] 04/29/2020 02:48:00 PM EST [facility] ([facility]) Name Value Range Interpretation Code Description Data Jinny rce(s) Supporting Document(s) Blood Urea Nitrogen 21 mg/dL 7-18 Above high normal [facility]) Glucose, Fasting 106 mg/dL 70-100 Above high normal [facility] Glomerular Filtration Rate Laboratory test result Normal (applies to non- numeric results) [facility]) <content>Units are mL/min/1.73 m2</content>
<content></content>
<content>Chronic Kidney Disease Staging per NKF:</content>
<content></content>
<content>Stage I & II GFR >=60 Normal to Mildly Decreased</content>
<content>Stage III GFR 30- 59 Moderately Decreased</content>
<content>Stage IV GFR 15-29 Severely Decreased</content>
<content>Stage V GFR <15 Very Little GFR Left</content>
<content>ESRD GFR <15 on SOURCING MANAGER</content>
<content></content> Sodium Level 132 meq/L 136-145 Below low normal [facility]) Creatinine For GFR 0.96 mg/dL 0.70-1.30 Normal (applies to non -numeric results) [facility]) Chloride Level 101 meq/L 98-107 Normal (applies to non-numeric r esults) [facility]) Potassium Serum 3.6 meq/L 3.5-5.1 Normal (applies to non-numeric results) [facility]) Carbon Dioxide Level 23 meq/L 21-32 Normal (applies to non-num shanika results) [facility]) Anion Gap 8 meq/L 8-16 Normal (applies to non-numeric resul ts) [facility]) Calcium Level 8.6 mg/dL 8.5-10.1 Normal (applies to non-numeric re sults) [facility]) Ast/Sgot 104 U/L 7-37 Above high normal [facility] ([facility]) Alt/SGPT 79 U/L 12-78 Above high normal [facility] ([facility]) Alkaline Phosphatase 264 U/L 45-117 Above high normal [facility] ([facility]) Bilirubin,Total 18.1 mg/dL 0.2-1.0 Above upper panic limits [facility]) Testing was performed on an icteric spec imen. Albumin 2.4 GM/DL 3.2-5.2 Below low normal [facility] ( [facility]) Albumin/Globulin Ratio 0.6 Normal (applies to non-n umeric results) [facility] ([facility]) Total Protein 6.5 GM/DL 6.4-8.2 Normal (applies to non-numeric re sults) [facility] ([facility]) ID Date Data Source [id number] 04/29/2020 02:48:00 PM EST [facility] ([facility]) Name Value Range Interpretation Code Description Data Jinny rce(s) Supporting Document(s) Red Blood Count 3.03 10 4.30-6.10 Below low normal [facility] ([facility]) White Blood Count 16.4 10 4.0-10.0 Above high normal [facility] ([facility]) Hemoglobin 9.7 g/dL 13.5-17.5 Below low normal [facility] ( [facility]) Hematocrit 28.7 % 42.0-52.0 Below low normal [facility] ( [facility]) Mean Corpuscular Volume 94.7 fl 80.0-96.0 Normal ( applies to non-numeric results) [facility]) Mean Corpuscular HGB Conc 33.8 g/dL 32.0-36.5 Normal (applies to non-numeric results) [facility]) Mean Corpuscular Hemoglobin 32.0 pg 27.0-33.0 Norm al (applies to non-numeric results) [facility]) Platelet Count, Automated 124 10 150-450 Below low normal [facility] ([facility]) Neutrophils % 80.3 % 36.0-66.0 Above high normal [facility] ([facility]) Red Cell Distribution Width 24.0 % 11.5-14.5 Above high normal [facility] ([facility]) [place]haw % 8.7 % 0.0-5.0 Above high normal [facility] ([facility]) Lymph % 7.7 % 24.0-44.0 Below low normal [facility] Eos % 0.5 % 0.0-3.0 Normal (applies to non-numeric resul ts) [facility] ([facility]) Immature Granulocyte % 2.6 % 0-3.0 Normal (applies to non-n umeric results) [facility]) Baso % 0.2 % 0.0-1.0 Normal (applies to non-numeric resul ts) [facility] ([facility]) Neutrophils # 13.2 10 1.5-8.5 Above high normal [facility] ([facility]) Nucleated Red Blood Cell % 0.0 % 0-0 Normal (applies to n on-numeric results) [facility] ([facility]) Lymph # 1.3 10 1.5-5.0 Below low normal [facility] ( [facility]) [place]haw # 1.4 10 0.0-0.8 Above high normal [facility] Eos # 0.1 10 0.0-0.5 Normal (applies to non-numeric resul ts) [facility] ([facility]) Baso # 0.0 10 0.0-0.2 Normal (applies to non-numeric resul ts) [facility] ([facility]) ID Date Data Source [id number] 04/29/2020 02:48:00 PM EST [facility] ([facility]) Name Value Range Interpretation Code Description Data Jinny rce(s) Supporting Document(s) Hereditary Hemochromatosis Laboratory test result Normal (applies to non- numeric results) [facility]) NO MUTATION IDENTIFIED . Interpretation: This patient's sample was analyzed for the hereditary hemochromatosis (HH) mutations C282Y, H63D, S65C. No mutation was identified. The mutations analyzed by [facility] are most common in the population, and [...] analyses. . Reference: Thuan JS and Flo STONE. (2000). Renu Test 4:97-101. Sinai LENZ et al. (1999). AM J Prev Med 16:134-140. Teena Lunsford (2002). Lancet 360(5527):1673-81. Nuvia De Guzman et al. (2002). Blood Cells, Molecules. and Diseases. 29(3):418-432. Rocio Rivero et al. (2003). Renu Med. 5(1):1-8. Sinai ME et al. (2003). Renu Med. 5(4):304-10. . This test was developed and its performance characteristics determined by [employer]. It has not been cleared or approved by the Food and Drug Administration. . Genetic counselors are available for health care providers to discuss results at [phone]. . Jordon Jc, PhD, FACMG Pati Cunningham, PhD, FACMG Ekaterina Mantilla, PhD, FACMG Shilpa Pedraza, PhD, FACMG Leana Nj, PhD, FACMG Korey Macedo, PhD, FACMG Performed at: - Lab[address] [id number] [address] [facility] Coordinator: Yoav Mckeon MD, Phone: [phone] Performed at: [facility] [address] [place], [place] [address] [address] [facility] Coordinator: Michael Malagon [facility], Phone: [phone] ID Date Data Source [id number] 04/29/2020 02:45:00 PM EST [facility]) Name Value Range Interpretation Code Description Data Jinny rce(s) Supporting Document(s) Cytoplasmic Neutrop AB Anca-C Laboratory test result Normal (applies to non- numeric results) [facility]) Perinuclear AB Anca-P Laboratory test result Nor mal (applies to non-numeric results) [facility] ([facility], ) The presence of positive fluorescence ex hibiting P-ANCA or C-ANCA patterns alone is not specific for the diagnosis of Daniella's Granulomatosis (WG) or microscopic polyangiitis. Decisions about treatment should not be based solely on ANCA IFA results. The International ANCA Group Consensus recommends follow up testing of positive sera with both CO- 3 and MPO-ANCA enzyme immunoassays. As m any as 5% serum samples are positive only by EIA. Ref. AM J Clin Pathol 1999;111:507-513. Anca-Atypical Laboratory test result Normal (applies t o non-numeric results) [facility] ([facility], ) The atypical pANCA pattern has been obse rved in a significant percentage of patients with ulcerative colitis, primary sclerosing cholangitis and autoimmune hepatitis. Performed at: [address] [id number] [address] [facility] Coordinator: Yoav Mckeon MD, Phone: [phone] Procedure Social History Code Duration Value Status Description Data Source(s ) Smoking 11/10/2020 12:00:00 AM EDT Patient is a former smoker completed Patient is a former smoker [facility]) Vital Signs ID Date Data Source UNK Name Value Range Interpretation Code Description Data Source(s) Systolic blood pressure 93 mm[Hg] 93 mm[Hg] M [facility] ([facility]) Diastolic blood pressure 62 mm[Hg] 62 mm[Hg] [facility] ([facility]) Heart rate 69 /min 69 /min [facility]) Body temperature 98.4 [degF] 98.4 [degF] [facility]) Respiratory rate 16 /min 16 /min [facility] ( [facility]) Oxygen saturation in Arterial blood by Pulse oximetry 98 % 98 % [facility] Systolic blood pressure 118 mm[Hg] 118 mm[Hg] [facility] Diastolic blood pressure 68 mm[Hg] 68 mm[Hg] [facility] ([facility]) Heart rate 84 /min 84 /min [facility] ([facility]) Body height 67 [in_i] 67 [in_i] [facility] ([facility]) 5'7" Body weight 170.50 [lb_av] 170.50 [lb_av] [facility] ([facility]) Body mass index (BMI) [Ratio] 26.7 kg/m2 26.7 k g/m2 [facility] ([facility]) Oxygen saturation in Arterial blood by Pulse oximetry 97 % 97 % [facility] ([facility]) Body height 67 [in_i] 67 [in_i] [facility] ([facility], ) 5'7" Body weight 172.00 [lb_av] 172.00 [lb_av] [facility] ([facility], ) Body weight 78.019 kg 78.019 kg [facility] ([facility], ) Body surface area Derived from formula 1.90 m2 1.90 m2 [facility] ([facility], ) Body mass index (BMI) [Ratio] 26.9 kg/m2 26.9 k g/m2 [facility] ([facility], ) [place] body weight 148 [lb_av] 148 [lb_av] [facility] ([facility], ) Systolic blood pressure 107 mm[Hg] 107 mm[Hg] M [facility] ([facility], ) Diastolic blood pressure 55 mm[Hg] 55 mm[Hg] [facility] ([facility], ) Diastolic blood pressure 64 mm[Hg] 64 mm[Hg] [facility] ([facility], ) Systolic blood pressure 120 mm[Hg] 120 mm[Hg] M [facility] ([facility], ) Body height 67 [in_i] 67 [in_i] [facility] ([facility], ) 5'7" Body weight 164.00 [lb_av] 164.00 [lb_av] [facility] ([facility], ) Body surface area Derived from formula 1.86 m2 1.86 m2 [facility] ([facility]) Body mass index (BMI) [Ratio] 25.7 kg/m2 25.7 k g/m2 [facility]) [place] body weight 148 [lb_av] 148 [lb_av] [facility] ([facility]) Body weight 74.390 kg 74.390 kg [facility] ([facility]) Body height 67 [in_i] 67 [in_i] [facility] ([facility]) 5'7" Systolic blood pressure 104 mm[Hg] 104 mm[Hg] [facility] ([facility]) Heart rate 77 /min 77 /min [facility] ([facility]) Body temperature 97.8 [degF] 97.8 [degF] [facility] Respiratory rate 16 /min 16 /min [facility] ( [facility]) Oxygen saturation in Arterial blood by Pulse oximetry 97 % 97 % [facility] ([facility]) Body weight 157.12 [lb_av] 157.12 [lb_av] [facility] ([facility]) Body weight 71.272 kg 71.272 kg [facility] ([facility]) Body mass index (BMI) [Ratio] 24.6 kg/m2 24.6 k g/m2 [facility] ([facility]) Body surface area Derived from formula 1.83 m2 1.83 m2 [facility] ([facility]) Diastolic blood pressure 61 mm[Hg] 61 mm[Hg] [facility] ([facility]) Body temperature 97.8 [degF] 97.8 [degF] [facility] ([facility]) Body height 67 [in_i] 67 [in_i] [facility] ([facility]) 5'7" Body weight 158.00 [lb_av] 158.00 [lb_av] [facility] ([facility]) Body mass index (BMI) [Ratio] 24.7 kg/m2 24.7 k g/m2 [facility] ([facility]) Oxygen saturation in Arterial blood by Pulse oximetry 99 % 99 % [facility] ([facility]) Systolic blood pressure 132 mm[Hg] 132 mm[Hg] [facility] ([facility]) Diastolic blood pressure 75 mm[Hg] 75 mm[Hg] [facility] ([facility]) Heart rate 89 /min 89 /min [facility] ([facility]) Body weight 158.50 [lb_av] 158.50 [lb_av] [facility] ([facility]) Systolic blood pressure 136 mm[Hg] 136 mm[Hg] [facility] ([facility]) Diastolic blood pressure 80 mm[Hg] 80 mm[Hg] [facility] ([facility]) Heart rate 85 /min 85 /min [facility] ([facility]) Body temperature 96.7 [degF] 96.7 [degF] [facility] ([facility]) Body height 67.2 [in_i] 67.2 [in_i] [facility] ([facility]) 5'7.20" Body mass index (BMI) [Ratio] 24.7 kg/m2 24.7 k g/m2 [facility] ([facility]) Oxygen saturation in Arterial blood by Pulse oximetry 98 % 98 % [facility] ([facility]) Body height 67 [in_i] 67 [in_i] [facility] ([facility]) 5'7" Body weight 161.00 [lb_av] 161.00 [lb_av] [facility] T ([facility]) Body mass index (BMI) [Ratio] 25.2 kg/m2 25.2 k g/m2 [facility] ([facility]) [place] body weight 148 [lb_av] 148 [lb_av] [facility] ([facility]) Body weight 73.030 kg 73.030 kg [facility] ([facility]) Body surface area Derived from formula 1.84 m2 1.84 m2 [facility] ([facility]) Systolic blood pressure 138 mm[Hg] 138 mm[Hg] [facility] ([facility], ) Diastolic blood pressure 70 mm[Hg] 70 mm[Hg] [facility] ([facility], ) Body height 67 [in_i] 67 [in_i] [facility] ([facility], ) 5'7" Body weight 161.00 [lb_av] 161.00 [lb_av] [facility] ([facility]) Body mass index (BMI) [Ratio] 25.2 kg/m2 25.2 k g/m2 [facility] ([facility]) [place] body weight 148 [lb_av] 148 [lb_av] [facility] ([facility]) Body weight 73.030 kg 73.030 kg [facility] Body surface area Derived from formula 1.84 m2 1.84 m2 [facility] ([facility]) Systolic blood pressure 147 mm[Hg] 147 mm[Hg] [facility] ([facility]) Diastolic blood pressure 84 mm[Hg] 84 mm[Hg] [facility] Body height 67 [in_i] 67 [in_i] [facility] ([facility]) 5'7" Body weight 168.00 [lb_av] 168.00 [lb_av] [facility] ([facility]) Body mass index (BMI) [Ratio] 26.3 kg/m2 26.3 k g/m2 [facility] ([facility]) [place] body weight 148 [lb_av] 148 [lb_av] [facility] ([facility]) Body weight 76.205 kg 76.205 kg [facility] ([facility]) Body surface area Derived from formula 1.88 m2 1.88 m2 [facility] ([facility]) Body height 67 [in_i] 67 [in_i] [facility] 5'7" Body weight 168.00 [lb_av] 168.00 [lb_av] [facility] ([facility]) Body mass index (BMI) [Ratio] 26.3 kg/m2 26.3 k g/m2 [facility] ([facility]) [place] body weight 148 [lb_av] 148 [lb_av] [facility] ([facility]) Body weight 76.205 kg 76.205 kg [facility] Body surface area Derived from formula 1.88 m2 1.88 m2 [facility] ([facility]) Diastolic blood pressure 76 mm[Hg] 76 mm[Hg] [facility] ([facility]) Systolic blood pressure 154 mm[Hg] 154 mm[Hg] M [facility] ([facility]) Body height 67 [in_i] 67 [in_i] [facility] ([facility]) 5'7" Body weight 178.00 [lb_av] 178.00 [lb_av] [facility] ([facility]) Body mass index (BMI) [Ratio] 27.9 kg/m2 27.9 k g/m2 [facility] ([facility]) [place] body weight 148 [lb_av] 148 [lb_av] [facility] ([facility]) Body weight 80.741 kg 80.741 kg [facility] ([facility]) Body surface area Derived from formula 1.92 m2 1.92 m2 [facility] ([facility]) [place] body weight 148 [lb_av] 148 [lb_av] [facility] ([facility]) Body mass index (BMI) [Ratio] 28.2 kg/m2 28.2 k g/m2 [facility] ([facility]) Body weight 81.648 kg 81.648 kg [facility] ([facility]) Systolic blood pressure 164 mm[Hg] 164 mm[Hg] [facility] ([facility]) Diastolic blood pressure 94 mm[Hg] 94 mm[Hg] [facility] ([facility]) Body height 67 [in_i] 67 [in_i] [facility] ([facility]) 5'7" Body surface area Derived from formula 1.93 m2 1.93 m2 [facility] ([facility]) Body weight 180.00 [lb_av] 180.00 [lb_av] [facility] ([facility]) Body weight 82.555 kg 82.555 kg [facility] ([facility]) Systolic blood pressure 148 mm[Hg] 148 mm[Hg] [facility] ([facility]) Diastolic blood pressure 80 mm[Hg] 80 mm[Hg] [facility] ([facility]) Body height 67 [in_i] 67 [in_i] [facility] ([facility]) 5'7" Body weight 182.00 [lb_av] 182.00 [lb_av] [facility] ([facility]) Body mass index (BMI) [Ratio] 28.5 kg/m2 28.5 k g/m2 [facility] ([facility]) [place] body weight 148 [lb_av] 148 [lb_av] [facility] ([facility]) Body surface area Derived from formula 1.94 m2 1.94 m2 [facility] ([facility]) [place] body weight 148 [lb_av] 148 [lb_av] [facility] ([facility]) Body weight 86.184 kg 86.184 kg [facility] ([facility]) Body surface area Derived from formula 1.98 m2 1.98 m2 [facility] ([facility]) Systolic blood pressure 164 mm[Hg] 164 mm[Hg] [facility] Diastolic blood pressure 94 mm[Hg] 94 mm[Hg] [facility] ([facility]) Body height 67 [in_i] 67 [in_i] [facility] ([facility]) 5'7" Body weight 190.00 [lb_av] 190.00 [lb_av] [facility] ([facility]) Body mass index (BMI) [Ratio] 29.8 kg/m2 29.8 k g/m2 [facility] ([facility]) Systolic blood pressure 130 mm[Hg] 130 mm[Hg] [facility] ([facility]) Diastolic blood pressure 60 mm[Hg] 60 mm[Hg] [facility] ([facility]) Body height 67 [in_i] 67 [in_i] [facility] ([facility]) 5'7" Body weight 186.00 [lb_av] 186.00 [lb_av] [facility] ([facility]) Body mass index (BMI) [Ratio] 29.1 kg/m2 29.1 k g/m2 [facility] ([facility]) [place] body weight 148 [lb_av] 148 [lb_av] [facility] ([facility]) Body weight 84.370 kg 84.370 kg [facility] ([facility]) Body surface area Derived from formula 1.96 m2 1.96 m2 [facility] ([facility])
[2021-04-28] MEDS ORDERED: fentaNYL 100 MCG/2 ML INJECTION (J3010) As Ordered ONE (09:03)
--- NOTE | 2021-04-28 09:21 | ROOR ---
Patient Name: Hugo Lucero Procedure Date: 04/28/2021 8:59 AM Date of : 1970 Age: 50 Room: [facility] Gender: Male Note Status: Finalized Procedure: Upper GI endoscopy Indications: Cirrhosis with suspected esophageal varices, Follow-up of esophageal varices Providers: Alexey Caceres MD Referring MD: BRETT WEST MD Requesting Provider: Medicines: Monitored Anesthesia Care Complications: No immediate complications. Procedure: Pre-Anesthesia Assessment: - The heart rate, respiratory rate, oxygen saturations, blood pressure, adequacy of pulmonary ventilation, and response to care were monitored throughout the procedure. The Endoscope was introduced through the mouth, and advanced to the second part of duodenum. The upper GI endoscopy was accomplished without difficulty. The patient tolerated the procedure well. Findings: Grade I/II varices were found in the lower third of the esophagus. Two bands were successfully placed with complete eradication, resulting in deflation of varices. The exam was otherwise without abnormality. Impression: - Grade I/II non bleeding esophageal varices. Overall, significantly improved from prior exams. One varix was borderline grade II, this was completely eradicated. Banded. - The examination was otherwise normal. - No specimens collected. Recommendation: - Continue present medications. - Repeat upper endoscopy in 6 months for surveillance. Procedure Code(s): --- Professional --- 17195, Esophagogastroduodenoscopy, flexible, transoral; with band ligation of esophageal/gastric varices Diagnosis Code(s): --- Professional --- K74.60, Unspecified cirrhosis of liver I85.10, Secondary esophageal varices without bleeding CPT copyright 2019 [employer]. All rights reserved. The codes documented in this report are preliminary and upon locks tender review may be revised to meet current compliance requirements. Alexey Caceres MD Alexey Caceres MD 04/28/2021 9:21:10 AM Electronically signed by Alexey Caceres MD Number of Addenda: 0 Note Initiated On: 04/28/2021 8:59 AM Estimated Blood Loss: Estimated blood loss: none.
[2021-04-28 09:45] VITALS: BP 142/81
== END 2021-04-28 10:00 | disposition home or self-care (01) ==
LOC: M OPP 07:54
PROVIDERS: ATTEND Internal Medicine Gastroenterology
DX: K74.60 Unspecified cirrhosis of liver (principal); I85.10 Secondary esophageal varices without bleeding; E11.9 Type 2 diabetes mellitus without complications; G47.30 Sleep apnea, unspecified; Z79.4 Long term (current) use of insulin; Z79.899 Other long term (current) drug therapy; F17.210 Nicotine dependence, cigarettes, uncomplicated
CPT/HCPCS: 43244; J3010

== ENCOUNTER → 2021-04-29 | Outpatient (CLI) | payer OTHER ==
[~2021-04-29] MED LIST changes: -LIDOCAINE 2% 100MG/5ML SDV (FOR ANES.) As Ordered ONE; -propofoL 200 MG/20 ML VIAL As Ordered ONE
[2021-04-29 14:57] LABS: BASO % 0.2 % (0.0-1.0); EOS # 0.2 10^3/uL (0.0-0.5); EOS % 2.4 % (0.0-3.0); HEMATOCRIT 35.3 % (42.0-52.0); LYMPH # 1.6 10^3/uL (1.5-5.0); LYMPH % 23.6 % (24.0-44.0); MEAN CORPUSCULAR HEMOGLOBIN 26.4 pg (27.0-33.0); MEAN CORPUSCULAR HGB CONC 31.2 g/dl (32.0-36.5); MEAN CORPUSCULAR VOLUME 84.9 fl (80.0-96.0); MONO % 14.9 % (2.0-8.0); NEUTROPHILS # 3.9 10^3/uL (1.5-8.5); NEUTROPHILS % 58.6 % (36.0-66.0); PLATELET COUNT, AUTOMATED 100 10^3/uL (150-450); RED BLOOD COUNT 4.16 10^6/uL (4.30-6.10); WHITE BLOOD COUNT 6.6 10^3/uL (4.0-10.0)
[2021-04-29 15:22] LABS: ALBUMIN 3.5 GM/DL (3.2-5.2); ALT/SGPT 50 U/L (12-78); BILIRUBIN,DIRECT 0.4 MG/DL (0.0-0.2); BILIRUBIN,TOTAL 1.1 MG/DL (0.2-1.0); BLOOD UREA NITROGEN 14 MG/DL (7-18); CALCIUM LEVEL 9.6 MG/DL (8.5-10.1); CARBON DIOXIDE LEVEL 27 MEQ/L (21-32); CHLORIDE LEVEL 106 MEQ/L (98-107); CREATININE FOR GFR 0.88 MG/DL (0.70-1.30); GLOMERULAR FILTRATION RATE > 60.0 (>60); GLUCOSE, FASTING 92 MG/DL (70-100); POTASSIUM SERUM 3.9 MEQ/L (3.5-5.1); SODIUM LEVEL 138 MEQ/L (136-145); TOTAL PROTEIN 7.2 GM/DL (6.4-8.2)
== END ==
LOC: M LAB 14:31
PROVIDERS: ATTEND Internal Medicine Gastroenterology
DX: K70.31 Alcoholic cirrhosis of liver with ascites (principal); I85.00 Esophageal varices without bleeding

== ENCOUNTER 2021-07-08 12:15 | Day surgery (SDC) | payer OTHER ==
[~2021-07-08] VITALS: Ht 172.7 cm; Wt 83.4 kg
[~2021-07-08 12:15] MED LIST changes: +HYDR50TA70 PO; +LIDO1ADH TP; +LISI2.5T9 PO; +LOSA50TA28 PO; -LOSA50TA88 PO; +NS 1,000 ML IV ONE; +ZETI10TA16 PO; +ZOLO50TA PO
[2021-07-08] MEDS ORDERED: GLYCOPYRROLATE INJ 0.2 MG/ML 2 ML VIAL As Ordered ONE (12:45)
[2021-07-08] MEDS ORDERED: LIDOCAINE 2% 100MG/5ML SDV (FOR ANES.) As Ordered ONE (12:45)
[2021-07-08] MEDS ORDERED: propofoL 500 MG/50 ML VIAL As Ordered ONE (12:45)
[2021-07-08] MEDS ORDERED: ePHEDrine SULFATE 25 MG/5 ML(5MG/ML) SYRINGE As Ordered ONE (13:14)
[2021-07-08 13:55] VITALS: BP 116/64
== END 2021-07-08 14:15 | disposition home or self-care (01) ==
LOC: M OPP 12:15
PROVIDERS: ATTEND Internal Medicine Gastroenterology
DX: K31.89 Other diseases of stomach and duodenum (principal); K76.6 Portal hypertension; K74.60 Unspecified cirrhosis of liver; I85.10 Secondary esophageal varices without bleeding; K70.11 Alcoholic hepatitis with ascites; Z79.4 Long term (current) use of insulin; Z79.899 Other long term (current) drug therapy; F10.21 Alcohol dependence, in remission; F17.290 Nicotine dependence, other tobacco product, uncomplicated